=== PATIENT | male | born 1940 | race Caucasian/White ===

== ENCOUNTER 2017-11-11 19:44 | Emergency (ER) | payer OTHER ==
[2017-11-11] MEDS ORDERED: HYDROCODONE/APAP 7.5/325 MG TAB ONE (23:27)
[2017-11-12 00:43] LABS: Absolute Lymphocytes (CBC) 2.1 K/uL (0.7-4.9); Absolute Neutrophil 7.4 K/uL (1.8-8.0); Basophils % 0.8 % (0-1.3); Eosinophils % 2.9 % (0-4.4); Hematocrit 33.3 % (39.6-49.0); MCH 25.5 pg (27.0-35.0); MCV 81.9 fL (80-100); Monocytes % 9.6 % (3.3-12.3); RBC Red Blood Cell Count 4.06 M/uL (4.33-5.43)
[2017-11-12 00:46] LABS: Potassium 4.6 mEq/L (3.6-5.0)
[2017-11-12 00:49] LABS: Magnesium 2.2 mg/dL (1.8-2.5)
--- NOTE | 2017-11-12 01:35 | ER ---
Nurse's Notes [facility] Name: Stephan Lewis Jr Age: 77 yrs Sex: Male : 1940 Arrival Date: 11/11/2017 Time: 19:47 Bed 17 Private MD: Diagnosis: Osteoarthritis of knee;Monoarthritis, not elsewhere classified, left knee Presentation: 11/11 20:12 Presenting complaint: Patient states: Left knee pain for 1 month, worse today. aj Transition of care: patient was not received from another setting of care. Onset of symptoms was October 10, 2017. Care prior to arrival: None. 20:12 Method Of Arrival: Wheelchair aj 20:12 Acuity: ANASTASIA 4 aj 21:43 Initial Sepsis Screen: Does the patient meet any 2 criteria? No. Patient's initial ea sepsis screen is negative. Does the patient have a suspected source of infection? No. Patient's initial sepsis screen is negative. Triage Assessment: 20:14 General: Appears in no apparent distress. comfortable, Behavior is calm, cooperative, aj appropriate for age. Pain: Complains of pain in left knee Pain currently is 8 out of 10 on a pain scale. Neuro: Level of Consciousness is awake, alert, obeys commands, Oriented to person, place, time, situation, Appropriate for age. Respiratory: Airway is patent Respiratory effort is even, unlabored, Respiratory pattern is regular, symmetrical. Derm: Skin is intact, is healthy with good turgor, Skin is pink, warm \T\ dry. normal. Musculoskeletal: Range of motion: limited in left knee Swelling present in left knee. Historical: - Allergies: 20:14 Sulfa (Sulfonamide Antibiotics); aj - Home Meds: 20:14 amitriptyline 25 mg Oral tab 1 tab once daily [Active]; amlodipine 10 mg tab 1 tab once aj daily [Active]; aspirin 81 mg Oral TbEC 1 tab once daily [Active]; atorvastatin 20 mg Oral tab 1 tab once daily [Active]; furosemide 20 mg Oral tab 1 tab 2 times per day [Active]; gabapentin 300 mg Oral cap 1 cap 3 times per day [Active]; insulin aspart subcutaneous 60 unit three times a day [Active]; insulin detemir subcutaneous 60units sq every morning, 50units sq every evening [Active]; lidocaine 5% patch [Active]; lisinopril 20 mg Oral tab 1 tab once daily [Active]; metformin 1,000 mg Oral tab 1 tab 2 times per day [Active]; metoprolol tartrate 50 mg Oral tab once daily [Active]; tamsulosin 0.4 mg Oral cp24 2 caps once daily [Active]; Warfarin Oral [Active]; - PMHx: 20:14 Cererbral aneurysm, non-ruptured (2009); CHF; COPD; Depression; Diabetes - IDDM; aj Dysmetabolic syndrome X; Hyperlipidemia; Hypertension; neuropathy; PAD; rotator cuff tear; - Immunization history:: Adult Immunizations up to date. - Social history:: Smoking status: Patient/guardian denies using tobacco. - Family history:: not pertinent. - Hospitalizations: : No recent hospitalization is reported. - History obtained from: friend. Screenin:38 Abuse screen: Denies threats or abuse. Nutritional screening: No deficits noted. ea Tuberculosis screening: No symptoms or risk factors identified. Fall Risk None identified. Assessment: 20:43 General: Appears uncomfortable, Behavior is calm, cooperative. Pain: Complains of pain ea in left leg and left knee Pain currently is 8 out of 10 on a pain scale. Quality of pain is described as aching. Neuro: Level of Consciousness is awake, alert, obeys commands, Oriented to person, place, time, situation. Cardiovascular: Heart tones S1 S2 present Patient's skin is warm and dry. Respiratory: Airway is patent Respiratory effort is even, unlabored, Respiratory pattern is regular, symmetrical, Breath sounds are coarse bilaterally. GI: Abdomen is round obese, Bowel sounds present X 4 quads. Abd is soft and non tender X 4 quads. : No signs and/or symptoms were reported regarding the genitourinary system. EENT: No signs and/or symptoms were reported regarding the EENT system. Derm: pitting edema noted to ramone lower extremities, weeping noted. 21:25 Reassessment: Patient and/or family updated on plan of care and expected duration. Pain ea level reassessed. Patient is alert, oriented x 3, equal unlabored respirations, skin warm/dry/pink. 22:55 Reassessment: Patient and/or family updated on plan of care and expected duration. Pain ea level reassessed. Patient is alert, oriented x 3, equal unlabored respirations, skin warm/dry/pink. 23:50 Reassessment: Patient and/or family updated on plan of care and expected duration. Pain ea level reassessed. Patient is alert, oriented x 3, equal unlabored respirations, skin warm/dry/pink. 11/12 00:30 Reassessment: Patient and/or family updated on plan of care and expected duration. Pain ea level reassessed. Patient is alert, oriented x 3, equal unlabored respirations, skin warm/dry/pink. 01:55 Reassessment: Patient and/or family updated on plan of care and expected duration. Pain ea level reassessed. Patient is alert, oriented x 3, equal unlabored respirations, skin warm/dry/pink. 02:00 Reassessment: Patient and/or family updated on plan of care and expected duration. Pain ea level reassessed. Patient is alert, oriented x 3, equal unlabored respirations, skin warm/dry/pink. discharge instructions given to patient and family, verbalized the understanding of instruction. Vital Signs: 11/11 20:14 BP 112 / 49; Pulse 62; Resp 19; Temp 97.5; Pulse Ox 97% on R/A; Weight 131.54 kg; aj Height 5 ft. 8 in. (172.72 cm); Pain 7/10; 21:00 BP 118 / 44; Pulse 54; Resp 20; Pulse Ox 97% ; ea 22:32 BP 119 / 51; Pulse 62; Resp 18; Pulse Ox 98% ; ea 11/12 00:50 BP 120 / 50; Pulse 60; Resp 18 S; Pulse Ox 99% ; ea 01:55 BP 130 / 60; Pulse 58; Resp 18; Pulse Ox 98% on R/A; ea 11/11 20:14 Body Mass Index 44.09 (131.54 kg, 172.72 cm) aj ED Course: 11/11 19:47 Patient arrived in ED. ds1 20:13 Triage completed. aj 20:14 Arm band placed on left wrist. Patient placed in an exam room. aj 20:19 Lyudmila James FNP is PHCP. kav 20:19 Finn Thomas MD is Attending Physician. kav 20:35 Hui Rome, JOSUE is Primary Nurse. ea 20:43 Patient has correct armband on for positive identification. Bed in low position. Call ea light in reach. Side rails up X2. 23:37 Knee Left 3 View In Process Unspecified. EDMS 11/12 01:33 Luis Lindsey MD is Referral Physician. kav 02:04 No provider procedures requiring assistance completed. IV discontinued, intact, ea bleeding controlled, No redness/swelling at site. Pressure dressing applied. Administered Medications: 01:00 Drug: Willis (7.5 mg-325 mg) 1 tabs Route: PO; ea 01:50 Follow up: Response: No adverse reaction; Pain is decreased ea Outcome: 01:34 Discharge ordered by MD. kav 02:04 Discharged to home via wheelchair, with family. ea 02:04 Condition: improved 02:04 Discharge instructions given to patient, Instructed on discharge instructions, follow up and referral plans. Demonstrated understanding of instructions, follow-up care. 02:05 Patient left the ED. ea Signatures: Dispatcher [employer] EDDC Catalina Vazquez, RN RN Lyudmila Valdes, NURSE CHEMICAL DEPENDENCY NURSE CHEMICAL DEPENDENCY Alem Quevedo ds1 Hui Rome RN RN ea Corrections: (The following items were deleted from the chart) 11/11 21:58 20:43 Derm: Skin is pink, warm \T\ dry. ea ea
--- NOTE | 2017-11-12 01:35 | EDPHYS ---
Physician Documentation [facility] Name: Stephan Lewis Jr Age: 77 yrs Sex: Male : 1940 Arrival Date: 11/11/2017 Time: 19:47 Bed 17 Private MD: DARIEN Physician Finn Thomas HPI: 11/11 20:19 This 77 yrs old Male presents to ER via Wheelchair with complaints of Knee kav Pain - L, InQuicker Patient. 11/12 01:24 Onset: The symptoms/episode began/occurred 1 month(s) ago. The patient has experienced kav a previous episode, but today's symptoms are worse. The patient has not recently seen a physician. patient pmhx: left tka > 5 years ago. reports increased knee pain in the last month. unable to ambulate owing to "...knee pain". utilizes a rolling chair at home to "...get around". 01:28 The patient presents with pain, that is chronic. The complaints affect the left knee. kav Context: the patient is not able to bear weight, the patient is not able to ambulate. Modifying factors: The symptoms are alleviated by hydrocodone, the symptoms are aggravated by movement, weight bearing, bending knee. Associated signs and symptoms: The patient has no apparent associated signs or symptoms, Pertinent positives: Pertinent negatives calf tenderness, fever, nausea, numbness, rash, swelling, tingling, vomiting, warmth. Treatment prior to arrival includes: prescription medications, codeine. Historical: - Allergies: 11/11 20:14 Sulfa (Sulfonamide Antibiotics); - Home Meds: 20:14 amitriptyline 25 mg Oral tab 1 tab once daily [Active]; amlodipine 10 mg tab 1 tab once aj daily [Active]; aspirin 81 mg Oral TbEC 1 tab once daily [Active]; atorvastatin 20 mg Oral tab 1 tab once daily [Active]; furosemide 20 mg Oral tab 1 tab 2 times per day [Active]; gabapentin 300 mg Oral cap 1 cap 3 times per day [Active]; insulin aspart subcutaneous 60 unit three times a day [Active]; insulin detemir subcutaneous 60units sq every morning, 50units sq every evening [Active]; lidocaine 5% patch [Active]; lisinopril 20 mg Oral tab 1 tab once daily [Active]; metformin 1,000 mg Oral tab 1 tab 2 times per day [Active]; metoprolol tartrate 50 mg Oral tab once daily [Active]; tamsulosin 0.4 mg Oral cp24 2 caps once daily [Active]; Warfarin Oral [Active]; - PMHx: 20:14 Cererbral aneurysm, non-ruptured (2009); CHF; COPD; Depression; Diabetes - IDDM; aj Dysmetabolic syndrome X; Hyperlipidemia; Hypertension; neuropathy; PAD; rotator cuff tear; - Immunization history:: Adult Immunizations up to date. - Social history:: Smoking status: Patient/guardian denies using tobacco. - Family history:: not pertinent. - Hospitalizations: : No recent hospitalization is reported. - History obtained from: friend. ROS: 11/12 01:28 Constitutional: Negative for fever, chills, and weight loss, Eyes: Negative for injury, kav pain, redness, and discharge, ENT: Negative for injury, pain, and discharge, Neck: Negative for injury, pain, and swelling, Cardiovascular: Negative for chest pain, palpitations, and edema, Respiratory: Negative for shortness of breath, cough, wheezing, and pleuritic chest pain, Abdomen/GI: Negative for abdominal pain, nausea, vomiting, diarrhea, and constipation, Back: Negative for injury and pain, : Negative for injury, bleeding, discharge, and swelling, Skin: Negative for injury, rash, and discoloration, Neuro: Negative for headache, weakness, numbness, tingling, and seizure, Psych: Negative for depression, anxiety, suicide ideation, homicidal ideation, and hallucinations, Allergy/Immunology: Negative for hives, rash, and allergies, Endocrine: Negative for neck swelling, polydipsia, polyuria, polyphagia, and marked weight changes. MS/extremity: Positive for pain, of the left knee. Exam: 01:28 Constitutional: This is a well developed, well nourished patient who is awake, alert, kav and in no acute distress. Head/Face: Normocephalic, atraumatic. Eyes: Pupils equal round and reactive to light, extra-ocular motions intact. Lids and lashes normal. Conjunctiva and sclera are non-icteric and not injected. Cornea within normal limits. Periorbital areas with no swelling, redness, or edema. ENT: Nares patent. No nasal discharge, no septal abnormalities noted. Tympanic membranes are normal and external auditory canals are clear. Oropharynx with no redness, swelling, or masses, exudates, or evidence of obstruction, uvula midline. Mucous membranes moist. Neck: Trachea midline, no thyromegaly or masses palpated, and no cervical lymphadenopathy. Supple, full range of motion without nuchal rigidity, or vertebral point tenderness. No Meningismus. Chest/axilla: Normal chest wall appearance and motion. Nontender with no deformity. No lesions are appreciated. Cardiovascular: Regular rate and rhythm with a normal S1 and S2. No gallops, murmurs, or rubs. Normal PMI, no JVD. No pulse deficits. Respiratory: Lungs have equal breath sounds bilaterally, clear to auscultation and percussion. No rales, rhonchi or wheezes noted. No increased work of breathing, no retractions or nasal flaring. Abdomen/GI: Soft, non-tender, with normal bowel sounds. No distension or tympany. No guarding or rebound. No evidence of tenderness throughout. Back: No spinal tenderness. No costovertebral tenderness. Full range of motion. Male : Normal genitalia with no discharge or lesions. Skin: Warm, dry with normal turgor. Normal color with no rashes, no lesions, and no evidence of cellulitis. Neuro: Awake and alert, GCS 15, oriented to person, place, time, and situation. Cranial nerves II-XII grossly intact. Motor strength 5/5 in all extremities. Sensory grossly intact. Cerebellar exam normal. Normal gait. Psych: Awake, alert, with orientation to person, place and time. Behavior, mood, and affect are within normal limits. 01:28 Musculoskeletal/extremity: Extremities: noted in the left knee: pain, ROM: limited active range of motion, in the left knee, Circulation is intact in all extremities. Sensation intact. Joints: the left knee displays limited range of motion, painful range of motion, Tendon exam: specific tendon testing normal through active and passive range of motion DVT Exam: No signs of deep vein thrombosis. Calves: are non-tender. Vital Signs: 11/11 20:14 BP 112 / 49; Pulse 62; Resp 19; Temp 97.5; Pulse Ox 97% on R/A; Weight 131.54 kg; aj Height 5 ft. 8 in. (172.72 cm); Pain 7/10; 21:00 BP 118 / 44; Pulse 54; Resp 20; Pulse Ox 97% ; ea 22:32 BP 119 / 51; Pulse 62; Resp 18; Pulse Ox 98% ; ea 11/12 00:50 BP 120 / 50; Pulse 60; Resp 18 S; Pulse Ox 99% ; ea 01:55 BP 130 / 60; Pulse 58; Resp 18; Pulse Ox 98% on R/A; ea 11/11 20:14 Body Mass Index 44.09 (131.54 kg, 172.72 cm) aj MDM: 11/11 20:19 Medical screening is not applicable. [facility] 11/12 01:28 Data reviewed: vital signs, nurses notes, lab test result(s), radiologic studies, plain kav films. 11/11 23:16 Order name: Basic Metabolic Panel; Complete Time: 00:55 [facility] 11/12 00:56 Interpretation: CA 8.4; CRE 1.42; BUN 38; GFR 48. [facility] 11/11 23:16 Order name: CBC with Diff; Complete Time: 00:55 [facility] 11/12 00:56 Interpretation: Normal except: RBC 4.06; HGB 10.4; HCT 33.3; MCH 25.5; MCHC 31.1; RDW kav 17.4. 11/11 23:16 Order name: CPK; Complete Time: 00:55 [facility] 11/12 00:56 Interpretation: Within normal limits. [facility] 11/11 23:16 Order name: Magnesium; Complete Time: 00:55 [facility] 11/12 00:56 Interpretation: Within normal limits. [facility] 11/12 01:15 Order name: Urine Dipstick--Ancillary (enter results) eb 11/11 23:16 Order name: Cardiac monitoring; Complete Time: 00:07 [facility] 11/11 23:16 Order name: IV Saline Lock; Complete Time: 00:07 [facility] 11/11 23:16 Order name: Labs collected and sent; Complete Time: 00:08 [facility] 11/11 23:16 Order name: O2 Per Protocol; Complete Time: 00:08 [facility] 11/11 23:16 Order name: O2 Sat Monitoring; Complete Time: 00:08 [facility] 11/11 23:16 Order name: Urine Dipstick-Ancillary (obtain specimen); Complete Time: 01:13 [facility] 11/11 23:37 Order name: Knee Left 3 View EDMS Administered Medications: 01:00 Drug: [place] (7.5 mg-325 mg) 1 tabs Route: PO; ea 01:50 Follow up: Response: No adverse reaction; Pain is decreased ea Disposition: 06:41 Co-signature as Attending Physician, Finn Thomas MD I agree with the assessment and indy plan of care. Disposition: 11/12/17 01:34 Discharged to Home. Impression: Osteoarthritis of knee, Monoarthritis, not elsewhere classified, left knee. - Condition is Stable. - Discharge Instructions: Arthritis, Nonspecific, [id number], Knee Pain, [id number]. - Medication Reconciliation Form, Thank You Letter, Antibiotic Education, Prescription Opioid Use, Family Work Release form. - Follow up: Luis Lindsey MD; When: 2 - 3 days; Reason: Recheck today's complaints, Continuance of care, Re-evaluation by your physician. - Problem is chronic. - Symptoms have improved. - Notes: continue to take currently prescribed pain medications for pain: tramadol 50 mg po q 8 hr consider home health for rehabilitation Signatures: Dispatcher [employer] EDAZ Catalina Vazquez, RN Finn Sutherland MD MD cha Vern, Katherine, MEDICAL OFFICE TECHNICIAN MEDICAL OFFICE TECHNICIAN Hui Fox RN RN ea Corrections: (The following items were deleted from the chart) 11/11 23:37 23:17 Knee Right 3 View+RAD.RAD.BRZ ordered. EDAZ EDAZ 11/12 00:56 00:55 Normal except: CA 8.4; CRE 1.42; BUN 38. kav kapal 02:05 01:34 11/12/2017 01:34 Discharged to Home. Impression: Osteoarthritis of knee; ea Monoarthritis, not elsewhere classified, left knee. Condition is Stable. Forms are Medication Reconciliation Form, Thank You Letter, Antibiotic Education, Prescription Opioid Use. Follow up: Luis Lindsey; When: 2 - 3 days; Reason: Recheck today's complaints, Continuance of care, Re-evaluation by your physician. Problem is chronic. Symptoms have improved. kav
[2017-11-12 02:20] VITALS: TEMP 97.5
[2017-11-12 02:22] VITALS: BP 119/51; O2SAT 98
[2017-11-12 02:57] LABS: Urine Blood 1+ (NEG); Urine Glucose NEGATIVE (NEG); Urine Protein NEGATIVE (NEG); Urine pH 5.5 (5.0-7.0)
--- NOTE | 2017-11-12 11:10 | RAD REPORT ---
EXAM DESCRIPTION: RAD - Knee Left 3 View - 11/11/2017 11:44 pm CLINICAL HISTORY: Left knee pain FINDINGS: No fracture or dislocation is seen. The bones are osteoporotic. Mild medial joint space narrowing is present. There is diffuse edema within the subcutaneous tissues
== END 2017-11-12 02:05 | disposition home or self-care (01) ==
LOC: ER 19:44
DX: M17.12 Unilateral primary osteoarthritis, left knee (principal); M13.162 Monoarthritis, not elsewhere classified, left knee; Z88.2 Allergy status to sulfonamides; E11.9 Type 2 diabetes mellitus without complications; I10 Essential (primary) hypertension; E78.5 Hyperlipidemia, unspecified; J44.9 Chronic obstructive pulmonary disease, unspecified
CPT/HCPCS: 36415; 80048; 81003; 82550; 83735; 85025; 99283

== ENCOUNTER 2017-11-30 06:19 | Day surgery (SDC) | payer OTHER ==
[2017-11-30] MEDS: CYCLOPENTOLATE 2% OPTH 2 ML ONE ×3 (06:45→07:15)
[2017-11-30] MEDS: TROPICAMIDE 1% OPTH 3 ML BOT ONE ×3 (06:45→07:15)
[2017-11-30] MEDS: PHENYLEPHRINE 10% OPTH 5ML ONE ×3 (06:45→07:15)
[2017-11-30] MEDS: MOXIFLOXACIN HCL 0.5% 3ML OPTH OPTH ONE ×3 (06:45→07:15)
[2017-11-30] MEDS ORDERED: NA CHLORIDE 0.9% 1,000 ML ONE (06:49)
[2017-11-30] MEDS: KETOROLAC OPTHALMIC 5 ML BOT ONE ×3 (06:55→07:25)
[2017-11-30] MEDS ORDERED: ALBUTEROL 2.5 MG/3 ML NEB SOL ONE (07:04)
[2017-11-30] MEDS ORDERED: BSS OPTHALMIC SOL 15 ML BOT OPTH ONE (07:06)
[2017-11-30] MEDS ORDERED: BALANCED SALT IRRIG PLAIN 500 ML BTL IRR ONE (07:06)
[2017-11-30] MEDS ORDERED: TOBRADEX 0.3-0.1% OPTH OINTMENT ONE (07:06)
[2017-11-30] MEDS ORDERED: POVIDONE-IODINE 5% EYE DROPS ONE (07:06)
[2017-11-30] MEDS ORDERED: DUOVISC 1 KIT OPTH ONE ×2 (07:07→08:38)
[2017-11-30] MEDS ORDERED: EPINEPHRINE/PF 1 MG/ML AMP ONE (07:10)
[2017-11-30] MEDS ORDERED: PROPOFOL 200 MG/20 ML VIAL IV ONE (07:26)
[2017-11-30] MEDS ORDERED: FENTANYL CITR 100 MCG/2 ML ONE ×2 (07:27→08:52)
[2017-11-30] MEDS ORDERED: MIDAZOLAM HCL 2 MG/2 ML INJ ONE (07:27)
[2017-11-30] MEDS ORDERED: ONDANSETRON HCL 40 MG/20 ML VIAL ONE (07:27)
[2017-11-30] MEDS ORDERED: EPHEDRINE SULF 50 MG/5 ML SYR ONE ×2 (08:26→08:45)
[2017-11-30 09:26] VITALS: O2SAT 95
[2017-11-30 10:40] VITALS: BP 89/55; TEMP 98
--- NOTE | 2017-11-30 19:19 | OP ---
Date of Procedure: 11/30/2017 Surgeon: Wilbert Paula MD Preoperative Diagnosis: Visually significant cataract, right eye. Postoperative Diagnosis: Visually significant cataract, right eye. Procedure Performed: Cataract extraction, right eye (complex) with iris hooks and placement of Toric intraocular lens. Description Of Procedure: After being properly identified in the preoperative holding area and the 1 80 and 90 degree areas marked using a skin marker with the patient sitting upright. The patient was taken to the operating room where a time-out was performed. The patient was then placed under genera l anesthesia, and prepped and draped in normal sterile fashion. Examination of the eye underneath e operating microscope revealed the quadrant sexton that had been made in the preoperative holding are a as well as a poorly dilated pupil. Because of this, the decision to place iris hooks was made. A paracentesis wound was made nasally and the anterior chamber was filled with viscoelastic. Thereafte r Luna marker was used and lining up with our preoperative sexton. The Toric placement of 11 degree s was marked on the cornea using a steph Sinskey hook. Once this had been done, the additional incisi ons were made x4 in each of the 4 quadrants for placement of the iris hooks, which were then looped u nder the iris and drawn taut resulting in a square pupil, but large enough for us to do the surgery. The globe was grasped with a pair of 0.12 forceps and the main phaco incision made superiorly using a 2.75 mm keratome. A continuous curvilinear capsulorrhexis was created using a cystotome and comple puneet with Utrata forceps. Hydrodissection and hydrodelineation of the lens were carried out and the le ns was thereafter removed using a standard divide and conquer technique. Through the density of the lens, approximately 18 seconds of continuous dispersed energy was required and once all 4 quadrants h ad been removed, the phaco handpiece was exchanged for an irrigation aspiration handpiece. Once all the residual cortical material had been removed and the capsule polished, an Jose model [id number], jimenez r 22.5, diopter serial #[id number] was implanted into the capsular bag. This was then rotated into its position and the iris hooks were then removed one by one. The irrigation aspiration handpiece wa s then used to remove all remaining viscoelastic material and using equivalent hook to gently retract the iris. Confirmed the correct orientation of the Toric lens without preoperative sexton, which was in place. Because a small amount of iris prolapse superiorly, the decision was made to place a sing le 10-0 nylon suture, which was tied and then buried. The anterior chamber was then hydrated and anurag puneet, and found to be watertight. At which point, the procedure was concluded. The patient was taken to the postoperative holding area in stable condition having tolerated the procedure well. He was p ressure patched over TobraDex ointment. There were no complications. Estimated blood loss was less than 1 mL. He is to follow up with myself, Dr. Wilbert Paula, at the [facility] [place] tom morning. SHITALG/HALL Voice ID: [id number] Report ID: [id number]
== END 2017-11-30 10:35 | disposition home or self-care (01) ==
LOC: OR 06:19
PROVIDERS: ATTEND Ophthalmology
PROC: 08RJ3JZ Replacement of Right Lens with Synthetic Substitute, Percutaneous Approach (ICD-10-PCS; principal; 2017-11-30 07:30)
DX: H26.8 Other specified cataract (principal); J44.9 Chronic obstructive pulmonary disease, unspecified; E11.9 Type 2 diabetes mellitus without complications; I10 Essential (primary) hypertension; I25.10 Atherosclerotic heart disease of native coronary artery without angina pectoris; G47.33 Obstructive sleep apnea (adult) (pediatric); E66.01 Morbid (severe) obesity due to excess calories; Z68.41 Body mass index [BMI] 40.0-44.9, adult; Z95.1 Presence of aortocoronary bypass graft; Z88.2 Allergy status to sulfonamides
CPT/HCPCS: 66982; 82962 ×2; 94640; J0171; J2405; J3010; J7030; J2250; V2787

== ENCOUNTER 2018-01-04 06:25 | Day surgery (SDC) | payer OTHER ==
[2018-01-04] MEDS ORDERED: TOBRADEX 0.3-0.1% OPTH OINTMENT ONE (07:00)
[2018-01-04] MEDS ORDERED: BSS OPTHALMIC SOL 15 ML BOT OPTH ONE (07:00)
[2018-01-04] MEDS: PHENYLEPHRINE 10% OPTH 5ML ONE ×3 (07:00→07:30)
[2018-01-04] MEDS: CYCLOPENTOLATE 2% OPTH 2 ML ONE ×3 (07:00→07:30)
[2018-01-04] MEDS: MOXIFLOXACIN HCL 0.5% 3ML OPTH OPTH ONE ×3 (07:00→07:30)
[2018-01-04] MEDS ORDERED: BALANCED SALT IRRIG PLAIN 500 ML BTL IRR ONE (07:00)
[2018-01-04] MEDS ORDERED: DUOVISC 1 KIT OPTH ONE (07:01)
[2018-01-04] MEDS ORDERED: NA CHLORIDE 0.9% 1,000 ML ONE (07:01)
[2018-01-04] MEDS ORDERED: EPINEPHRINE/PF 1 MG/ML AMP ONE (07:01)
[2018-01-04] MEDS ORDERED: POVIDONE-IODINE 5% EYE DROPS ONE (07:02)
[2018-01-04] MEDS: KETOROLAC OPTHALMIC 5 ML BOT ONE ×3 (07:05→07:35)
[2018-01-04] MEDS: TROPICAMIDE 1% OPTH 3 ML BOT ONE ×3 (07:07→07:30)
[2018-01-04] MEDS ORDERED: LIDOCAINE 2% MPF 5 ML VIAL ONE (07:38)
[2018-01-04] MEDS ORDERED: PROPOFOL 200 MG/20 ML VIAL IV ONE (07:38)
[2018-01-04] MEDS ORDERED: FENTANYL CITR 100 MCG/2 ML ONE (07:39)
[2018-01-04] MEDS ORDERED: ONDANSETRON HCL 40 MG/20 ML VIAL ONE (07:40)
[2018-01-04] MEDS ORDERED: Phenylephrine HCl 10 MG/ML 1 ML VIAL ONE ×3 (08:05→09:28)
[2018-01-04] MEDS ORDERED: EPHEDRINE SULF 50 MG/5 ML SYR ONE (08:08)
[2018-01-04] MEDS ORDERED: GLYCOPYRROLATE 0.2 MG/ML SYR ONE (08:15)
[2018-01-04] MEDS ORDERED: MEPERIDINE HCL 25 MG/0.5 ML ONE (08:20)
[2018-01-04] MEDS ORDERED: NS 0.9% VIAL 0 ML ONE (09:29)
[2018-01-04 12:06] VITALS: BP 86/31; TEMP 97.7; O2SAT 99
--- NOTE | 2018-01-04 14:29 | OP ---
Date of Procedure: 01/04/2018 Surgeon: Wilbert Paula MD Preoperative Diagnosis: Visually significant cataract, left eye with astigmatism. Postoperative Diagnosis: Visually significant cataract, left eye with astigmatism. Procedure Performed: Complex cataract extraction left eye with placement of 4 iris hooks secondary t o poor pupil dilation and placement of a Toric intraocular lens. Description Of Procedure: After being properly identified in the preoperative holding area, the jemma ent was taken back to the operating room where a time-out was performed. The patient was then preppe d and draped in the normal sterile fashion. Examination of the eye underneath the operating microsco pe revealed an extremely poor dilated pupil measuring only approximately 3-1/2 mm despite multiple ro unds of preoperative drops, therefore the decision to place iris hooks was made. Grasping the globe with a pair of 0.12 forceps, a paracentesis wound was made in the horizontal position at both 0 and 1 80 degrees and the anterior chamber filled with viscoelastic. An additional 4 paracentesis wounds we re made in order to accommodate each of the iris hooks, which were then hooked underneath the iris an d have it drawn taut. Even at this stage, it was obvious that the patient had an extremely thin and flimsy iris as two of the iris hooks when drawn taut prolapsed and protruded through the iris. When the hospital staff was questioned as to the possibility of Malyugin ring, I was told this was not joe ilable, and therefore the iris hooks were left in place and the procedure continued. Additional visc oelastic was added and the main phaco incision wound was made superiorly in a triplanar fashion using 2.75 mm keratome. A cystotome was then used to puncture the anterior capsule and a continuous curvi linear capsulorrhexis created using a cystotome and completed with Utrata forceps. Hydrodissection a nd hydrodelineation were carried out with a Vaughn cannula resulting in the lens having free nuclear r otation. The lens was thereafter removed using the standard [id number] technique and approxi mately 14 seconds of total CDE was required. Once all 4 quadrants had been removed, the phaco handpi chau was exchanged for bimanual irrigation aspiration handpieces and the residual cortex was removed a s well as a capsule citizen of [place] performed. The lens implant was an Jose model [id number], power 22.5 diopters , serial #[id number], was then loaded and injected into the capsular bag and rotated into position. Once this was in good position, the capsular hooks were removed and a bimanual irrigation aspiration handpiece was used to remove the viscoelastic. During the insertion of the intraocular lens, there was noted to be a flap of the Descemet's membrane extending superiorly, which was carefully avoided t hereafter and during irrigation aspiration was carefully avoided and was left in the place. Once mos t of the viscoelastic had been removed, I used a Kuglen hook to retract the iris and confirmed that t he alignment sexton were still with our preoperative sexton made with a Sinskey hook and Luna marker prior to any incisions being made and an air bubble was injected into the anterior chamber in order t o help press the loose Descemet's flap back into position and make it adherent. This was done with g ood apposition and no folds. All the wounds were hydrated, but because of the tendency for the super ior wound to prolapse as evidenced throughout the case, a single 10-0 nylon suture was placed with th e knot buried. Examination of the eye at the end of the case revealed a well formed anterior chamber with a round iris and the air bubble comprising approximately 60% fill filling watertight incision. The patient was then awoken from general anesthesia and patched over TobraDex ointment. He was take n to the postoperative holding area in stable condition having tolerated the procedure well. There w ere no complications with the exception of the Descemet's tears as described above. This patient patricia uld fully recover from it. No specimens were sen, no drains were placed, and the implant is as descr ibed above as well. The patient is to follow up with myself, Dr. Wilbert Paula at the [facility] tomorrow morning. SHITALG/HALL Voice ID: [id number] Report ID: [id number]
== END 2018-01-04 12:02 | disposition home or self-care (01) ==
LOC: OR 06:25
PROVIDERS: ATTEND Ophthalmology
PROC: 08RK3JZ Replacement of Left Lens with Synthetic Substitute, Percutaneous Approach (ICD-10-PCS; principal; 2018-01-04 07:30)
DX: H26.9 Unspecified cataract (principal); H52.202 Unspecified astigmatism, left eye
CPT/HCPCS: 66982; 82962 ×2; J0171; J2175; J2370 ×3; J2405; J3010; J7030; V2630; V2787

== ENCOUNTER 2018-02-19 10:06 | Inpatient (IN) | payer OTHER ==
[2018-02-19 11:16] LABS: Absolute Lymphocytes (CBC) 1.9 K/uL (0.7-4.9); Absolute Monocytes 1.3 K/uL (0.1-1.3); Absolute Neutrophil 13.7 K/uL (1.8-8.0); Eosinophils % 1.7 % (0-4.4); Hematocrit 36.5 % (39.6-49.0); MCH 27.1 pg (27.0-35.0); MCV 82.6 fL (80-100); MPV 8.5 fL (7.6-11.3); Monocytes % 7.4 % (3.3-12.3); RBC Red Blood Cell Count 4.42 M/uL (4.33-5.43)
[2018-02-19] MEDS ORDERED: FENTANYL CITR 100 MCG/2 ML ONE (11:22)
[2018-02-19] MEDS ORDERED: ONDANSETRON 4 MG/2 ML VIAL ONE (11:22)
--- NOTE | 2018-02-19 11:54 | RAD REPORT ---
EXAM DESCRIPTION: USEXTREM VENOUS W COMPRESS BIL02/19/2018 11:47 am CLINICAL HISTORY: Bilateral leg swelling COMPARISON: April 2017 FINDINGS: The common femoral, superficial femoral, popliteal and posterior tibial veins bilaterally are compressible and demonstrate augmentation. Doppler demonstrates good flow. A 2.3 centimeter fluid collection is present within the superior posterior right calf which may repre sent a small ruptured Becerra's cyst IMPRESSION: No evidence of deep venous thrombosis involving either lower extremity.
[2018-02-19 11:55] LABS: Potassium 4.5 mmol/L (3.5-5.1)
[2018-02-19] MEDS ORDERED: PIPER/TAZO/NS 3.375gm 3.375 GM/100 ML BAG ONE (11:56)
--- NOTE | 2018-02-19 12:28 | ER ---
Nurse's Notes [facility] Name: Stephan Lewis Jr Age: 77 yrs Sex: Male : 1940 Arrival Date: 02/19/2018 Time: 10:09 Bed 14 Private MD: Out, [facility] Diagnosis: CELLULITIS OF THE LOWER EXTREMITY Presentation: 02/19 10:21 Presenting complaint: Patient states: increased pain and drainage to wound to bilateral ss lower extremities 3-4 days. PT reports he is a patient at the [facility] and sees a home health nurse 3 times a week, but has not had any improvement. Transition of care: patient was not received from another setting of care. Onset of symptoms is unknown. Risk Assessment: Do you want to hurt yourself or someone else? Patient reports no desire to harm self or others. Initial Sepsis Screen: Does the patient meet any 2 criteria? RR > 20 per min. Does the patient have a suspected source of infection? Yes: Skin breakdown/wound. Care prior to arrival: None. 10:21 Method Of Arrival: Wheelchair ss 10:21 Acuity: ANASTASIA 3 ss Triage Assessment: 13:24 General: Appears uncomfortable, Behavior is cooperative. Pain: Complains of pain in sv right leg and left leg Pain currently is 10 out of 10 on a pain scale. Quality of pain is described as stabbing, tingling, Is intermittent. 13:24 EENT: No signs and/or symptoms were reported regarding the EENT system. Neuro: Level of sv Consciousness is awake, alert, obeys commands, Oriented to person, place, time, situation, Moves all extremities. Cardiovascular: Patient's skin is warm and dry. Edema is 3+ to left midcalf, left ankle, left foot, right midcalf, right ankle and right foot Rhythm is atrial fibrillation. Respiratory: Respiratory effort is even, unlabored, Respiratory pattern is regular, symmetrical. GI: No signs and/or symptoms were reported involving the gastrointestinal system. : No signs and/or symptoms were reported regarding the genitourinary system. Derm: Skin is normal, Redness noted to BLE, L>R. Weeping noted to BLE. Musculoskeletal: Range of motion: intact in all extremities. Historical: - Allergies: 10:23 Sulfa (Sulfonamide Antibiotics); ss - PMHx: 10:41 Cererbral aneurysm, non-ruptured (2009); CHF; COPD; Depression; Diabetes - IDDM; sv Dysmetabolic syndrome X; Hyperlipidemia; Hypertension; neuropathy; PAD; rotator cuff tear; bladder cancer; - Immunization history:: Adult Immunizations not up to date. - Social history:: Smoking status: Patient/guardian denies using tobacco, the patient reports quitting approximately 7 years ago. - Ebola Screening: : Patient denies exposure to infectious person Patient denies travel to an Ebola-affected area in the 21 days before illness onset. Screenin:22 Abuse screen: Denies threats or abuse. Nutritional screening: No deficits noted. sv Tuberculosis screening: No symptoms or risk factors identified. Fall Risk None identified. Assessment: 11:21 Reassessment: Patient appears in no apparent distress at this time. Patient and/or sv family updated on plan of care and expected duration. Pain level reassessed. Patient is alert, oriented x 3, equal unlabored respirations, skin warm/dry/pink. 12:35 Reassessment: Patient appears in no apparent distress at this time. Patient and/or rb1 family updated on plan of care and expected duration. Pain level reassessed. Patient is alert, oriented x 3, equal unlabored respirations, skin warm/dry/pink. Vital Signs: 10:19 Pulse 67; Resp 21; Temp 97.6(O); Pulse Ox 97% on R/A; Weight 129.73 kg; Height 5 ft. 8 ss in. (172.72 cm); Pain 10/10; 10:40 BP 112 / 48; Pulse 69; Resp 17; Pulse Ox 99% on 2 lpm NC; sv 11:00 BP 94 / 50; Pulse 69; Resp 21; Pulse Ox 100% on 2 lpm NC; sv 10:19 Body Mass Index 43.49 (129.73 kg, 172.72 cm) ED Course: 10:09 Patient arrived in ED. sb2 10:10 Out, of Town is Private Physician. sb2 10:19 Arm band placed on right wrist. ss 10:22 Triage completed. 10:26 Sony Rivera PA is PHCP. [facility] 10:26 Wolf Dangelo MD is Attending Physician. [facility] 10:29 Ofeila Salcido RN is Primary Nurse. sv 11:00 Initial lab(s) drawn, by me, sent to lab. First set of blood cultures drawn by me. sv Inserted saline lock: 20 gauge in right antecubital area, using aseptic technique. Blood collected. Flushed right antecubital with 5 ml normal saline. 11:15 Second set of blood cultures drawn by me. sv 11:45 Ultrasound completed. Patient tolerated well. aa4 11:45 US Extremity Venous W Compression Satya In Process Unspecified. EDMS 12:26 Edmundo Thomas DO is Hospitalizing Provider. jmm 13:22 Patient has correct armband on for positive identification. sv 13:22 No provider procedures requiring assistance completed. Patient admitted, IV remains in sv place. Administered Medications: 11:21 Drug: Zofran 4 mg Route: IVP; Site: right antecubital; sv 11:30 Follow up: Response: No adverse reaction sv 11:23 Drug: fentaNYL (PF) 25 mcg Route: IVP; Site: right antecubital; sv 19:02 Follow up: Response: No adverse reaction sv 12:35 Drug: Zosyn 3.375 grams Route: IVPB; Infused Over: 60 mins; Site: right antecubital; rb1 Outcome: 12:27 Decision to Hospitalize by Provider. jmm 13:22 Discharged to sv 13:22 Admitted to Med/surg accompanied by tech, via wheelchair, room 207, with oxygen, with chart, Report called to Liz SALAS 13:22 Condition: stable 13:22 Instructed on the need for admit. 13:28 Patient left the ED. sv Signatures: Dispatcher [employer] EDMS Ofelia Salcido RN RN Sony Rivera PA PA [facility] Catalina Nunez aa4 Meli Wren RN RN Debora Whalen, JOSUE RN rb1 Abigail Hernandez sb2 Corrections: (The following items were deleted from the chart) 11:30 10:40 BP 112 / 48; Pulse 69bpm; Resp 17bpm; Pulse Ox 99%; sv sv 16:31 13:24 Pain: Complains of pain in right leg and left leg sv sv
--- NOTE | 2018-02-19 12:28 | EDPHYS ---
Physician Documentation [facility] Name: Stephan Lewis Jr Age: 77 yrs Sex: Male : 1940 Arrival Date: 02/19/2018 Time: 10:09 Bed 14 Private MD: Out, [facility] ED Physician Wolf Dangelo HPI: 02/19 10:44 This 77 yrs old Male presents to ER via Wheelchair with complaints of Leg jmm Pain. 10:44 The patient presents with pain, swelling. The complaints affect the. Onset: The jmm symptoms/episode began/occurred gradually, 1 month(s) ago. This is a 77 year old male with a history of CHF, COPD, that presents to the ED with lower extremity swelling which has been chronic. Patient states he has developed progressively worsening redness and pain over the past month. The patient denies fever and chills. Denies increased shortness of breath. Patient states he has been admitted for IV antibiotics with similar symptoms. . Historical: - Allergies: 10:23 Sulfa (Sulfonamide Antibiotics); ss - PMHx: 10:41 Cererbral aneurysm, non-ruptured (2009); CHF; COPD; Depression; Diabetes - IDDM; sv Dysmetabolic syndrome X; Hyperlipidemia; Hypertension; neuropathy; PAD; rotator cuff tear; bladder cancer; - Immunization history:: Adult Immunizations not up to date. - Social history:: Smoking status: Patient/guardian denies using tobacco, the patient reports quitting approximately 7 years ago. - Ebola Screening: : Patient denies exposure to infectious person Patient denies travel to an Ebola-affected area in the 21 days before illness onset. ROS: 10:46 Constitutional: Negative for fever, chills, and weight loss, Cardiovascular: Negative jmm for chest pain, palpitations, and edema, Respiratory: Negative for shortness of breath, cough, wheezing, and pleuritic chest pain. 10:46 MS/extremity: Positive for erythema, pain, swelling. 10:46 Skin: Positive for erythema. 10:46 All other systems are negative. Exam: 10:46 Constitutional: This is a well developed, well nourished patient who is awake, alert, jmm and in no acute distress. Head/Face: atraumatic. Cardiovascular: Regular rate and rhythm. No edema appreciated Respiratory: Normal respirations, no respiratory distress appreciated 10:46 Musculoskeletal/extremity: erythema and induration noted to the left and right lower extremities, full dorsalis pulse appreciated bilaterally, compartments are soft, NVI. Ulcers noted to the left lower leg. Circumferential swelling is appreciated bilaterally. . Vital Signs: 10:19 Pulse 67; Resp 21; Temp 97.6(O); Pulse Ox 97% on R/A; Weight 129.73 kg; Height 5 ft. 8 ss in. (172.72 cm); Pain 10/10; 10:40 BP 112 / 48; Pulse 69; Resp 17; Pulse Ox 99% on 2 lpm NC; sv 11:00 BP 94 / 50; Pulse 69; Resp 21; Pulse Ox 100% on 2 lpm NC; sv 10:19 Body Mass Index 43.49 (129.73 kg, 172.72 cm) ss MDM: 10:40 Patient medically screened. [facility] 12: Data reviewed: vital signs, nurses notes, lab test result(s), radiologic studies, [facility] ultrasound. Counseling: I had a detailed discussion with the patient and/or guardian regarding: the historical points, exam findings, and any diagnostic results supporting the discharge/admit diagnosis, radiology results, the need for further work-up and treatment in the hospital. ED course: I discussed the patient with Dr. Thomas whom accepted admission. . 02/19 10:41 Order name: CBC with Diff; Complete Time: 11:42 [facility] 02/19 10:41 Order name: BMP; Complete Time: 11:57 [facility] 02/19 10:41 Order name: Blood Culture Adult (2) [facility] 02/19 10:41 Order name: Procalcitonin; Complete Time: 11:57 [facility] 02/19 12:49 Order name: T4 Free [facility] 02/19 12:49 Order name: Thyroid Stimulating Hormone [facility] 02/19 12:49 Order name: Basic Metabolic Panel [facility] 02/19 12:49 Order name: Basic Metabolic Panel [facility] 02/19 12:49 Order name: Basic Metabolic Panel [facility] 02/19 12:49 Order name: Basic Metabolic Panel [facility] 02/19 12:49 Order name: Basic Metabolic Panel [facility] 02/19 12:49 Order name: Basic Metabolic Panel [facility] 02/19 12:49 Order name: CBC with Automated Diff [facility] 02/19 12:49 Order name: CBC with Automated Diff EDMS 02/19 10:41 Order name: US Extremity Venous W Compression Satya; Complete Time: 11:57 jmm 02/19 12:49 Order name: Echo with Doppler EDMS 02/19 12:49 Order name: CBC with Automated Diff EDMS 02/19 12:49 Order name: CBC with Automated Diff EDMS 02/19 12:49 Order name: CBC with Automated Diff EDMS 02/19 12:49 Order name: CBC with Automated Diff EDMS 02/19 12:50 Order name: Lipid Profile EDMS 02/19 12:50 Order name: Lipid Profile EDMS 02/19 12:50 Order name: Magnesium EDMS 02/19 12:50 Order name: Magnesium EDMS 02/19 12:50 Order name: Magnesium EDMS 02/19 12:50 Order name: Magnesium EDMS 02/19 12:50 Order name: Magnesium EDMS 02/19 12:50 Order name: Magnesium EDMS 02/19 12:50 Order name: Wound Culture EDMS 02/19 12:50 Order name: Urinalysis EDMS 02/19 12:49 Order name: CONS Pharmacy Consult EDMS 02/19 12:49 Order name: CONS [facility] Cons EDMS 02/19 12:49 Order name: CONS Physician Consult EDMS 02/19 12:49 Order name: Heart Healthy EDMS 02/19 12:50 Order name: Respiratory Therapy Consult EDMS 02/19 12:50 Order name: Chest Pa And Lat (2 Views) EDMS Administered Medications: 11:21 Drug: Zofran 4 mg Route: IVP; Site: right antecubital; sv 11:30 Follow up: Response: No adverse reaction sv 11:23 Drug: fentaNYL (PF) 25 mcg Route: IVP; Site: right antecubital; sv 19:02 Follow up: Response: No adverse reaction sv 12:35 Drug: Zosyn 3.375 grams Route: IVPB; Infused Over: 60 mins; Site: right antecubital; rb1 Disposition: 02/19/18 12:27 Hospitalization ordered by Edmundo Thomas for Inpatient Admission. Preliminary diagnosis is CELLULITIS OF THE LOWER EXTREMITY. - Bed requested for Telemetry/MedSurg (Inpatient). - Status is Inpatient Admission. sv - Condition is Stable. - Problem is new. - Symptoms are unchanged. UTI on Admission? No Addendum: 02/21/2018 11:16 Co-signature as Attending Physician, Wolf Dangelo MD I agree with the assessment and w a plan of care. Signatures: Dispatcher [employer] Ofelia Chandra, JOSUE SALAS Sony Rivera PA PA [facility] Meli Wren RN RN Debora Whalne, JOSUE SALAS [facility] Tori Ross RN RN df Wolf Dangelo MD MD sd Corrections: (The following items were deleted from the chart) 02/19 12:58 12:27 Hospitalization Ordered by Edmundo Thomas DO for Inpatient Admission. Preliminary df diagnosis is CELLULITIS OF THE LOWER EXTREMITY. Bed requested for Telemetry/MedSurg (Inpatient). Status is Inpatient Admission. Condition is Stable. Problem is new. Symptoms are unchanged. UTI on Admission? No. [facility] 13:28 12:58 02/19/2018 12:27 Hospitalization Ordered by Edmundo Thomas DO for Inpatient sv Admission. Preliminary diagnosis is CELLULITIS OF THE LOWER EXTREMITY. Bed requested for Telemetry/MedSurg (Inpatient). Status is Inpatient Admission. Condition is Stable. Problem is new. Symptoms are unchanged. UTI on Admission? No. df 18:15 10:46 Musculoskeletal/extremity: erythema and induration noted to the left and right [facility] lower extremities, full dorsalis pulse appreciated bilaterally, compartments are soft, NVI. Ulcers noted to the left lower leg. Circumferential swelling is appreciated bilaterally. . [facility]
[2018-02-19] MEDS ORDERED: IPRATROPIUM BROM 0.5MG/2.5ML NEB PRN (12:38)
[2018-02-19] MEDS ORDERED: ACETAMINOPHEN 500 MG TAB PO PRN (12:38)
[2018-02-19] MEDS ORDERED: ALBUTEROL 2.5 MG/3 ML NEB SOL NEB PRN (12:38)
[2018-02-19] MEDS ORDERED: ONDANSETRON 4 MG/2 ML VIAL IV PRN (12:38)
[2018-02-19] MEDS ORDERED: GLUCAGON 1 MG/VIAL IM PRN (13:27)
[2018-02-19] MEDS ORDERED: D50W 25 GM/50 ML SYRINGE IV PRN (13:27)
--- NOTE | 2018-02-19 13:28 | P.HP ---
Certification for Inpatient Patient admitted to: Inpatient With expected LOS: >2 Midnights Patient will require the following post-hospital care: Other (Long-term acute care facility verses skilled placement) Practitioner: I am a practitioner with admitting privileges, knowledge of patient current condition, hospital course, and medical plan of care. Services: Services provided to patient in accordance with Admission requirements found in Title 42 Section 412.3 of the Code of Federal Regulations Patient History Date of Service: 02/19/18 Primary Care Provider: [facility] Reason for admission: Edema, erythema to the lower extremities History of Present Illness: 77-year-old male presented emergency room with increasing swelling, erythema to the lower extremities bilateral. Patient reports a history of CHF requiring home oxygen, COPD, CAD, history of bladder cancer, former tobacco use , and diabetes. Patient reports that he has had cellulitis to the lower extremities. [facility] has [facility] 2-3 times over the past 6 months. He currently gets home health to address his wounds. Over the last several days increasing erythema, weeping, swelling, and warmth is noted. He denied any fever, he reported some chills. He denies any significant shortness of breath or chest pain. He came to the ER for further evaluation. In the ER he was evaluated. White count 17.4, procalcitonin within normal range. Sodium 138, potassium 4.5, GFR 59. Glucose 120. Lower extremity Doppler shows no DVT. Suspected rupture of of right small Becerra cyst noted. Patient has significant swelling, edema to the lower extremities. Patient was admitted for treatment. When I saw the patient the ER, he appeared comfortable with oxygen. He did not appear in any respiratory distress. Patient reports getting his care at the [facility]. Allergies Sulfa (Sulfonamide Antibiotics) [Sulfa(Sulfonamide Antibiotics)] Adverse Reaction (Mild, Verified 01/03/18 14:56) Rash Home medications list reviewed: Yes Home Medications: Aspirin [Sandra Chewable Aspirin] 1 tab PO DAILY 09/25/14 Finasteride [Proscar*] 1 tab PO DAILY 09/25/14 Furosemide [Lasix*] 60 mg PO DAILY 09/25/14 Atorvastatin Calcium [Lipitor*] 20 mg PO BEDTIME 03/08/15 Gabapentin [Gralise] 600 mg PO TID 01/13/17 Insulin Aspart [Novolog Flexpen] 30 unit SQ TIDWM 01/13/17 Insulin Detemir [Levemir Flextouch] 35 units SQ BID 01/13/17 Lisinopril [Zestril] 2.5 mg PO DAILY 01/13/17 Apixaban [Eliquis] 5 mg PO DAILY 11/30/17 Tamsulosin [Flomax*] 0.4 mg PO DAILY 11/30/17 - Past Medical/Surgical History Diabetic: Yes -: HTN -: COPD, oxygen-dependent -: Lymphedema -: BPH -: Diabetes mellitus type 2 -: Arthritis -: Hyperlipidemia -: Diabetic neuropathy -: CHF, CAD with previous CABG -: Recurrent cellulitis lower extremity -: Obesity -: Former tobacco use -: Bone spur surgery -: Right knee surgery -: CABG x3 -: Brain aneurism repair 2013 -: Bladder surgery -: Cataracts surgery Psychosocial/ Personal History: The patient is currently single and . He has 2 children. He currently lives with his son. - Family History Mother -: Cancer Sister -: Diabetes Father -: Heart disease Notes: cardiac bypass surgery - Social History Smoking Status: Former smoker Alcohol use: No CD- Drugs: No Caffeine use: Yes Place of Residence: Home Review of Systems General: Weakness, Malaise, As per HPI Eyes: Unremarkable ENT: Unremarkable Respiratory: Unremarkable Cardiovascular: Edema, As per HPI Gastrointestinal: Unremarkable Genitourinary: Unremarkable Musculoskeletal: Back Pain, Leg Pain, Pedal edema, As per HPI Integumentary: As per HPI Neurological: Unremarkable Lymphatics: Unremarkable Physical Examination - Physical Exam General: Alert, In no apparent distress, Oriented x3, Cooperative HEENT: Atraumatic, Normocephalic, PERRLA, Mucous membr. moist/pink Neck: Supple, No Thyromegaly Respiratory: Expiratory wheezes (Mild wheezing bilateral) Cardiovascular: Normal pulses, Regular rate/rhythm Gastrointestinal: Normal bowel sounds, Soft and benign, Non-distended, No tenderness, No masses, No rebound, No guarding Musculoskeletal: Other (Chronic lymphedema noted) Integumentary: No cyanosis, Other (Slight warmth noted to the lower extremities bilateral) Neurological: Normal speech, Normal strength at 5/5 x4 extr, Normal tone, Normal affect - Studies Laboratory Data (last 24 hrs) 02/19/18 10:45: Sodium 138, Potassium 4.5, BUN 37 H, Creatinine 1.20, Glucose 120 H 02/19/18 10:45: WBC 17.4 H, Hgb 12.0 L, Hct 36.5 L, Plt Count 319 Assessment and Plan - Problems (Diagnosis) (1) Cellulitis Current Visit: Yes Status: Acute Plan: Bilateral recurrent lower extremity cellulitis, left greater than right. Patient with history of chronic lymphedema and venous insufficiency. Will start IV antibiotic therapy. Will obtain wound and blood cultures. Will have pharmacy monitor and address. Will consult wound care to further evaluate and treat. Will consult infectious disease for further recommendation. Will check echocardiogram. Patient may require long-term acute care facility placement or skilled placement for aggressive wound care and IV antibiotic therapy. Qualifiers: Site of cellulitis: extremity Site of cellulitis of extremity: lower extremity (2) Diabetes mellitus Current Visit: Yes Status: Chronic Plan: Will check A1c. Will continue sliding scale. Qualifiers: Diabetes mellitus type: type 2 Diabetes mellitus rn gynecology insulin use: unspecified fci insulin use status Diabetes mellitus complication status : with other specified complication Qualified Code(s): E11.69 - Type 2 diabetes mellitus with other specified complication (3) Diabetic neuropathy Current Visit: Yes Status: Chronic Plan: Will need to obtain home medication and restart. Qualifiers: Diabetes mellitus type: type 2 Diabetes mellitus complication detail: diabetic polyneuropathy Qualified Code(s): E11.42 - Type 2 diabetes mellitus with diabetic polyneuropathy (4) GERD (gastroesophageal reflux disease) Current Visit: Yes Status: Chronic Plan: Will provide PPI. Qualifiers: Esophagitis presence: esophagitis presence not specified Qualified Code(s) : K21.9 - Gastro-esophageal reflux disease without esophagitis (5) CAD (coronary artery disease) Current Visit: Yes Status: Chronic Plan: Will start aspirin. Will need to obtain home medication. (6) History of coronary artery bypass graft Current Visit: Yes Status: Chronic Plan: Will need to obtain and restart home medication. (7) Oxygen dependent Current Visit: Yes Status: Chronic Plan: Patient on chronic O2 likely for COPD and CHF. (8) Lymphedema Current Visit: No Status: Chronic (9) COPD (chronic obstructive pulmonary disease) Current Visit: No Status: Chronic Plan: Continue with COPD medication. Qualifiers: COPD type: chronic bronchitis Chronic bronchitis type: unspecified Qualified Code(s): J42 - Unspecified chronic bronchitis (10) Benign prostatic hypertrophy Current Visit: No Status: Chronic Plan: Patient with history of BPH. Will need to obtain home medication. (11) Hypertension Current Visit: No Status: Chronic Plan: Will need to obtain and restart home medication. Qualifiers: Hypertension type: essential hypertension Qualified Code(s): I10 - Essential (primary) hypertension (12) Venous insufficiency (chronic) (peripheral) Current Visit: No Status: Chronic Plan: Chronic venous insufficiency noted (13) Hyperlipidemia Current Visit: No Status: Chronic Plan: Will need to obtain and restart home medication Qualifiers: Hyperlipidemia type: unspecified Qualified Code(s): E78.5 - Hyperlipidemia , unspecified (14) Morbid obesity Onset Date: 09/25/14 Current Visit: No Status: Chronic Plan: Will need to address lifestyle modification education. (15) CHF (congestive heart failure) Current Visit: Yes Status: Acute Plan: Acute on chronic CHF likely systolic in nature. Will provide 1500 cc per day fluid restriction. Will continue with Lasix IV. Will obtain echocardiogram. Cardiology consulted to further assess. Qualifiers: Heart failure type: systolic Heart failure chronicity: acute on chronic Qualified Code(s): I50.23 - Acute on chronic systolic (congestive) heart failure Discharge Plan: Other (Skilled placement verses long-term acute care facility) Plan to discharge in: Greater than 2 days - Advance Directives Does patient have a Living Will: No Does patient have a Durable POA for Healthcare: No - Code Status/Comfort Care Code Status Assessed: Yes (Patient is DNR.) Time Spent Managing Pts Care (In Minutes): 55
[2018-02-19] MEDS ORDERED: VANCOMYCIN 2 GM in NA CHLORIDE 0.9% 500 ML IVPB SCH (13:30)
[2018-02-19] MEDS ORDERED: TRAMADOL HCL 50 MG TAB PO PRN (13:34)
[2018-02-19] MEDS ORDERED: HYDROCODONE/APAP 7.5/325 MG TAB PO PRN (13:34)
[2018-02-19] MEDS ORDERED: HYDRALAZINE HCL 20 MG/ML VIAL IV PRN (13:35)
[2018-02-19 13:50] LABS: Thyroid Stimulating Hormone 0.81 uIU/mL (0.36-3.74)
[2018-02-19] MEDS ORDERED: VANCOMYCIN 1 GM/250 ML BAG ONE (14:55)
[2018-02-19 14:56] VITALS: BMI 43.4
[2018-02-19] MEDS ORDERED: TETANUS & DIPHTHERIA TOX,ADULT 0.5 ML VIAL ONE (14:56)
[2018-02-19] MEDS: INSULIN -REGULAR HUMAN 50 UNIT/0.5 ML ML SQ SCH ×2 (16:24→20:20)
[2018-02-19] MEDS: VANCOMYCIN 2 GM in NA CHLORIDE 0.9% 500 ML IVPB SCH (16:29)
[2018-02-19] MEDS: FUROSEMIDE 40 MG/4 ML VIAL IV SCH (16:30)
[2018-02-19 16:32] LABS: Urine Appearance CLEAR; Urine Bilirubin NEGATIVE (NEG); Urine Blood NEGATIVE (NEG); Urine Color YELLOW; Urine Glucose NEGATIVE (NEG); Urine Protein NEGATIVE (NEG); Urine Specific Gravity 1.015 (1.005-1.030); Urine Urobilinogen 0.2 mg/dL (0.2-1.0)
[2018-02-19] MEDS ORDERED: ENOXAPARIN 40 MG/0.4 ML SQ SCH (17:00)
[2018-02-19 17:02] LABS: Urine Microscopic Reflex ORDER UMIC
[2018-02-19 17:12] LABS: Urine Bacteria <20 /HPF (NONE SEEN); Urine RBC <5 /HPF (NONE SEEN)
[2018-02-19 17:13] LABS: Urine Culture Reflex Order NOT NEEDED
[2018-02-19] MEDS: PIPER/TAZO/NS 3.375gm 3.375 GM/100 ML BAG IVPB SCH (18:07)
--- NOTE | 2018-02-19 19:30 | RAD REPORT ---
EXAM DESCRIPTION: Kavin Garcia (2 Views)02/19/2018 6:56 pm CLINICAL HISTORY: Cough COMPARISON: April 2017 FINDINGS: The lungs appear clear of acute infiltrate. The heart is borderline enlarged. Postsurgica l changes involve the chest IMPRESSION: No acute abnormalities displayed
[2018-02-19] MEDS: ARFORMOTEROL TARTRATE 15 MCG/2 ML VIAL.NEB NEB SCH (19:44)
[2018-02-20] MEDS: PIPER/TAZO/NS 3.375gm 3.375 GM/100 ML BAG IVPB SCH ×3 (00:52→18:11)
[2018-02-20 05:18] LABS: Absolute Lymphocytes (CBC) 1.3 K/uL (0.7-4.9); Absolute Monocytes 0.8 K/uL (0.1-1.3); Absolute Neutrophil 9.1 K/uL (1.8-8.0); Basophils % 0.8 % (0-1.3); Eosinophils % 3.7 % (0-4.4); Hematocrit 36.1 % (39.6-49.0); Lymphocytes % 11.4 % (15.3-44.8); MCH 26.9 pg (27.0-35.0); MCV 84.1 fL (80-100); MPV 8.5 fL (7.6-11.3); Monocytes % 6.9 % (3.3-12.3); RBC Red Blood Cell Count 4.29 M/uL (4.33-5.43)
[2018-02-20 05:43] LABS: Magnesium 2.1 mg/dL (1.8-2.4); Potassium 4.2 mmol/L (3.5-5.1)
[2018-02-20] MEDS: PANTOPRAZOLE 40MG TABLET PO SCH (06:32)
[2018-02-20] MEDS: INSULIN -REGULAR HUMAN 50 UNIT/0.5 ML ML SQ SCH ×4 (07:30→20:43)
[2018-02-20] MEDS: ARFORMOTEROL TARTRATE 15 MCG/2 ML VIAL.NEB NEB SCH ×2 (08:18→19:13)
--- NOTE | 2018-02-20 08:18 | P.PN ---
Subjective Date of Service: 02/20/18 Primary Care Provider: [facility] Chief Complaint: Edema, erythema to the lower extremities Subjective: Other (Patient feeling better.) Physical Examination - Vital Signs Temperature: 97.5 F Blood Pressure: 104/50 Pulse: 84 Respirations: 20 Pulse Ox (%): 93 - Physical Exam General: Alert, In no apparent distress, Oriented x3, Cooperative HEENT: Atraumatic Neck: Supple Respiratory: Clear to auscultation bilaterally, Normal air movement Cardiovascular: Normal pulses, Regular rate/rhythm Gastrointestinal: Normal bowel sounds, Soft and benign, Non-distended, No tenderness, No masses, No rebound, No guarding Integumentary: Other (Erythema to the lower extremities improved. Bullous formation still noted.) Neurological: Normal speech, Normal strength at 5/5 x4 extr, Normal tone, Normal affect - Studies Laboratory Data (last 24 hrs) 02/19/18 10:45: Sodium 138, Potassium 4.5, BUN 37 H, Creatinine 1.20, Glucose 120 H 02/19/18 10:45: WBC 17.4 H, Hgb 12.0 L, Hct 36.5 L, Plt Count 319 Medications List Reviewed: Yes Assessment & Plan - Problems (Diagnosis) (1) Cellulitis Current Visit: Yes Status: Acute Plan: Bilateral recurrent lower extremity cellulitis, left greater than right. Patient with history of chronic lymphedema and venous insufficiency. Will continue with IV antibiotic therapy. Wound and blood cultures obtained. Pharmacy to adjust medications. Infectious disease consulted to further evaluate. Infectious Disease has evaluated patient in the past. Await further recommendations. Patient may require long-term acute care facility placement verses skilled placement for aggressive wound care. Wound care consulted to further address. Qualifiers: Site of cellulitis: extremity Site of cellulitis of extremity: lower extremity (2) Diabetes mellitus Current Visit: Yes Status: Chronic Plan: A1c 6.6. Will start low dose basal insulin. 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 Qualifiers: Esophagitis presence: esophagitis presence not specified Qualified Code(s) : K21.9 - Gastro-esophageal reflux disease without esophagitis (5) CAD (coronary artery disease) Current Visit: Yes Status: Chronic Plan: Will continue with aspirin and review and restart home medication (6) History of coronary artery bypass graft Current Visit: Yes Status: Chronic Plan: Will review and restart home medication (7) Oxygen dependent Current Visit: Yes Status: Chronic Plan: Patient on chronic O2 likely for COPD and CHF. Will maintain sats above 90%. Will continue treatment for COPD and CHF. (8) Lymphedema Current Visit: No Status: Chronic Plan: Continue with diuretic therapy. Placement will be on a 1500 cc per day fluid restriction. Continue with current plan of care. (9) COPD (chronic obstructive pulmonary disease) Current Visit: No Status: Chronic Plan: Continue with COPD medication. Will maintain sats above 90%. Patient on home oxygen. Qualifiers: COPD type: chronic bronchitis Chronic bronchitis type: unspecified Qualified Code(s): J42 - Unspecified chronic bronchitis (10) Benign prostatic hypertrophy Current Visit: No Status: Chronic Plan: Patient with history of BPH. Will continue his home medication (11) Hypertension Current Visit: No Status: Chronic Plan: Will continue with his medication lisinopril. May need to hold if blood pressure low. Qualifiers: Hypertension type: essential hypertension Qualified Code(s): I10 - Essential (primary) hypertension (12) Venous insufficiency (chronic) (peripheral) Current Visit: No Status: Chronic Plan: Chronic venous insufficiency noted. Will continue as above (13) Hyperlipidemia Current Visit: No Status: Chronic Plan: Will continue with his home medication Qualifiers: Hyperlipidemia type: unspecified Qualified Code(s): E78.5 - Hyperlipidemia , unspecified (14) Morbid obesity Onset Date: 09/25/14 Current Visit: No Status: Chronic Plan: Will continue to address lifestyle modification education. (15) CHF (congestive heart failure) Current Visit: Yes Status: Acute Plan: Acute on chronic CHF likely systolic in nature. Will provide 1500 cc per day fluid restriction. Will continue with IV Lasix. Will obtain echocardiogram. Cardiology consulted to further assess. Qualifiers: Heart failure type: systolic Heart failure chronicity: acute on chronic Qualified Code(s): I50.23 - Acute on chronic systolic (congestive) heart failure (16) History of DVT (deep vein thrombosis) Current Visit: Yes Status: Chronic Plan: Patient with history of DVT on chronic anti coagulation therapy-Eliquis. Will restart medication. (17) Chronic anticoagulation Current Visit: Yes Status: Chronic Plan: Patient on chronic anti coagulation therapy. Will restart Eliquis. (18) Anemia Current Visit: Yes Status: Chronic Plan: Likely of chronic disease. Will monitor closely. Qualifiers: Anemia type: other cause Other causes of anemia: chronic disease, other Qualified Code(s): D63.8 - Anemia in other chronic diseases classified elsewhere Discharge Plan: Other (Long-term acute care facility placement verses skilled placement) Plan to discharge in: Greater than 2 days Time Spent Managing Pts Care (In Minutes): 55
[2018-02-20] MEDS ORDERED: ASPIRIN EC 81 MG TAB PO SCH (09:00)
[2018-02-20] MEDS ORDERED: HOME MED 1 EA UNK (Lisinopril [Zestril] 2.5 MG) PO SCH ×2 (09:00)
[2018-02-20] MEDS: LISINOPRIL 5 MG TAB PO SCH (09:00)
[2018-02-20] MEDS ORDERED: HOME MED 1 EA UNK (Gabapentin [Gralise] 600 MG) PO SCH (09:00)
[2018-02-20] MEDS ORDERED: VANCOMYCIN 1 GM in NA CHLORIDE 0.9% 500 ML IVPB SCH (09:00)
[2018-02-20] MEDS: FUROSEMIDE 40 MG/4 ML VIAL IV SCH ×2 (09:22→18:11)
[2018-02-20] MEDS: FINASTERIDE 5 MG TAB PO SCH (09:23)
[2018-02-20] MEDS: APIXABAN 5 MG TABLET PO SCH ×2 (09:23→20:47)
[2018-02-20] MEDS: GABAPENTIN 300 MG CAP PO SCH ×3 (09:23→20:46)
[2018-02-20] MEDS: TAMSULOSIN 0.4 MG SR CAP PO SCH (09:23)
--- NOTE | 2018-02-20 16:15 | CON ---
Reason For Consult: Mr. Lewis is 77, came to the hospital because of swelling in his legs, wounds on his legs. History Of Present Illness: Mr. Lewis has chronic venous insufficiency. He has a history of bypass surgery in 2001. Chronic edema, venous Doppler is negative for DVT, but he has been on anticoagulant s for more than a year. He has never had a pulmonary embolus and IVC filter. He has had a venous Do ppler of the legs negative for DVT, but there is no comment on whether there is a vein valve insuffic iency. His chief complaint is pain in the legs. His legs are under constant pain. He has underlyin g diabetes, dyslipidemia, coronary heart disease, hypertension, and diabetic peripheral neuropathy, p robably vein insufficiency and chronic edema. Outpatient Medications: Furosemide 20 b.i.d., Proscar 5 mg daily, aspirin, atorvastatin, lisinopril, insulin, gabapentin, Eliquis 5 b.i.d., Flomax, oxybutynin, and Ketorolac ophthalmic drops. Allergies: HE REPORTS DRUG INTOLERANCE TO SULFA DRUGS. Social History: He was a smoker, but quit before his bypass surgery in 2001. Physical Examination: Vital Signs: 5 feet 8 inches, 286 pounds. HEENT: His left eye looks like there is significant trauma around the orbital area. 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 Lungs: Clear, but decreased breath sounds are noted in both bases. Abdomen: Edematous. Extremities: 3 to 4+ edema. Skin: Reddened, irregular. It looks like chronic venous insufficiency. There are ulcerated wounds on both legs. Laboratory Data: Reveals a creatinine of 1.2. Estimated GFR is 59. Impression: The patient probably needs a lot more diuresis. He may need something done to his leg v eins, particularly the external veins. Usually, if there is a lot of leakage, the veins are very dil ated. It contributes to the ulceration. He would probably do well from Farrow wraps even with the w ounds. The Farrow wraps could be undone twice a day and the wounds redressed, but unless there is le ss edema there, his ulcerated wounds will not improve, so I will increase his diuretic to see if we c an treat that. Not sure he has congestive heart failure or if it is mainly vein valve insufficiency. An echocardiogram is pending. Arterial Doppler of the legs is also pending. BRII/ASHLI Voice ID: [id number] Report ID: [id number]
[2018-02-20] MEDS: VANCOMYCIN 2 GM in NA CHLORIDE 0.9% 500 ML IVPB SCH (18:11)
--- NOTE | 2018-02-20 18:35 | RAD REPORT ---
EXAM DESCRIPTION: US - LOWER EXTREMITY ARTERIAL BILAT - 02/20/2018 6:00 pm CLINICAL HISTORY: pvd COMPARISON: None TECHNIQUE: Bilateral lower extremity arterial Doppler examination was performed with waveform tracin g and ankle brachial pressure measurements. FINDINGS: Symmetric brachial pressure measurements are noted. The right lower extremity arterial system demonstrates triphasic and biphasic waveforms. The left low er extremity arterial system demonstrates biphasic and monophasic waveforms, particularly diseased be low the level of the popliteal artery. Right ankle brachial index measures 0.8, lower limit of normal. Left ankle brachial index measures 0.6, abnormally low. IMPRESSION: Moderate to significant peripheral vascular disease below the level of the popliteal art jimbo on the left is seen.
[2018-02-20] MEDS: ATORVASTATIN 20 MG TAB PO SCH (20:47)
--- NOTE | 2018-02-20 23:28 | CON ---
History Of Present Illness: This is a 77-year-old male. I was consulted for possible cellulitis of lower extremity. The patient came in to the emergency room with increase in swelling and erythematou s changes to the lower extremity. Has history of congestive heart failure, COPD, coronary artery dis ease. The patient goes to the [facility] for the wound care. Currently being treated with Zosyn and vancomycin. As per the patient, his leg swelling started about 10 years ago. Since then, he has bee n getting off and on ulceration to the legs. Past Medical History: Includes diabetes mellitus, congestive heart failure, COPD, hypertension, BPH, arthritis, hyperlipidemia, diabetic neuropathy, coronary artery disease, recurrent cellulitis of low er extremity, venous stasis ulcers, morbid obesity, former tobacco use, right knee surgery, CABG, tri ple bypass, brain aneurysm repair 2012, bladder surgery, cataract surgery. Social History: Tobacco positive. Alcohol negative. Family History: Noncontributory. Medication: Vancomycin and Zosyn. See MARs for other medication. Allergies: SULFA DRUGS. Review of Systems: A 10-point review was performed. Physical Examination: General: This is a 77-year-old male, sitting in easy chair, in mild respiratory distress. Vital Signs: Temperature 98, pulse 66, respiration 22, blood pressure 99/48. HEENT: Unremarkable. Poor dental hygiene. Neck: Supple. Lungs: Basal crackles. Heart: S1, S2. Regular. Abdomen: Soft, nontender. Bowel sounds positive. Extremities: 3+ edema with multiple punctuated ulceration noted in both lower extremities above the ankle and below-knee area with erythematous changes. Laboratory Data: Shows WBC 11,800, down from 17,000; hemoglobin 11.5, platelets are 310. Chemistry shows sodium 136, potassium 4.2, chloride 99, bicarb 31, BUN 31, creatinine 1.2, glucose is 164. Hiro ro data: Cultures are showing gram-negative rods at the wound site and in sputum possibly E. coli or Pseudomonas. Assessment And Plan: A 77-year-old male with multiple medical problems, coming in with stasis ulcers , possible cellulitis with leukocytosis. I agree with vancomycin and Zosyn for empiric coverage, sti ll the bacterial identification has been made. We will follow the patient closely. Thank you Dr. Thomas for consult. NF/MODL Voice ID: [id number] Report ID: [id number]
[2018-02-21] MEDS: PIPER/TAZO/NS 3.375gm 3.375 GM/100 ML BAG IVPB SCH ×2 (00:12→09:20)
[2018-02-21 05:09] LABS: Absolute Lymphocytes (CBC) 1.4 K/uL (0.7-4.9); Absolute Monocytes 1.1 K/uL (0.1-1.3); Absolute Neutrophil 11.1 K/uL (1.8-8.0); Basophils % 0.5 % (0-1.3); Eosinophils % 3.5 % (0-4.4); Hematocrit 37.6 % (39.6-49.0); Lymphocytes % 9.9 % (15.3-44.8); MCH 26.6 pg (27.0-35.0); MCV 84.1 fL (80-100); MPV 7.9 fL (7.6-11.3); Monocytes % 7.5 % (3.3-12.3); RBC Red Blood Cell Count 4.47 M/uL (4.33-5.43)
[2018-02-21 05:31] LABS: Magnesium 2.1 mg/dL (1.8-2.4); Potassium 4.2 mmol/L (3.5-5.1)
[2018-02-21] MEDS: PANTOPRAZOLE 40MG TABLET PO SCH (06:18)
[2018-02-21] MEDS: INSULIN GLARGINE 100 UNITS/ML SQ SCH (08:00)
[2018-02-21] MEDS ORDERED: LACTULOSE 20 GM/30 ML UCUP PO PRN (08:01)
[2018-02-21] MEDS: ARFORMOTEROL TARTRATE 15 MCG/2 ML VIAL.NEB NEB SCH ×2 (08:12→19:59)
[2018-02-21] MEDS: TAMSULOSIN 0.4 MG SR CAP PO SCH (09:14)
[2018-02-21] MEDS: APIXABAN 5 MG TABLET PO SCH ×2 (09:15→21:06)
[2018-02-21] MEDS: GABAPENTIN 300 MG CAP PO SCH ×3 (09:15→21:06)
[2018-02-21] MEDS: DOCUSATE NA 100 MG CAP PO SCH (09:15)
[2018-02-21] MEDS: FINASTERIDE 5 MG TAB PO SCH (09:15)
[2018-02-21] MEDS: FUROSEMIDE 40 MG/4 ML VIAL IV SCH ×2 (09:16→16:54)
[2018-02-21] MEDS: INSULIN -REGULAR HUMAN 50 UNIT/0.5 ML ML SQ SCH ×4 (09:17→21:07)
[2018-02-21] MEDS: LISINOPRIL 5 MG TAB PO SCH (09:22)
[2018-02-21] MEDS: Levofloxacin 750mg IV 750 MG/150 ML BAG IV SCH (13:14)
--- NOTE | 2018-02-21 15:06 | P.PN ---
Subjective Date of Service: 02/21/18 Primary Care Provider: [facility] Chief Complaint: Edema, erythema to the lower extremities Subjective: Improving Physical Examination - Vital Signs Temperature: 97.8 F Blood Pressure: 108/55 Pulse: 75 Respirations: 18 Pulse Ox (%): 96 - Physical Exam General: Alert, In no apparent distress, Cooperative HEENT: Atraumatic Neck: Supple Respiratory: Clear to auscultation bilaterally, Normal air movement Cardiovascular: Normal pulses, Regular rate/rhythm Gastrointestinal: Normal bowel sounds, Soft and benign, Non-distended, No masses , No rebound, No guarding Musculoskeletal: No tenderness Integumentary: Tenderness/swelling (Erythema and lower extremity edema improved. Left greater than right.) Neurological: Normal speech, Normal strength at 5/5 x4 extr, Normal tone, Normal affect - Studies Medications List Reviewed: Yes Assessment & Plan - Problems (Diagnosis) (1) Cellulitis Onset Date: 02/21/18 Current Visit: Yes Status: Acute Plan: Bilateral recurrent lower extremity cellulitis, left greater than right. Wound culture positive for multiple organisms including Pseudomonas and Serratia. Sensitive to Levaquin. Will continue IV antibiotic therapy. Infectious Disease recommends continuation of antibiotics until final results are made. Patient can likely be transition to oral medication. Patient may benefit with skilled placement for aggressive wound care and IV antibiotic therapy. Patient desires to go to a skilled facility or long-term acute care facility. Case management reports that skilled facility may be his only option. Will continue with diuresis. I will turn the service over to Dr. Martin tomorrow. I will go over the plan of care with him. Qualifiers: Site of cellulitis: extremity Site of cellulitis of extremity: lower extremity (2) Diabetes mellitus Onset Date: 02/21/18 Current Visit: Yes Status: Chronic Plan: A1c 6.6. Continue to adjust insulin. 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 Qualifiers: Diabetes mellitus type: type 2 Diabetes mellitus complication detail: diabetic polyneuropathy Qualified Code(s): E11.42 - Type 2 diabetes mellitus with diabetic polyneuropathy (4) GERD (gastroesophageal reflux disease) Onset Date: 02/21/18 Current Visit: Yes Status: Chronic Plan: Will continue with PPI Qualifiers: Esophagitis presence: esophagitis presence not specified Qualified Code(s) : K21.9 - Gastro-esophageal reflux disease without esophagitis (5) CAD (coronary artery disease) Onset Date: 02/21/18 Current Visit: Yes Status: Chronic Plan: Will continue with medication (6) History of coronary artery bypass graft Current Visit: Yes Status: Chronic Plan: Will continue with medication (7) Oxygen dependent Onset Date: 02/21/18 Current Visit: Yes Status: Chronic Plan: Patient on chronic O2 likely for COPD and CHF. Will maintain sats above 90%. Will continue treatment for COPD and CHF. (8) Lymphedema Current Visit: No Status: Chronic Plan: Continue with diuretic therapy. Adjustments made by Cardiology. Placement will be on a 1500 cc per day fluid restriction. Continue with current plan of care. (9) COPD (chronic obstructive pulmonary disease) Current Visit: No Status: Chronic Plan: Continue with COPD medication. Will maintain sats above 90%. Patient on home oxygen. Qualifiers: COPD type: chronic bronchitis Chronic bronchitis type: unspecified Qualified Code(s): J42 - Unspecified chronic bronchitis (10) Benign prostatic hypertrophy Current Visit: No Status: Chronic Plan: Patient with history of BPH. Will continue his home medication (11) Hypertension Current Visit: No Status: Chronic Plan: Will continue with his medication lisinopril. May need to hold if blood pressure low. Qualifiers: Hypertension type: essential hypertension Qualified Code(s): I10 - Essential (primary) hypertension (12) Venous insufficiency (chronic) (peripheral) Current Visit: No Status: Chronic Plan: Chronic venous insufficiency noted. Patient may benefit with vein specialist evaluation as an outpatient. Will continue as above (13) Hyperlipidemia Current Visit: No Status: Chronic Plan: Will continue with his home medication Qualifiers: Hyperlipidemia type: unspecified Qualified Code(s): E78.5 - Hyperlipidemia , unspecified (14) Morbid obesity Onset Date: 09/25/14 Current Visit: No Status: Chronic Plan: Will continue to address lifestyle modification education. (15) CHF (congestive heart failure) Onset Date: 02/21/18 Current Visit: Yes Status: Acute Plan: Acute on chronic CHF likely systolic in nature. Will provide 1500 cc per day fluid restriction. Cardiology continues with IV Lasix. Echocardiogram pending. Qualifiers: Heart failure type: systolic Heart failure chronicity: acute on chronic Qualified Code(s): I50.23 - Acute on chronic systolic (congestive) heart failure (16) History of DVT (deep vein thrombosis) Current Visit: Yes Status: Chronic Plan: Patient with history of DVT on chronic anti coagulation therapy-Eliquis. Will continue with Eliquis. (17) Chronic anticoagulation Onset Date: 02/21/18 Current Visit: Yes Status: Chronic Plan: Patient on chronic anti coagulation therapy. Continue with Eliquis. (18) Anemia Current Visit: Yes Status: Chronic Plan: Likely of chronic disease. Will monitor closely. Qualifiers: Anemia type: other cause Other causes of anemia: chronic disease, other Qualified Code(s): D63.8 - Anemia in other chronic diseases classified elsewhere (19) Sputum culture positive for Enterobacter species Current Visit: Yes Status: Acute Plan: Will continue with IV Levaquin. This can likely be changed to oral medication at discharge. Discharge Plan: Other (Skilled placement facility) Plan to discharge in: 24 Hours Time Spent Managing Pts Care (In Minutes): 55
--- NOTE | 2018-02-21 16:10 | ECHO ---
HEIGHT: 5 ft 8 in WEIGHT: 286 lb 0.091 oz DATE OF STUDY: 02/21/[address]: Edmundo Thomas DO 2-DIMENSIONAL: YES M.MODE: YES DOPPLER: YES COLOR FLOW: YES TDS: PORTABLE: DEFINITY: BUBBLE STUDY: DIAGNOSIS: CONGESTIVE HEART FAILURE CARDIAC HISTORY: CATHERIZATION: YES SURGERY: YES PROSTHETIC VALVE: NO PACEMAKER: NO MEASUREMENTS (cm) DIASTOLIC (NORMALS) SYSTOLIC (NORMALS) IVSd 0.9 (0.6-1.2) LA Diam 3.9 (1.9-4.0) LVEF 54% LVIDd 3.4 (3.5-5.7) LVIDs 2.5 (2.0-3.5) %FS 27% LVPWd 1.1 (0.6-1.2) Ao Diam 2.8 (2.0-3.7) 2 DIMENSIONAL ASSESSMENT: RIGHT ATRIUM: NORMAL LEFT ATRIUM: NORMAL RIGHT VENTRICLE: NORMAL LEFT VENTRICLE: NORMAL TRICUSPID VALVE: NORMAL MITRAL VALVE: NORMAL PULMONIC VALVE: NORMAL AORTIC VALVE: SCLEROSIS PERICARDIAL EFFUSION: NONE AORTIC ROOT: NORMAL LEFT VENTRICULAR WALL MOTION: NORMAL DOPPLER/COLOR FLOW: NO SIGNIFICANT AORTIC STENOSIS OR AORTIC REGURGITATION. COMMENTS: TECHNICALLY DIFFICULT STUDY. NORMAL LEFT VENTRICULAR EJECTION FRACTION. AORTIC SCLEROSIS WITH NO SIGNIFICANT AORTIC STENOSIS OR AORTIC REGURGITATION. TECHNOLOGIST: IBLL LINTON
[2018-02-21] MEDS: VANCOMYCIN 2 GM in NA CHLORIDE 0.9% 500 ML IVPB SCH (17:00)
--- NOTE | 2018-02-21 17:11 | P.DS ---
Admission Date: 02/19/18 Discharge Date: 02/21/18 [facility] Care [facility] Disposition[facility] Discharge Condition: GOOD Reason for Admission: Edema, erythema to the lower extremities Consultations: Cardiology-Dr. Diggs Infectious disease-Dr. Montalvo Procedures: Venous Doppler: COMPARISON: April 2017 FINDINGS: The common femoral, superficial femoral, popliteal and posterior tibial veins bilaterally are compressible and demonstrate augmentation. Doppler demonstrates good flow. A 2.3 centimeter fluid collection is present within the superior posterior right calf which may represent a small ruptured Becerra's cyst IMPRESSION: No evidence of deep venous thrombosis involving either lower extremity. No DVT identified Arterial Doppler: COMPARISON: None TECHNIQUE: Bilateral lower extremity arterial Doppler examination was performed with waveform tracing and ankle brachial pressure measurements. FINDINGS: Symmetric brachial pressure measurements are noted. The right lower extremity arterial system demonstrates triphasic and biphasic waveforms. The left lower extremity arterial system demonstrates biphasic and monophasic waveforms, particularly diseased below the level of the popliteal artery. Right ankle brachial index measures 0.8, lower limit of normal. Left ankle brachial index measures 0.6, abnormally low. IMPRESSION: Moderate to significant peripheral vascular disease below the level of the popliteal artery on the left is seen. Echocardiogram: EF 54% LEFT VENTRICULAR WALL MOTION: NORMAL DOPPLER/COLOR FLOW: NO SIGNIFICANT AORTIC STENOSIS OR AORTIC REGURGITATION. COMMENTS: TECHNICALLY DIFFICULT STUDY. NORMAL LEFT VENTRICULAR EJECTION FRACTION. AORTIC SCLEROSIS WITH NO SIGNIFICANT AORTIC STENOSIS OR AORTIC REGURGITATION. 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 insulin use status Diabetes mellitus complication status : with other specified complication Qualified Code(s): E11.69 - Type 2 diabetes mellitus with other specified complication (3) Diabetic neuropathy Onset Date: 02/21/18 Current Visit: Yes Status: Chronic Qualifiers: Diabetes mellitus type: type 2 Diabetes mellitus complication detail: diabetic polyneuropathy Qualified Code(s): E11.42 - Type 2 diabetes mellitus with diabetic polyneuropathy (4) GERD (gastroesophageal reflux disease) Onset Date: 02/21/18 Current Visit: Yes Status: Chronic Qualifiers: Esophagitis presence: esophagitis presence not specified Qualified Code(s) : K21.9 - Gastro-esophageal reflux disease without esophagitis (5) CAD (coronary artery disease) Onset Date: 02/21/18 Current Visit: Yes Status: Chronic (6) History of coronary artery bypass graft Current Visit: Yes Status: Chronic (7) Oxygen dependent Onset Date: 02/21/18 Current Visit: Yes Status: Chronic (8) Lymphedema Current Visit: No Status: Chronic (9) COPD (chronic obstructive pulmonary disease) Current Visit: No Status: Chronic Qualifiers: COPD type: chronic bronchitis Chronic bronchitis type: unspecified Qualified Code(s): J42 - Unspecified chronic bronchitis (10) Benign prostatic hypertrophy Current Visit: No Status: Chronic (11) Hypertension Current Visit: No Status: Chronic Qualifiers: Hypertension type: essential hypertension Qualified Code(s): I10 - Essential (primary) hypertension (12) Venous insufficiency (chronic) (peripheral) Current Visit: No Status: Chronic (13) Hyperlipidemia Current Visit: No Status: Chronic Qualifiers: Hyperlipidemia type: unspecified Qualified Code(s): E78.5 - Hyperlipidemia , unspecified (14) Morbid obesity Onset Date: 09/25/14 Current Visit: No Status: Chronic (15) CHF (congestive heart failure) Onset Date: 02/21/18 Current Visit: Yes Status: Acute Qualifiers: Heart failure type: systolic Heart failure chronicity: acute on chronic Qualified Code(s): I50.23 - Acute on chronic systolic (congestive) heart failure (16) History of DVT (deep vein thrombosis) Current Visit: Yes Status: Chronic (17) Chronic anticoagulation Onset Date: 02/21/18 Current Visit: Yes Status: Chronic (18) Anemia Current Visit: Yes Status: Chronic Qualifiers: Anemia type: other cause Other causes of anemia: chronic disease, other Qualified Code(s): D63.8 - Anemia in other chronic diseases classified elsewhere (19) Sputum culture positive for Enterobacter species Current Visit: Yes Status: Acute (20) PVD (peripheral vascular disease) Current Visit: Yes Status: Chronic Brief History of Present Illness: 77-year-old male presented emergency room with increasing swelling, erythema to the lower extremities bilateral. Patient reports a history of CHF requiring home oxygen, COPD, CAD, history of bladder cancer, former tobacco use , and diabetes. Patient reports that he has had cellulitis to the lower extremities. [facility] times over the past 6 months. He currently gets home health to address his wounds. Over the last several days increasing erythema, weeping, swelling, and warmth is noted. He denied any fever, he reported some chills. He denies any significant shortness of breath or chest pain. He came to the ER for further evaluation. In the ER he was evaluated. White count 17.4, procalcitonin within normal range. Sodium 138, potassium 4.5, GFR 59. Glucose 120. Lower extremity Doppler shows no DVT. Suspected rupture of of right small Becerra cyst noted. Patient has significant swelling, edema to the lower extremities. Patient was admitted for treatment. When I saw the patient the ER, he appeared comfortable with oxygen. He did not appear in any respiratory distress. Patient reports getting [facility]. Hospital Course: Patient presented with lower extremity edema with erythema. Patient has PVD. Patient found to have bilateral cellulitis left greater than right. Wound cultures positive for Pseudomonas and Serratia. Patient on IV antibiotic therapy. Infectious disease recommended continued aggressive wound care and antibiotic therapy. Patient was evaluated for long-term acute care facility. Patient was approved. Patient will be discharged to long-term acute care facility to continue IV antibiotic therapy and wound care. Patient currently on leave 750 mg IV daily and vancomycin 2 g IV daily. Further adjustment can be done at the long-term acute care facility. Sputum culture was positive for enterococcus. Patient will continue current IV antibiotic therapy. Patient with history of CHF. Patient with diastolic dysfunction. Edema to the lower extremity likely related to this. Patient will continue with diuresis. Patient will need to continue with a 1500 cc per day fluid restriction. IV Lasix can be transition to oral at the long-term acute care facility. Patient has COPD. Patient will continue COPD treatment. Patient with home oxygen. Patient with diabetes. Patient will continue current treatment. Adjustments can be made at the long-term acute care facility. Patient with BPH. Patient will continue with medication. Patient with history of blood clot. Patient on chronic anti coagulation therapy. Patient will continue with medication. Vital Signs/Physical Exam: Temp Pulse Resp BP Pulse Ox 97.8 F 55 18 86/52 L 96 02/21/18 15:07 02/21/18 16:54 02/21/18 15:07 02/21/18 16:54 02/21/18 15:07 General: Alert, In no apparent distress, Oriented x3, Cooperative HEENT: Atraumatic Neck: Supple Respiratory: Clear to auscultation bilaterally, Normal air movement Cardiovascular: Normal pulses, Regular rate/rhythm Gastrointestinal: Normal bowel sounds, Soft and benign, Non-distended, No tenderness, No masses, No rebound, No guarding Integumentary: Tenderness/swelling (Erythema and swelling to the lower extremities improved.) Neurological: Normal speech, Normal strength at 5/5 x4 extr, Normal tone, Normal affect Laboratory Data at Discharge: WBC 14.1 K/uL (4.3-10.9) H D 02/21/18 04:52 Hgb 11.9 g/dL (13.6-17.9) L 02/21/18 04:52 Hct 37.6 % (39.6-49.0) L 02/21/18 04:52 Plt Count 298 K/uL (152-406) 02/21/18 04:52 Sodium 135 mmol/L (136-145) L 02/21/18 04:52 Potassium 4.2 mmol/L (3.5-5.1) 02/21/18 04:52 BUN 32 mg/dL (7-18) H 02/21/18 04:52 Creatinine 1.40 mg/dL (0.55-1.3) H 02/21/18 04:52 Glucose 257 mg/dL (74-106) H 02/21/18 04:52 Magnesium 2.1 mg/dL (1.8-2.4) 02/21/18 04:52 Triglycerides 237 mg/dL (<150) H 02/20/18 04:22 Cholesterol 109 mg/dL (<200) 02/20/18 04:22 HDL Cholesterol 31 mg/dL (40-60) L 02/20/18 04:22 Cholesterol/HDL Ratio 3.52 02/20/18 04:22 Home Medications: Aspirin [Sandra Chewable Aspirin] 1 tab PO DAILY 09/25/14 Finasteride [Proscar*] 1 tab PO DAILY 09/25/14 Furosemide [Lasix*] 40 mg PO BID 09/25/14 Atorvastatin Calcium [Lipitor*] 20 mg PO BEDTIME 03/08/15 Gabapentin [Gralise] 600 mg PO TID 01/13/17 Insulin Aspart [Novolog Flexpen] 40 unit SQ TIDWM 01/13/17 Insulin Detemir [Levemir Flextouch] 35 units SQ BEDTIME 01/13/17 Lisinopril [Zestril] 2.5 mg PO DAILY 01/13/17 Apixaban [Eliquis] 5 mg PO BID 11/30/17 Tamsulosin [Flomax*] 0.4 mg PO BEDTIME 11/30/17 Insulin Detemir [Levemir Flextouch] 30 units SQ DAILY 02/20/18 Ketorolac Opth [Acular 0.5% Opth Drops*] 1 drop OPTH QID 02/20/18 Oxybutynin Chloride [Ditropan Xl] 10 mg PO DAILY 02/20/18 Patient Discharge Instructions: Patient to be discharged to long-term acute care facility to continue IV antibiotic therapy and wound care. Diet: ADA Activity: Fall precautions Time spent managing pt's care (in minutes): 55
[2018-02-21] MEDS ORDERED: NA CHLORIDE 0.9% 250 ML IV PRN (17:57)
[2018-02-21] MEDS ORDERED: VANCOMYCIN 250 MG in NA CHLORIDE 0.9% 100 ML IVPB ONE (18:00)
[2018-02-21] MEDS ORDERED: NA CHLORIDE 0.9% 250 ML ONE (18:09)
[2018-02-21] MEDS ORDERED: LISINOPRIL 5 MG TAB PO SCH (18:57)
[2018-02-21] MEDS: ATORVASTATIN 20 MG TAB PO SCH (21:06)
--- NOTE | 2018-02-21 21:34 | PN ---
Subjective: The patient is sitting on the easy chair. Denies any headache, nausea, vomiting, chest pain, abdominal pain, constipation, or diarrhea. Objective: Vital Signs: Temperature 97, pulse 75, respiration 18, blood pressure 108/55. Lungs: Basal crackles. Heart: S1, S2, regular. Abdomen: Soft, nontender. Bowel sounds positive. Extremity: 2+ edema, ulceration noted. Laboratory Data: WBC 14,000, hemoglobin 11.9, platelets are 298. Chemistry shows sodium 135, potass ium 4.2, chloride 97, bicarb 32, BUN 32, creatinine 1.4, glucose is 257. Micro data is growing Pseudomonas aeruginosa, Klebsiella, and Serratia, with multidrug-resistant Serr atia and Pseudomonas sensitive to meropenem. The patient is currently being treated with vancomycin and Levaquin. Assessment And Plan: Cellulitis of lower extremity with stasis ulceration. Continue Levaquin and va ncomycin. We will follow the patient closely. Keep legs elevated. Apply Xeroform to the wounds. NF/MODL Voice ID: [id number] Report ID: [id number]
[2018-02-22 05:15] LABS: Absolute Lymphocytes (CBC) 1.5 K/uL (0.7-4.9); Absolute Monocytes 0.8 K/uL (0.1-1.3); Absolute Neutrophil 10.1 K/uL (1.8-8.0); Basophils % 0.5 % (0-1.3); Eosinophils % 2.9 % (0-4.4); Hematocrit 35.8 % (39.6-49.0); Lymphocytes % 11.3 % (15.3-44.8); MCH 26.9 pg (27.0-35.0); MCV 83.4 fL (80-100); MPV 8.4 fL (7.6-11.3); Monocytes % 6.5 % (3.3-12.3); RBC Red Blood Cell Count 4.29 M/uL (4.33-5.43)
[2018-02-22] MEDS: PANTOPRAZOLE 40MG TABLET PO SCH (05:25)
[2018-02-22 05:33] LABS: Magnesium 2.4 mg/dL (1.8-2.4); Potassium 4.2 mmol/L (3.5-5.1)
--- NOTE | 2018-02-22 06:41 | P.PN ---
Date of Service: 02/21/18 Hemodynamically blood pressure is been very labile. I was called by nursing staff and blood pressure is still 80s over 60. Unsure as to the etiology of his low blood pressure. Clinically he appears to be very stable. He is not lightheaded and does not have any symptoms. Will need to continue to monitor him through the night prior to him going to the LTAC.
[2018-02-22 07:13] LABS: Albumin 2.9 g/dL (3.4-5.0); Bilirubin Direct 0.1 mg/dL (0-0.2); Bilirubin Total 0.3 mg/dL (0.2-1.0); Protein, Total 7.8 g/dL (6.4-8.2)
[2018-02-22] MEDS: ARFORMOTEROL TARTRATE 15 MCG/2 ML VIAL.NEB NEB SCH (07:43)
[2018-02-22] MEDS ORDERED: ALBUMIN HUMAN 25% 100 ML IV ONE (07:48)
[2018-02-22] MEDS: INSULIN GLARGINE 100 UNITS/ML SQ SCH (08:00)
[2018-02-22] MEDS: INSULIN -REGULAR HUMAN 50 UNIT/0.5 ML ML SQ SCH ×2 (08:37→11:52)
[2018-02-22] MEDS: GABAPENTIN 300 MG CAP PO SCH (08:39)
[2018-02-22] MEDS: DOCUSATE NA 100 MG CAP PO SCH (08:39)
[2018-02-22] MEDS: APIXABAN 5 MG TABLET PO SCH (08:40)
[2018-02-22] MEDS: TAMSULOSIN 0.4 MG SR CAP PO SCH (08:40)
[2018-02-22] MEDS: Levofloxacin 750mg IV 750 MG/150 ML BAG IV SCH (08:41)
[2018-02-22] MEDS: FINASTERIDE 5 MG TAB PO SCH (08:41)
[2018-02-22 08:49] VITALS: O2SAT 94
[2018-02-22] MEDS ORDERED: ENSURE HIGH PROTEIN 237 ML CAN PO SCH (09:00)
[2018-02-22] MEDS ORDERED: FUROSEMIDE 40 MG TABLET PO SCH (09:00)
[2018-02-22] MEDS ORDERED: JUVEN PACKET PO SCH (09:00)
[2018-02-22 17:50] VITALS: BP 117/57; TEMP 97.5
[2018-02-22] MEDS ORDERED: VANCOMYCIN 2.25 GM in NA CHLORIDE 0.9% 500 ML IVPB SCH (18:00)
--- NOTE | 2018-02-23 05:26 | PN ---
Date of Progress Note: 02/21/2018 History Of Present Illness: Mr. Lewis was seen by Dr. Diggs on 02/20/2018 because of venous ulcers. It was secondary to venous insufficiency versus congestive heart failure. Dr. Diggs recommended F arrow Wraps. The patient is a DNR, has diuresed well. Echocardiogram although was normal without an y evidence of congestive heart failure. The patient's main issue is obvious venous insufficiency. C ontinue present regimen. Can go home whenever it is okay with Dr. Thomas. JERRY/ASHLI Voice ID: [id number] Report ID: [id number]
== END 2018-02-22 16:01 | DRG 602 ==
LOC: ER 10:06 → ERHOLD 12:36 → 2ND 13:15
PROVIDERS: ADMIT Family Medicine; ATTEND Internal Medicine
DX: L03.116 Cellulitis of left lower limb (principal); I50.33 Acute on chronic diastolic (congestive) heart failure; I87.2 Venous insufficiency (chronic) (peripheral); Z66 Do not resuscitate; B96.5 Pseudomonas (aeruginosa) (mallei) (pseudomallei) as the cause of diseases classified elsewhere; B96.1 Klebsiella pneumoniae [K. pneumoniae] as the cause of diseases classified elsewhere; B96.89 Other specified bacterial agents as the cause of diseases classified elsewhere; Z16.24 Resistance to multiple antibiotics; I95.9 Hypotension, unspecified; E11.42 Type 2 diabetes mellitus with diabetic polyneuropathy; K21.9 Gastro-esophageal reflux disease without esophagitis; I25.10 Atherosclerotic heart disease of native coronary artery without angina pectoris; I89.0 Lymphedema, not elsewhere classified; J44.9 Chronic obstructive pulmonary disease, unspecified; N40.0 Benign prostatic hyperplasia without lower urinary tract symptoms; E78.5 Hyperlipidemia, unspecified; E66.01 Morbid (severe) obesity due to excess calories; D63.8 Anemia in other chronic diseases classified elsewhere; R09.3 Abnormal sputum; E11.51 Type 2 diabetes mellitus with diabetic peripheral angiopathy without gangrene; I11.0 Hypertensive heart disease with heart failure; Z95.1 Presence of aortocoronary bypass graft; Z99.81 Dependence on supplemental oxygen; Z86.718 Personal history of other venous thrombosis and embolism; Z79.01 Long term (current) use of anticoagulants; Z79.82 Long term (current) use of aspirin; Z79.4 Long term (current) use of insulin; Z87.891 Personal history of nicotine dependence
CPT/HCPCS: 36415; 71046; 80048; 80053; 80061; 80076; 80202; 81003; 81015; 82607; 82728; 82746; 82962; 83036; 83540; 83615; 83735; 84145; 84439; 84443; 84466; 85025; 85044; 87040; 87070; 87077; 87186; 87205; 90714; 93306; 93925; 93970; 94640; 96374; 96375; 99285; J1650; J2405; J2543; J3010; J3370; J7605; P9047

== ENCOUNTER 2018-09-04 18:17 | Emergency (ER) | payer OTHER ==
--- OUTSIDE RECORDS SUMMARY | 2018-09-04 18:19 | XMS REPORT ---
:1940 Author Organization [employer] Care Team Providers Name Role Phone Adi Mancia Provider Role Unavailable Allergies, Adverse Reactions, Alerts Substance Reaction Event Type Sulfa Info Not Available Drug Allergy Problems Problem Type Condition Code Onset Dates Condition Status Assessment Pain, joint, knee, left M25.562 Active Problem Primary osteoarthritis of left knee M17.12 Active Assessment Primary osteoarthritis of left knee M17.12 Active Medications No Known Medications Results No Known Results Summary Purpose [employer] Submission
--- NOTE | 2018-09-04 19:42 | EDPHYS ---
Physician Documentation [facility] Name: Stephan Lewis Jr Age: 78 yrs Sex: Male : 1940 Arrival Date: 09/04/2018 Time: 18:19 Bed 27 Private MD: DARIEN Physician Finn Thomas HPI: 09/04 19:39 This 78 yrs old Male presents to ER via Wheelchair with complaints of Low jr8 Back Pain. 19:39 The patient presents with pain that is acute. The symptoms are located in the low back. jr8 The pain does not radiate. The problem was sustained from unknown cause. Onset: The symptoms/episode began/occurred gradually, 2 day(s) ago. Modifying factors: The patient symptoms are alleviated by nothing, the patient symptoms are aggravated by any movement, bending. Associated signs and symptoms: The patient has no apparent associated signs or symptoms. The patient has experienced similar episodes in the past, a few times. The patient has not recently seen a physician. History of arthritis and chronic pain in low back that comes and goes. Feels that he is having flare up of pain. Denies trauma. Denies urinary symptoms, or abdominal pain . Historical: - Allergies: 19:05 Sulfa (Sulfonamide Antibiotics); ph - PMHx: 19:05 Bladder cancer; Cererbral aneurysm, non-ruptured (2009); CHF; COPD; Depression; ph Diabetes - IDDM; Dysmetabolic syndrome X; Hyperlipidemia; Hypertension; neuropathy; PAD; rotator cuff tear; - Immunization history:: Adult Immunizations unknown. - Social history:: Smoking status: unknown. - Ebola Screening: : Patient negative for fever greater than or equal to 101.5 degrees Fahrenheit, and additional compatible Ebola Virus Disease symptoms Patient denies exposure to infectious person Patient denies travel to an Ebola-affected area in the 21 days before illness onset. ROS: 19:39 Eyes: Negative for injury, pain, redness, and discharge, ENT: Negative for injury, jr8 pain, and discharge, Neck: Negative for injury, pain, and swelling, Cardiovascular: Negative for chest pain, palpitations, and edema, Respiratory: Negative for shortness of breath, cough, wheezing, and pleuritic chest pain, Abdomen/GI: Negative for abdominal pain, nausea, vomiting, diarrhea, and constipation, MS/Extremity: Negative for injury and deformity, Skin: Negative for injury, rash, and discoloration, Neuro: Negative for headache, weakness, numbness, tingling, and seizure. 19:39 Back: Positive for pain at rest, pain with movement, of the lumbar area, left low back and right low back. Exam: 19:39 Eyes: Pupils equal round and reactive to light, extra-ocular motions intact. Lids and jr8 lashes normal. Conjunctiva and sclera are non-icteric and not injected. Cornea within normal limits. Periorbital areas with no swelling, redness, or edema. ENT: Nares patent. No nasal discharge, no septal abnormalities noted. Tympanic membranes are normal and external auditory canals are clear. Oropharynx with no redness, swelling, or masses, exudates, or evidence of obstruction, uvula midline. Mucous membranes moist. Neck: Trachea midline, no thyromegaly or masses palpated, and no cervical lymphadenopathy. Supple, full range of motion without nuchal rigidity, or vertebral point tenderness. No Meningismus. Cardiovascular: Regular rate and rhythm with a normal S1 and S2. No gallops, murmurs, or rubs. Normal PMI, no JVD. No pulse deficits. Respiratory: Lungs have equal breath sounds bilaterally, clear to auscultation and percussion. No rales, rhonchi or wheezes noted. No increased work of breathing, no retractions or nasal flaring. Abdomen/GI: Soft, non-tender, with normal bowel sounds. No distension or tympany. No guarding or rebound. No evidence of tenderness throughout. Skin: Warm, dry with normal turgor. Normal color with no rashes, no lesions, and no evidence of cellulitis. MS/ Extremity: Pulses equal, no cyanosis. Neurovascular intact. Full, normal range of motion. Neuro: Awake and alert, GCS 15, oriented to person, place, time, and situation. Cranial nerves II-XII grossly intact. Motor strength 5/5 in all extremities. Sensory grossly intact. Cerebellar exam normal. Normal gait. 19:39 Back: pain, that is moderate, of the left low back and right low back, ROM is painful, normal spinal alignment noted, CVA tenderness, is absent, vertebral tenderness, is not appreciated. Vital Signs: 19:02 BP 122 / 67; Pulse 53; Resp 18; Temp 98.0; Pulse Ox 94% on 2 lpm NC; Weight 133.81 kg; ph Height 5 ft. 8 in. (172.72 cm); Pain 04/06; 19:02 Body Mass Index 44.85 (133.81 kg, 172.72 cm) ph 19:02 pt on home o2 ph MDM: 19:17 Patient medically screened. [facility] 19:41 Data reviewed: vital signs, nurses notes, lab test result(s), and as a result, I will jr8 discharge patient. Data interpreted: Pulse oximetry: on room air is 94 %. Interpretation: normal. Counseling: I had a detailed discussion with the patient and/or guardian regarding: the historical points, exam findings, and any diagnostic results supporting the discharge/admit diagnosis, lab results, the need for outpatient follow up, a family practitioner, to return to the emergency department if symptoms worsen or persist or if there are any questions or concerns that arise at home. 09/04 19:52 Order name: Urine Dipstick--Ancillary (enter results) eb 09/04 19:31 Order name: Urine Dipstick-Ancillary (obtain specimen); Complete Time: 19:49 jr8 Administered Medications: 19:40 Drug: morphine 4 mg Route: IM; Site: right deltoid; rv 19:50 Follow up: Response: Medication administered at discharge. rv 19:40 Drug: Zofran 4 mg Route: PO; rv 19:50 Follow up: Response: Medication administered at discharge. rv Disposition: 09/05 09:51 Co-signature as Attending Physician, Finn Thomas MD I agree with the assessment and [facility] plan of care. Disposition: 09/04/18 19:41 Discharged to Home. Impression: Low back pain. - Condition is Stable. - Discharge Instructions: Back Pain, Adult, Musculoskeletal Pain, Heat Therapy. - Prescriptions for Robaxin 500 mg Oral Tablet - take 2 tablet by ORAL route every 6 hours As needed; 40 tablet. - Medication Reconciliation Form, Thank You Letter, Antibiotic Education, Prescription Opioid Use form. - Follow up: Private Physician; When: 2 - 3 days; Reason: Recheck today's complaints, Continuance of care, Re-evaluation by your physician. - Problem is new. - Symptoms have improved. - Notes: continue tramadol at home Signatures: Dispatcher [employer] Finn Swift MD MD cha Roszak, Josh, PA PA jr8 Ale Mccartney, RN RN Billy Saldaña, RN RN rv Corrections: (The following items were deleted from the chart) 09/04 20:01 19:41 09/04/2018 19:41 Discharged to Home. Impression: Low back pain. Condition is rv Stable. Forms are Medication Reconciliation Form, Thank You Letter, Antibiotic Education, Prescription Opioid Use. Follow up: Private Physician; When: 2 - 3 days; Reason: Recheck today's complaints, Continuance of care, Re-evaluation by your physician. Problem is new. Symptoms have improved. jr8
--- NOTE | 2018-09-04 19:42 | ER ---
Nurse's Notes [facility] Name: Stephan Lewis Jr Age: 78 yrs Sex: Male : 1940 Arrival Date: 09/04/2018 Time: 18:19 Bed 27 Private MD: Diagnosis: Low back pain Presentation: 09/04 19:01 Presenting complaint: Patient states: Low back pain x 2 days, denies injury, also ph denies urinary symptoms,fever, N/V/D, reports hx of arthritis in back. Transition of care: patient was not received from another setting of care. Onset of symptoms was September 04, 2018. Risk Assessment: Do you want to hurt yourself or someone else? Patient reports no desire to harm self or others. Initial Sepsis Screen: Does the patient meet any 2 criteria? No. Patient's initial sepsis screen is negative. Does the patient have a suspected source of infection? No. Patient's initial sepsis screen is negative. Care prior to arrival: Medication(s) given: Tramadol at 1600. 19:01 Method Of Arrival: Wheelchair 19:01 Acuity: ANASTASIA 4 ph Historical: - Allergies: 19:05 Sulfa (Sulfonamide Antibiotics); ph - PMHx: 19:05 Bladder cancer; Cererbral aneurysm, non-ruptured (2009); CHF; COPD; Depression; ph Diabetes - IDDM; Dysmetabolic syndrome X; Hyperlipidemia; Hypertension; neuropathy; PAD; rotator cuff tear; - Immunization history:: Adult Immunizations unknown. - Social history:: Smoking status: unknown. - Ebola Screening: : Patient negative for fever greater than or equal to 101.5 degrees Fahrenheit, and additional compatible Ebola Virus Disease symptoms Patient denies exposure to infectious person Patient denies travel to an Ebola-affected area in the 21 days before illness onset. Screenin:00 Abuse screen: Denies threats or abuse. Denies injuries from another. Nutritional rv screening: No deficits noted. Tuberculosis screening: No symptoms or risk factors identified. Fall Risk None identified. Assessment: 19:59 General: Appears in no apparent distress. uncomfortable, Behavior is calm, cooperative. rv Pain: Complains of pain in back. Neuro: Level of Consciousness is awake. Cardiovascular: Capillary refill < 3 seconds. Respiratory: Airway is patent. GI: No signs and/or symptoms were reported involving the gastrointestinal system. : No signs and/or symptoms were reported regarding the genitourinary system. EENT: No signs and/or symptoms were reported regarding the EENT system. Derm: Skin is intact. Musculoskeletal: Reports pain in back. Vital Signs: 19:02 BP 122 / 67; Pulse 53; Resp 18; Temp 98.0; Pulse Ox 94% on 2 lpm NC; Weight 133.81 kg; ph Height 5 ft. 8 in. (172.72 cm); Pain 10/10; 19:02 Body Mass Index 44.85 (133.81 kg, 172.72 cm) ph 19:02 pt on home o2 ph ED Course: 18:19 Patient arrived in ED. as 19:02 Triage completed. ph 19:03 Arm band placed on. ph 19:09 Tony Gandara PA is PHCP. jr8 19:09 Finn Thomas MD is Attending Physician. jr8 20:00 Patient has correct armband on for positive identification. Bed in low position. Call rv light in reach. Side rails up X 1. Pulse ox on. NIBP on. 20:00 No provider procedures requiring assistance completed. Patient did not have IV access rv during this emergency room visit. Administered Medications: 19:40 Drug: morphine 4 mg Route: IM; Site: right deltoid; rv 19:50 Follow up: Response: Medication administered at discharge. rv 19:40 Drug: Zofran 4 mg Route: PO; rv 19:50 Follow up: Response: Medication administered at discharge. rv Outcome: 19:41 Discharge ordered by . jr8 20:01 Discharged to home via wheelchair. rv 20:01 Condition: good 20:01 Discharge instructions given to patient, family, Instructed on discharge instructions, follow up and referral plans. medication usage, Demonstrated understanding of instructions, follow-up care, medications, Prescriptions given X 1. 20:01 Patient left the ED. rv Signatures: Estelita Akhtar as Tony Gandara PA PA jr8 Ale Mccartney RN RN Billy Saldaña RN RN rv
[2018-09-04] MEDS ORDERED: ONDANSETRON 4 MG (ODT) TAB ONE (19:46)
[2018-09-04] MEDS ORDERED: MORPHINE 4 MG/ML SYR ONE (19:46)
[2018-09-04] MEDS ORDERED: IBUPROFEN 400 MG TAB ONE (20:04)
[2018-09-04 20:06] VITALS: BP 122/67; TEMP 98; O2SAT 94
[2018-09-04 20:09] LABS: Urine Blood NEGATIVE (NEG); Urine Glucose NEGATIVE (NEG); Urine Protein NEGATIVE (NEG); Urine pH 5.5 (5.0-7.0)
== END 2018-09-04 20:01 | disposition home or self-care (01) ==
LOC: ER 18:17
DX: M54.5 Low back pain (principal); I10 Essential (primary) hypertension; Z85.51 Personal history of malignant neoplasm of bladder; Z88.2 Allergy status to sulfonamides
CPT/HCPCS: 81003; 96372; 99283

== ENCOUNTER 2018-09-07 22:50 | Emergency (ER) | payer OTHER ==
--- OUTSIDE RECORDS SUMMARY | 2018-09-07 22:53 | XMS REPORT ---
[...] Medications Results No Known Results Summary Purpose Showbie[employer]oltari Submission
[2018-09-08 00:28] LABS: Urine Blood NEGATIVE (NEG); Urine Glucose NEGATIVE (NEG); Urine Protein NEGATIVE (NEG)
--- NOTE | 2018-09-08 01:22 | EDPHYS ---
Physician Documentation [facility] Name: Stephan Lewis Jr Age: 78 yrs Sex: Male : 1940 Arrival Date: 09/07/2018 Time: 23:00 Bed 14 Private MD: ED Physician Guero Frank HPI: 09/08 04:04 This 78 yrs old Male presents to ER via Ambulatory with complaints of Groin gs Pain. 04:04 Onset: The symptoms/episode began/occurred. gs 04:05 Onset: The symptoms/episode began/occurred 2 day(s) ago. Modifying factors: The gs symptoms are alleviated by nothing, the symptoms are aggravated by nothing. Associated signs and symptoms: Pertinent negatives: fever, vomiting. Severity of symptoms: At their worst the symptoms were moderate, in the emergency department the symptoms are unchanged. The patient has experienced similar episodes in the past, a few times. Historical: - Allergies: 09/07 23:25 Sulfa (Sulfonamide Antibiotics); ao - Home Meds: 23:37 amitriptyline 25 mg Oral tab 1 tab once daily [Active]; amlodipine 10 mg tab 1 tab once ao daily [Active]; aspirin 81 mg Oral TbEC 1 tab once daily [Active]; atorvastatin 20 mg Oral tab 1 tab once daily [Active]; furosemide 20 mg Oral tab 1 tab 2 times per day [Active]; gabapentin 300 mg Oral cap 1 cap 3 times per day [Active]; insulin aspart subcutaneous 60 unit three times a day [Active]; insulin detemir subcutaneous 60units sq every morning, 50units sq every evening [Active]; lidocaine 5% patch [Active]; lisinopril 20 mg Oral tab 1 tab once daily [Active]; metformin 1,000 mg Oral tab 1 tab 2 times per day [Active]; metoprolol tartrate 50 mg Oral tab once daily [Active]; tamsulosin 0.4 mg Oral cp24 2 caps once daily [Active]; Warfarin Oral [Active]; - PMHx: 23:25 Bladder cancer; Cererbral aneurysm, non-ruptured (2009); CHF; COPD; Depression; ao Diabetes - IDDM; Dysmetabolic syndrome X; Hyperlipidemia; Hypertension; neuropathy; PAD; rotator cuff tear; - PSHx: 23:25 Bypass; stents; ao - Immunization history:: Adult Immunizations unknown. - Social history:: Smoking status: Patient/guardian denies using tobacco, Patient/guardian denies using alcohol. - Ebola Screening: : Patient negative for fever greater than or equal to 101.5 degrees Fahrenheit, and additional compatible Ebola Virus Disease symptoms Patient denies exposure to infectious person Patient denies travel to an Ebola-affected area in the 21 days before illness onset. ROS: 09/08 04:05 All other systems are negative. gs Exam: 04:05 Head/Face: Normocephalic, atraumatic. Eyes: Pupils equal round and reactive to light, gs extra-ocular motions intact. Lids and lashes normal. Conjunctiva and sclera are non-icteric and not injected. Cornea within normal limits. Periorbital areas with no swelling, redness, or edema. ENT: Nares patent. No nasal discharge, no septal abnormalities noted. Tympanic membranes are normal and external auditory canals are clear. Oropharynx with no redness, swelling, or masses, exudates, or evidence of obstruction, uvula midline. Mucous membranes moist. Neck: Trachea midline, no thyromegaly or masses palpated, and no cervical lymphadenopathy. Supple, full range of motion without nuchal rigidity, or vertebral point tenderness. No Meningismus. Chest/axilla: Normal chest wall appearance and motion. Nontender with no deformity. No lesions are appreciated. Cardiovascular: Regular rate and rhythm with a normal S1 and S2. No gallops, murmurs, or rubs. Normal PMI, no JVD. No pulse deficits. Respiratory: Lungs have equal breath sounds bilaterally, clear to auscultation and percussion. No rales, rhonchi or wheezes noted. No increased work of breathing, no retractions or nasal flaring. Neuro: Awake and alert, GCS 15, oriented to person, place, time, and situation. Cranial nerves II-XII grossly intact. Motor strength 5/5 in all extremities. Sensory grossly intact. Cerebellar exam normal. Normal gait. 04:05 Constitutional: The patient appears alert, awake, obese. 04:05 Abdomen/GI: Inspection: distension, obese Palpation: mild abdominal tenderness, in the right lower quadrant and left lower quadrant, rebound tenderness, is not appreciated, Hernia: noted in the right inguinal area, tenderness, that is mild. 04:05 Musculoskeletal/extremity: Exam is negative for acute changes. 04:05 Skin: skin breakdown r groin skin fold. Vital Signs: 09/07 23:22 BP 105 / 51; Pulse 60; Resp 20; Temp 98.6(O); Pulse Ox 95% 2 lpm ; Weight 108.86 kg ao (R); Height 5 ft. 4 in. (162.56 cm) (R); Pain 8/10; 09/08 01:28 BP 115 / 85; Pulse 62; Resp 17; Pulse Ox 96% on 2 lpm NC; Pain 8/10; ed1 09/07 23:22 Body Mass Index 41.20 (108.86 kg, 162.56 cm) ao MDM: 09/07 23:47 Patient medically screened. gs 09/08 04:05 Differential diagnosis: nonspecific abdominal pain, hernia, bowel obstruction. Data gs reviewed: vital signs, nurses notes, lab test result(s), radiologic studies. Counseling: I had a detailed discussion with the patient and/or guardian regarding: the historical points, exam findings, and any diagnostic results supporting the discharge/admit diagnosis, lab results, radiology results, the need for outpatient follow up. Response to treatment: the patient's symptoms have markedly improved after treatment, and as a result, I will discharge patient. 09/08 00:00 Order name: Urine Dipstick--Ancillary (enter results) mw2 09/07 23:49 Order name: CT Stone Protocol Administered Medications: No medications were administered Disposition: 09/08/18 01:21 Discharged to Home. Impression: Abdominal and pelvic pain, Inguinal hernia, Aortic aneurysm of unspecified site, without rupture. - Condition is Stable. - Discharge Instructions: Hernia, Adult, Abdominal Pain, Adult, [id number], Abdominal Aortic Aneurysm, [id number]. - Medication Reconciliation Form, Thank You Letter, Antibiotic Education, Prescription Opioid Use form. - Follow up: Private Physician; When: 2 - 3 days; Reason: Re-evaluation by your physician. Signatures: Dispatcher [employer] EDMel Grier RN RN ed1 Michael Knight RN RN Guero Ferguson MD MD gs Corrections: (The following items were deleted from the chart) 01:30 01:21 09/08/2018 01:21 Discharged to Home. Impression: Abdominal and pelvic pain; ed1 Inguinal hernia; Aortic aneurysm of unspecified site, without rupture. Condition is Stable. Forms are Medication Reconciliation Form, Thank You Letter, Antibiotic Education, Prescription Opioid Use. Follow up: Private Physician; When: 2 - 3 days; Reason: Re-evaluation by your physician. gs
--- NOTE | 2018-09-08 01:22 | ER ---
Nurse's Notes [facility] Name: Stephan Lewis Jr Age: 78 yrs Sex: Male : 1940 Arrival Date: 09/07/2018 Time: 23:00 Bed 14 Private MD: Diagnosis: Abdominal and pelvic pain;Inguinal hernia;Aortic aneurysm of unspecified site, without rupture Presentation: 09/07 23:19 Presenting complaint: Patient states: Had pain in the groin area for two days and pt ao notice it starts getting swelling. Pt describes a sharp pain in the groin that increases with activity. Transition of care: patient was not received from another setting of care. Onset of symptoms was September 06, 2018 at 00:00. Risk Assessment: Do you want to hurt yourself or someone else? Patient reports no desire to harm self or others. Initial Sepsis Screen: Does the patient meet any 2 criteria? No. Patient's initial sepsis screen is negative. Does the patient have a suspected source of infection? No. Patient's initial sepsis screen is negative. Care prior to arrival: None. 23:19 Method Of Arrival: Ambulatory ao 23:19 Acuity: ANASTASIA 3 ao Historical: - Allergies: 23:25 Sulfa (Sulfonamide Antibiotics); ao - Home Meds: 23:37 amitriptyline 25 mg Oral tab 1 tab once daily [Active]; amlodipine 10 mg tab 1 tab once ao daily [Active]; aspirin 81 mg Oral TbEC 1 tab once daily [Active]; atorvastatin 20 mg Oral tab 1 tab once daily [Active]; furosemide 20 mg Oral tab 1 tab 2 times per day [Active]; gabapentin 300 mg Oral cap 1 cap 3 times per day [Active]; insulin aspart subcutaneous 60 unit three times a day [Active]; insulin detemir subcutaneous 60units sq every morning, 50units sq every evening [Active]; lidocaine 5% patch [Active]; lisinopril 20 mg Oral tab 1 tab once daily [Active]; metformin 1,000 mg Oral tab 1 tab 2 times per day [Active]; metoprolol tartrate 50 mg Oral tab once daily [Active]; tamsulosin 0.4 mg Oral cp24 2 caps once daily [Active]; Warfarin Oral [Active]; - PMHx: 23:25 Bladder cancer; Cererbral aneurysm, non-ruptured (2009); CHF; COPD; Depression; ao Diabetes - IDDM; Dysmetabolic syndrome X; Hyperlipidemia; Hypertension; neuropathy; PAD; rotator cuff tear; - PSHx: 23:25 Bypass; stents; ao - Immunization history:: Adult Immunizations unknown. - Social history:: Smoking status: Patient/guardian denies using tobacco, Patient/guardian denies using alcohol. - Ebola Screening: : Patient negative for fever greater than or equal to 101.5 degrees Fahrenheit, and additional compatible Ebola Virus Disease symptoms Patient denies exposure to infectious person Patient denies travel to an Ebola-affected area in the 21 days before illness onset. Screenin:26 Abuse screen: Denies threats or abuse. Denies injuries from another. Nutritional ao screening: No deficits noted. Tuberculosis screening: No symptoms or risk factors identified. Fall Risk Ambulatory Aid- Furniture (30 pts.). Gait- Weak (10 pts.). Assessment: 23:26 General: Appears in no apparent distress. uncomfortable, Behavior is calm, appropriate ao for age. Pain: Complains of pain in Right groin Pain currently is 8 out of 10 on a pain scale. Neuro: Level of Consciousness is awake, alert, obeys commands, Oriented to person, place, time, situation, Appropriate for age Moves all extremities. Full function Speech is normal, Facial symmetry appears normal. Cardiovascular: Capillary refill < 3 seconds Patient's skin is warm and dry. Respiratory: Airway is patent Respiratory effort is even, unlabored, Respiratory pattern is regular, symmetrical, Denies cough, shortness of breath. GI: Abdomen is obese. : Reports pain Pain is 8 out of 10 on a pain scale. Groin area. EENT: No signs and/or symptoms were reported regarding the EENT system. Derm: Skin is intact, Skin is pink, warm \T\ dry. normal, Skin temperature is warm. Musculoskeletal: Circulation, motion, and sensation intact. Range of motion: intact in all extremities. 09/08 01:28 Reassessment: Patient appears in no apparent distress at this time. No changes from ed1 previously documented assessment. Patient and/or family updated on plan of care and expected duration. Pain level reassessed. Patient is alert, oriented x 3, equal unlabored respirations, skin warm/dry/pink. Vital Signs: 09/07 23:22 BP 105 / 51; Pulse 60; Resp 20; Temp 98.6(O); Pulse Ox 95% 2 lpm ; Weight 108.86 kg ao (R); Height 5 ft. 4 in. (162.56 cm) (R); Pain 8/10; 09/08 01:28 BP 115 / 85; Pulse 62; Resp 17; Pulse Ox 96% on 2 lpm NC; Pain 8/10; ed1 09/07 23:22 Body Mass Index 41.20 (108.86 kg, 162.56 cm) ao ED Course: 09/07 23:00 Patient arrived in ED. am2 23:14 Guero Frank MD is Attending Physician. gs 23:19 Michael Knight RN is Primary Nurse. ao 23:22 Triage completed. ao 23:26 Arm band placed on right wrist. Patient placed in an exam room, on a stretcher, on ao oxygen, on pulse oximetry, Patient notified of wait time. 23:30 Patient has correct armband on for positive identification. Pt sitting in chair with ao O2. Pulse ox on. NIBP on. 23:30 No provider procedures requiring assistance completed. ao 09/08 00:25 CT completed. Patient tolerated procedure well. Patient moved to CT via stretcher. Patient moved back from CT. 00:44 Report given to JOSUE Leal. ao 00:48 CT Stone Protocol In Process Unspecified. EDMS 01:28 Patient did not have IV access during this emergency room visit. ed1 Administered Medications: No medications were administered Outcome: 01:21 Discharge ordered by MD. 01:28 Discharged to home via wheelchair, with friend. ed1 01:28 Condition: good 01:28 Discharge instructions given to patient, Instructed on discharge instructions, follow up and referral plans. Demonstrated understanding of instructions, follow-up care. 01:30 Patient left the ED. ed1 Signatures: Dispatcher [employer] EDNE Riky Eason Mel Razo RN RN ed1 Michael Knight RN RN ao Moreno, Amanda am2 Guero Frank MD MD
[2018-09-08 02:32] VITALS: TEMP 98.6
[2018-09-08 02:34] VITALS: BP 115/85; O2SAT 96
--- NOTE | 2018-09-08 11:04 | RAD REPORT ---
EXAM DESCRIPTION: CT - Stone Protocol - 09/08/2018 1:09 am CLINICAL HISTORY: ABD PAIN. COMPARISON: None. TECHNIQUE: Sequential axial images were obtained with a multi-detector helical CT without administra tion of intravenous iodinated contrast material. Oral contrast was not given. Automatic exposure co ntrol (AEC), mA and/or kV adjustment by patient size, and/or interatrial reconstructive technique was used, per departmental dose optimization program, during the performance of the CT examination. The lack of contrast limits detailed evaluation of the abdominal organs. FINDINGS: The visualized lung bases demonstrate eventration of the right hemidiaphragm. Presence of patchy infiltrate/atelectasis are noted in the right middle and right lower lobes. The non-contrast enhanced images of the liver is unremarkable . Scattered calcified granulomas are se en in the liver and spleen. The spleen, pancreas and left adrenal gland are unremarkable. Presence of a 1.9 x 2 cm right adrenal nodule is noted with CT attenuation of 40 Hounsfield units. The gallbladd er demonstrates small calcified granulomas in the neck of the gallbladder. The kidneys are normal in appearance. Bilateral renal calculi are noted. No evidence of ureteral calculi are seen. Presence of a 4.9 x 4.3 x 1.4 cm cyst is noted in the lower pole of the left kidney. A second smaller parapelvic cyst is also noted on the left side measuring 1.6 cm in size. The stomach is unremarkable. The loops of small bowel are unremarkable. The appendix is unremarkable. The colon appears unremarkable. Focal aneurysmal dilatation of the infrarenal abdominal aorta is noted and measures 3.3 cm in transve rse diameter. Significant arthrosclerotic calcifications are noted in the aortoiliac arteries. The bladder is unremarkable. Reproductive organs are unremarkable. There is no pelvic or abdominal ly mphadenopathy. No ascites. No free air. The inguinal regions are unremarkable. The visualized bony structures are normally mineralized. Degenerative changes are seen in the lumbar spine at multiple levels with vacuum phenomenon. Levoscoliosis of the lumbar spine is noted. IMPRESSION: Small gallstones and bilateral single renal calculus. Left renal cyst. Fusiform infraren al abdominal aortic aneurysm measuring 2.3 cm in diameter. Recommend follow up every three years to m onitor this abdominal aortic aneurysm. Electronically signed by: Coco Gallegos MD 09/08/2018 1:01 AM CDT Due to temporary technical issues with the PACS/Fluency reporting system, reports are being signed by the in house radiologist as a courtesy to ensure prompt reporting. The interpreting radiologist is f ully responsible for the content of the report.
== END 2018-09-08 01:30 | disposition home or self-care (01) ==
LOC: ER 22:50
DX: K40.90 Unilateral inguinal hernia, without obstruction or gangrene, not specified as recurrent (principal); I71.9 Aortic aneurysm of unspecified site, without rupture; I10 Essential (primary) hypertension; E11.9 Type 2 diabetes mellitus without complications; E78.5 Hyperlipidemia, unspecified; I50.9 Heart failure, unspecified; F32.9 Major depressive disorder, single episode, unspecified; Z79.01 Long term (current) use of anticoagulants; Z79.82 Long term (current) use of aspirin; Z79.4 Long term (current) use of insulin; Z88.2 Allergy status to sulfonamides; Z85.51 Personal history of malignant neoplasm of bladder
CPT/HCPCS: 74176; 76377; 81003; 99284

== ENCOUNTER 2018-10-07 23:05 | Inpatient (IN) | payer OTHER ==
--- OUTSIDE RECORDS SUMMARY | 2018-10-07 23:07 | XMS REPORT ---
[...] Medications Results No Known Results Summary Purpose [employer] Submission
[2018-10-08 00:24] LABS: Absolute Neutrophil 9.9 K/uL (1.8-8.0); Basophils % 0.7 % (0-1.3); Eosinophils % 3.6 % (0-4.4); Hematocrit 35.9 % (39.6-49.0); Lymphocytes % 14.9 % (15.3-44.8); MPV 8.3 fL (7.6-11.3); Monocytes % 7.1 % (3.3-12.3); RBC Red Blood Cell Count 4.27 M/uL (4.33-5.43)
[2018-10-08 00:35] LABS: Potassium 4.4 mmol/L (3.5-5.1)
--- NOTE | 2018-10-08 01:56 | EDPHYS ---
Physician Documentation [facility] Name: Stephan Lewis Jr Age: 78 yrs Sex: Male : 1940 Arrival Date: 10/07/2018 Time: 23:06 Bed 19 Private MD: ED Physician Dmitri Eli HPI: 10/08 00:28 This 78 yrs old Male presents to ER via Wheelchair with complaints of Leg jr8 Pain, Leg Swelling. 00:28 The complaints affect the left leg. Onset: The symptoms/episode began/occurred acutely, jr8 2 day(s) ago. Modifying factors: The symptoms are alleviated by nothing. the symptoms are aggravated by movement, weight bearing. Associated signs and symptoms: Pertinent positives: swelling, warmth. 00:28 Severity of symptoms: At their worst the symptoms were moderate, in the emergency jr8 department the symptoms are unchanged. It is unknown whether or not the patient has had similar symptoms in the past. The patient has not recently seen a physician. Patient with history of lymphedema. Stated that he noticed mild increased in swelling over the past 4 days. Two days ago fell on left leg. Since then his leg has become red, more swollen, warm, and tender. History of cellulitis in past . Historical: - Allergies: 10/07 23:38 Sulfa (Sulfonamide Antibiotics); ed1 - Home Meds: 23:38 amitriptyline 25 mg Oral tab 1 tab once daily [Active]; amlodipine 10 mg tab 1 tab once ed1 daily [Active]; aspirin 81 mg Oral TbEC 1 tab once daily [Active]; atorvastatin 20 mg Oral tab 1 tab once daily [Active]; furosemide 20 mg Oral tab 1 tab 2 times per day [Active]; gabapentin 300 mg Oral cap 1 cap 3 times per day [Active]; insulin aspart subcutaneous 60 unit three times a day [Active]; insulin detemir subcutaneous 60units sq every morning, 50units sq every evening [Active]; lidocaine 5% patch [Active]; lisinopril 20 mg Oral tab 1 tab once daily [Active]; metformin 1,000 mg Oral tab 1 tab 2 times per day [Active]; metoprolol tartrate 50 mg Oral tab once daily [Active]; tamsulosin 0.4 mg Oral cp24 2 caps once daily [Active]; Warfarin Oral [Active]; - PMHx: 23:38 Bladder cancer; Cererbral aneurysm, non-ruptured (2009); CHF; Depression; COPD; ed1 Diabetes - IDDM; Dysmetabolic syndrome X; Hyperlipidemia; Hypertension; neuropathy; PAD; rotator cuff tear; - PSHx: 23:38 Cardiac Bypass; Heart stents; ed1 - Immunization history:: Adult Immunizations up to date, Flu vaccine is up to date. - Social history:: Smoking status: Patient/guardian denies using tobacco, but has a distant history of tobacco abuse. - Ebola Screening: : Patient negative for fever greater than or equal to 101.5 degrees Fahrenheit, and additional compatible Ebola Virus Disease symptoms Patient denies exposure to infectious person Patient denies travel to an Ebola-affected area in the 21 days before illness onset No symptoms or risks identified at this time. ROS: 10/08 00:28 Eyes: Negative for injury, pain, redness, and discharge, ENT: Negative for injury, jr8 pain, and discharge, Neck: Negative for injury, pain, and swelling, Cardiovascular: Negative for chest pain, palpitations, and edema, Respiratory: Negative for shortness of breath, cough, wheezing, and pleuritic chest pain, Abdomen/GI: Negative for abdominal pain, nausea, vomiting, diarrhea, and constipation, Back: Negative for injury and pain, Neuro: Negative for headache, weakness, numbness, tingling, and seizure. MS/extremity: Positive for erythema, pain, swelling, tenderness, warmth, of the left leg. Skin: Positive for erythema, of the left leg. Exam: 00:28 Eyes: Pupils equal round and reactive to light, extra-ocular motions intact. Lids and jr8 lashes normal. Conjunctiva and sclera are non-icteric and not injected. Cornea within normal limits. Periorbital areas with no swelling, redness, or edema. ENT: Nares patent. No nasal discharge, no septal abnormalities noted. Tympanic membranes are normal and external auditory canals are clear. Oropharynx with no redness, swelling, or masses, exudates, or evidence of obstruction, uvula midline. Mucous membranes moist. Neck: Trachea midline, no thyromegaly or masses palpated, and no cervical lymphadenopathy. Supple, full range of motion without nuchal rigidity, or vertebral point tenderness. No Meningismus. Cardiovascular: Regular rate and rhythm with a normal S1 and S2. No gallops, murmurs, or rubs. Normal PMI, no JVD. No pulse deficits. Respiratory: Lungs have equal breath sounds bilaterally, clear to auscultation and percussion. No rales, rhonchi or wheezes noted. No increased work of breathing, no retractions or nasal flaring. Abdomen/GI: Soft, non-tender, with normal bowel sounds. No distension or tympany. No guarding or rebound. No evidence of tenderness throughout. Back: No spinal tenderness. No costovertebral tenderness. Full range of motion. Neuro: Awake and alert, GCS 15, oriented to person, place, time, and situation. Cranial nerves II-XII grossly intact. Motor strength 5/5 in all extremities. Sensory grossly intact. Cerebellar exam normal. Normal gait. 00:28 Musculoskeletal/extremity: Extremities: grossly normal except: noted in the left leg: Patient has swollen, red, tender, and warm left lower leg from ankle to knee. Streaking to medial groin noted. 2 + pitting edema present , ROM: intact in all extremities, Circulation is intact in all extremities. Sensation intact. 00:28 Skin: Appearance: Color: normal in color, pink, Temperature: normal temperature, Moisture: normal moisture. Vital Signs: 10/07 23:38 BP 102 / 46; Pulse 63; Resp 18; Temp 98.2(O); Pulse Ox 96% on 2 lpm NC; Weight 133.36 ed1 kg; Height 5 ft. 8 in. (172.72 cm); Pain 5/10; 10/08 01:04 BP 104 / 48; Pulse 68; Resp 20; Pulse Ox 94% on 2 lpm NC; Pain 5/10; ed1 02:00 BP 109 / 52; Pulse 67; Resp 17; Pulse Ox 96% on 2 lpm NC; Pain 5/10; ed1 03:09 BP 106 / 51; Pulse 63; Resp 18; Temp 98.9(O); Pulse Ox 96% on 2 lpm NC; Pain 6/10; ed1 10/07 23:38 Body Mass Index 44.70 (133.36 kg, 172.72 cm) ed1 MDM: 10/07 23:29 Patient medically screened. jr8 10/08 01:37 Data reviewed: vital signs, nurses notes, lab test result(s), radiologic studies, plain [facility] films, and as a result, I will discharge patient. Data interpreted: Pulse oximetry: on room air is 94 %. Interpretation: normal. Counseling: I had a detailed discussion with the patient and/or guardian regarding: the historical points, exam findings, and any diagnostic results supporting the discharge/admit diagnosis, lab results, radiology results, the need for further work-up and treatment in the hospital. 01:54 Physician consultation: Jone Vega MD was called at 01:54, was contacted at 01:54, [facility] regarding admission, to the medical/surgical unit. consult, patient's condition, and will see patient. 10/07 23:47 Order name: CBC with Diff; Complete Time: 00:34 [facility] 10/07 23:47 Order name: Basic Metabolic Panel; Complete Time: 00:37 [facility] 10/07 23:47 Order name: Blood Culture Adult (2) [facility] 10/07 23:47 Order name: Procalcitonin; Complete Time: 01:35 [facility] 10/07 23:47 Order name: XRAY Tib Fib LEFT [facility] 10/08 02:59 Order name: UPPER EXTREMITY VENOUS UNILATE [facility] 10/07 23:47 Order name: IV; Complete Time: 00:08 [facility] 10/08 02:58 Order name: CONS Pharmacy Consult [facility] 10/08 02:58 Order name: CONS Pharmacy Consult [facility] 10/08 02:59 Order name: Regular [facility] 10/08 02:59 Order name: UPPER EXTREMITY VENOUS UNILATE EDPR Administered Medications: 02:21 Drug: Zosyn 3.375 grams Route: IVPB; Infused Over: 60 mins; Site: right antecubital; ed1 03:24 Follow up: Response: No adverse reaction; IV Status: Completed infusion; IV Intake: ed1 100ml 03:25 Drug: vancoMYCIN 1 grams Route: IVPB; Infused Over: 2 hrs; Site: right antecubital; ed1 03:25 Follow up: IV Status: Infusion continued upon admission ed1 Disposition: 07:13 Co-signature as Attending Physician, Dmitri Eli MD I agree with the assessment and 4 plan of care. Disposition: 10/08/18 01:55 Hospitalization ordered by Jone Vega for Inpatient Admission. Preliminary diagnosis is Cellulitis of left lower limb. - Bed requested for Telemetry/MedSurg (Inpatient). - Status is Inpatient Admission. ed1 - Condition is Stable. - Problem is new. - Symptoms have improved. UTI on Admission? No Signatures: Dispatcher [employer] EDPR Val Grewal, RN RN Mel Razo RN RN ed1 Tony Gandara, PA PA jr8 Dmitri Eli MD MD tw4 Corrections: (The following items were deleted from the chart) 02:31 01:55 Hospitalization Ordered by Jone Vega MD for Inpatient Admission. Preliminary fc diagnosis is Cellulitis of left lower limb. Bed requested for Telemetry/MedSurg (Inpatient). Status is Inpatient Admission. Condition is Stable. Problem is new. Symptoms have improved. UTI on Admission? No. jr8 03:26 02:31 10/08/2018 01:55 Hospitalization Ordered by Jone Vega MD for Inpatient ed1 Admission. Preliminary diagnosis is Cellulitis of left lower limb. Bed requested for Telemetry/MedSurg (Inpatient). Status is Inpatient Admission. Condition is Stable. Problem is new. Symptoms have improved. UTI on Admission? No. fc
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
[2018-10-08] MEDS ORDERED: NA CHLORIDE 0.9% 250 ML ONE ×2 (02:22→04:52)
[2018-10-08] MEDS ORDERED: PIPER/TAZO/NS 3.375gm 3.375 GM/100 ML BAG ONE (02:22)
[2018-10-08] MEDS ORDERED: VANCOMYCIN 1 GM/VIAL ONE ×2 (02:22→04:51)
[2018-10-08] MEDS ORDERED: ONDANSETRON 4 MG/2 ML VIAL IV PRN (02:52)
[2018-10-08] MEDS: VANCOMYCIN/NS 1 gm 1 GM/250 ML BAG IVPB ONE ×2 (03:00→04:30)
[2018-10-08 03:58] VITALS: BMI 43.7
[2018-10-08 06:24] LABS: Urine Appearance CLEAR; Urine Bilirubin NEGATIVE (NEG); Urine Blood NEGATIVE (NEG); Urine Color YELLOW; Urine Glucose NEGATIVE (NEG); Urine Protein NEGATIVE (NEG); Urine Urobilinogen 0.2 mg/dL (0.2-1.0); Urine pH 5.5 (5.0-7.0)
[2018-10-08 06:39] LABS: Urine Microscopic Reflex NO UMIC
[2018-10-08] MEDS ORDERED: ENOXAPARIN 30 MG/0.3 ML SQ SCH (09:00)
--- NOTE | 2018-10-08 09:13 | RAD REPORT ---
EXAM DESCRIPTION: Phyllis Mix Left10/08/2018 1:38 am CLINICAL HISTORY: Left leg pain FINDINGS: No fracture is seen. Osteoporosis. Diffuse edema within the subcutaneous tissues may be secondary to venous stasis or cellulitis
[2018-10-08] MEDS: AMPICILLIN/SULBACT 3 GM in NA CHLORIDE 0.9% 100 ML IVPB SCH ×3 (11:24→21:52)
--- NOTE | 2018-10-08 11:40 | P.HP ---
Certification for Inpatient Patient admitted to: Inpatient With expected LOS: >2 Midnights Patient will require the following post-hospital care: None Practitioner: I am a practitioner with admitting privileges, knowledge of patient current condition, hospital course, and medical plan of care. Services: Services provided to patient in accordance with Admission requirements found in Title 42 Section 412.3 of the Code of Federal Regulations Patient History Date of Service: 10/08/18 Reason for admission: left lower extremity cellulitis History of Present Illness: Patient is a 78-year-old gentleman who came to the hospital with cellulitis of the left lower extremity. Patient fell a couple of days ago and came into the hospital. patient was discharged from the emergency room. Patient had his left leg as he fell from a scooter. He suffered a significant injury. However, he was discharged home. He came back in last night with significant erythema of the left lower extremity. Normally his right lower extremity is more swollen but his left lower extremity is twice as big as his right. We will also get a Doppler the left lower extremity. Continue with IV antibiotics. Admitted to the hospital for further evaluation. He will need a minimum of 72 hr of antibiotic therapy. Has a history of lymphedema and this makes the cellulitis more significant and worrisome. He has multiple comorbidities as well. Allergies Sulfa (Sulfonamide Antibiotics) [Sulfa(Sulfonamide Antibiotics)] Allergy (Mild, Verified 10/08/18 03:48) Rash Home Medications: Aspirin [Sandra Chewable Aspirin] 1 tab PO DAILY 09/25/14 Furosemide [Lasix*] 20 mg PO BID 09/25/14 Atorvastatin Calcium [Lipitor*] 20 mg PO BEDTIME 03/08/15 Lisinopril [Zestril] 2.5 mg PO DAILY 01/13/17 Apixaban [Eliquis] 5 mg PO BID 11/30/17 Tamsulosin [Flomax*] 0.4 mg PO BEDTIME 11/30/17 Oxybutynin Chloride [Ditropan Xl] 10 mg PO DAILY 02/20/18 Albuterol Sulfate [Albuterol Sulfate Hfa] 2 puff IH BID PRN 10/08/18 Cyclobenzaprine HCl 1 tab PO TID 10/08/18 Insulin Aspart [Novolog Flexpen] 15 units SQ TID 10/08/18 Insulin Detemir [Levemir Flextouch] 20 units SQ BID 10/08/18 - Past Medical/Surgical History Has patient received pneumonia vaccine in the past: No Diabetic: Yes -: HTN -: COPD, oxygen-dependent -: Lymphedema -: BPH -: Diabetes mellitus type 2 -: Arthritis -: Hyperlipidemia -: Diabetic neuropathy -: Bladder tumor cancer -: Cataracts -: Obesity -: Former tobacco use -: heel spur surgery -: Right knee surgery -: CABG x3 -: Brain aneurism repair 2013 -: Bladder surgery -: Cataracts surgery Psychosocial/ Personal History: The patient is currently single and . He has 2 children. He currently lives with his son. - Family History Mother Medical History: Cancer, Other (see notes) Notes: Kidney cancer Sister Medical History: Diabetes Father Medical History: Heart disease Notes: cardiac bypass surgery - Social History Smoking Status: Former smoker Alcohol use: No CD- Drugs: No Caffeine use: Yes Place of Residence: Home Review of Systems 10-point ROS is otherwise unremarkable Physical Examination - Vital Signs Temperature: 97.6 F Blood Pressure: 105/50 Pulse: 74 Respirations: 16 Pulse Ox (%): 91 - Physical Exam General: Alert, In no apparent distress, Oriented x3 HEENT: Atraumatic, PERRLA, Mucous membr. moist/pink, EOMI, Sclerae nonicteric Neck: Supple, 2+ carotid pulse no bruit, No LAD, Without JVD or thyroid abnormality Respiratory: Clear to auscultation bilaterally, Normal air movement Cardiovascular: Regular rate/rhythm, Normal S1 S2, Systolic murmur Gastrointestinal: Normal bowel sounds, Soft and benign, Non-distended, No tenderness Musculoskeletal: Swelling, Erythema, Tenderness Integumentary: Tenderness/swelling, Erythema Neurological: Normal gait, Normal speech, Normal strength at 5/5 x4 extr, Normal tone, Sensation intact, Cranial nerves 3-12 intact, Normal affect Lymphatics: No axilla or inguinal lymphadenopathy - Studies Laboratory Data (last 24 hrs) 10/08/18 00:00: Sodium 138, Potassium 4.4, BUN 47 H, Creatinine 1.21, Glucose 150 H 10/08/18 00:00: WBC 13.4 H, Hgb 11.5 L, Hct 35.9 L, Plt Count 313 Assessment & Plan - Problems (Diagnosis) (1) Left leg cellulitis Current Visit: Yes Status: Acute (2) Edema of left lower extremity Current Visit: Yes Status: Acute (3) Lymphedema Current Visit: Yes Status: Acute (4) CHF (congestive heart failure) Onset Date: 02/21/18 Current Visit: No Status: Acute Qualifiers: Heart failure type: systolic Heart failure chronicity: acute on chronic Qualified Code(s): I50.23 - Acute on chronic systolic (congestive) heart failure (5) Emphysema Current Visit: No Status: Acute (6) CAD (coronary artery disease) Onset Date: 02/21/18 Current Visit: No Status: Chronic (7) COPD (chronic obstructive pulmonary disease) Current Visit: No Status: Chronic Qualifiers: COPD type: chronic bronchitis Chronic bronchitis type: unspecified Qualified Code(s): J42 - Unspecified chronic bronchitis (8) Chronic anticoagulation Onset Date: 02/21/18 Current Visit: No Status: Chronic (9) Diabetes mellitus Onset Date: 02/21/18 Current Visit: No Status: Chronic Qualifiers: Diabetes mellitus type: type 2 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 use: unspecified terminal block assembler insulin use status Diabetes mellitus complication status : with other specified complication Qualified Code(s): E11.69 - Type 2 diabetes mellitus with other specified complication (10) Diabetic neuropathy Onset Date: 02/21/18 Current Visit: No Status: Chronic Qualifiers: Diabetes mellitus type: type 2 Diabetes mellitus complication detail: diabetic polyneuropathy Qualified Code(s): E11.42 - Type 2 diabetes mellitus with diabetic polyneuropathy (11) Morbid obesity Onset Date: 09/25/14 Current Visit: No Status: Chronic (12) Neuropathy Current Visit: No Status: Chronic (13) Oxygen dependent Onset Date: 02/21/18 Current Visit: No Status: Chronic - Plan 1. Continue with IV antibiotic 2. Continue with local wound care 3. Wound care consultation/patient with significant lower extremity edema and will need diuresing 4. Heplock IV 5. Monitor CBC 6. Strict blood sugar monitoring 7. Pain control 8. GI and DVT prophylaxis Discharge Plan: Home Plan to discharge in: Greater than 2 days - Advance Directives Does patient have a Living Will: Yes Does patient have a Durable POA for Healthcare: Yes - Code Status/Comfort Care Code Status Assessed: Yes Code Status: Full Code Critical Care: No Time Spent Managing PTS Care (In Minutes): 45
[2018-10-08] MEDS ORDERED: GLUCAGON 1 MG/VIAL IM PRN (11:52)
[2018-10-08] MEDS ORDERED: D50W 25 GM/50 ML SYRINGE IV PRN (11:52)
[2018-10-08] MEDS: INSULIN -REGULAR HUMAN 50 UNIT/0.5 ML ML SQ SCH ×2 (16:30→21:56)
--- NOTE | 2018-10-08 17:51 | RAD REPORT ---
EXAM DESCRIPTION: [facility]10/08/2018 5:46 pm CLINICAL HISTORY: left leg swelling. COMPARISON: 2018 FINDINGS: Left common femoral, superficial femoral, popliteal and posterior tibial veins are compre ssible and demonstrate augmentation. Doppler demonstrates good flow. IMPRESSION: No evidence of deep venous thrombosis involving the left lower extremity.
[2018-10-08] MEDS: ACETAMINOPHEN 500 MG TAB PO PRN (20:05)
[2018-10-08] MEDS: ATORVASTATIN 20 MG TAB PO SCH (21:53)
[2018-10-08] MEDS: APIXABAN 5 MG TABLET PO SCH (21:53)
[2018-10-08] MEDS: FUROSEMIDE 20 MG TABLET PO SCH (21:53)
[2018-10-08] MEDS: MORPHINE 4 MG/ML SYR IV PRN (21:58)
[2018-10-08] MEDS: TAMSULOSIN 0.4 MG SR CAP PO SCH (22:03)
[2018-10-09] MEDS: AMPICILLIN/SULBACT 3 GM in NA CHLORIDE 0.9% 100 ML IVPB SCH ×4 (01:30→21:02)
[2018-10-09] MEDS: MORPHINE 4 MG/ML SYR IV PRN ×3 (05:42→21:04)
[2018-10-09] MEDS: VANCOMYCIN 2 GM in NA CHLORIDE 0.9% 500 ML IV SCH (05:43)
[2018-10-09] MEDS: LISINOPRIL 5 MG TAB PO SCH (09:27)
[2018-10-09] MEDS: APIXABAN 5 MG TABLET PO SCH ×2 (09:32→21:03)
[2018-10-09] MEDS: FUROSEMIDE 20 MG TABLET PO SCH ×2 (09:32→21:02)
[2018-10-09] MEDS: INSULIN -REGULAR HUMAN 50 UNIT/0.5 ML ML SQ SCH ×4 (09:35→21:04)
[2018-10-09] MEDS: OXYBUTYNIN ER 5 MG TAB PO SCH (09:35)
--- NOTE | 2018-10-09 11:08 | P.PN ---
Subjective Date of Service: 10/09/18 Chief Complaint: left lower extremity cellulitis Patient seen and examined at bedside with RN. Chart reviewed. Case discussed with patient at bedside. Patient states that he is having some improvement however still noticed that his left leg is tight and swollen with increased redness. Denies having any fever chills nausea vomiting at this time. Review of Systems 10-point ROS is otherwise unremarkable Physical Examination - Vital Signs Temperature: 96.9 F Blood Pressure: 104/54 Pulse: 65 Respirations: 16 Pulse Ox (%): 98 - Physical Exam General: Alert, In no apparent distress, Obese Respiratory: Clear to auscultation bilaterally, Normal air movement Cardiovascular: Regular rate/rhythm, Normal S1 S2 Gastrointestinal: Normal bowel sounds, No tenderness Musculoskeletal: Swelling, Erythema, Tenderness, Warmth, Other (Bilateral lower extremity edema noted. With increased erythema and tenderness. Improvement today. Left lower extremity area of concern with induration noted) Integumentary: Tenderness/swelling, Erythema Neurological: Normal speech, Normal tone, Normal affect Lymphatics: No axilla or inguinal lymphadenopathy - Studies Medications List Reviewed: Yes Assessment And Plan - Current Problems (Diagnosis) (1) Left leg cellulitis Current Visit: Yes Status: Acute Plan: Bilateral lower leg cellulitis. Left worse than right. -currently on IV antibiotics. Will continue that here in the hospital. -blood culture and wound culture pending at this time. -will elevate and wrap the legs. (2) Lymphedema Current Visit: Yes Status: Chronic (3) CHF (congestive heart failure) Onset Date: 02/21/18 Current Visit: No Status: Chronic Qualifiers: Heart failure type: systolic Heart failure chronicity: acute on chronic Qualified Code(s): I50.23 - Acute on chronic systolic (congestive) heart failure (4) PVD (peripheral vascular disease) Current Visit: No Status: Chronic (5) S/P CABG x 3 Current Visit: No Status: Chronic (6) Benign prostatic hypertrophy Current Visit: No Status: Chronic (7) CAD (coronary artery disease) Onset Date: 02/21/18 Current Visit: No Status: Chronic (8) COPD (chronic obstructive pulmonary disease) Current Visit: No Status: Chronic Qualifiers: COPD type: chronic bronchitis Chronic bronchitis type: unspecified Qualified Code(s): J42 - Unspecified chronic bronchitis (9) Diabetes mellitus Onset Date: 02/21/18 Current Visit: No Status: Chronic Qualifiers: Diabetes mellitus type: type 2 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 insulin use: unspecified termite technician insulin use status Diabetes mellitus complication status : with other specified complication Qualified Code(s): E11.69 - Type 2 diabetes mellitus with other specified complication (10) GERD (gastroesophageal reflux disease) Onset Date: 02/21/18 Current Visit: No Status: Chronic Qualifiers: Esophagitis presence: esophagitis presence not specified Qualified Code(s) : K21.9 - Gastro-esophageal reflux disease without esophagitis (11) Hyperlipidemia Current Visit: No Status: Chronic Qualifiers: Hyperlipidemia type: unspecified Qualified Code(s): E78.5 - Hyperlipidemia , unspecified (12) Hypertension Current Visit: No Status: Chronic Qualifiers: Hypertension type: essential hypertension Qualified Code(s): I10 - Essential (primary) hypertension (13) Morbid obesity Onset Date: 09/25/14 Current Visit: No Status: Chronic - Plan Pending clinical improvement at this time. Will continue with IV antibiotics until blood culture and wound culture results. Patient will have his ranks rapid elevated today. All other chronic condition stable and will restart home medication at this time as well. Discharge Plan: Home Plan to discharge in: Greater than 2 days - Code Status/Comfort Care Code Status Assessed: Yes Critical Care: No
[2018-10-09] MEDS: TAMSULOSIN 0.4 MG SR CAP PO SCH (21:02)
[2018-10-09] MEDS: ATORVASTATIN 20 MG TAB PO SCH (21:02)
[2018-10-10] MEDS: AMPICILLIN/SULBACT 3 GM in NA CHLORIDE 0.9% 100 ML IVPB SCH ×4 (01:29→21:35)
[2018-10-10 05:38] LABS: Absolute Lymphocytes (CBC) 1.5 K/uL (0.7-4.9); Absolute Monocytes 0.8 K/uL (0.1-1.3); Absolute Neutrophil 8.5 K/uL (1.8-8.0); Basophils % 0.3 % (0-1.3); Eosinophils % 5.5 % (0-4.4); Lymphocytes % 13.3 % (15.3-44.8); Monocytes % 7.2 % (3.3-12.3); RBC Red Blood Cell Count 4.32 M/uL (4.33-5.43)
[2018-10-10] MEDS: MORPHINE 4 MG/ML SYR IV PRN ×3 (06:37→22:37)
[2018-10-10 07:13] LABS: Albumin 2.5 g/dL (3.4-5.0); Bilirubin Total 0.5 mg/dL (0.2-1.0); Potassium 4.1 mmol/L (3.5-5.1)
[2018-10-10] MEDS: VANCOMYCIN 2 GM in NA CHLORIDE 0.9% 500 ML IV SCH (07:24)
[2018-10-10] MEDS: FUROSEMIDE 20 MG TABLET PO SCH ×2 (08:25→21:36)
[2018-10-10] MEDS: LISINOPRIL 5 MG TAB PO SCH (08:25)
[2018-10-10] MEDS: OXYBUTYNIN ER 5 MG TAB PO SCH (08:26)
[2018-10-10] MEDS: INSULIN -REGULAR HUMAN 50 UNIT/0.5 ML ML SQ SCH ×4 (08:26→21:00)
[2018-10-10] MEDS: GABAPENTIN 100 MG CAP PO SCH ×2 (10:13→21:36)
[2018-10-10] MEDS: APIXABAN 5 MG TABLET PO SCH ×2 (10:16→21:36)
--- NOTE | 2018-10-10 15:30 | P.PN ---
Subjective Date of Service: 10/10/18 Primary Care Provider: [facility] Chief Complaint: left lower extremity cellulitis Subjective: Improving Physical Examination - Vital Signs Temperature: 97.7 F Blood Pressure: 90/51 Pulse: 74 Respirations: 16 Pulse Ox (%): 99 - Physical Exam General: Alert, In no apparent distress, Oriented x3, Cooperative HEENT: Atraumatic Neck: Supple Respiratory: Clear to auscultation bilaterally, Normal air movement Cardiovascular: Normal pulses, Regular rate/rhythm Gastrointestinal: Normal bowel sounds, Soft and benign, Non-distended Musculoskeletal: Other (Erythema to the left lower extremity improved. Still with mild edema.) Neurological: Normal speech, Normal strength at 5/5 x4 extr, Normal tone, Normal affect - Studies Medications List Reviewed: Yes Assessment & Plan Discharge Plan: Home Plan to discharge in: 48 Hours Physician Review Additional Text: Impression: Bilateral lower extremity cellulitis complicated with lymphedema PVD CAD Chronic systolic CHF COPD Diabetes mellitus type 2 GERD Hyperlipidemia Hypertension Obesity, BMI greater than 40 Plan: Bilateral lower extremity cellulitis complicated with lymphedema: Continue with antibiotic therapy. So far cultures negative. Continue to elevate leg when sitting or lying down. Patient to continue with wrapping. Anticipate discharge in the next 48 hr. Will continue monitor closely. PVD: Continue medication CAD: Continue medication Chronic systolic CHF: Continue medication. Continue 1500 cc per day fluid restriction. Patient currently on Lasix. COPD: Will maintain sats above 90%. Diabetes mellitus type 2: Continue Accu-Cheks and sliding scale. GERD: Continue medication Hyperlipidemia: Continue medication Hypertension: Continue medication. Will monitor and adjust appropriately. Obesity, BMI greater than 40: Continue to address lifestyle modification education. Time Spent Managing Pts Care (In Minutes): 55
[2018-10-10] MEDS: ATORVASTATIN 20 MG TAB PO SCH (21:36)
[2018-10-10] MEDS: TAMSULOSIN 0.4 MG SR CAP PO SCH (21:36)
[2018-10-11] MEDS: ACETAMINOPHEN 500 MG TAB PO PRN (01:00)
[2018-10-11] MEDS: MORPHINE 4 MG/ML SYR IV PRN ×2 (01:36→13:10)
[2018-10-11] MEDS: AMPICILLIN/SULBACT 3 GM in NA CHLORIDE 0.9% 100 ML IVPB SCH ×4 (02:35→20:37)
--- NOTE | 2018-10-11 05:44 | EKG ---
Test Date: 2018-10-10 Test Time: 22:54:34 Rubber Molder: RT MEASUREMENT RESULTS: Intervals: Rate: 94 NM: QRSD: 102 QT: 334 QTc: 417 [place]: P: NM: QRS: 70 T: -80 INTERPRETIVE STATEMENTS: Atrial fibrillation Cannot rule out Inferior infarct, age undetermined Anterior infarct, age undetermined Abnormal ECG Compared to ECG 07/29/2017 16:02:20 Sinus rhythm no longer present Sinus arrhythmia no longer present Myocardial infarct finding still present Electronically Signed On 10-11-18 05:43:43 CDT by Sacha Diggs
[2018-10-11 06:25] LABS: Albumin 2.4 g/dL (3.4-5.0); Bilirubin Total 0.5 mg/dL (0.2-1.0); Magnesium 1.8 mg/dL (1.8-2.4); Potassium 4.3 mmol/L (3.5-5.1); Protein, Total 6.6 g/dL (6.4-8.2)
[2018-10-11] MEDS: VANCOMYCIN 2 GM in NA CHLORIDE 0.9% 500 ML IV SCH (06:27)
[2018-10-11 06:39] LABS: Absolute Lymphocytes (CBC) 1.8 K/uL (0.7-4.9); Absolute Neutrophil 8.4 K/uL (1.8-8.0); Basophils % 0.7 % (0-1.3); Hematocrit 34.8 % (39.6-49.0); MPV 8.2 fL (7.6-11.3); Monocytes % 8.4 % (3.3-12.3); RBC Red Blood Cell Count 4.04 M/uL (4.33-5.43)
[2018-10-11] MEDS ORDERED: MAGNESIUM SULFATE 1 gm IVPB 1 GM/100 ML BAG IV ONE (07:27)
[2018-10-11] MEDS: GABAPENTIN 100 MG CAP PO SCH ×2 (08:09→20:37)
[2018-10-11] MEDS: APIXABAN 5 MG TABLET PO SCH ×2 (08:10→20:38)
[2018-10-11] MEDS: LISINOPRIL 5 MG TAB PO SCH (08:10)
[2018-10-11] MEDS: FUROSEMIDE 20 MG TABLET PO SCH ×2 (08:10→20:38)
[2018-10-11] MEDS: OXYBUTYNIN ER 5 MG TAB PO SCH (08:11)
[2018-10-11] MEDS: INSULIN -REGULAR HUMAN 50 UNIT/0.5 ML ML SQ SCH ×4 (08:12→21:00)
[2018-10-11] MEDS ORDERED: TRAMADOL HCL 50 MG TAB PO PRN (13:53)
--- NOTE | 2018-10-11 13:53 | P.PN ---
Subjective Date of Service: 10/11/18 Primary Care Provider: [facility] Chief Complaint: left lower extremity cellulitis Subjective: Improving, Doing well Physical Examination - Vital Signs Temperature: 97.6 F Blood Pressure: 113/75 Pulse: 86 Respirations: 20 Pulse Ox (%): 83 - Physical Exam General: Alert, In no apparent distress, Oriented x3, Cooperative HEENT: Atraumatic Neck: Supple Respiratory: Clear to auscultation bilaterally, Normal air movement Cardiovascular: Normal pulses, Regular rate/rhythm Gastrointestinal: No masses, No rebound, No guarding Integumentary: Other (Swelling to the lower extremities improved. Erythema to the left lower extremity improved.) Neurological: Normal speech, Normal strength at 5/5 x4 extr, Normal tone, Normal affect - Studies Medications List Reviewed: Yes Assessment & Plan Discharge Plan: Home Plan to discharge in: 24 Hours Physician Review Additional Text: Impression: Bilateral lower extremity cellulitis complicated with lymphedema PVD CAD Chronic systolic CHF Chronic atrial fibrillation on chronic anti coagulation therapy COPD Diabetes mellitus type 2 BPH Hyperlipidemia Hypertension Obesity, BMI greater than 40 Plan: Bilateral lower extremity cellulitis complicated with lymphedema: Patient continues to improve. Continue with IV antibiotic therapy. So far cultures negative. Continue to elevate leg when sitting or lying down. Patient to continue with wrapping. Anticipate discharge in the next 24 hr. Patient can be discharge likely tomorrow on oral medication. Will continue monitor closely. [facility] by Dr. Levi. PVD: Continue current plan of care CAD: Continue current plan of care Chronic atrial fibrillation on chronic anti coagulation therapy: Overall stable. Continue with medication. Chronic systolic CHF: Continue medication. Continue 1500 cc per day fluid restriction. Patient currently on Lasix. Will try to wean off oxygen. Patient may require home oxygen if not already placed. COPD: Will maintain sats above 90%. BPH: Continue medication Diabetes mellitus type 2: Continue Accu-Cheks and sliding scale. Hyperlipidemia: Continue medication Hypertension: Continue medication. Will monitor and adjust appropriately. Obesity, BMI greater than 40: Continue to address lifestyle modification education. Time Spent Managing Pts Care (In Minutes): 55
[2018-10-11] MEDS: ATORVASTATIN 20 MG TAB PO SCH (20:37)
[2018-10-11] MEDS: HYDROCODONE/APAP 7.5/325 MG TAB PO PRN (20:37)
[2018-10-11] MEDS: TAMSULOSIN 0.4 MG SR CAP PO SCH (20:38)
[2018-10-11 22:35] VITALS: O2SAT 98
[2018-10-12] MEDS: AMPICILLIN/SULBACT 3 GM in NA CHLORIDE 0.9% 100 ML IVPB SCH ×2 (01:52→09:44)
[2018-10-12 04:23] LABS: Absolute Lymphocytes (CBC) 1.8 K/uL (0.7-4.9); Absolute Monocytes 1.1 K/uL (0.1-1.3); Basophils % 0.8 % (0-1.3); Eosinophils % 5.7 % (0-4.4); Lymphocytes % 13.9 % (15.3-44.8); MPV 7.9 fL (7.6-11.3); Monocytes % 8.7 % (3.3-12.3)
[2018-10-12 04:34] LABS: Albumin 2.5 g/dL (3.4-5.0); Bilirubin Total 0.5 mg/dL (0.2-1.0); Magnesium 1.9 mg/dL (1.8-2.4); Potassium 4.6 mmol/L (3.5-5.1); Protein, Total 6.8 g/dL (6.4-8.2)
[2018-10-12] MEDS: VANCOMYCIN 2 GM in NA CHLORIDE 0.9% 500 ML IV SCH (06:52)
[2018-10-12 08:53] VITALS: BP 122/58; TEMP 96.6
[2018-10-12] MEDS: LISINOPRIL 5 MG TAB PO SCH (09:44)
[2018-10-12] MEDS: FUROSEMIDE 20 MG TABLET PO SCH (09:44)
[2018-10-12] MEDS: OXYBUTYNIN ER 5 MG TAB PO SCH (09:44)
[2018-10-12] MEDS: GABAPENTIN 100 MG CAP PO SCH (09:44)
[2018-10-12] MEDS: APIXABAN 5 MG TABLET PO SCH (09:45)
[2018-10-12] MEDS: INSULIN -REGULAR HUMAN 50 UNIT/0.5 ML ML SQ SCH (09:46)
[2018-10-12] MEDS: HYDROCODONE/APAP 7.5/325 MG TAB PO PRN (09:47)
--- NOTE | 2018-10-12 10:16 | P.DS ---
Admission Date: 10/08/18 Discharge Date: 10/12/18 Primary Care Provider: [facility] Disposition: DC HOME/HOME HEALTH CARE Discharge Condition: GOOD Reason for Admission: left lower extremity cellulitis Consultations: none Procedures: X-ray: FINDINGS: No fracture is seen. Osteoporosis. Diffuse edema within the subcutaneous tissues may be secondary to venous stasis or cellulitis Venous Doppler: COMPARISON: 2018 FINDINGS: Left common femoral, superficial femoral, popliteal and posterior tibial veins are compressible and demonstrate augmentation. Doppler demonstrates good flow. IMPRESSION: No evidence of deep venous thrombosis involving the left lower extremity Medical Problem List: Bilateral lower extremity cellulitis complicated with lymphedema and recent fall PVD CAD Chronic systolic CHF Chronic atrial fibrillation on chronic anti coagulation therapy COPD on chronic oxygen Diabetes mellitus type 2 BPH Hyperlipidemia Hypertension Obesity, BMI greater than 40 Brief History of Present Illness: 78-year-old male presented emergency room with bilateral lower extremity swelling and erythema. Patient had fallen recently and was seen in the emergency room. He apparently fell from his scooter. Patient was seen and evaluated and sent home. Erythema and swelling persisted. Patient was reassessed in the emergency room and admitted for cellulitis. Hospital Course: Patient presented with bilateral lower extremity cellulitis complicated with lymphedema and recent fall. Patient apparently fell from his scooter. Patient was admitted for treatment. Patient responded well to IV antibiotic therapy. Lymphedema wrapping in place. Cultures negative. Pro calcitonin negative. At discharge patient will continue with Augmentin 500 mg 1 pill twice daily and doxycycline 100 mg 1 pill twice daily for 10 days. He is to elevate his legs when sitting or lying. He is to continue with lymphedema wrapping. Recommendation is to follow up [facility] within 1 week to follow his progress. Prior to discharge home health and physical therapy will be arranged. Patient is seen at the [facility]. Recommend to follow up with his PCP within 1 week to follow up this hospitalization. Patient to continue with fall precaution. Patient with chronic atrial fibrillation. Patient takes chronic anti coagulation therapy-Eliquis. At discharge patient will continue with Eliquis 5 mg 1 pill twice daily. Patient with CAD, PVD and hypertension. This has remained stable. At discharge he will continue with lisinopril 2.5 mg daily. Recommend to follow up with cardiology as directed. Patient with underlying chronic systolic CHF. Patient will continue with a 1500 cc per day fluid restriction and low-salt diet. Patient will also continue with Lasix 20 mg 1 pill twice daily and lisinopril 2.5 mg daily. He is to monitor his weight daily. If his weight increases by more than 5 lb he is to contact his PCP for further recommendation. Patient with diabetes mellitus type 2. He is insulin-dependent. At discharge he will continue with Levemir 20 units subcu twice daily. Patient also on sliding scale. Recommendation is to maintain blood sugars less 140 fasting and less than 200 after meals. Further adjustment can be done by his PCP. Lifestyle modification education provided. Patient with diabetic neuropathy. Patient may continue with gabapentin 100 mg 1 pill twice daily as needed. This was initiated during his stay. Patient with BPH. Patient will continue with his medication Flomax 0.4 mg daily. Patient also takes Ditropan for urinary incontinence. Recommend to follow up with urology as directed. Patient with underlying COPD. Patient is on chronic oxygen. Patient will continue with his medications. Recommend to follow up with pulmonology to further address and monitor. Patient with hyperlipidemia. Patient will continue with Lipitor 20 mg daily. Vital Signs/Physical Exam: Temp Pulse Resp BP Pulse Ox 96.6 F L 85 20 122/58 L 94 10/12/18 08:00 10/12/18 08:00 10/12/18 08:00 10/12/18 08:00 10/12/18 08:00 General: Alert, In no apparent distress, Oriented x3, Cooperative HEENT: Atraumatic Neck: Supple Respiratory: Clear to auscultation bilaterally, Normal air movement Cardiovascular: Irregular heart rate/rhythm (AFib rate controlled) Gastrointestinal: Normal bowel sounds, Soft and benign, Non-distended, No masses , No rebound, No guarding Integumentary: Other (Lebron bandage wraps in place. Significantly less edema to the lower extremities.) Neurological: Normal speech, Normal strength at 5/5 x4 extr, Normal tone, Normal affect Laboratory Data at Discharge: WBC 12.7 K/uL (4.3-10.9) H 10/12/18 03:53 Hgb 10.9 g/dL (13.6-17.9) L 10/12/18 03:53 Hct 34.0 % (39.6-49.0) L 10/12/18 03:53 Plt Count 246 K/uL (152-406) 10/12/18 03:53 Sodium 139 mmol/L (136-145) 10/12/18 03:53 Potassium 4.6 mmol/L (3.5-5.1) 10/12/18 03:53 BUN 20 mg/dL (7-18) H 10/12/18 03:53 Creatinine 1.09 mg/dL (0.55-1.3) 10/12/18 03:53 Glucose 236 mg/dL (74-106) H 10/12/18 03:53 Magnesium 1.9 mg/dL (1.8-2.4) 10/12/18 03:53 Total Bilirubin 0.5 mg/dL (0.2-1.0) 10/12/18 03:53 AST 11 U/L (15-37) L 10/12/18 03:53 ALT 17 U/L (12-78) 10/12/18 03:53 Alkaline Phosphatase 89 U/L (45-117) 10/12/18 03:53 Home Medications: Furosemide [Lasix*] 20 mg PO BID 09/25/14 Atorvastatin Calcium [Lipitor*] 20 mg PO BEDTIME 03/08/15 Lisinopril [Zestril] 2.5 mg PO DAILY 01/13/17 Apixaban [Eliquis] 5 mg PO BID 11/30/17 Tamsulosin [Flomax*] 0.4 mg PO BEDTIME 11/30/17 Oxybutynin Chloride [Ditropan Xl] 10 mg PO DAILY 02/20/18 Albuterol Sulfate [Albuterol Sulfate 0.083% Neb Soln] 2.5 mg IH PRN PRN Insulin Aspart [Novolog Flexpen] 15 units SQ TID 10/08/18 Insulin Detemir [Levemir Flextouch] 20 units SQ BID 10/08/18 Amoxicillin/Potassium Clav [Augmentin 500-125 Tablet] 1 each PO BID #20 tablet 10/12/18 Doxycycline Hyclate 100 mg PO BID #20 tablet 10/12/18 Gabapentin [Neurontin*] 100 mg PO BID PRN #30 cap 10/12/18 New Medications: Amoxicillin/Potassium Clav [Augmentin 500-125 Tablet] 1 each PO BID #20 tablet Doxycycline Hyclate 100 mg PO BID #20 tablet Gabapentin [Neurontin*] 100 mg PO BID PRN #30 cap PRN Reason: Pain Scale 2-4 (Mild) Patient Discharge Instructions: 1. Recommend to follow up with his PCP within 1 week to follow up this hospitalization. 2. Patient presented with bilateral lower extremity cellulitis complicated with lymphedema and recent fall. Patient apparently fell from his scooter. Patient was admitted for treatment. Patient responded well to IV antibiotic therapy. Lymphedema wrapping in place. Cultures negative. Pro calcitonin negative. At discharge patient will continue with Augmentin 500 mg 1 pill twice daily and doxycycline 100 mg 1 pill twice daily for 10 days. He is to elevate his legs when sitting or lying. He is to continue with lymphedema wrapping. Recommendation is to follow up [facility] within 1 week to follow his progress. Prior to discharge home health and physical therapy will be arranged. Patient is seen at the [facility]. Recommend to follow up with his PCP within 1 week to follow up this hospitalization. Patient to continue with fall precaution. 3. Patient with chronic atrial fibrillation. Patient takes chronic anti coagulation therapy-Eliquis. At discharge patient will continue with Eliquis 5 mg 1 pill twice daily. 4. Patient with CAD, PVD and hypertension. This has remained stable. At discharge he will continue with lisinopril 2.5 mg daily. Recommend to follow up with cardiology as directed. 5. Patient with underlying chronic systolic CHF. Patient will continue with a 1500 cc per day fluid restriction and low-salt diet. Patient will also continue with Lasix 20 mg 1 pill twice daily and lisinopril 2.5 mg daily. He is to monitor his weight daily. If his weight increases by more than 5 lb he is to contact his PCP for further recommendation. 6. Patient with diabetes mellitus type 2. He is insulin-dependent. At discharge he will continue with Levemir 20 units subcu twice daily. Patient also on sliding scale. Recommendation is to maintain blood sugars less 140 fasting and less than 200 after meals. Further adjustment can be done by his PCP. Lifestyle modification education provided. 7. Patient with diabetic neuropathy. Patient may continue with gabapentin 100 mg 1 pill twice daily as needed. This was initiated during his stay. 8. Patient with BPH. Patient will continue with his medication Flomax 0.4 mg daily. Patient also takes Ditropan for urinary incontinence. Recommend to follow up with urology as directed. 9. Patient with underlying COPD. Patient is on chronic oxygen. Patient will continue with his medications. Recommend to follow up with pulmonology to further address and monitor. 10. Patient with hyperlipidemia. Patient will continue with Lipitor 20 mg daily. Diet: ADA Activity: Fall precautions Time spent managing pt's care (in minutes): 55
== END 2018-10-12 12:19 | disposition home health service (06) | DRG 603 ==
LOC: ER 23:05 → ERHOLD 10-08 03:00 → 4TH 10-08 03:20
PROVIDERS: ADMIT Hospitalist; ATTEND Family Medicine
DX: L03.116 Cellulitis of left lower limb (principal); Z68.41 Body mass index [BMI] 40.0-44.9, adult; I50.22 Chronic systolic (congestive) heart failure; L03.115 Cellulitis of right lower limb; E11.51 Type 2 diabetes mellitus with diabetic peripheral angiopathy without gangrene; I25.10 Atherosclerotic heart disease of native coronary artery without angina pectoris; I48.2 Chronic atrial fibrillation; Z79.01 Long term (current) use of anticoagulants; J44.9 Chronic obstructive pulmonary disease, unspecified; Z99.81 Dependence on supplemental oxygen; N40.0 Benign prostatic hyperplasia without lower urinary tract symptoms; E78.5 Hyperlipidemia, unspecified; I11.0 Hypertensive heart disease with heart failure; Z79.4 Long term (current) use of insulin; I89.0 Lymphedema, not elsewhere classified; Z87.891 Personal history of nicotine dependence; E66.01 Morbid (severe) obesity due to excess calories; Z95.1 Presence of aortocoronary bypass graft; K21.9 Gastro-esophageal reflux disease without esophagitis
CPT/HCPCS: 36415; 80048; 80053; 80202; 81003; 82962; 83735; 84145; 85025; 87040; 87070; 87205; 93005; 93971; 96365; 96375; 97116; 97163; 97530; 99285; J0295; J1650; J2543; J3370; J3475

== ENCOUNTER 2018-10-20 16:42 | Inpatient (IN) | payer OTHER ==
--- OUTSIDE RECORDS SUMMARY | 2018-10-20 16:45 | XMS REPORT ---
[...] Medications Results No Known Results Summary Purpose [employer] Submission
[2018-10-20 20:08] LABS: Absolute Lymphocytes (CBC) 1.9 K/uL (0.7-4.9); Absolute Monocytes 1.3 K/uL (0.1-1.3); Absolute Neutrophil 10.1 K/uL (1.8-8.0); Basophils % 1.7 % (0-1.3); Eosinophils % 3.4 % (0-4.4); Lymphocytes % 13.9 % (15.3-44.8); MPV 8.3 fL (7.6-11.3); RBC Red Blood Cell Count 4.34 M/uL (4.33-5.43)
[2018-10-20 20:24] LABS: Potassium 4.4 mmol/L (3.5-5.1)
--- NOTE | 2018-10-20 21:38 | EDPHYS ---
Physician Documentation [facility] Name: Stephan Lewis Jr Age: 78 yrs Sex: Male : 1940 Arrival Date: 10/20/2018 Time: 16:43 Bed 13 Private MD: ED Physician Anam Valenzuela HPI: 10/20 21:31 This 78 yrs old Male presents to ER via Wheelchair with complaints of Leg jr8 Swelling. 21:31 the patient presents with a swollen area of the left leg. Description: erythematous, jr8 warm. Onset: The symptoms/episode began/occurred gradually, 2 day(s) ago. Possible cause(s): unknown. Associated signs and symptoms: Pertinent positives: pain. Modifying factors: the symptoms are alleviated by nothing, the symptoms are aggravated by pressure, touching. Severity of symptoms: At their worst the symptoms were moderate, in the emergency department the symptoms are unchanged. The patient has experienced a previous episode. The patient has been recently seen by a physician:. Patient was seen and admitted to hospital for Cellulitis of the left leg after falling on leg. Had marked improvement upon discharge and was released from wound therapy. Stated that for the past couple of days started to have increased redness again along with blistering . Historical: - Allergies: 17:40 Sulfa (Sulfonamide Antibiotics); aj1 - Home Meds: 17:40 amitriptyline 25 mg Oral tab 1 tab once daily [Active]; amlodipine 10 mg tab 1 tab once aj1 daily [Active]; aspirin 81 mg Oral TbEC 1 tab once daily [Active]; atorvastatin 20 mg Oral tab 1 tab once daily [Active]; furosemide 20 mg Oral tab 1 tab 2 times per day [Active]; gabapentin 300 mg Oral cap 1 cap 3 times per day [Active]; insulin aspart subcutaneous 60 unit three times a day [Active]; insulin detemir subcutaneous 60units sq every morning, 50units sq every evening [Active]; lidocaine 5% patch [Active]; lisinopril 20 mg Oral tab 1 tab once daily [Active]; metformin 1,000 mg Oral tab 1 tab 2 times per day [Active]; metoprolol tartrate 50 mg Oral tab once daily [Active]; tamsulosin 0.4 mg Oral cp24 2 caps once daily [Active]; Warfarin Oral [Active]; - PMHx: 17:40 Bladder cancer; Cererbral aneurysm, non-ruptured (2010); CHF; COPD; Depression; aj1 Diabetes - IDDM; Dysmetabolic syndrome X; Hyperlipidemia; Hypertension; neuropathy; PAD; rotator cuff tear; - Immunization history:: Flu vaccine is up to date. - Social history:: Smoking status: Patient/guardian denies using tobacco. - Ebola Screening: : Patient denies travel to an Ebola-affected area in the 21 days before illness onset. ROS: 21:31 Constitutional: Negative for fever, chills, and weight loss. jr8 21:31 Skin: Positive for cellulitis, of the left leg. 21:31 All other systems are negative. Exam: 21:31 Eyes: Pupils equal round and reactive to light, extra-ocular motions intact. Lids and jr8 lashes normal. Conjunctiva and sclera are non-icteric and not injected. Cornea within normal limits. Periorbital areas with no swelling, redness, or edema. ENT: Nares patent. No nasal discharge, no septal abnormalities noted. Tympanic membranes are normal and external auditory canals are clear. Oropharynx with no redness, swelling, or masses, exudates, or evidence of obstruction, uvula midline. Mucous membranes moist. Neck: Trachea midline, no thyromegaly or masses palpated, and no cervical lymphadenopathy. Supple, full range of motion without nuchal rigidity, or vertebral point tenderness. No Meningismus. Cardiovascular: Regular rate and rhythm with a normal S1 and S2. No gallops, murmurs, or rubs. Normal PMI, no JVD. No pulse deficits. 2+ pitting edema bilateral lower extremities to proximal tibias Respiratory: Lungs have equal breath sounds bilaterally, clear to auscultation and percussion. No rales, rhonchi or wheezes noted. No increased work of breathing, no retractions or nasal flaring. Abdomen/GI: Soft, non-tender, with normal bowel sounds. No distension or tympany. No guarding or rebound. No evidence of tenderness throughout. Back: No spinal tenderness. No costovertebral tenderness. Full range of motion. MS/ Extremity: Pulses equal, no cyanosis. Neurovascular intact. Full, normal range of motion. Neuro: Awake and alert, GCS 15, oriented to person, place, time, and situation. Cranial nerves II-XII grossly intact. Motor strength 5/5 in all extremities. Sensory grossly intact. Cerebellar exam normal. Normal gait. 21:31 Skin: Patient has increased redness to left leg when compared to right. Mild warmth upon touch. Blistering pustulous lesions noted to lower left leg. Fluctuant mass noted to proximal anterior tibia as well with moderate tenderness . Vital Signs: 17:40 BP 130 / 101; Pulse 60; Resp 18; Temp 97.9; Pulse Ox 97% on R/A; Weight 133.36 kg (R); aj1 Height 5 ft. 8 in. (172.72 cm) (R); 18:40 BP 120 / 59; Pulse 65; Resp 20; Pulse Ox 99% ; Pain 10/10; rb1 20:06 BP 104 / 70; Pulse 63; Resp 16; Pulse Ox 100% on 2 lpm NC; jb4 21:45 BP 123 / 57; Pulse 62; Resp 18; Pulse Ox 100% on 2 lpm NC; jb4 22:38 BP 106 / 55; Pulse 66; Resp 18; Pulse Ox 100% on 2 lpm NC; jb4 17:40 Body Mass Index 44.70 (133.36 kg, 172.72 cm) aj1 MDM: 18:54 Patient medically screened. jr8 21:31 Data reviewed: vital signs, nurses notes, lab test result(s), radiologic studies, jr8 ultrasound. Data interpreted: Pulse oximetry: on room air is 100 %. Interpretation: normal. Counseling: I had a detailed discussion with the patient and/or guardian regarding: the historical points, exam findings, and any diagnostic results supporting the discharge/admit diagnosis, lab results, radiology results, the need for further work-up and treatment in the hospital. Physician consultation: Jone Vega MD was called at 21:37, was contacted at 21:37, regarding admission, to the telemetry unit. consult, patient's condition, and will see patient. 21:44 ED course: Dr. Mccarty consulted and good with everything. Will be passing it on to Dr. supriya Garcia in the AM. Dr. Vega notified and will put consult in and NPO after Midnight . 10/20 19:00 Order name: CBC with Diff; Complete Time: 20:44 supriya 10/20 19:00 Order name: Basic Metabolic Panel; Complete Time: 20:44 [facility] 10/20 19:00 Order name: Blood Culture Adult (2) [facility] 10/20 19:00 Order name: Procalcitonin; Complete Time: 20:54 [facility] 10/20 21:02 Order name: Wound Culture [facility] 10/20 22:03 Order name: CBC with Automated Diff EDMS 10/20 22:03 Order name: CBC with Automated Diff EDMS 10/20 22:03 Order name: Comprehensive Metabolic Panel EDSD 10/20 22:03 Order name: Comprehensive Metabolic Panel EDSD 10/20 22:03 Order name: Magnesium EDMS 10/20 22:03 Order name: Magnesium EDMS 10/20 22:03 Order name: Phosphorus EDMS 10/20 22:03 Order name: Phosphorus EDMS 10/20 22:03 Order name: Protime (+INR) [facility] 10/20 19:00 Order name: IV; Complete Time: 19:48 [facility] 10/20 21:01 Order name: US Extrmty Nonvasular Limited [facility] 10/20 22:03 Order name: CONS Physician Consult [facility] 10/20 22:03 Order name: NPO [facility] 10/20 22:03 Order name: Protime (+INR) [facility] 10/20 22:03 Order name: PTT, Activated Partial Thromb EDSD 10/20 22:03 Order name: PTT, Activated Partial Thromb EDSD Administered Medications: 21:34 Drug: LevaQUIN 500 mg Volume: 100 ml; Route: IVPB; Infused Over: 60 mins; Site: left jb4 wrist; 22:34 Follow up: Response: No adverse reaction; IV Status: Completed infusion; IV Intake: jb4 500ml 22:38 Drug: vancoMYCIN 1 grams Route: IVPB; Infused Over: 2 hrs; Site: left wrist; jb4 23:00 Drug: Benadryl 25 mg Route: IVP; Site: left wrist; jb4 Disposition: 10/20/18 21:37 Hospitalization ordered by Jone Vega for Inpatient Admission. Preliminary diagnosis are Cellulitis of left lower limb, Cutaneous abscess of left lower limb. - Bed requested for Telemetry/MedSurg (Inpatient). - Status is Inpatient Admission. jb4 - Condition is Stable. - Problem is new. - Symptoms have improved. UTI on Admission? No Addendum: 10/25/2018 10:11 Co-signature as Attending Physician, Anam Valenzuela MD I agree with the assessment and k dr plan of care. Signatures: Dispatcher [employer] Paola Rubin, RN JOSUE aj1 Sandy Ravi RN Anam Cruz MD MD [facility] Tony Gandara PA PA jr8 Wally Lee, JOSUE RN jb4 Corrections: (The following items were deleted from the chart) 10/20 22:08 21:37 Hospitalization Ordered by Jone Vega MD for Inpatient Admission. Preliminary diagnosis is Cellulitis of left lower limb; Cutaneous abscess of left lower limb. Bed requested for Telemetry/MedSurg (Inpatient). Status is Inpatient Admission. Condition is Stable. Problem is new. Symptoms have improved. UTI on Admission? No. jr8 23:17 22:08 10/20/2018 21:37 Hospitalization Ordered by Jone Vega MD for Inpatient jb4 Admission. Preliminary diagnosis is Cellulitis of left lower limb; Cutaneous abscess of left lower limb. Bed requested for Telemetry/MedSurg (Inpatient). Status is Inpatient Admission. Condition is Stable. Problem is new. Symptoms have improved. UTI on Admission? No. mw
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
[2018-10-20] MEDS ORDERED: Levofloxacin500mg IV 500 MG/100 ML BAG IV ONE (21:41)
[2018-10-20] MEDS ORDERED: VANCOMYCIN 1 GM/VIAL ONE (21:41)
[2018-10-20] MEDS ORDERED: NA CHLORIDE 0.9% 250 ML ONE (21:41)
[2018-10-20] MEDS ORDERED: ACETAMINOPHEN 500 MG TAB PO PRN (21:57)
[2018-10-20] MEDS ORDERED: ONDANSETRON 4 MG/2 ML VIAL IV PRN (21:57)
[2018-10-20] MEDS ORDERED: DIPHENHYDRAMINE 50 MG/ML VIAL ONE (23:10)
[2018-10-20 23:41] VITALS: BMI 43.0
[2018-10-20] MEDS: NA CHLORIDE 0.9% 1,000 ML IV SCH (23:46)
[2018-10-21] MEDS ORDERED: D50W 25 GM/50 ML SYRINGE IV PRN (00:56)
[2018-10-21] MEDS ORDERED: GLUCAGON 1 MG/VIAL IM PRN (00:56)
[2018-10-21] MEDS ORDERED: AMPICILLIN/SULBACT 1.5GM VIAL ONE (00:57)
[2018-10-21 01:02] LABS: Urine Appearance CLEAR; Urine Bilirubin NEGATIVE (NEG); Urine Blood NEGATIVE (NEG); Urine Color YELLOW; Urine Glucose NEGATIVE (NEG); Urine Protein NEGATIVE (NEG); Urine Specific Gravity 1.015 (1.005-1.030); Urine Urobilinogen 0.2 mg/dL (0.2-1.0); Urine pH 6.5 (5.0-7.0)
[2018-10-21] MEDS ORDERED: NA CHLORIDE 0.9% 100 ML ONE (01:08)
[2018-10-21 01:13] LABS: Urine Microscopic Reflex NO UMIC
[2018-10-21] MEDS: HYDROMORPHONE HCL 1 MG/ML INJ IV PRN ×2 (01:16→09:38)
[2018-10-21] MEDS: AMPICILLIN/SULBACT 3 GM in NA CHLORIDE 0.9% 100 ML IVPB SCH ×5 (01:17→19:53)
[2018-10-21 05:55] LABS: Absolute Lymphocytes (CBC) 1.4 K/uL (0.7-4.9); Absolute Monocytes 0.8 K/uL (0.1-1.3); Absolute Neutrophil 7.8 K/uL (1.8-8.0); Basophils % 0.4 % (0-1.3); Eosinophils % 2.6 % (0-4.4); Hematocrit 36.3 % (39.6-49.0); Lymphocytes % 13.4 % (15.3-44.8); MPV 8.6 fL (7.6-11.3); Monocytes % 7.7 % (3.3-12.3); RBC Red Blood Cell Count 4.29 M/uL (4.33-5.43)
[2018-10-21 05:56] LABS: Protime INR 1.28
[2018-10-21] MEDS: INSULIN -REGULAR HUMAN 50 UNIT/0.5 ML ML SQ SCH ×4 (06:00→21:05)
[2018-10-21 06:07] LABS: Albumin 2.4 g/dL (3.4-5.0); Bilirubin Total 0.7 mg/dL (0.2-1.0); Magnesium 2.1 mg/dL (1.8-2.4); Phosphorus 3.1 mg/dL (2.5-4.9); Potassium 4.6 mmol/L (3.5-5.1); Protein, Total 6.8 g/dL (6.4-8.2)
--- NOTE | 2018-10-21 07:56 | P.HP ---
Certification for Inpatient Patient admitted to: Inpatient With expected LOS: >2 Midnights Patient will require the following post-hospital care: None Practitioner: I am a practitioner with admitting privileges, knowledge of patient current condition, hospital course, and medical plan of care. Services: Services provided to patient in accordance with Admission requirements found in Title 42 Section 412.3 of the Code of Federal Regulations Patient History Date of Service: 10/20/18 Reason for admission: Bilateral lower extremity cellulitis with abscess on the right lower ext History of Present Illness: Patient is a 78-year-old gentleman who has a longstanding history of bilateral lower extremity edema. He noted that his legs were significantly erythematous over the last few days. He developed a wound around the left foot which is requiring incision and debridement. General surgery has been consulted. He is on IV antibiotics broad spectrum to cover most etiologies of cellulitis. Patient has numerous comorbidities including hypertension, diabetes , morbid obesity, coronary artery disease status post CABG. He will be a high risk patient to put under general anesthesia. he may need a bedside debridement. Discussed the case with general surgery on-call. However, Dr. Mccarty has transferred his calls to Dr. Garcia for in the morning. Will make Dr. Garcia aware in a.m.. Patient will need incision and debridement. Hopefully will be able to get it done in the next 12-24 hours. Allergies Sulfa (Sulfonamide Antibiotics) [Sulfa(Sulfonamide Antibiotics)] Allergy (Mild, Verified 10/08/18 03:48) Rash - Past Medical/Surgical History Has patient received pneumonia vaccine in the past: No Diabetic: Yes -: HTN -: COPD, oxygen-dependent -: Lymphedema -: BPH -: Diabetes mellitus type 2 -: Arthritis -: Hyperlipidemia -: Diabetic neuropathy -: Bladder tumor cancer -: Cataracts -: Obesity -: Former tobacco use -: heel spur surgery -: Right knee surgery -: CABG x3 -: Brain aneurism repair 2013 -: Bladder surgery -: Cataracts surgery Psychosocial/ Personal History: The patient is currently single and . He has 2 children. He currently lives with his son. - Family History Mother Medical History: Cancer, Other (see notes) Notes: Kidney cancer Sister Medical History: Diabetes Father Medical History: Heart disease Notes: cardiac bypass surgery - Social History Smoking Status: Former smoker Alcohol use: No CD- Drugs: No Caffeine use: Yes Place of Residence: Home Review of Systems 10-point ROS is otherwise unremarkable Physical Examination - Vital Signs Temperature: 97.7 F Blood Pressure: 105/50 Pulse: 87 Respirations: 20 Pulse Ox (%): 93 - Physical Exam General: Alert, In no apparent distress, Oriented x3 HEENT: Atraumatic, PERRLA, Mucous membr. moist/pink, EOMI, Sclerae nonicteric Neck: Supple, 2+ carotid pulse no bruit, No LAD, Without JVD or thyroid abnormality Respiratory: Clear to auscultation bilaterally, Normal air movement Cardiovascular: Regular rate/rhythm, Normal S1 S2, Systolic murmur Gastrointestinal: Normal bowel sounds, Soft and benign, Non-distended, Tenderness Musculoskeletal: No tenderness Integumentary: No rashes, Tenderness/swelling, Erythema, Warmth, Other ( Patient with abscess) Neurological: Normal speech, Normal tone, Sensation intact, Cranial nerves 3-12 intact, Normal affect, Abnormal gait, Abnormal strength Lymphatics: No axilla or inguinal lymphadenopathy - Studies Laboratory Data (last 24 hrs) 10/20/18 19:40: Sodium 137, Potassium 4.4, BUN 25 H, Creatinine 1.06, Glucose 88 10/20/18 19:40: WBC 13.9 H, Hgb 11.7 L, Hct 37.0 L, Plt Count 304 D Assessment & Plan - Problems (Diagnosis) (1) Cataracts, both eyes Current Visit: No Status: Acute (2) Cellulitis Onset Date: 02/21/18 Current Visit: No Status: Acute Qualifiers: Site of cellulitis: extremity Site of cellulitis of extremity: lower extremity (3) Edema of left lower extremity Current Visit: No Status: Acute (4) Emphysema Current Visit: No Status: Acute (5) CAD (coronary artery disease) Onset Date: 02/21/18 Current Visit: No Status: Chronic (6) CHF (congestive heart failure) Onset Date: 02/21/18 Current Visit: No Status: Chronic Qualifiers: Heart failure type: systolic Heart failure chronicity: acute on chronic Qualified Code(s): I50.23 - Acute on chronic systolic (congestive) heart failure (7) COPD (chronic obstructive pulmonary disease) Current Visit: No Status: Chronic Qualifiers: COPD type: chronic bronchitis Chronic bronchitis type: unspecified Qualified Code(s): J42 - Unspecified chronic bronchitis (8) Diabetes mellitus Onset Date: 02/21/18 Current Visit: No Status: Chronic Qualifiers: Diabetes mellitus type: type 2 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 use: unspecified paint maker insulin use status Diabetes mellitus complication status : with other specified complication Qualified Code(s): E11.69 - Type 2 diabetes mellitus with other specified complication (9) Diabetic neuropathy Onset Date: 02/21/18 Current Visit: No Status: Chronic Qualifiers: Diabetes mellitus type: type 2 Diabetes mellitus complication detail: diabetic polyneuropathy Qualified Code(s): E11.42 - Type 2 diabetes mellitus with diabetic polyneuropathy (10) GERD (gastroesophageal reflux disease) Onset Date: 02/21/18 Current Visit: No Status: Chronic Qualifiers: Esophagitis presence: esophagitis presence not specified Qualified Code(s) : K21.9 - Gastro-esophageal reflux disease without esophagitis (11) Hard of hearing Current Visit: No Status: Chronic (12) History of DVT (deep vein thrombosis) Current Visit: No Status: Chronic (13) History of coronary artery bypass graft Current Visit: No Status: Chronic (14) Hypertension Current Visit: No Status: Chronic Qualifiers: Hypertension type: essential hypertension Qualified Code(s): I10 - Essential (primary) hypertension (15) Morbid obesity Onset Date: 09/25/14 Current Visit: No Status: Chronic (16) S/P CABG x 3 Current Visit: No Status: Chronic - Plan 1. Continue with IV antibiotic 2. Continue with local wound care 3. Wound care consultation/surgical consultation 4. Gentle IV hydration 5. Monitor CBC 6. Strict blood sugar monitoring 7. Pain control 8. GI and DVT prophylaxis Discharge Plan: Home Plan to discharge in: Greater than 2 days - Advance Directives Does patient have a Living Will: Yes Does patient have a Durable POA for Healthcare: Yes - Code Status/Comfort Care Code Status Assessed: Yes Code Status: Full Code Critical Care: No Time Spent Managing PTS Care (In Minutes): 45
[2018-10-21] MEDS: ENOXAPARIN 40 MG/0.4 ML SQ SCH (09:00)
[2018-10-21] MEDS: NA CHLORIDE 0.9% 1,000 ML IV SCH ×3 (09:36→17:29)
[2018-10-21] MEDS ORDERED: VANCOMYCIN 1.5 GM in NA CHLORIDE 0.9% 500 ML IVPB SCH (10:30)
[2018-10-21] MEDS ORDERED: FENTANYL CITR 100 MCG/2 ML ONE (10:52)
[2018-10-21] MEDS ORDERED: PROPOFOL 200 MG/20 ML VIAL IV ONE (10:52)
[2018-10-21] MEDS ORDERED: LIDOCAINE 1% MPF 5 ML VIAL ONE (10:53)
[2018-10-21] MEDS ORDERED: BUPIVACA 0.5%/EPI 0.0005%/PF 10 ML VIAL ONE (11:07)
[2018-10-21] MEDS ORDERED: BUPIVACA 0.25%/EPI 0.0005% MDV 50 ML VIAL ONE (11:08)
[2018-10-21] MEDS ORDERED: NS 0.9% VIAL 0 ML ONE (11:08)
--- NOTE | 2018-10-21 11:21 | EKG ---
Test Date: 2018-10-21 Test Time: 09:15:02 Stringer Up Soldering Machine: TARA MEASUREMENT RESULTS: Intervals: Rate: 81 [place]: QRSD: 102 QT: 386 QTc: 448 [place]: P: [place]: QRS: 88 T: -18 INTERPRETIVE STATEMENTS: sinus rhythm with 1st degree av block Anterior infarct, age undetermined T wave abnormality, consider inferior ischemia Abnormal ECG Compared to ECG 10/10/2018 22:54:34 T-wave abnormality now present Possible ischemia now present Atrial fibrillation no longer present Myocardial infarct finding still present Electronically Signed On 10-21-18 11:20:29 CDT by Sandeep Burns
[2018-10-21] MEDS ORDERED: NS 0.9% VIAL 10 ML ONE (11:36)
[2018-10-21] MEDS ORDERED: EPHEDRINE SULF 50 MG/ML VIAL ONE (11:36)
--- NOTE | 2018-10-21 11:49 | P.OP ---
Preoperative diagnosis: LEFT lower extremity fluid collection Postoperative diagnosis: LEFT lower extremity hematoma Primary procedure: Incision and Drainage of LEFT lower extremity hematoma Anesthesia: GET + Local Estimated blood loss: <5cc Specimen: cultures sent Findings: ~[id number] hematoma extending to fascia Complications: None Drain(s): Other (packing) Implants: Transferred to: Recovery Room Condition: Good
[2018-10-21] MEDS ORDERED: MORPHINE 2 MG/ML SYR IV PRN (11:52)
[2018-10-21] MEDS ORDERED: HYDROCODONE/APAP 7.5/325 MG TAB PO PRN (11:52)
--- NOTE | 2018-10-21 12:28 | RAD REPORT ---
EXAM DESCRIPTION: US - Extremity Nonvascular Limited - 10/20/2018 9:42 pm CLINICAL HISTORY: The patient is 78 years old and is Male; swollen fluctuant area to anterior proxim al tibia;Pain TECHNIQUE: Real-time ultrasound scan of the left lower extremity with image documentation. COMPARISON: No relevant prior studies available. FINDINGS: SOFT TISSUES: In the area of concern along the anterior lower leg, there is a 5.5 x 1.7 x 5.9 cm slightly complex fluid collection. The surrounding soft tissues demonstrate minimal vascular ity. No foreign body. IMPRESSION: Collection along the anterior lower leg as described. Findings may be secondary to hemat suyapa given the patient's history of recent trauma. However, recommend continued follow-up as developin g abscess is within the differential. Electronically signed by: Viktoriya Gore MD 10/20/2018 9:56 PM CDT Due to temporary technical issues with the PACS/Fluency reporting system, reports are being signed by the in house radiologist as a courtesy to ensure prompt reporting. The interpreting radiologist is kenneth daviesly responsible for the content of the report.
--- NOTE | 2018-10-21 12:35 | P.PN ---
Subjective Date of Service: 10/21/18 Chief Complaint: Bilateral lower extremity cellulitis with abscess on the right lower ext Review of Systems 10-point ROS is otherwise unremarkable Physical Examination - Vital Signs Temperature: 97.5 F Blood Pressure: 111/40 Pulse: 96 Respirations: 20 Pulse Ox (%): 93 - Physical Exam General: Alert, In no apparent distress Respiratory: Clear to auscultation bilaterally, Normal air movement Cardiovascular: Regular rate/rhythm, Normal S1 S2 Gastrointestinal: Normal bowel sounds, No tenderness Musculoskeletal: Erythema, Tenderness, Warmth, Other (BL LE cellulitis. Left leg with Abscess formation on the frontal [place] Area. ) Integumentary: Rash(es), Skin breakdown, Skin lesion, Tenderness/swelling, Erythema, Warmth Neurological: Normal speech, Normal tone, Normal affect Lymphatics: No axilla or inguinal lymphadenopathy - Studies Laboratory Data (last 24 hrs) 10/20/18 19:40: Sodium 137, Potassium 4.4, BUN 25 H, Creatinine 1.06, Glucose 88 10/20/18 19:40: WBC 13.9 H, Hgb 11.7 L, Hct 37.0 L, Plt Count 304 D Microbiology Data (last 24 hrs): 10/20/18 21:10 Wound - L Leg (Lower) Gram Stain - Final Medications List Reviewed: Yes Assessment And Plan - Current Problems (Diagnosis) (1) Cellulitis Onset Date: 02/21/18 Current Visit: No Status: Acute Plan: Bilateral lower extremity cellulitis, left greater than right. -Currently on IV vanc and unasyn -general Surgery consulted. Appreciated Recs -Plan for I&D today -Will f.u with Culture and continue with abx for now -Wound care consult. Qualifiers: Site of cellulitis: extremity Site of cellulitis of extremity: lower extremity (2) Chronic venous hypertension w ulceration Current Visit: No Status: Chronic (3) CAD (coronary artery disease) Onset Date: 02/21/18 Current Visit: No Status: Chronic Qualifiers: Coronary Disease-Associated Artery/Lesion type: [place] artery [place] vs. transplanted heart: [place] heart Associated angina: with stable angina Qualified Code(s): I25.118 - Atherosclerotic heart disease of [place] coronary artery with other forms of angina pectoris (4) CHF (congestive heart failure) Onset Date: 02/21/18 Current Visit: No Status: Chronic Qualifiers: Heart failure type: systolic Heart failure chronicity: acute on chronic Qualified Code(s): I50.23 - Acute on chronic systolic (congestive) heart failure (5) COPD (chronic obstructive pulmonary disease) Current Visit: No Status: Chronic Qualifiers: COPD type: chronic bronchitis Chronic bronchitis type: unspecified Qualified Code(s): J42 - Unspecified chronic bronchitis (6) Diabetes mellitus Onset Date: 02/21/18 Current Visit: No Status: Chronic Qualifiers: Diabetes mellitus type: type 2 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 bug exterminator insulin use: unspecified bed bug exterminator insulin use status Diabetes mellitus complication status : with other specified complication Qualified Code(s): E11.69 - Type 2 diabetes mellitus with other specified complication (7) GERD (gastroesophageal reflux disease) Onset Date: 02/21/18 Current Visit: No Status: Chronic Qualifiers: Esophagitis presence: esophagitis presence not specified Qualified Code(s) : K21.9 - Gastro-esophageal reflux disease without esophagitis (8) History of DVT (deep vein thrombosis) Current Visit: No Status: Chronic (9) History of coronary artery bypass graft Current Visit: No Status: Chronic (10) Hyperlipidemia Current Visit: No Status: Chronic Qualifiers: Hyperlipidemia type: unspecified Qualified Code(s): E78.5 - Hyperlipidemia , unspecified (11) Hypertension Current Visit: No Status: Chronic Qualifiers: Hypertension type: essential hypertension Qualified Code(s): I10 - Essential (primary) hypertension (12) Morbid obesity Onset Date: 09/25/14 Current Visit: No Status: Chronic (13) PVD (peripheral vascular disease) Current Visit: No Status: Chronic - Plan Pending Clinical Improvement. Will continue with IV abx and F.u with Culture. General Surgery also consulted. Planning for I&D today Discharge Plan: Home Plan to discharge in: 48 Hours - Code Status/Comfort Care Code Status Assessed: Yes Critical Care: No
--- NOTE | 2018-10-21 13:16 | CON ---
Date of Consultation: 10/21/2018 Brief History Of Present Illness: The patient is a 78-year-old male with a history of long standing bilateral lower extremity edema, who noted significant swelling and edema over his left leg [id number] after a fall off a 3 mckeon. He states that the wound occurred at that area, but did not have any drainage. It healed over the skin side, but got significantly larger and more tender a nd painful at that time. He now has swelling to the left lower extremity as well as minimal to the r ight lower extremity, but predominantly to the left lower extremity. He states that he has been deal ing with this for several weeks and has not gotten significantly better. Past Medical History: Significant for hypertension, COPD oxygen dependent, lymphedema, BPH, diabetes , arthritis, hyperlipidemia, diabetic neuropathy, bladder cancer, and cataracts. Past Surgical History: Includes a heel spur surgery, right knee surgery, CABG x3 vessels, brain aneu rysm repair in 2012, bladder surgery, and cataract surgery. Social History: The patient is currently single and . He has 2 children. He currently live s with his son. He has a past history of tobacco use. Denies alcohol or recreational drug use. Allergies: TO SULFA. Medications: Home medication list is on the chart and includes amitriptyline, amlodipine, aspirin, a torvastatin, Lasix, gabapentin, insulin, lidocaine patch, lisinopril, metformin, metoprolol, tamsulos in and warfarin. Review of Systems: A 10-point review of systems other than HPI, denies. Physical Examination: Vital Signs: At the time of my examination, his BMI is 43. His blood pressure is 105/50, pulse is 8 7, respiratory rate 20, and temperature 97.7. General: He is awake, alert, oriented. Psychiatric: He is appropriate conversive. HEENT: Normocephalic. His sclerae are anicteric. His mucous membranes are moist. His oropharynx i s clear. Neck: Supple. No JVD. Chest: Normal expansion and excursion. Cardiac: Regular rate and rhythm. Pulmonary: Decreased breath sounds bilaterally. He has somewhat barrel chested. Focused examination of the extremities: He has swelling to bilateral lower extremities, left greater than right. He has cellulitis of the left lower extremity and chronic venous stasis appearance of t he right lower extremity [id number]. Focused examination of the left lower extremity: Shows an approximately 7 cm tender area of fluctuan ce over the lateral mid tibial region consistent with a fluid collection. It is tender to palpation. The cellulitis extends from approximately the ankle to about 5 cm below the knee. He has circumfer ential tenderness. He has chronic venous stasis appearance of the skin as well with some excoriation of the posterior aspect of the scabbed skin as well as desquamation of this area. Laboratory Data: Reveals a white blood count of 10.3, hemoglobin 11.7, hematocrit of 36.3, platelet count is 291. His PT was 15.0, INR 1.28, PTT 28.1. His sodium 139, potassium 4.6, chloride 101, car bon dioxide 31, BUN 23, creatinine 1.05, glucose is 149. His AST is 15, ALT 14, alkaline phosphatase 105. Procalcitonin less than 0.05. UA was essentially negative. Ultrasound is currently pending. However, my physical exam is enough information for me to decide to proceed with surgery. Assessment And Plan: This is a 78-year-old male with a fluid collection, cellulitis of the left lowe r extremity. 1.IV fluid hydration. 2.Antibiotic coverage. 3.I have explained the risks, benefits, and alternatives of incision and drainage of fluid collectio n in the left lower extremity, including but not limited to bleeding, infection, damage to surroundin g tissues, need for further operation procedures, nerve injury, chronic wound care necessary. He agrees to proceed as indicated. PEMA/ASHLI Voice ID: [id number] Report ID: [id number]
[2018-10-21] MEDS: MORPHINE 2 MG/ML SYR IV PRN ×2 (13:18→19:52)
[2018-10-21] MEDS: VANCOMYCIN 2 GM in NA CHLORIDE 0.9% 500 ML IVPB SCH (16:57)
[2018-10-21] MEDS ORDERED: ENOXAPARIN 40 MG/0.4 ML SQ SCH (17:00)
--- NOTE | 2018-10-21 21:46 | OP ---
Date of Procedure: 10/21/2018 Surgeon: Edu Garcia MD, Preoperative Diagnosis: Left lower extremity fluid collection. Postoperative Diagnosis: Left lower extremity hematoma. Procedures Performed: 1.Incision and drainage of left lower extremity hematoma. 2.Pulse lavage of left lower extremity wound. Anesthesia: General endotracheal plus local with 0.25% Marcaine. Estimated Blood Loss: Less than 5 cc. Specimen: Cultures sent. Findings: A 7 cm x 9 cm hematoma extending to the fascia, but not involving it. Complications: None. Drains: Packing was left in place. Disposition: Transferred to recovery room in good condition. Procedure In Detail: After informed consent was obtained, the patient was brought to the operating r oom, prepped and draped in the usual sterile fashion. After adequate anesthesia was achieved, a line ar incision was made over an area of fluctuance over the left lateral tibial region, it was approxima tely 7 cm x 9 cm area of fluctuance. The blade was dissected down through the subcutaneous tissue. Electrocautery was used to dissect down through the subcutaneous fat and to encounter a hematoma. Th is hematoma was evacuated in its entirety. It was extending up to the fascial planes, but not involv ing it. The area was copiously irrigated and then pulse lavaged until completely clear. Hemostasis was easily achieved with electrocautery. All necrotic tissue was debrided, and the wound was then pa cked with a Betadine-soaked Kerlix, and a sterile dressing was placed over top. The patient tolerate d the procedure well without evidence of complication and transferred to PACU in good condition. All counts were correct at the end of the case. PEMA/ASHLI Voice ID: [id number] Report ID: [id number]
[2018-10-21] MEDS: HYDROCODONE/APAP 7.5/325 MG TAB PO PRN (23:00)
[2018-10-22] MEDS: AMPICILLIN/SULBACT 3 GM in NA CHLORIDE 0.9% 100 ML IVPB SCH ×4 (02:02→20:38)
[2018-10-22] MEDS: NA CHLORIDE 0.9% 1,000 ML IV SCH ×2 (05:20→14:54)
[2018-10-22] MEDS: INSULIN -REGULAR HUMAN 50 UNIT/0.5 ML ML SQ SCH ×4 (07:30→22:11)
[2018-10-22] MEDS: DOCUSATE NA 100 MG CAP PO SCH ×2 (09:06→20:38)
[2018-10-22] MEDS: ENOXAPARIN 40 MG/0.4 ML SQ SCH (09:06)
[2018-10-22] MEDS: MORPHINE 2 MG/ML SYR IV PRN ×3 (09:07→20:41)
--- NOTE | 2018-10-22 11:26 | P.PN ---
Subjective Date of Service: 10/22/18 Chief Complaint: Bilateral lower extremity cellulitis with abscess on the right lower ext Subjective: Improving (No acute events, less swelling, less cellulitis) Physical Examination - Vital Signs Temperature: 97.6 F Blood Pressure: 114/56 Pulse: 68 Respirations: 18 Pulse Ox (%): 96 - Physical Exam General: Alert, Cooperative Musculoskeletal: Other (LLE - ischemia to skin edges in wound, otherwise packed well, cellulitis improving) - Studies Microbiology Data (last 24 hrs): 10/20/18 21:10 Wound - L Leg (Lower) Gram Stain - Final Medications List Reviewed: Yes Assessment And Plan - Current Problems (Diagnosis) (1) Cellulitis Onset Date: 02/21/18 Current Visit: No Status: Acute Plan: - daily dressing changes - will trim wound edges if necrosis occurs - continue antibiotics - keep limb elevated and wrapped Qualifiers: Site of cellulitis: extremity Site of cellulitis of extremity: lower extremity
--- NOTE | 2018-10-22 12:33 | P.PN ---
Subjective Date of Service: 10/22/18 Chief Complaint: Bilateral lower extremity cellulitis with abscess on the right lower ext Patient seen and examined at bedside with RN. Chart reviewed. Case discussed with general surgery. Status post debridement POD 1. Denies having any fever chills nausea vomiting or any other associated symptoms. Review of Systems 10-point ROS is otherwise unremarkable Physical Examination - Vital Signs Temperature: 97.6 F Blood Pressure: 114/56 Pulse: 68 Respirations: 18 Pulse Ox (%): 96 - Physical Exam General: Alert, In no apparent distress Respiratory: Clear to auscultation bilaterally, Normal air movement Cardiovascular: Regular rate/rhythm, Normal S1 S2 Gastrointestinal: Normal bowel sounds, No tenderness Musculoskeletal: Erythema, Tenderness, Warmth, Other (Bilateral lower leg cellulitis. Left worse than right.) Integumentary: Rash(es), Skin lesion Neurological: Normal speech, Normal tone, Normal affect Lymphatics: No axilla or inguinal lymphadenopathy - Studies Microbiology Data (last 24 hrs): 10/20/18 21:10 Wound - L Leg (Lower) Gram Stain - Final Medications List Reviewed: Yes Assessment And Plan - Current Problems (Diagnosis) (1) Cellulitis Onset Date: 02/21/18 Current Visit: No Status: Acute Plan: Bilateral lower extremity cellulitis, left greater than right. -Currently on IV vanc and unasyn -general Surgery consulted. Appreciated Recs -status post I and D POD 1. Patient had hematoma which was evacuated with debridement -Will f.u with Culture and continue with abx for now -Wound care consult. Qualifiers: Site of cellulitis: extremity Site of cellulitis of extremity: lower extremity (2) Chronic venous hypertension w ulceration Current Visit: No Status: Chronic Plan: Elevate legs and Lebron wrap (3) CAD (coronary artery disease) Onset Date: 02/21/18 Current Visit: No Status: Chronic Plan: Stable for now. Restarted on home medication Qualifiers: Coronary Disease-Associated Artery/Lesion type: [place] artery [place] vs. transplanted heart: [place] heart Associated angina: with stable angina Qualified Code(s): I25.118 - Atherosclerotic heart disease of [place] coronary artery with other forms of angina pectoris (4) CHF (congestive heart failure) Onset Date: 02/21/18 Current Visit: No Status: Chronic Plan: Restarted on Lasix. 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 insulin use: unspecified wool grader insulin use status Diabetes mellitus complication status : with other specified complication Qualified Code(s): E11.69 - Type 2 diabetes mellitus with other specified complication (7) GERD (gastroesophageal reflux disease) Onset Date: 02/21/18 Current Visit: No Status: Chronic Qualifiers: Esophagitis presence: esophagitis presence not specified Qualified Code(s) : K21.9 - Gastro-esophageal reflux disease without esophagitis (8) History of DVT (deep vein thrombosis) Current Visit: No Status: Chronic (9) History of coronary artery bypass graft Current Visit: No Status: Chronic (10) Hyperlipidemia Current Visit: No Status: Chronic Qualifiers: Hyperlipidemia type: unspecified Qualified Code(s): E78.5 - Hyperlipidemia , unspecified (11) Hypertension Current Visit: No Status: Chronic Qualifiers: Hypertension type: essential hypertension Qualified Code(s): I10 - Essential (primary) hypertension (12) Morbid obesity Onset Date: 09/25/14 Current Visit: No Status: Chronic (13) PVD (peripheral vascular disease) Current Visit: No Status: Chronic - Plan Pending Clinical Improvement. Will continue with IV abx and F.u with Culture. General Surgery also consulted. Status post I&D now Discharge Plan: Home Plan to discharge in: 72 Hours - Code Status/Comfort Care Code Status Assessed: Yes Critical Care: No
[2018-10-22] MEDS: VANCOMYCIN 2 GM in NA CHLORIDE 0.9% 500 ML IVPB SCH (16:28)
[2018-10-23] MEDS: HYDROCODONE/APAP 7.5/325 MG TAB PO PRN ×3 (02:03→18:42)
[2018-10-23] MEDS: AMPICILLIN/SULBACT 3 GM in NA CHLORIDE 0.9% 100 ML IVPB SCH ×4 (02:05→20:34)
[2018-10-23] MEDS: NA CHLORIDE 0.9% 1,000 ML IV SCH ×3 (06:01→17:00)
[2018-10-23] MEDS: INSULIN -REGULAR HUMAN 50 UNIT/0.5 ML ML SQ SCH ×4 (07:30→20:59)
[2018-10-23] MEDS: MORPHINE 2 MG/ML SYR IV PRN (09:11)
[2018-10-23] MEDS: ENOXAPARIN 40 MG/0.4 ML SQ SCH (09:12)
[2018-10-23] MEDS: DOCUSATE NA 100 MG CAP PO SCH ×2 (09:12→20:33)
--- NOTE | 2018-10-23 09:13 | P.PN ---
Subjective Date of Service: 10/23/18 Chief Complaint: Bilateral lower extremity cellulitis with abscess on the right lower ext Subjective: Improving (No acute events) Physical Examination - Vital Signs Temperature: 98.3 F Blood Pressure: 122/58 Pulse: 70 Respirations: 20 Pulse Ox (%): 97 - Physical Exam General: Alert, In no apparent distress, Cooperative Musculoskeletal: Other (LLE wound has some sloughing of skin at edges, otherwise doing well) - Studies Microbiology Data (last 24 hrs): 10/20/18 21:10 Wound - L Leg (Lower) Gram Stain - Final 10/20/18 21:10 Wound - L Leg (Lower) Culture & Sensitivity - Final Medications List Reviewed: Yes Assessment And Plan - Current Problems (Diagnosis) (1) Cellulitis Onset Date: 02/21/18 Current Visit: No Status: Acute Plan: - daily dressing changes - i have trimmed wound edges of incision to removed ischemic tissues, good bleeding tissue remains - continue antibiotics - keep limb elevated and wrapped Qualifiers: Site of cellulitis: extremity Site of cellulitis of extremity: lower extremity
--- NOTE | 2018-10-23 09:52 | P.PN ---
Subjective Date of Service: 10/23/18 Chief Complaint: Bilateral lower extremity cellulitis with abscess on the right lower ext Patient seen and examined at bedside with RN. Chart reviewed. Case discussed with general surgery. Status post debridement POD 2. Denies having any fever chills nausea vomiting or any other associated symptoms. Review of Systems 10-point ROS is otherwise unremarkable Physical Examination - Vital Signs Temperature: 98.3 F Blood Pressure: 122/58 Pulse: 70 Respirations: 20 Pulse Ox (%): 97 - Physical Exam General: Alert, In no apparent distress HEENT: Atraumatic, PERRLA, EOMI Neck: Supple, JVD not distended Respiratory: Clear to auscultation bilaterally, Normal air movement Cardiovascular: Regular rate/rhythm, Normal S1 S2 Gastrointestinal: Normal bowel sounds, No tenderness Musculoskeletal: Swelling (BL LE swelling. Left worse than Right. Left foot with wound, now with packing ), Erythema, Tenderness, Warmth, Other Integumentary: No rashes Neurological: Normal speech, Normal tone, Normal affect Lymphatics: No axilla or inguinal lymphadenopathy - Studies Microbiology Data (last 24 hrs): 10/20/18 21:10 Wound - L Leg (Lower) Gram Stain - Final 10/20/18 21:10 Wound - L Leg (Lower) Culture & Sensitivity - Final Medications List Reviewed: Yes Assessment And Plan - Current Problems (Diagnosis) (1) Cellulitis Onset Date: 02/21/18 Current Visit: No Status: Acute Plan: Bilateral lower extremity cellulitis, left greater than right. -Currently on IV vanc and unasyn -general Surgery consulted. Appreciated Recs -status post I and D POD 2. Patient had hematoma which was evacuated with debridement -Will f.u with Culture and continue with abx for now -Wound care consult. Appreciate Reccs -Wound packing and wet to dry Qualifiers: Site of cellulitis: extremity Site of cellulitis of extremity: lower extremity (2) Chronic venous hypertension w ulceration Current Visit: No Status: Chronic Plan: Elevate legs and Lebron wrap (3) CAD (coronary artery disease) Onset Date: 02/21/18 Current Visit: No Status: Chronic Plan: Stable for now. Restarted on home medication Qualifiers: Coronary Disease-Associated Artery/Lesion type: [place] artery [place] vs. transplanted heart: [place] heart Associated angina: with stable angina Qualified Code(s): I25.118 - Atherosclerotic heart disease of [place] coronary artery with other forms of angina pectoris (4) CHF (congestive heart failure) Onset Date: 02/21/18 Current Visit: No Status: Chronic Plan: Restarted on Lasix. 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 counterman insulin use: unspecified parts counterman insulin use status Diabetes mellitus complication status : with other specified complication Qualified Code(s): E11.69 - Type 2 diabetes mellitus with other specified complication (7) GERD (gastroesophageal reflux disease) Onset Date: 02/21/18 Current Visit: No Status: Chronic Qualifiers: Esophagitis presence: esophagitis presence not specified Qualified Code(s) : K21.9 - Gastro-esophageal reflux disease without esophagitis (8) History of DVT (deep vein thrombosis) Current Visit: No Status: Chronic (9) History of coronary artery bypass graft Current Visit: No Status: Chronic (10) Hyperlipidemia Current Visit: No Status: Chronic Qualifiers: Hyperlipidemia type: unspecified Qualified Code(s): E78.5 - Hyperlipidemia , unspecified (11) Hypertension Current Visit: No Status: Chronic Qualifiers: Hypertension type: essential hypertension Qualified Code(s): I10 - Essential (primary) hypertension (12) Morbid obesity Onset Date: 09/25/14 Current Visit: No Status: Chronic (13) PVD (peripheral vascular disease) Current Visit: No Status: Chronic - Plan Pending Clinical Improvement. Will continue with IV abx and F.u with Culture. General Surgery also consulted. Status post I&D now Discharge Plan: Home Plan to discharge in: 48 Hours - Code Status/Comfort Care Code Status Assessed: Yes Critical Care: No
[2018-10-23] MEDS: VANCOMYCIN 2 GM in NA CHLORIDE 0.9% 500 ML IVPB SCH (16:59)
[2018-10-24] MEDS: AMPICILLIN/SULBACT 3 GM in NA CHLORIDE 0.9% 100 ML IVPB SCH ×4 (02:11→20:35)
[2018-10-24] MEDS: NA CHLORIDE 0.9% 1,000 ML IV SCH ×2 (06:00→16:00)
[2018-10-24 06:10] LABS: Absolute Lymphocytes (CBC) 1.3 K/uL (0.7-4.9); Absolute Monocytes 0.7 K/uL (0.1-1.3); Absolute Neutrophil 5.7 K/uL (1.8-8.0); Basophils % 0.5 % (0-1.3); Hematocrit 35.1 % (39.6-49.0); Lymphocytes % 15.2 % (15.3-44.8); MPV 7.9 fL (7.6-11.3); RBC Red Blood Cell Count 4.14 M/uL (4.33-5.43)
[2018-10-24 06:28] LABS: Albumin 2.4 g/dL (3.4-5.0); Bilirubin Total 0.5 mg/dL (0.2-1.0); Potassium 4.2 mmol/L (3.5-5.1); Protein, Total 7.1 g/dL (6.4-8.2)
--- NOTE | 2018-10-24 07:13 | EKG ---
Test Date: 2018-10-22 Test Time: 03:15:42 Office Coordinator: RT Leo MEASUREMENT RESULTS: Intervals: Rate: 74 NM: 204 QRSD: 100 QT: 376 QTc: 417 [place]: P: -1 NM: 204 QRS: 51 T: -37 INTERPRETIVE STATEMENTS: Sinus rhythm with premature atrial complexes Anterior infarct, age undetermined Non specific T abnormality Abnormal ECG Compared to ECG 10/21/2018 09:15:02 First degree AV block no longer present Myocardial infarct finding still present Electronically Signed On 10-24-18 07:12:29 CDT by Sacha Diggs
[2018-10-24] MEDS: INSULIN -REGULAR HUMAN 50 UNIT/0.5 ML ML SQ SCH ×4 (07:25→20:47)
[2018-10-24] MEDS: DOCUSATE NA 100 MG CAP PO SCH ×2 (09:22→20:35)
[2018-10-24] MEDS: ENOXAPARIN 40 MG/0.4 ML SQ SCH (09:22)
--- NOTE | 2018-10-24 16:19 | P.PN ---
Subjective Date of Service: 10/24/18 Chief Complaint: Bilateral lower extremity cellulitis with abscess on the right lower ext Subjective: Improving Physical Examination - Vital Signs Temperature: 98.9 F Blood Pressure: 137/61 Pulse: 96 Respirations: 20 Pulse Ox (%): 92 - Physical Exam General: Alert, In no apparent distress, Oriented x3, Cooperative HEENT: Atraumatic Neck: Supple Respiratory: Clear to auscultation bilaterally, Normal air movement Cardiovascular: Normal pulses, Regular rate/rhythm Gastrointestinal: Normal bowel sounds, Soft and benign, Non-distended Integumentary: Other (lower extremity bandaged.) - Studies Medications List Reviewed: Yes Assessment & Plan Discharge Plan: Other (shelter facility) Plan to discharge in: 24 Hours Physician Review Additional Text: Impression: Bilateral lower extremity cellulitis with abscess of right lower extremity status post I/D Chronic venous insufficiency Hypertension CAD Chronic systolic CHF COPD Diabetes mellitus type 2 GERD History of DVT Hyperlipidemia Plan: Continue IV antibiotic therapy. Will consult infectious disease for further recommendation. Patient may require long-term IV antibiotic therapy for treatment. Will continue with wound care as per surgery. Patient had irrigation and debridement. Will discuss with surgery about further recommendation. Will need to discuss with surgery on when to restart his Eliquis which he previously took for a DVT. Will review and restart home medications. Will discontinue IV fluids. Will continue to monitor and assess appropriately. Case discussed with patient. Recommend skilled placement facility at this time. Patient likely does not require LTAC placement. Will discuss with infectious disease and surgery. Time Spent Managing Pts Care (In Minutes): 55
[2018-10-24] MEDS: MORPHINE 2 MG/ML SYR IV PRN ×2 (16:26→21:16)
[2018-10-24] MEDS ORDERED: ZINC OXIDE 20% OINTMENT 60gm TOP SCH (16:30)
[2018-10-24] MEDS: VANCOMYCIN 2 GM in NA CHLORIDE 0.9% 500 ML IVPB SCH (18:24)
[2018-10-24] MEDS: FUROSEMIDE 20 MG TABLET PO SCH (18:27)
[2018-10-24] MEDS: TAMSULOSIN 0.4 MG SR CAP PO SCH (20:35)
[2018-10-24] MEDS: APIXABAN 5 MG TABLET PO SCH (20:35)
[2018-10-24] MEDS: ATORVASTATIN 20 MG TAB PO SCH (20:35)
[2018-10-24] MEDS ORDERED: HOME MED 1 EA UNK (Apixaban [Eliquis] 5 MG) PO SCH (21:00)
[2018-10-25] MEDS: AMPICILLIN/SULBACT 3 GM in NA CHLORIDE 0.9% 100 ML IVPB SCH ×3 (02:41→13:17)
[2018-10-25 04:58] LABS: Absolute Lymphocytes (CBC) 1.4 K/uL (0.7-4.9); Absolute Monocytes 0.8 K/uL (0.1-1.3); Absolute Neutrophil 5.7 K/uL (1.8-8.0); Basophils % 0.7 % (0-1.3); Eosinophils % 6.9 % (0-4.4); Hematocrit 34.3 % (39.6-49.0); Lymphocytes % 16.6 % (15.3-44.8); MPV 7.9 fL (7.6-11.3); Monocytes % 8.9 % (3.3-12.3); RBC Red Blood Cell Count 4.07 M/uL (4.33-5.43)
[2018-10-25 05:12] LABS: Magnesium 1.9 mg/dL (1.8-2.4); Potassium 4.2 mmol/L (3.5-5.1)
[2018-10-25] MEDS: INSULIN -REGULAR HUMAN 50 UNIT/0.5 ML ML SQ SCH ×4 (08:30→20:29)
[2018-10-25] MEDS: FUROSEMIDE 20 MG TABLET PO SCH ×2 (08:31→17:13)
[2018-10-25] MEDS: OXYBUTYNIN ER 5 MG TAB PO SCH (08:31)
[2018-10-25] MEDS: FINASTERIDE 5 MG TAB PO SCH (08:31)
[2018-10-25] MEDS: DOCUSATE NA 100 MG CAP PO SCH ×2 (08:31→20:28)
[2018-10-25] MEDS: APIXABAN 5 MG TABLET PO SCH ×2 (08:32→20:28)
[2018-10-25] MEDS ORDERED: OXYBUTYNIN CHLORIDE 10 MG PO SCH (09:00)
[2018-10-25] MEDS: MORPHINE 2 MG/ML SYR IV PRN ×2 (09:26→21:42)
--- NOTE | 2018-10-25 13:29 | P.PN ---
Subjective Date of Service: 10/25/18 Chief Complaint: Bilateral lower extremity cellulitis with abscess on the right lower ext Subjective: Improving Physical Examination - Vital Signs Temperature: 97.6 F Blood Pressure: 123/58 Pulse: 76 Respirations: 19 Pulse Ox (%): 98 - Physical Exam General: Alert, In no apparent distress, Oriented x3, Cooperative HEENT: Atraumatic Neck: Supple Respiratory: Clear to auscultation bilaterally, Normal air movement Cardiovascular: Normal pulses, Regular rate/rhythm Gastrointestinal: Normal bowel sounds, Soft and benign, Non-distended Integumentary: Other (Lower extremity wound appears improved. Packing in place. ) Neurological: Normal speech, Normal strength at 5/5 x4 extr, Normal tone, Normal affect - Studies Medications List Reviewed: Yes Assessment & Plan Discharge Plan: LTAC Plan to discharge in: 24 Hours Physician Review Additional Text: Impression: Bilateral lower extremity cellulitis with abscess of right lower extremity status post I/D, wound culture positive for enterococcus Chronic venous insufficiency Hypertension CAD Chronic systolic CHF COPD Diabetes mellitus type 2 GERD History of DVT Hyperlipidemia Plan: Will discontinue Unasyn. Continue IV vancomycin. Patient continues to improve. Continue with current wound care. Will discuss with infectious disease later to determine whether patient will require long-term IV antibiotic therapy. If so patient would benefit with long-term acute care facility placement with continued wound care and IV antibiotic therapy. This can be transition to oral medication then will consider skilled placement versus home. Case discussed with surgery. No further intervention required. Patient restarted on Eliquis yesterday. Will discuss further with infectious disease. Time Spent Managing Pts Care (In Minutes): 55
[2018-10-25] MEDS: AMPICILLIN/SULBACT 1.5 GM in NA CHLORIDE 0.9% 100 ML IVPB SCH (17:44)
[2018-10-25] MEDS ORDERED: AMPICILLIN/SULBACT 1.5GM VIAL IVPB SCH (18:00)
--- NOTE | 2018-10-25 20:05 | CON ---
History Of Present Illness: The patient is a 78-year-old male who I was initially consulted for cell ulitis of left lower extremity with stasis ulcer which got infected and debrided by surgical team. T he patient denies any headache, nausea, vomiting, chest pain, abdominal pain, constipation, or diarrh ea. Past Medical History: The patient has significant past medical history of coronary artery disease wi th bypass, hypertension, COPD, lymphedema, benign prostatic hypertrophy, diabetes mellitus, arthritis , hyperlipidemia, diabetic neuropathy, bladder tumor/cancer, cataract, morbid obesity, not in any acu te distress at this time. Past Medical History: As per HPI. Surgical History: Coronary artery bypass surgery at age 66, heel spur surgery, right knee surgery, b rain aneurysm repair in 2012, bladder surgery, cataract surgeries. Social History: Tobacco positive. Alcohol negative. Family History: Noncontributory. Medications: Vancomycin, Unasyn. See MARS for other medications. Allergies: SULFA DRUGS. Physical Examination: General: This is a 78-year-old male, lying in bed, not in any acute cardiopulmonary distress. Vital Signs: Temperature 97.6, pulse 76, respiration 19, blood pressure 123/58. HEENT: Unremarkable. Neck: Supple. Lungs: Basal crackles. Heart: S1, S2. Regular. Abdomen: Soft. Bowel sounds present. Obese. Extremity: 3+ nonpitting edema. Erythematous changes in wound noted on the left leg. Laboratory Data: Shows WBC 8.5 down from 13.9, platelets are 314, hemoglobin 11.6. Chemistry shows sodium 139, potassium 4.2, chloride 101, bicarb 33, BUN 9, creatinine 0.92, glucose 196. Micro data shows Enterococcus faecalis in the wound cultures from the right groin area sensitive to penicillin, vancomycin, ampicillin, and gentamicin. Assessment And Plan: A 78-year-old male with bilateral lower extremity lymphedema and stasis dermati tis is status post left leg abscess I and D and open wound with packing was removed, has mild necroti c area still noted. Continue IV antibiotic including Unasyn at this time. We will add vancomycin if needed. Keep leg elevated. Continue rehab. Consider hyperbaric treatment once patient is stabiliz ed. We will also recommend for rehab and nutritional evaluation. NF/MODL Voice ID: [id number] Report ID: [id number]
[2018-10-25] MEDS: ATORVASTATIN 20 MG TAB PO SCH (20:28)
[2018-10-25] MEDS: TAMSULOSIN 0.4 MG SR CAP PO SCH (20:28)
[2018-10-26] MEDS: AMPICILLIN/SULBACT 1.5 GM in NA CHLORIDE 0.9% 100 ML IVPB SCH ×3 (00:47→11:51)
[2018-10-26 05:49] LABS: Absolute Lymphocytes (CBC) 1.8 K/uL (0.7-4.9); Absolute Monocytes 0.6 K/uL (0.1-1.3); Absolute Neutrophil 6.6 K/uL (1.8-8.0); Basophils % 0.8 % (0-1.3); Eosinophils % 5.7 % (0-4.4); Hematocrit 40.9 % (39.6-49.0); Lymphocytes % 18.4 % (15.3-44.8); MPV 7.9 fL (7.6-11.3); Monocytes % 6.5 % (3.3-12.3); RBC Red Blood Cell Count 4.87 M/uL (4.33-5.43)
[2018-10-26 05:59] LABS: Potassium 3.9 mmol/L (3.5-5.1)
[2018-10-26] MEDS: INSULIN -REGULAR HUMAN 50 UNIT/0.5 ML ML SQ SCH ×3 (08:51→16:36)
[2018-10-26] MEDS: FUROSEMIDE 20 MG TABLET PO SCH ×2 (08:52→16:36)
[2018-10-26] MEDS: OXYBUTYNIN ER 5 MG TAB PO SCH (08:52)
[2018-10-26] MEDS: FINASTERIDE 5 MG TAB PO SCH (08:52)
[2018-10-26] MEDS: DOCUSATE NA 100 MG CAP PO SCH (08:53)
[2018-10-26] MEDS: APIXABAN 5 MG TABLET PO SCH (08:53)
[2018-10-26] MEDS ORDERED: COLLAGENASE 30 GM OINTMENT TOP SCH (09:00)
--- NOTE | 2018-10-26 09:52 | P.PN ---
Subjective Date of Service: 10/25/18 Chief Complaint: Bilateral lower extremity cellulitis with abscess on the right lower ext Subjective: Improving (Patient has no pain or other surgical issues) Physical Examination - Vital Signs Temperature: 97.8 F Blood Pressure: 139/76 Pulse: 82 Respirations: 18 Pulse Ox (%): 97 - Physical Exam General: Alert, In no apparent distress, Cooperative Musculoskeletal: Other (wound is clean, minimal epidermal sloughing, no dermal necrosis, deep layers clean, no infection) - Studies Microbiology Data (last 24 hrs): 10/20/18 19:30 Blood - Blood Aerobic Blood Culture - Final No growth in 5 days. 10/20/18 19:30 Blood - Blood Anaerobic Blood Culture - Final No growth in 5 days. 10/20/18 19:45 Blood - Blood Aerobic Blood Culture - Final No growth in 5 days. 10/20/18 19:45 Blood - Blood Anaerobic Blood Culture - Final No growth in 5 days. Medications List Reviewed: Yes Assessment And Plan - Current Problems (Diagnosis) (1) Cellulitis Onset Date: 02/21/18 Current Visit: No Status: Acute Plan: - daily dressing changes - i have trimmed wound edges of incision to removed ischemic tissues, good bleeding tissue remains - continue antibiotics - keep limb elevated and wrapped - add santyl to wound Qualifiers: Site of cellulitis: extremity Site of cellulitis of extremity: lower extremity Physician Review Additional Text: Impression: Bilateral lower extremity cellulitis with abscess of right lower extremity status post I/D, wound culture positive for enterococcus Chronic venous insufficiency Hypertension CAD Chronic systolic CHF COPD Diabetes mellitus type 2 GERD History of DVT Hyperlipidemia Plan: Will discontinue Unasyn. Continue IV vancomycin. Patient continues to improve. Continue with current wound care. Will discuss with infectious disease later to determine whether patient will require long-term IV antibiotic therapy. If so patient would benefit with long-term acute care facility placement with continued wound care and IV antibiotic therapy. This can be transition to oral medication then will consider skilled placement versus home. Case discussed with surgery. No further intervention required. Patient restarted on Eliquis yesterday. Will discuss further with infectious disease.
--- NOTE | 2018-10-26 10:07 | P.PN ---
Subjective Date of Service: 10/26/18 Chief Complaint: Bilateral lower extremity cellulitis with abscess on the right lower ext Subjective: Improving (no acute events) Physical Examination - Vital Signs Temperature: 97.8 F Blood Pressure: 139/76 Pulse: 82 Respirations: 18 Pulse Ox (%): 97 - Physical Exam General: Alert, In no apparent distress, Cooperative Musculoskeletal: Other (wound is healing, minimal slough of epidermis, dry, wound is clean, no infection) - Studies Microbiology Data (last 24 hrs): 10/20/18 19:30 Blood - Blood Aerobic Blood Culture - Final No growth in 5 days. 10/20/18 19:30 Blood - Blood Anaerobic Blood Culture - Final No growth in 5 days. 10/20/18 19:45 Blood - Blood Aerobic Blood Culture - Final No growth in 5 days. 10/20/18 19:45 Blood - Blood Anaerobic Blood Culture - Final No growth in 5 days. Medications List Reviewed: Yes Assessment And Plan - Current Problems (Diagnosis) (1) Cellulitis Onset Date: 02/21/18 Current Visit: No Status: Acute Plan: - daily dressing changes - continue antibiotics - keep limb elevated and wrapped - continue santyl to wound Qualifiers: Site of cellulitis: extremity Site of cellulitis of extremity: lower extremity Physician Review Additional Text: Impression: Bilateral lower extremity cellulitis with abscess of right lower extremity status post I/D, wound culture positive for enterococcus Chronic venous insufficiency Hypertension CAD Chronic systolic CHF COPD Diabetes mellitus type 2 GERD History of DVT Hyperlipidemia Plan: Will discontinue Unasyn. Continue IV vancomycin. Patient continues to improve. Continue with current wound care. Will discuss with infectious disease later to determine whether patient will require long-term IV antibiotic therapy. If so patient would benefit with long-term acute care facility placement with continued wound care and IV antibiotic therapy. This can be transition to oral medication then will consider skilled placement versus home. Case discussed with surgery. No further intervention required. Patient restarted on Eliquis yesterday. Will discuss further with infectious disease.
[2018-10-26 10:08] VITALS: O2SAT 95
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
[2018-10-26 16:39] VITALS: BP 119/58
[2018-10-26 16:46] VITALS: TEMP 97.7
[2018-10-26] MEDS: MORPHINE 2 MG/ML SYR IV PRN (17:20)
--- NOTE | 2018-10-26 18:03 | PN ---
Subjective: The patient is lying in bed. Denies any headache, nausea, vomiting, chest pain, abdomin al pain, constipation, or diarrhea. Objective: Vital Signs: Temperature 97.8, pulse 82, respiration 18, blood pressure 139/76. Lungs: Basal crackles. Heart: S1, S2. Regular. Abdomen: Soft, nontender. Bowel sounds present. Extremities: Left leg edema and wound noted. Laboratory Data: WBC 9.7, hemoglobin 13.1, platelets are 386. Chemistry shows sodium 138, potassium 3.9, chloride 99, bicarb 32, BUN 14, creatinine 1.16, glucose is 236. Microdata, Enterococcus faeca lis in the wound. Current Medications: Include Unasyn. Assessment And Plan: Left leg cellulitis with stasis dermatitis, status post debridement of the woun d. Continue antibiotic, total course of 3 weeks. Consider wound VAC and hyperbaric treatment. We w ill follow the patient as needed. NIKOK/ASHLI Voice ID: [id number] Report ID: [id number]
== END 2018-10-26 18:15 | DRG 579 ==
LOC: ER 16:42 → ERHOLD 22:40 → 2ND 22:58
PROVIDERS: ADMIT Hospitalist; ATTEND Family Medicine
PROC: 0J9P0ZZ Drainage of Left Lower Leg Subcutaneous Tissue and Fascia, Open Approach (ICD-10-PCS; principal; 2018-10-21 12:00)
DX: L03.116 Cellulitis of left lower limb (principal); I50.23 Acute on chronic systolic (congestive) heart failure; Z68.41 Body mass index [BMI] 40.0-44.9, adult; I87.319 Chronic venous hypertension (idiopathic) with ulcer of unspecified lower extremity; S80.12XA Contusion of left lower leg, initial encounter; V38.5XXA Driver of three-wheeled motor vehicle injured in noncollision transport accident in traffic accident, initial encounter; Y92.9 Unspecified place or not applicable; B95.2 Enterococcus as the cause of diseases classified elsewhere; E11.42 Type 2 diabetes mellitus with diabetic polyneuropathy; I11.0 Hypertensive heart disease with heart failure; E66.01 Morbid (severe) obesity due to excess calories; I25.10 Atherosclerotic heart disease of native coronary artery without angina pectoris; J43.9 Emphysema, unspecified; Z99.81 Dependence on supplemental oxygen; E78.5 Hyperlipidemia, unspecified; E11.51 Type 2 diabetes mellitus with diabetic peripheral angiopathy without gangrene; E11.36 Type 2 diabetes mellitus with diabetic cataract; E88.81 Metabolic syndrome and other insulin resistance; N40.0 Benign prostatic hyperplasia without lower urinary tract symptoms; H91.90 Unspecified hearing loss, unspecified ear; Z95.1 Presence of aortocoronary bypass graft; Z87.891 Personal history of nicotine dependence; Z86.718 Personal history of other venous thrombosis and embolism; Z88.2 Allergy status to sulfonamides
CPT/HCPCS: 36415; 76882; 80048; 80053; 80202; 81003; 82962; 83735; 84100; 84145; 85025; 85610; 85730; 87040; 87070; 87075; 87077; 87186; 87205; 93005; 96365; 96375; 97116; 97163; 97530; 99284; J0295; J1170; J1650; J2270; J2704; J3010; J3590; J7030

== ENCOUNTER 2019-01-17 15:09 | Emergency (ER) | payer OTHER ==
--- OUTSIDE RECORDS SUMMARY | 2019-01-17 15:11 | XMS REPORT ---
[...] Medications Results No Known Results Summary Purpose [employer] Edge Submission
--- OUTSIDE RECORDS SUMMARY | 2019-01-17 15:11 | XMS REPORT ---
:1940 [facility] Address [address] [place] [address] Dr. Diaz [address] [place] [id number] Care Team Providers Name Role Phone Unavailable Unavailable Unavailable Problems This patient has no known problems. Allergies, Adverse Reactions, Alerts This patient has no known allergies or adverse reactions. Medications This patient has no known medications.
[2019-01-17 16:02] LABS: Absolute Lymphocytes (CBC) 2.6 K/uL (0.7-4.9); Basophils % 0.5 % (0-1.3); Hematocrit 38.1 % (39.6-49.0); Lymphocytes % 18.4 % (15.3-44.8); MPV 8.2 fL (7.6-11.3); Protime INR 1.2; RBC Red Blood Cell Count 4.51 M/uL (4.33-5.43)
[2019-01-17] MEDS ORDERED: NA CHLORIDE 0.9% 500 ML ONE ×2 (16:20→17:28)
--- NOTE | 2019-01-17 16:24 | RAD REPORT ---
EXAM DESCRIPTION: RAD - Chest Single View - 01/17/2019 3:37 pm CLINICAL HISTORY: Hypotension, cough, shortness of breath COMPARISON: January 2018 TECHNIQUE: AP portable chest image was obtained 1535 hours . FINDINGS: No peripheral mass or consolidation. Interstitial pattern matches the comparison. A few sm all granulomatous calcifications are present. Heart and vasculature are normal. No measurable pleural effusion and no pneumothorax. No acute bony abnormality seen. No acute aortic findings suspected. IMPRESSION: No acute cardiopulmonary process. No significant change from comparison.
[2019-01-17 16:26] LABS: BUN Blood Urea Nitrogen 36 mg/dL (7-18); Bicarbonate 33 mmol/L (21-32); Glucose Level 92 mg/dL (74-106); Potassium 4.8 mmol/L (3.5-5.1); Sodium Level 136 mmol/L (136-145)
[2019-01-17 16:27] LABS: ALT/SGPT 28 U/L (12-78); AST/SGOT 23 U/L (15-37); Albumin 3.4 g/dL (3.4-5.0); Alkaline Phosphatase 84 U/L (45-117); Bilirubin Direct 0.2 mg/dL (0-0.2); Bilirubin Total 0.5 mg/dL (0.2-1.0); Magnesium 2.2 mg/dL (1.8-2.4); NT PRO-BNP 237 pg/mL (<450); Protein, Total 7.6 g/dL (6.4-8.2); Troponin (Emerg Dept Use Only) < 0.02 ng/mL (0.0-0.045)
[2019-01-17 16:59] LABS: Urine Blood NEGATIVE (NEG); Urine Glucose NEGATIVE (NEG); Urine Protein NEGATIVE (NEG); Urine Specific Gravity 1.015 (1.005-1.030)
[2019-01-17 17:16] LABS: Urine Bacteria <20 /HPF (NONE SEEN); Urine Culture Reflex Order NOT NEEDED; Urine RBC <5 /HPF (NONE SEEN)
[2019-01-17] MEDS ORDERED: levoFLOXacin 500 MG TAB ONE (17:28)
[2019-01-17] MEDS ORDERED: NA CHLORIDE 0.9% 1,000 ML ONE (17:28)
--- NOTE | 2019-01-17 18:56 | ER ---
Nurse's Notes [facility] Name: Stephan Lewis Jr Age: 78 yrs Sex: Male : 1940 Arrival Date: 01/17/2019 Time: 15:11 Bed 8 Private MD: Diagnosis: Unspecified open wound of lower leg-left;Cough Presentation: 01/17 15:11 Presenting complaint: EMS states: pt was at the [place] clinic for a check up and upon aa5 taking pt's VS they noticed BP was 90/53 and decreased to 77/45 and they called 911. Pt reports cough that began upon arriving to DC clinic and reports chest pain described as "muscle spasm" at the DC clinic that lasted "3 seconds". Pt also reports generalized weakness upon arriving to DC. EMS reports initial BP was 110 systolic and was fluctuating down to 83/50. Transition of care: patient was received from another setting of care (ambulatory primary care physician practice), [facility]. Onset of symptoms was January 17, 2019. Risk Assessment: Do you want to hurt yourself or someone else? Patient reports no desire to harm self or others. Care prior to arrival: Glucose check: 145. 15:11 Acuity: ANASTASIA 2 aa5 15:11 Method Of Arrival: EMS: [facility] aa5 15:12 Initial Sepsis Screen: Does the patient meet any 2 criteria? No. Patient's initial aa5 sepsis screen is negative. Does the patient have a suspected source of infection? No. Patient's initial sepsis screen is negative. Historical: - Allergies: 15:12 Sulfa (Sulfonamide Antibiotics); aa5 - Home Meds: 17:15 Albuterol Inhl [Active]; Eliquis 5 mg oral tab 2 times per day [Active]; aspirin 81 mg aa5 Oral TbEC 1 tab once daily [Active]; atorvastatin 20 mg Oral tab 1 tab once daily [Active]; budesonide oral 4.5mcg oral twice a day [Active]; Wound Skintegrity top spray [Active]; finasteride 5 mg oral tab 1 tab once daily [Active]; furosemide 20 mg Oral tab 1 tab 2 times per day [Active]; insulin aspart subcutaneous 20 unit three times a day [Active]; insulin detemir subcutaneous 30 units SQ twice a day [Active]; lisinopril 2.5 mg oral tab once daily [Active]; metformin 1,000 mg Oral tab 1 tab 2 times per day [Active]; oxybutynin chloride 10 mg Oral tr24 once daily [Active]; tamsulosin 0.4 mg oral cp24 1 cap once daily [Active]; - PMHx: 15:12 Bladder cancer; Cererbral aneurysm, non-ruptured (2009); CHF; COPD; Depression; aa5 Diabetes - IDDM; Dysmetabolic syndrome X; Hyperlipidemia; Hypertension; neuropathy; PAD; rotator cuff tear; DVT; Lymphedema; 15:12 Atrial Fib; aa5 - PSHx: 15:12 Left leg stent; aa5 15:12 Cardiac bypass; Heart stents; aa5 - Immunization history:: Flu vaccine is up to date. - Social history:: Smoking status: Patient/guardian denies using tobacco. - Ebola Screening: : No symptoms or risks identified at this time. Screenin:24 Abuse screen: Denies threats or abuse. Nutritional screening: No deficits noted. aa5 Tuberculosis screening: No symptoms or risk factors identified. 15:45 Fall Risk No fall in past 12 months (0 pts). No secondary diagnosis (0 pts). IV access aa5 (20 points). Ambulatory Aid- None/Bed Rest/Nurse Assist (0 pts). Gait- Normal/Bed Rest/Wheelchair (0 pts) Mental Status- Oriented to own ability (0 pts). Total Carranza Fall Scale indicates No Risk (0-24 pts). Assessment: 15:15 General: Appears comfortable, Behavior is calm, cooperative. Pain: Complains of pain in aa5 back Pain radiates to hips and legs Pain currently is 6 out of 10 on a pain scale. Quality of pain is described as "spasms" Pain began is chronic Is continuous. Neuro: Level of Consciousness is awake, alert, obeys commands, Oriented to person, place, time, situation, Mattress Maker are equal bilaterally Moves all extremities. Speech is normal, Facial symmetry appears normal, Pupils are PERRLA. Cardiovascular: Heart tones S1 S2 present Rhythm is atrial fibrillation. Respiratory: Reports cough that is productive, Airway is patent Respiratory effort is even, unlabored, Respiratory pattern is regular, symmetrical, Breath sounds are clear bilaterally. GI: Abdomen is obese, Bowel sounds present X 4 quads. Abd is non tender X 4 quads. : No signs and/or symptoms were reported regarding the genitourinary system. EENT: No signs and/or symptoms were reported regarding the EENT system. Derm: Skin is pink, warm \\T\\ dry. Pt reports lymphedema to bilateral legs, bandages noted to ramone lower legs. Pt states "I get the bandages changed 3 times a week, once here at wound care and twice by a home health nurse". Pt reports yesterday was last time dressing was changed to ramone lower legs. Musculoskeletal: Pt reports he uses electric wheelchair most of the time but he is occasionally ambulatory with walker. 16:00 Reassessment: Patient is alert, oriented x 3, equal unlabored respirations, skin aa5 warm/dry/pink. Pt notified of wait time for lab results, pt verbalized understanding. . Cardiovascular: Rhythm is atrial fibrillation. 16:55 Reassessment: Patient is alert, oriented x 3, equal unlabored respirations, skin aa5 warm/dry/pink. Dressing removed to ramone lower extremities, Swelling noted to ramone legs, redness noted to bilateral legs, ramone lower extremities hot to the touch. Wound noted to left amaya with granulated tissue, no drainage noted, measuring approximately 1.5 in in diameter. . 18:00 Reassessment: Patient is alert, oriented x 3, equal unlabored respirations, skin aa5 warm/dry/pink. 18:00 Pain: Pain currently is 6 out of 10 on a pain scale. aa5 18:00 Cardiovascular: Rhythm is atrial fibrillation. aa5 18:50 Reassessment: Left leg dressed with non-adherent dressing to wound, Kerlix, and Coban aa5 per PA. Pt states "I don't need my right leg dressed because I don't have any wounds there" . 18:58 Reassessment: Patient is alert, oriented x 3, equal unlabored respirations, skin aa5 warm/dry/pink. Vital Signs: 15:11 BP 94 / 76; Pulse 77; Resp 16 S; Temp 98.3(O); Pulse Ox 99% on 2 lpm NC; Weight 136.98 aa5 kg (R); Pain 6/10; 15:30 BP 106 / 59; Pulse 70; Resp 16 S; Pulse Ox 100% on 2 lpm NC; aa5 16:00 BP 107 / 67; Pulse 84; Resp 18 S; Pulse Ox 100% on 2 lpm NC; aa5 16:19 BP 95 / 62; Pulse 67; Resp 18 S; Pulse Ox 99% on 2 lpm NC; aa5 16:40 BP 85 / 55; Pulse 78; Resp 16 S; Pulse Ox 99% on 2 lpm NC; em1 17:00 BP 114 / 44; Pulse 70; Resp 16 S; Pulse Ox 100% on 2 lpm NC; em1 17:17 BP 92 / 76; Pulse 66; Resp 16 S; Temp 98.2(TE); Pulse Ox 100% on 2 lpm NC; aa5 17:45 BP 99 / 56; Pulse 73; Resp 16 S; Pulse Ox 100% on 2 lpm NC; aa5 18:00 BP 110 / 74; Pulse 61; Resp 16 S; Pulse Ox 100% on 2 lpm NC; aa5 18:10 BP 119 / 57; Pulse 70; Resp 16; Temp 98.0(TE); Pulse Ox 100% on 2 lpm NC; aa5 18:18 aa5 18:20 BP 119 / 46 Sitting; Pulse 74; aa5 18:22 BP 109 / 64 Standing; Pulse 84; aa5 18:45 BP 114 / 58; Pulse 78; Resp 16 S; Pulse Ox 100% on 2 lpm NC; aa5 18:18 Pt states "I can't lie flat even for 30 seconds because I get short of breath" aa5 18:22 Pt denies dizziness or other symptoms. PA notified. aa5 ED Course: 15:11 Patient arrived in ED. aa5 15:11 Arm band placed on Patient placed in an exam room, on a stretcher. aa5 15:11 Patient has correct armband on for positive identification. Bed in low position. Call aa5 light in reach. Side rails up X2. monitoring analyst on. Pulse ox on. NIBP on. 15:12 Ale Mccartney, JOSUE is Primary Nurse. ph 15:15 Triage completed. aa5 15:17 Finn Peters PA is PHCP. cp 15:17 Finn Thomas MD is Attending Physician. cp 15:18 EKG done, by business office technician. reviewed by Anam Valenzuela MD. sm3 15:35 X-ray completed. Portable x-ray completed in exam room. Patient tolerated procedure sw well. 15:37 XRAY Chest (1 view) In Process Unspecified. EDMS 15:42 Missed attempt(s): 22 gauge in right hand. Bleeding controlled, band aid applied, aa5 catheter tip intact. 15:45 Initial lab(s) drawn, by me, sent to lab. Inserted saline lock: 20 gauge in right aa5 antecubital area, using aseptic technique. Blood collected. 15:45 First set of blood cultures drawn by me. aa5 16:00 Second set of blood cultures drawn by me. aa5 16:19 No provider procedures requiring assistance completed. aa5 18:55 IV discontinued, intact, bleeding controlled, No redness/swelling at site. Pressure aa5 dressing applied. Administered Medications: 16:05 Drug: NS 0.9% 500 ml Route: IV; Rate: bolus; Site: right forearm; aa5 16:40 Follow up: IV Status: Completed infusion; IV Intake: 500ml aa5 17:09 Not Given (Physician Discretion): vancoMYCIN 1 grams IVPB once over 2 hrs cp 17:16 Drug: NS 0.9% 500 ml Route: IV; Rate: bolus; Site: right forearm; aa5 18:00 Follow up: IV Status: Completed infusion; IV Intake: 500ml aa5 17:16 Drug: NS 0.9% 1000 ml Route: IV; Rate: 125 ml/hr; Site: right forearm; aa5 18:45 Follow up: IV Status: Order to discontinue infusion aa5 17:16 Drug: LevaQUIN 500 mg Route: PO; aa5 18:37 Follow up: Response: No adverse reaction aa5 Intake: 16:40 IV: 500ml; Total: 500ml. aa5 18:00 IV: 500ml; Total: 1000ml. aa5 Output: 16:18 Urine: 250ml (Voided); Total: 250ml. aa5 Outcome: 18:56 Discharge ordered by MD. cp 18:58 Discharged to home via wheelchair, with family. aa5 18:58 Condition: stable 18:58 Discharge instructions given to patient, Instructed on discharge instructions, follow up and referral plans. medication usage, Demonstrated understanding of instructions, follow-up care, medications, Prescriptions given X 1. 19:03 Patient left the ED. aa5 Signatures: Dispatcher [employer] EDMS Waldo Akhtar em1 Adriane Hobson, RN RN aa5 Ale Mccartney RN RN ph Jalil, Finn Coats PA PA cp Montes, Shakira 3 Corrections: (The following items were deleted from the chart) 15:17 15:11 Presenting complaint: EMS states: pt was at the DC clinic for a check up and upon aa5 taking pt's VS they noticed BP was 90/53 and decreased to 77/45 and they called 911. Pt reports cough that began upon arriving to DC clinic and reports chest pain described as "muscle spasm" at the DC clinic that lasted "3 seconds". Pt also reports generalized weakness upon arriving to DC. aa5 16:08 15:11 BP 94 / 76; Pulse 77bpm; Resp 16bpm; Spontaneous; Pulse Ox 99% RA; Temp 98.3F aa5 Oral; 136.98 kg Reported; Pain 6/10; aa5 16:08 15:30 BP 107 / 67; Pulse 84bpm; Resp 18bpm; Spontaneous; Pulse Ox 100% 2 lpm Nasal aa5 Cannula; aa5 18:39 18:22 BP 109 / 64 Standing; Pulse 84bpm; Pt denies dizziness or other symptoms. ; aa5 aa5 19:20 17:17 BP 92 / 76; Pulse 66bpm; Resp 16bpm; Spontaneous; Pulse Ox 100% 2 lpm Nasal aa5 Cannula; aa5
--- NOTE | 2019-01-17 18:57 | EDPHYS ---
Physician Documentation [facility] Name: Stephan Lewis Jr Age: 78 yrs Sex: Male : 1940 Arrival Date: 01/17/2019 Time: 15:11 Bed 8 Private MD: DARIEN Physician Finn Thomas HPI: 01/17 15:29 This 78 yrs old Male presents to ER via EMS with complaints of low blood cp pressure. 15:30 The patient's problem is reported as weakness, that is generalized. Onset: The cp symptoms/episode began/occurred today. Context: Patient was at local [place] clinic and blood pressure was observed to be low with a systolic pressure of 70. Patient reported generalized weakness. Historical: - Allergies: 15:12 Sulfa (Sulfonamide Antibiotics); aa5 - Home Meds: 17:15 Albuterol Inhl [Active]; Eliquis 5 mg oral tab 2 times per day [Active]; aspirin 81 mg aa5 Oral TbEC 1 tab once daily [Active]; atorvastatin 20 mg Oral tab 1 tab once daily [Active]; budesonide oral 4.5mcg oral twice a day [Active]; Wound Skintegrity top spray [Active]; finasteride 5 mg oral tab 1 tab once daily [Active]; furosemide 20 mg Oral tab 1 tab 2 times per day [Active]; insulin aspart subcutaneous 20 unit three times a day [Active]; insulin detemir subcutaneous 30 units SQ twice a day [Active]; lisinopril 2.5 mg oral tab once daily [Active]; metformin 1,000 mg Oral tab 1 tab 2 times per day [Active]; oxybutynin chloride 10 mg Oral tr24 once daily [Active]; tamsulosin 0.4 mg oral cp24 1 cap once daily [Active]; - PMHx: 15:12 Bladder cancer; Cererbral aneurysm, non-ruptured (2009); CHF; COPD; Depression; aa5 Diabetes - IDDM; Dysmetabolic syndrome X; Hyperlipidemia; Hypertension; neuropathy; PAD; rotator cuff tear; DVT; Lymphedema; 15:12 Atrial Fib; aa5 - PSHx: 15:12 Left leg stent; aa5 15:12 Cardiac bypass; Heart stents; aa5 - Immunization history:: Flu vaccine is up to date. - Social history:: Smoking status: Patient/guardian denies using tobacco. - Ebola Screening: : No symptoms or risks identified at this time. ROS: 15:33 Eyes: Negative for injury, pain, redness, and discharge. cp 15:33 Constitutional: Negative for body aches, chills, fever, poor PO intake. 15:33 ENT: Negative for drainage from ear(s), ear pain, sore throat, difficulty swallowing, difficulty handling secretions. 15:33 Cardiovascular: Positive for edema, Negative for chest pain, palpitations. 15:33 Respiratory: Positive for shortness of breath, on exertion. Negative for cough, wheezing. 15:33 Abdomen/GI: Negative for abdominal pain, nausea, vomiting, and diarrhea, black/tarry stool, rectal bleeding. 15:33 Back: Positive for pain at rest, pain with movement. 15:33 : Negative for urinary symptoms. 15:33 Neuro: Positive for weakness, Negative for altered mental status, dizziness, headache, syncope. 15:33 All other systems are negative. Exam: 15:40 CT study not indicated or reported. Reason for not performing CT: neurologic exam cp negative for deficits 15:42 Constitutional: The patient appears in no acute distress, alert, awake, comfortable, cp non-diaphoretic, non-toxic, well developed, well nourished, obese. 15:42 Head/Face: Normocephalic, atraumatic. cp 15:42 Eyes: Periorbital structures: appear normal, Conjunctiva: normal, no exudate, no injection, Sclera: no appreciated abnormality, Lids and lashes: appear normal, bilaterally. 15:42 ENT: External ear(s): are unremarkable, Ear canal(s): are normal, clear, TM's: bulging, is not appreciated, bilaterally, erythema, is not appreciated, bilaterally, Nose: is normal, Mouth: Lips: moist, Oral mucosa: pink and intact, moist, Posterior pharynx: is normal, airway is patent, no erythema, no exudate. 15:42 Neck: ROM/movement: is normal, is supple, without pain, no range of motions limitations, no nuchal rigidity. 15:42 Chest/axilla: Inspection: normal, Palpation: is normal, no crepitus, no tenderness. 15:42 Cardiovascular: Rate: normal, Rhythm: regular, Edema: ankle edema, that is moderate, JVD: is not appreciated. 15:42 Respiratory: the patient does not display signs of respiratory distress, Respirations: normal, no use of accessory muscles, no retractions, no splinting, no tachypnea, labored breathing, is not present, Breath sounds: are clear throughout, no decreased breath sounds, no stridor, no wheezing. 15:42 Abdomen/GI: Inspection: obese Palpation: abdomen is soft and non-tender, in all quadrants. 15:42 Back: pain, is absent, ROM is normal. 15:42 Skin: chronic ulcer anterior aspect left lower leg with noted surrounding erythema and skin warm to touch. 15:42 Neuro: Orientation: to person, place \\T\\ time. Mentation: is normal, Motor: moves all fours, strength is normal, Sensation: no obvious gross deficits. 15:45 ECG was reviewed by the Attending Physician. cp Vital Signs: 15:11 BP 94 / 76; Pulse 77; Resp 16 S; Temp 98.3(O); Pulse Ox 99% on 2 lpm NC; Weight 136.98 aa5 kg (R); Pain 6/10; 15:30 BP 106 / 59; Pulse 70; Resp 16 S; Pulse Ox 100% on 2 lpm NC; aa5 16:00 BP 107 / 67; Pulse 84; Resp 18 S; Pulse Ox 100% on 2 lpm NC; aa5 16:19 BP 95 / 62; Pulse 67; Resp 18 S; Pulse Ox 99% on 2 lpm NC; aa5 16:40 BP 85 / 55; Pulse 78; Resp 16 S; Pulse Ox 99% on 2 lpm NC; em1 17:00 BP 114 / 44; Pulse 70; Resp 16 S; Pulse Ox 100% on 2 lpm NC; em1 17:17 BP 92 / 76; Pulse 66; Resp 16 S; Temp 98.2(TE); Pulse Ox 100% on 2 lpm NC; aa5 17:45 BP 99 / 56; Pulse 73; Resp 16 S; Pulse Ox 100% on 2 lpm NC; aa5 18:00 BP 110 / 74; Pulse 61; Resp 16 S; Pulse Ox 100% on 2 lpm NC; aa5 18:10 BP 119 / 57; Pulse 70; Resp 16; Temp 98.0(TE); Pulse Ox 100% on 2 lpm NC; aa5 18:18 aa5 18:20 BP 119 / 46 Sitting; Pulse 74; aa5 18:22 BP 109 / 64 Standing; Pulse 84; aa5 18:45 BP 114 / 58; Pulse 78; Resp 16 S; Pulse Ox 100% on 2 lpm NC; aa5 18:18 Pt states "I can't lie flat even for 30 seconds because I get short of breath" aa5 18:22 Pt denies dizziness or other symptoms. PA notified. aa5 MDM: 15:18 Patient medically screened. indy 17:04 Physician consultation: Nicolette Louise MD was called at 17:07, was contacted at 17:07, and will see patient in ED, shortly. 18:55 Data reviewed: vital signs, nurses notes, lab test result(s), EKG, radiologic studies, cp plain films, I have discussed the patient's presentation/case with the attending Emergency Department Physician;. 18:55 Differential diagnosis: drug effects, sepsis, UTI, dehydration, cardiac arrythmia. Test cp interpretation: by ED physician or midlevel provider: ECG, plain radiologic studies. 18:55 ED course: VSS. Blood pressure responsive to IV fluids and patient asymptomatic. cp Discussed admission with DR Louise who recommends discharge at this time to home for continued monitoring. 01/17 15:26 Order name: Basic Metabolic Panel 01/17 15:26 Order name: CBC with Diff; Complete Time: 16:16 01/17 16:17 Interpretation: Normal except: WBC 14.4; HGB 12.3; HCT 38.1; RDW 17.0; NEUT A 10.1. 01/17 15:26 Order name: LFT's; Complete Time: 16:37 01/17 15:26 Order name: Magnesium; Complete Time: 16:37 01/17 15:26 Order name: NT PRO-BNP; Complete Time: 16:37 01/17 15:26 Order name: PT-INR; Complete Time: 16:16 01/17 15:26 Order name: Troponin (emerg Dept Use Only); Complete Time: 16:37 01/17 16:39 Interpretation: TROPED < 0.02; Reviewed. 01/17 15:26 Order name: XRAY Chest (1 view); Complete Time: 16:37 01/17 15:26 Order name: Urine Microscopic Only cp 01/17 15:26 Order name: Lactate; Complete Time: 16:37 cp 01/17 16:38 Interpretation: Reviewed. 01/17 15:26 Order name: Procalcitonin; Complete Time: 17:05 cp 01/17 15:26 Order name: Blood Culture Adult (2) cp 01/17 15:28 Order name: Basic Metabolic Panel; Complete Time: 16:37 EDMS 01/17 16:38 Interpretation: Normal except: CO2 33; BUN 36; CRE 1.45; GFR 47. 01/17 16:24 Order name: Urine Dipstick--Ancillary (enter results); Complete Time: 17:05 em1 01/17 15:26 Order name: EKG; Complete Time: 15:29 cp 01/17 15:26 Order name: Cardiac monitoring; Complete Time: 15:32 cp 01/17 15:26 Order name: EKG - Nurse/Tech; Complete Time: 15:32 cp 01/17 15:26 Order name: IV Saline Lock; Complete Time: 16:06 cp 01/17 15:26 Order name: Labs collected and sent; Complete Time: 16:06 cp 01/17 15:26 Order name: O2 Per Protocol; Complete Time: 15:32 cp 01/17 15:26 Order name: O2 Sat Monitoring; Complete Time: 15:32 cp 01/17 15:26 Order name: Urine Dipstick-Ancillary (obtain specimen); Complete Time: 16:22 cp 01/17 16:40 Order name: Misc. Order: undress lower legs; Complete Time: 17:03 01/17 17:47 Order name: Orthostatics; Complete Time: 18:37 cp EC:45 Rate is 67 beats/min. Rhythm is regular. DC interval is prolonged at 216 msec. QRS cp interval is normal. QT interval is normal. T waves are Flattened in leads I, aVL. Interpreted by me. Reviewed by me. Administered Medications: 16:05 Drug: NS 0.9% 500 ml Route: IV; Rate: bolus; Site: right forearm; aa5 16:40 Follow up: IV Status: Completed infusion; IV Intake: 500ml aa5 17:09 Not Given (Physician Discretion): vancoMYCIN 1 grams IVPB once over 2 hrs cp 17:16 Drug: NS 0.9% 500 ml Route: IV; Rate: bolus; Site: right forearm; aa5 18:00 Follow up: IV Status: Completed infusion; IV Intake: 500ml 5 17:16 Drug: NS 0.9% 1000 ml Route: IV; Rate: 125 ml/hr; Site: right forearm; aa5 18:45 Follow up: IV Status: Order to discontinue infusion aa5 17:16 Drug: LevaQUIN 500 mg Route: PO; aa5 18:37 Follow up: Response: No adverse reaction aa5 Disposition: 01/18 06:20 Co-signature as Attending Physician, Finn Thomas MD I agree with the assessment and [facility] plan of care. Disposition: 01/17/19 18:56 Discharged to Home. Impression: Unspecified open wound of lower leg - left, Cough. - Condition is Stable. - Discharge Instructions: Wound Care, Cough, Adult. - Prescriptions for Doxycycline Hyclate 100 mg Oral Tablet - take 1 tablet by ORAL route 2 times per day for 7 days; 14 tablet. - Medication Reconciliation Form, Thank You Letter, Antibiotic Education, Prescription Opioid Use form. - Follow up: Private Physician; When: 1 - 2 days; Reason: Recheck today's complaints. - Problem is new. - Symptoms have improved. Signatures: Dispatcher [employer] EDOK Finn Thomas MD MD cha Calderon, Audri, RN RN aa5 Finn Peters PA PA cp Corrections: (The following items were deleted from the chart) 01/17 17:03 16:40 Orthostatics ordered. cp aa5 19:03 18:56 01/17/2019 18:56 Discharged to Home. Impression: Unspecified open wound of lower aa5 leg - left; Cough. Condition is Stable. Forms are Medication Reconciliation Form, Thank You Letter, Antibiotic Education, Prescription Opioid Use. Follow up: Private Physician; When: 1 - 2 days; Reason: Recheck today's complaints. Problem is new. Symptoms have improved. cp
[2019-01-17 19:19] VITALS: TEMP 98.3
[2019-01-17 19:43] VITALS: O2SAT 100
[2019-01-17 19:49] VITALS: BP 109/64
--- NOTE | 2019-01-18 10:39 | EKG ---
Test Date: 2019-01-17 Test Time: 15:13:57 Casting Plug Assembler: KALANI MEASUREMENT RESULTS: Intervals: Rate: 67 LA: 216 QRSD: 100 QT: 388 QTc: 409 [place]: P: 35 LA: 216 QRS: 21 T: 48 INTERPRETIVE STATEMENTS: Sinus rhythm with marked sinus arrhythmia with 1st degree AV block Possible Anterior infarct, age undetermined Abnormal ECG Compared to ECG 10/22/2018 03:15:42 First degree AV block now present Atrial premature complex(es) no longer present T-wave abnormality no longer present Myocardial infarct finding still present Electronically Signed On 01-18-19 10:38:44 CDT by Sacha Diggs
== END 2019-01-17 19:03 | disposition home or self-care (01) ==
LOC: ER 15:09
DX: S81.802A Unspecified open wound, left lower leg, initial encounter (principal); R05 Cough; C67.9 Malignant neoplasm of bladder, unspecified; I11.0 Hypertensive heart disease with heart failure; I50.9 Heart failure, unspecified; E11.9 Type 2 diabetes mellitus without complications; J44.9 Chronic obstructive pulmonary disease, unspecified; E78.5 Hyperlipidemia, unspecified; I10 Essential (primary) hypertension; Z86.718 Personal history of other venous thrombosis and embolism; Z79.01 Long term (current) use of anticoagulants; Z79.82 Long term (current) use of aspirin; Z79.4 Long term (current) use of insulin
CPT/HCPCS: 96361; 93005; 87040 ×2; 85025; 80048; 36415; 83735; 85610; 80076; 83605; 84484; 84145; 83880; 71045; 96360; 99285; J7030; 81003; 81015

== ENCOUNTER 2019-09-05 17:38 | Emergency (ER) | payer OTHER ==
--- OUTSIDE RECORDS SUMMARY | 2019-09-05 17:40 | XMS REPORT ---
:1940 [facility] Address [address] [place] [address] [place] [id number] Care Team Providers Name Role Phone Unavailable Unavailable Unavailable Problems This patient has no known problems. Allergies, Adverse Reactions, Alerts This patient has no known allergies or adverse reactions. Medications This patient has no known medications.
--- OUTSIDE RECORDS SUMMARY | 2019-09-05 17:40 | XMS REPORT ---
[...] Medications Results No Known Results Summary Purpose VonjourinicalMelon #usemelon Submission
--- NOTE | 2019-09-05 19:29 | EDPHYS ---
Physician Documentation [facility] Name: Stephan Lewis Jr Age: 79 yrs Sex: Male : 1940 Arrival Date: 09/05/2019 Time: 17:42 Bed 12 Private MD: ED Physician Dmitri Eli HPI: 09/05 06:05 This 79 yrs old Male presents to ER via Wheelchair with complaints of Neck tw4 Pain, <24hrs Old, Shoulder Pain. 06:05 The patient or guardian complains of pain. The symptoms are located at the cervical tw4 spine. Onset: The symptoms/episode began/occurred last night. Context: The problem was sustained at home, The neck injury/problem resulted from sleeping funny. Associated signs and symptoms: The patient has no apparent associated signs or symptoms. Location: right trapezius. The patient has not experienced similar symptoms in the past. Historical: - Allergies: 09/04 18:15 Sulfa (Sulfonamide Antibiotics); ss - Home Meds: 18:15 Wound Skintegrity top spray [Active]; ss - PMHx: 18:15 lymphedema; Bladder cancer; CHF; COPD; Dysmetabolic syndrome X; Cererbral aneurysm, ss non-ruptured (2009); Hyperlipidemia; PAD; rotator cuff tear; Hypertension; neuropathy; DVT; Diabetes - IDDM; Atrial Fib; Depression; - PSHx: 18:15 Left leg stent; Cardiac bypass; Heart stents; ss - Immunization history:: Adult Immunizations up to date. - Social history:: Smoking status: Patient/guardian denies using tobacco, the patient reports quitting approximately 8 years ago. ROS: 09/05 06:05 Constitutional: Negative for fever, chills, and weight loss, Eyes: Negative for injury, tw4 pain, redness, and discharge. Neck: Positive for pain with movement, pain at rest, stiffness, Negative for injury or acute deformity. Exam: 06:05 Constitutional: This is a well developed, well nourished patient who is awake, alert, tw4 and in no acute distress. Head/Face: Normocephalic, atraumatic. 06:05 Chest/axilla: Normal chest wall appearance and motion. Nontender with no deformity. No lesions are appreciated. Cardiovascular: Regular rate and rhythm with a normal S1 and S2. No gallops, murmurs, or rubs. Normal PMI, no JVD. No pulse deficits. Respiratory: Lungs have equal breath sounds bilaterally, clear to auscultation and percussion. No rales, rhonchi or wheezes noted. No increased work of breathing, no retractions or nasal flaring. Back: No spinal tenderness. No costovertebral tenderness. Full range of motion. Skin: Warm, dry with normal turgor. Normal color with no rashes, no lesions, and no evidence of cellulitis. MS/ Extremity: Pulses equal, no cyanosis. Neurovascular intact. Full, normal range of motion. 06:05 Neck: External neck: is normal, C-spine: appears grossly normal, ROM/movement: Vital Signs: 09/04 18:11 BP 109 / 51; Pulse 73; Resp 18; Temp 98.1(TE); Pulse Ox 92% on 2 lpm NC; Weight 136.08 ss kg; Height 5 ft. 8 in. (172.72 cm); Pain 8/10; 20:22 BP 127 / 51; Pulse 64; Resp 16 S; Temp 97.6(O); Pulse Ox 95% on 2 lpm NC; bb 18:11 Body Mass Index 45.61 (136.08 kg, 172.72 cm) ss MDM: 19:29 Patient medically screened. tw4 09/05 06:08 Differential diagnosis: C-Spine Fracture Cervical Disc Herniation Neck Abrasion Neck tw4 Contusion torticollis, Whiplash Injury. Data reviewed: vital signs, nurses notes. Data interpreted: Pulse oximetry: is not applicable for this patient encounter. Counseling: I had a detailed discussion with the patient and/or guardian regarding: the historical points, exam findings, and any diagnostic results supporting the discharge/admit diagnosis. Medication response: morphine relieved the patient's pain. Symptoms have resolved. Response to treatment: and as a result, I will discharge patient. Special discussion: I discussed with the patient/guardian in detail that at this point there is no indication for admission to the hospital. It is understood, however, that if the symptoms persist or worsen the patient needs to return immediately for re-evaluation. Administered Medications: 09/04 19:39 Not Given (Patient Refused): traMADol 50 mg PO once; RASS on ADMIN: Combtv4, Very jd3 Agttd3, Agttd2, Rstlss1, AlertClm0, Drwsy-1, Lt Sdtn-2, Mod Sdtn-3, Dp Sdtn-4, UnArsble-5 19:42 Drug: morphine 4 mg Route: IM; Site: right deltoid; jd3 20:21 Follow up: Response: Pain is decreased; RASS: Alert and Calm (0) bb 19:43 Drug: Flexeril 10 mg Route: PO; jd3 20:21 Follow up: Response: No adverse reaction bb Disposition: 09/05/19 19:29 Discharged to Home. Impression: Sprain of joints and ligaments of other parts of neck. - Condition is Stable. - Discharge Instructions: Muscle Cramps and Spasms, Muscle Strain, Cervical Sprain. - Prescriptions for Tramadol 50 mg Oral Tablet - take 1 tablet by ORAL route every 8 hours as needed; 12 tablet. Cyclobenzaprine 5 mg Oral Tablet - take 1 tablet by ORAL route 3 times per day As needed; 15 tablet. - Medication Reconciliation Form, Thank You Letter, Antibiotic Education, Prescription Opioid Use form. - Follow up: Private Physician; When: Upon discharge from the Emergency Department; Reason: Recheck today's complaints, Continuance of care, Re-evaluation by your physician. - Problem is new. - Symptoms have improved. Signatures: Johanna Eddy RN Meli Yepez RN RN ss Davies, Jonathon, RN RN jd3 Wadley, Terrence, MD MD tw4 Corrections: (The following items were deleted from the chart) 20:23 19:29 09/05/2019 19:29 Discharged to Home. Impression: Sprain of joints and ligaments bb of other parts of neck. Condition is Stable. Forms are Medication Reconciliation Form, Thank You Letter, Antibiotic Education, Prescription Opioid Use. Follow up: Private Physician; When: Upon discharge from the Emergency Department; Reason: Recheck today's complaints, Continuance of care, Re-evaluation by your physician. Problem is new. Symptoms have improved. tw4
--- NOTE | 2019-09-05 19:29 | ER ---
Nurse's Notes [facility] Name: Stephan Lewis Jr Age: 79 yrs Sex: Male : 1940 Arrival Date: 09/05/2019 Time: 17:42 Bed 12 Private MD: Diagnosis: Sprain of joints and ligaments of other parts of neck Presentation: 09/04 18:11 Chief complaint: Patient states: R sided neck and shoulder pain that began when patient ss woke up this morning. Is getting worse over time. Coronavirus screen: The patient has NOT traveled to a country currently being monitored by the [facility] within the last 14 days. Proceed with normal triage procedures. Ebola Screen: Patient denies exposure to infectious person. Patient denies travel to an Ebola-affected area in the 21 days before illness onset. Initial Sepsis Screen: Does the patient meet any 2 criteria? No. Patient's initial sepsis screen is negative. Does the patient have a suspected source of infection? No. Patient's initial sepsis screen is negative. Risk Assessment: Do you want to hurt yourself or someone else? Patient reports no desire to harm self or others. 18:11 Method Of Arrival: Wheelchair ss 18:11 Acuity: ANASTASIA 4 ss 19:45 Onset of symptoms was September 05, 2019. jd3 Historical: - Allergies: 18:15 Sulfa (Sulfonamide Antibiotics); ss - Home Meds: 18:15 Wound Skintegrity top spray [Active]; ss - PMHx: 18:15 lymphedema; Bladder cancer; CHF; COPD; Dysmetabolic syndrome X; Cererbral aneurysm, ss non-ruptured (2009); Hyperlipidemia; PAD; rotator cuff tear; Hypertension; neuropathy; DVT; Diabetes - IDDM; Atrial Fib; Depression; - PSHx: 18:15 Left leg stent; Cardiac bypass; Heart stents; ss - Immunization history:: Adult Immunizations up to date. - Social history:: Smoking status: Patient/guardian denies using tobacco, the patient reports quitting approximately 8 years ago. Screenin:44 Abuse screen: Denies threats or abuse. Nutritional screening: No deficits noted. jd3 Tuberculosis screening: No symptoms or risk factors identified. Fall Risk Ambulatory Aid- None/Bed Rest/Nurse Assist (0 pts). Gait- Weak (10 pts.). Mental Status- Oriented to own ability (0 pts). Total Carranza Fall Scale indicates No Risk (0-24 pts). Assessment: 19:43 General: Appears in no apparent distress. uncomfortable, Behavior is calm, cooperative, jd3 appropriate for age. Pain: Complains of pain in neck and right shoulder. Quality of pain is described as aching, sharp. Neuro: Level of Consciousness is awake, alert, obeys commands, Oriented to person, place, time, situation. Cardiovascular: Denies chest pain, Capillary refill < 3 seconds Patient's skin is warm and dry. Respiratory: Airway is patent Respiratory effort is even, unlabored, Respiratory pattern is regular, symmetrical, Denies cough, shortness of breath. GI: No signs and/or symptoms were reported involving the gastrointestinal system. : No signs and/or symptoms were reported regarding the genitourinary system. EENT: No signs and/or symptoms were reported regarding the EENT system. Derm: Skin is intact, Skin is dry, Skin is normal, Skin temperature is warm. Musculoskeletal: Circulation, motion, and sensation intact. Range of motion: intact in all extremities. 20:21 Reassessment: Patient is alert, oriented x 3, equal unlabored respirations, skin bb warm/dry/pink. pt verbalized understanding of and agrees to plan of care discharge instructions given pt assisted to exit via wheelchair to granddaughter's vehicle. Vital Signs: 18:11 BP 109 / 51; Pulse 73; Resp 18; Temp 98.1(TE); Pulse Ox 92% on 2 lpm NC; Weight 136.08 ss kg; Height 5 ft. 8 in. (172.72 cm); Pain 8/10; 20:22 BP 127 / 51; Pulse 64; Resp 16 S; Temp 97.6(O); Pulse Ox 95% on 2 lpm NC; bb 18:11 Body Mass Index 45.61 (136.08 kg, 172.72 cm) ED Course: 17:42 Patient arrived in ED. ag5 18:13 Triage completed. ss 18:15 Arm band placed on right wrist. ss 19:14 Dmitri Eli MD is Attending Physician. tw4 19:31 Raffy Catherine, JOSUE is Primary Nurse. jd3 19:45 Patient has correct armband on for positive identification. Bed in low position. Call jd3 light in reach. Side rails up X 1. Adult w/ patient. 20:23 No provider procedures requiring assistance completed. Patient did not have IV access bb during this emergency room visit. Administered Medications: 19:39 Not Given (Patient Refused): traMADol 50 mg PO once; RASS on ADMIN: Combtv4, Very jd3 Agttd3, Agttd2, Rstlss1, AlertClm0, Drwsy-1, Lt Sdtn-2, Mod Sdtn-3, Dp Sdtn-4, UnArsble-5 19:42 Drug: morphine 4 mg Route: IM; Site: right deltoid; jd3 20:21 Follow up: Response: Pain is decreased; RASS: Alert and Calm (0) bb 19:43 Drug: Flexeril 10 mg Route: PO; jd3 20:21 Follow up: Response: No adverse reaction bb Outcome: 19:29 Discharge ordered by . dar4 20:23 Discharged to home via wheelchair, with family. bb 20:23 Condition: stable 20:23 Discharge instructions given to patient, Instructed on discharge instructions, follow up and referral plans. medication usage, Demonstrated understanding of instructions, follow-up care, medications, Prescriptions given X 2. 20:23 Patient left the ED. bb Signatures: Johanna Eddy RN RN Meli Diego RN RN ss Davies, Jonathon, RN RN jd3 Wadley, Terrence, MD MD tw4 William Alberts 5
[2019-09-05] MEDS ORDERED: CYCLOBENZAPRINE 10 MG TAB ONE (19:38)
[2019-09-05] MEDS ORDERED: TRAMADOL HCL 50 MG TAB ONE (19:40)
[2019-09-05] MEDS ORDERED: MORPHINE 4 MG/ML SYR ONE (19:43)
[2019-09-05 20:44] VITALS: BP 127/51; TEMP 97.6; O2SAT 95
== END 2019-09-05 20:23 | disposition home or self-care (01) ==
LOC: ER 17:38
DX: S13.9XXA Sprain of joints and ligaments of unspecified parts of neck, initial encounter (principal); X50.1XXA Overexertion from prolonged static or awkward postures, initial encounter; Y93.89 Activity, other specified; Y92.013 Bedroom of single-family (private) house as the place of occurrence of the external cause; Z88.2 Allergy status to sulfonamides
CPT/HCPCS: 96372; 99283

== ENCOUNTER 2019-09-12 10:13 | Emergency (ER) | payer OTHER ==
[2011-10-20 19:58] VITALS: BP 130/65
--- OUTSIDE RECORDS SUMMARY | 2019-09-12 10:15 | XMS REPORT ---
:1940 [facility] Address [address] Diaz [address] [place] [id number] Care Team Providers Name Role Phone Unavailable Unavailable Unavailable Problems This patient has no known problems. Allergies, Adverse Reactions, Alerts This patient has no known allergies or adverse reactions. Medications This patient has no known medications.
--- OUTSIDE RECORDS SUMMARY | 2019-09-12 10:15 | XMS REPORT ---
[...] Medications Results No Known Results Summary Purpose trueAntheminicalHoblee Submission
--- NOTE | 2019-09-12 12:03 | ER ---
Nurse's Notes [facility] Name: Stephan Lewis Jr Age: 79 yrs Sex: Male : 1940 Arrival Date: 09/12/2019 Time: 10:14 Bed 13 Private MD: Diagnosis: Muscle spasm;Radiculopathy, cervical region Presentation: 09/11 11:03 Chief complaint: Patient states: Last week, I was in here for the same thing. It was on ca1 the R side going down to the shoulder. About 3 days ago, it's now on the L side going down to the L shoulder. Denies fever. Coronavirus screen: The patient has NOT traveled to a country currently being monitored by the CDC within the last 14 days. The patient has NOT had contact with any known and/or suspected case of coronavirus. Ebola Screen: Patient negative for fever greater than or equal to 101.5 degrees Fahrenheit, and additional compatible Ebola Virus Disease symptoms Patient denies exposure to infectious person. Patient denies travel to an Ebola-affected area in the 21 days before illness onset. No symptoms or risks identified at this time. Initial Sepsis Screen: Does the patient meet any 2 criteria? No. Patient's initial sepsis screen is negative. Does the patient have a suspected source of infection? No. Patient's initial sepsis screen is negative. Risk Assessment: Do you want to hurt yourself or someone else? Patient reports no desire to harm self or others. Onset of symptoms was September 09, 2019. 11:03 Method Of Arrival: Wheelchair ca1 11:03 Acuity: ANASTASIA 4 ca1 Historical: - Allergies: 11:07 Sulfa (Sulfonamide Antibiotics); ca1 - PMHx: 11:07 Atrial Fib; Bladder cancer; rotator cuff tear; neuropathy; Cererbral aneurysm, ca1 non-ruptured (2009); CHF; COPD; Depression; Diabetes - IDDM; DVT; Dysmetabolic syndrome X; Hyperlipidemia; Hypertension; lymphedema; PAD; - PSHx: 11:07 Left leg stent; Cardiac bypass; Heart stents; ca1 - Immunization history:: Adult Immunizations up to date. - Social history:: Smoking status: Patient/guardian denies using tobacco, the patient reports quitting approximately 8 years ago. - Family history:: not pertinent. - Hospitalizations: : No recent hospitalization is reported. Screenin:55 Abuse screen: Denies threats or abuse. Nutritional screening: No deficits noted. rb1 Tuberculosis screening: No symptoms or risk factors identified. Fall Risk No fall in past 12 months (0 pts). Secondary diagnosis (15 points) impaired mobility, No IV (0 pts). Ambulatory Aid- Crutches/Cane/Walker (15 pts). Gait- Impaired (20 pts.). Mental Status- Oriented to own ability (0 pts). Total Carranza Fall Scale indicates High Risk Score (45 or more points). Fall prevention measures have been instituted. Side Rails Up X 2 Placed Close to Nursing Station 1:1 Attendant Assigned Frequent Obs/Assessments Occuring Family Present and informed to notify staff if the need to leave the bedside As available patient and family educated on Fall Prevention Program and Strategies. Assessment: 11:55 General: Appears in no apparent distress. comfortable, Behavior is calm, cooperative. rb1 Pain: Complains of pain in neck Pain currently is 9 out of 10 on a pain scale. Quality of pain is described as sharp, Pain began a week and a half ago. Neuro: Level of Consciousness is awake, alert, obeys commands, Oriented to person, place, time, situation, Denies blurred vision dizziness, headache. Cardiovascular: Capillary refill < 3 seconds is brisk in bilateral fingers. Respiratory: Airway is patent Respiratory effort is even, unlabored, Respiratory pattern is regular, symmetrical. GI: No signs and/or symptoms were reported involving the gastrointestinal system. : No signs and/or symptoms were reported regarding the genitourinary system. Derm: Skin is pink, warm \T\ dry. Musculoskeletal: Range of motion: intact in all extremities. 12:21 Reassessment: Discharge pending due to shot time. rb1 12:40 Reassessment: Patient appears in no apparent distress at this time. Patient and/or rb1 family updated on plan of care and expected duration. Pain level reassessed. Patient is alert, oriented x 3, equal unlabored respirations, skin warm/dry/pink. Vital Signs: 11:03 BP 102 / 46; Pulse 71; Resp 16 S; Temp 97.8(O); Pulse Ox 90% on 2 lpm NC; Weight 145.15 ca1 kg (R); Height 5 ft. 8 in. (172.72 cm) (R); Pain 9/10; 11:03 Body Mass Index 48.66 (145.15 kg, 172.72 cm) ca1 ED Course: 10:14 Patient arrived in ED. rg4 11:06 Triage completed. ca1 11:07 Arm band placed on right wrist. ca1 11:48 Jonnathan Triana MD is Attending Physician. rn 11:55 Patient has correct armband on for positive identification. Call light in reach. pt. is rb1 sitting in a wheelchair per pt. preference. Pulse ox on. NIBP on. 12:14 Debora Whalen, RN is Primary Nurse. rb1 12:43 No provider procedures requiring assistance completed. Patient did not have IV access rb1 during this emergency room visit. Administered Medications: 12:20 Drug: morphine 4 mg Route: IM; Site: left deltoid; rb1 12:40 Follow up: Response: No adverse reaction rb1 12:20 Drug: Decadron 10 mg Route: IM; Site: right deltoid; rb1 12:40 Follow up: Response: No adverse reaction rb1 Outcome: 12:02 Discharge ordered by MD. rn 12:43 Discharged to home via wheelchair, with family. rb1 12:43 Condition: stable 12:43 Discharge instructions given to patient, Instructed on discharge instructions, follow up and referral plans. medication usage, Demonstrated understanding of instructions, follow-up care, medications, Prescriptions given X 1. 12:43 Patient left the ED. rb1 Signatures: Jonnathan Triana MD MD rn Barber, Rebecca, RN RN rb1 Emilee Archuleta rg4 Daisy Canela RN RN ca1 Corrections: (The following items were deleted from the chart) 12:47 12:46 Patient left the ED. rb1 rb1
--- NOTE | 2019-09-12 12:03 | EDPHYS ---
Physician Documentation [facility] Name: Stephan Lewis Jr Age: 79 yrs Sex: Male : 1940 Arrival Date: 09/12/2019 Time: 10:14 Bed 13 Private MD: ED Physician Jonnathan Triana HPI: 09/11 11:57 This 79 yrs old Male presents to ER via Wheelchair with complaints of Neck rn Pain, >24Hrs Old. 11:57 The patient or guardian complains of pain. The symptoms are located on the neck. Onset: rn The symptoms/episode began/occurred 2 week(s) ago. Associated signs and symptoms: The patient has no apparent associated signs or symptoms, Pertinent positives: Pertinent negatives: headache, bladder incontinence, bowel incontinence, vomiting, weakness. The pain radiates to the right arm and left arm. Modifying factors: The symptoms are alleviated by nothing. the symptoms are aggravated by movement. Severity of symptoms: At their worst the symptoms were mild, in the emergency department the symptoms are unchanged. The patient has experienced similar episodes in the past. Reports can't sleep flat or in bed, so sleeps in recliner, used to have neck support pillow but dog got to it, states has been having to use rolled up towel for neck support, and is having neck stiffness and painful ROM, with pain radiating down both arms. no weakness. no headache. no trauma. seen for this 1 week ago and reports now hurting on other side of neck. . Historical: - Allergies: 11:07 Sulfa (Sulfonamide Antibiotics); ca1 - PMHx: 11:07 Atrial Fib; Bladder cancer; rotator cuff tear; neuropathy; Cererbral aneurysm, ca1 non-ruptured (2009); CHF; COPD; Depression; Diabetes - IDDM; DVT; Dysmetabolic syndrome X; Hyperlipidemia; Hypertension; lymphedema; PAD; - PSHx: 11:07 Left leg stent; Cardiac bypass; Heart stents; ca1 - Immunization history:: Adult Immunizations up to date. - Social history:: Smoking status: Patient/guardian denies using tobacco, the patient reports quitting approximately 8 years ago. - Family history:: not pertinent. - Hospitalizations: : No recent hospitalization is reported. ROS: 11:57 Constitutional: Negative for fever, chills, and weight loss, Eyes: Negative for injury, rn pain, redness, and discharge, Neck: Negative for injury Cardiovascular: Negative for chest pain, palpitations, and edema, Respiratory: Negative for shortness of breath, cough, wheezing, and pleuritic chest pain, Abdomen/GI: Negative for abdominal pain, nausea, vomiting, diarrhea, and constipation, MS/Extremity: Negative for injury and deformity, Skin: Negative for injury, rash, and discoloration, Neuro: Negative for headache, weakness, numbness, tingling, and seizure. Exam: 11:57 Constitutional: This is a well developed, well nourished patient who is awake, alert, rn and in no acute distress. Head/Face: Normocephalic, atraumatic. Neck: + tenderness bilateral neck sides and trapezius Cardiovascular: Regular rate and rhythm with a normal S1 and S2. No gallops, murmurs, or rubs. Normal PMI, no JVD. No pulse deficits. Respiratory: Lungs have equal breath sounds bilaterally, clear to auscultation and percussion. No rales, rhonchi or wheezes noted. No increased work of breathing, no retractions or nasal flaring. Abdomen/GI: Soft, non-tender, with normal bowel sounds. No distension or tympany. No guarding or rebound. No evidence of tenderness throughout. MS/ Extremity: Pulses equal, no cyanosis. Neurovascular intact. Full, normal range of motion. Equal circumference. Neuro: Awake and alert, GCS 15, oriented to person, place, time, and situation. Cranial nerves II-XII grossly intact. Motor strength 5/5 in all extremities. Sensory grossly intact. Vital Signs: 11:03 BP 102 / 46; Pulse 71; Resp 16 S; Temp 97.8(O); Pulse Ox 90% on 2 lpm NC; Weight 145.15 ca1 kg (R); Height 5 ft. 8 in. (172.72 cm) (R); Pain 9/10; 11:03 Body Mass Index 48.66 (145.15 kg, 172.72 cm) ca1 MDM: 11:48 Patient medically screened. rn 11:57 Differential diagnosis: Cervical Raiculopathy cervical strain, torticollis. Data rn reviewed: vital signs, nurses notes, and as a result, I will discharge patient. Counseling: I had a detailed discussion with the patient and/or guardian regarding: the historical points, exam findings, and any diagnostic results supporting the discharge/admit diagnosis, the need for outpatient follow up, to return to the emergency department if symptoms worsen or persist or if there are any questions or concerns that arise at home. Special discussion: I discussed with the patient/guardian in detail that at this point there is no indication for admission to the hospital. It is understood, however, that if the symptoms persist or worsen the patient needs to return immediately for re-evaluation. Based on the history and exam findings, there is no indication for further emergent testing or inpatient evaluation. I discussed with the patient/guardian the need to see the back specialist for further evaluation of the symptoms. Special discussion: Further emergent ED testing is not indicated at this point in time. I discussed with the patient/guardian in detail the need to arrange with the PCP or specialist further outpatient testing, MRI. Administered Medications: 12:20 Drug: morphine 4 mg Route: IM; Site: left deltoid; rb1 12:40 Follow up: Response: No adverse reaction rb1 12:20 Drug: Decadron 10 mg Route: IM; Site: right deltoid; rb1 12:40 Follow up: Response: No adverse reaction rb1 Disposition: 09/12/19 12:02 Discharged to Home. Impression: Muscle spasm, Radiculopathy, cervical region. - Condition is Stable. - Discharge Instructions: Cervical Radiculopathy. - Prescriptions for Medrol (Perez) 4 mg Oral Tablets, Dose Pack - take 1 tablet by ORAL route as directed - follow package instructions; 1 packet. - Medication Reconciliation Form, Thank You Letter, Antibiotic Education, Prescription Opioid Use form. - Follow up: Private Physician; When: As needed; Reason: Recheck today's complaints, Re-evaluation by your physician. - Problem is an ongoing problem. - Symptoms have improved. Signatures: Jonnathan Triana MD MD rn Barber, Rebecca, RN RN rb1 Daisy Canela RN RN ca1 Corrections: (The following items were deleted from the chart) 12:46 12:02 09/12/2019 12:02 Discharged to Home. Impression: Muscle spasm; Radiculopathy, rb1 cervical region. Condition is Stable. Forms are Medication Reconciliation Form, Thank You Letter, Antibiotic Education, Prescription Opioid Use. Follow up: Private Physician; When: As needed; Reason: Recheck today's complaints, Re-evaluation by your physician. Problem is an ongoing problem. Symptoms have improved. rn
[2019-09-12] MEDS ORDERED: MORPHINE 4 MG/ML SYR ONE (12:21)
[2019-09-12] MEDS ORDERED: dexAMETHasone 10 MG/ML VIAL ONE (12:21)
== END 2019-09-12 12:46 | disposition home or self-care (01) ==
LOC: ER 10:13
DX: M54.12 Radiculopathy, cervical region (principal); M62.838 Other muscle spasm; Z88.2 Allergy status to sulfonamides
CPT/HCPCS: 96372; 99283; J1100

== ENCOUNTER 2020-03-26 13:11 | Observation (INO) | payer OTHER ==
--- OUTSIDE RECORDS SUMMARY | 2020-03-26 13:16 | XMS REPORT | Continuity of Care Document ---
:1940 Author Organization [facility] t Address [address] [place] [address] Care Team Providers Name Role Phone Unavailable Unavailable Unavailable Problems Condition Condition Condition Status Onset Resolution Last Treating Co mments Source Name Details Category Date Date Treatment Clinician Date Pain, Pain, Diagnosis Active [facility], left knee, left [facility] Clinics Primary Primary Diagnosis [facility] left knee left knee [facility] Allergies, Adverse Reactions, Alerts Allergy Allergy Status Severity Reaction(s) Onset Inactive Treating Comm ents Source Name Type Date Date Clinician Sulfa Adverse Active Info Not [facility] Reaction Available [facility] Medications This patient has no known medications. Procedures This patient has no known procedures. Encounters Start End Encounter Admission Attending Care Care Encounter Source Date/Time Date/Time Type Type Clinicians Facility Department ID 2018-03-29 2018-03-29 [facility] [id number] [address] 11:00:00 11:[facility]:00 [facility] Results This patient has no known results.
[2020-03-26] MEDS ORDERED: NA CHLORIDE 0.9% 1,000 ML ONE (14:52)
[2020-03-26 15:03] LABS: Absolute Lymphocytes (CBC) 2.4 K/uL (0.7-4.9); Basophils % 1.1 % (0-1.3); Hematocrit 37.3 % (39.6-49.0); Lymphocytes % 18.7 % (15.3-44.8); MPV 7.7 fL (7.6-11.3); RBC Red Blood Cell Count 4.52 M/uL (4.33-5.43)
[2020-03-26 15:06] LABS: Protime INR 1.59
--- NOTE | 2020-03-26 15:23 | RAD REPORT ---
EXAM DESCRIPTION: RAD - Chest Single View - 03/26/2020 3:14 pm CLINICAL HISTORY: Cough;COPD Chest pain. COMPARISON: Chest Single View dated 01/17/2019; Chest Pa And Lat (2 Views) dated 02/19/2018; Chest Sin gle View dated 05/04/2017; Chest Pa And Lat (2 Views) dated 02/15/2017 FINDINGS: Portable technique limits examination quality. The lungs are grossly clear. The heart is moderately enlarged in size. Sternotomy wires are noted. IMPRESSION: No acute intrathoracic process suspected.
--- NOTE | 2020-03-26 15:24 | RAD REPORT ---
EXAM DESCRIPTION: RAD - Knee Right 3 View - 03/26/2020 3:14 pm CLINICAL HISTORY: PAIN COMPARISON: Knee Right 3 View dated 08/15/2016 FINDINGS: Mild tricompartmental osteoarthritis is present. Small suprapatellar joint effusion. No fr acture is clearly seen. Popliteal atherosclerosis.
[2020-03-26 15:35] LABS: Albumin 3.3 g/dL (3.4-5.0); Bilirubin Direct 0.1 mg/dL (0-0.2); Bilirubin Total 0.4 mg/dL (0.2-1.0); Magnesium 1.6 mg/dL (1.8-2.4); Potassium 4.5 mmol/L (3.5-5.1); Protein, Total 7.7 g/dL (6.4-8.2); Troponin (Emerg Dept Use Only) 0.02 ng/mL (0.0-0.045)
[2020-03-26] MEDS ORDERED: D50W 25 GM/50 ML SYRINGE/VIAL IV ONE (15:52)
--- NOTE | 2020-03-26 16:27 | EDPHYS ---
Physician Documentation [facility] Name: Stephan Lewis Jr Age: 79 yrs Sex: Male : 1940 Arrival Date: 03/26/2020 Time: 13:14 Bed 5 Private MD: DARIEN Physician Finn Thomas HPI: 03/26 14:35 This 79 yrs old Male presents to ER via Wheelchair with complaints of Fall indy Injury, Knee Injury. 14:35 Details of fall: The patient fell from seated position, out of a chair, while indy transferring. Onset: The symptoms/episode began/occurred 2 day(s) ago. Associated injuries: The patient sustained right knee, decreased range of motion. Severity of symptoms: At their worst the symptoms were mild, in the emergency department the symptoms are unchanged. The patient has not experienced similar symptoms in the past. Historical: - Allergies: 13:36 Sulfa (Sulfonamide Antibiotics); ca1 - Home Meds: 14:00 Albuterol Inhl [Active]; amitriptyline 25 mg Oral tab 1 tab once daily [Active]; tw2 amlodipine 10 mg tab 1 tab once daily [Active]; aspirin 81 mg Oral TbEC 1 tab once daily [Active]; atorvastatin 20 mg Oral tab 1 tab once daily [Active]; budesonide 4.5mcg Oral twice a day [Active]; Eliquis 5 mg Oral tab 2 times per day [Active]; finasteride 5 mg Oral tab 1 tab once daily [Active]; furosemide 20 mg Oral tab 1 tab 2 times per day [Active]; gabapentin 300 mg Oral cap 1 cap 3 times per day [Active]; insulin aspart subcutaneous 20 unit three times a day [Active]; insulin detemir subcutaneous 30 units SQ twice a day [Active]; lidocaine 5% patch [Active]; Wound Skintegrity top spray [Active]; lisinopril 2.5 mg Oral tab once daily [Active]; metformin 1,000 mg Oral tab 1 tab 2 times per day [Active]; metoprolol tartrate 50 mg Oral tab once daily [Active]; oxybutynin chloride 10 mg Oral tr24 once daily [Active]; tamsulosin 0.4 mg Oral cp24 2 caps once daily [Active]; tamsulosin 0.4 mg Oral cp24 1 cap once daily [Active]; Warfarin Oral [Active]; - PMHx: 13:36 Atrial Fib; Bladder cancer; Cererbral aneurysm, non-ruptured (2010); CHF; COPD; ca1 Depression; Diabetes - IDDM; DVT; Dysmetabolic syndrome X; Hyperlipidemia; Hypertension; lymphedema; neuropathy; PAD; rotator cuff tear; - PSHx: 13:36 Left leg stent; Cardiac bypass; Heart stents; ca1 - Immunization history:: Adult Immunizations up to date. - Social history:: Smoking status: Patient/guardian denies using tobacco, the patient reports quitting approximately 7 years ago. ROS: 14:36 Constitutional: Negative for fever, chills, and weight loss, Eyes: Negative for injury, indy pain, redness, and discharge, ENT: Negative for injury, pain, and discharge, Neck: Negative for injury, pain, and swelling, Cardiovascular: Negative for chest pain, palpitations, and edema, Respiratory: Negative for shortness of breath, cough, wheezing, and pleuritic chest pain, Abdomen/GI: Negative for abdominal pain, nausea, vomiting, diarrhea, and constipation, Back: Negative for injury and pain, : Negative for injury, bleeding, discharge, and swelling, Skin: Negative for injury, rash, and discoloration, Neuro: Negative for headache, weakness, numbness, tingling, and seizure, Psych: Negative for depression, anxiety, suicide ideation, homicidal ideation, and hallucinations, Allergy/Immunology: Negative for hives, rash, and allergies, Endocrine: Negative for neck swelling, polydipsia, polyuria, polyphagia, and marked weight changes. 14:36 MS/extremity: Positive for decreased range of motion, pain, swelling, tenderness, of the left knee. Exam: 14:36 Constitutional: This is a well developed, well nourished patient who is awake, alert, indy and in no acute distress. Head/Face: Normocephalic, atraumatic. Eyes: Pupils equal round and reactive to light, extra-ocular motions intact. Lids and lashes normal. Conjunctiva and sclera are non-icteric and not injected. Cornea within normal limits. Periorbital areas with no swelling, redness, or edema. ENT: Nares patent. No nasal discharge, no septal abnormalities noted. Tympanic membranes are normal and external auditory canals are clear. Oropharynx with no redness, swelling, or masses, exudates, or evidence of obstruction, uvula midline. Mucous membranes moist. Neck: Trachea midline, no thyromegaly or masses palpated, and no cervical lymphadenopathy. Supple, full range of motion without nuchal rigidity, or vertebral point tenderness. No Meningismus. Chest/axilla: Normal chest wall appearance and motion. Nontender with no deformity. No lesions are appreciated. Cardiovascular: Regular rate and rhythm with a normal S1 and S2. No gallops, murmurs, or rubs. Normal PMI, no JVD. No pulse deficits. Respiratory: Lungs have equal breath sounds bilaterally, clear to auscultation and percussion. No rales, rhonchi or wheezes noted. No increased work of breathing, no retractions or nasal flaring. Abdomen/GI: Soft, non-tender, with normal bowel sounds. No distension or tympany. No guarding or rebound. No evidence of tenderness throughout. Back: No spinal tenderness. No costovertebral tenderness. Full range of motion. Male : Normal genitalia with no discharge or lesions. Skin: Warm, dry with normal turgor. Normal color with no rashes, no lesions, and no evidence of cellulitis. Neuro: Awake and alert, GCS 15, oriented to person, place, time, and situation. Cranial nerves II-XII grossly intact. Motor strength 5/5 in all extremities. Sensory grossly intact. Cerebellar exam normal. Normal gait. Psych: Awake, alert, with orientation to person, place and time. Behavior, mood, and affect are within normal limits. 14:36 Musculoskeletal/extremity: Extremities: noted in the right knee: decreased ROM, pain. Vital Signs: 13:30 BP 83 / 52; Pulse 75; Resp 18 S; Temp 97.8(TE); Pulse Ox 96% on 2 lpm NC; Weight 138.35 ca1 kg (R); Height 5 ft. 8 in. (172.72 cm) (R); Pain 9/10; 13:52 BP 103 / 56; Pulse 73; Resp 12; Pulse Ox 98% on 2 lpm NC; tw2 14:00 BP 89 / 51; Pulse 60; Resp 17; Pulse Ox 98% on R/A; tw2 14:21 BP 87 / 37; Pulse 61; Resp 16; Pulse Ox 99% on R/A; tw2 14:52 BP 104 / 55; Pulse 74; Resp 17; Pulse Ox 100% on 2 lpm NC; tw2 15:09 BP 101 / 52; Pulse 67; Resp 19; Pulse Ox 100% 2 lpm ; jl7 16:01 BP 96 / 49; Pulse 83; Resp 16; Pulse Ox 100% on 2 lpm NC; tw2 16:45 BP 80 / 37; Pulse 75; Resp 19; Pulse Ox 98% on 2 lpm NC; tw2 17:10 BP 115 / 78 RA (man/); tw2 17:10 Pulse 69; Resp 19; Pulse Ox 100% on 2 lpm NC; tw2 18:03 BP 100 / 84; Pulse 61; Resp 19; Pulse Ox 99% on 2 lpm NC; tw2 13:30 Body Mass Index 46.38 (138.35 kg, 172.72 cm) ca1 14:21 provider aware tw2 16:45 provider aware of BP at this time. tw2 17:10 Dr. Toro Triana at bedside at this time. tw2 NIH Stroke Scale Scores: 14:36 NIHSS Score: 0 indy MDM: 14:07 Patient medically screened. nidy 14:38 Differential Diagnosis sepsis. Differential diagnosis: multiple trauma, sprain. Data indy reviewed: vital signs, nurses notes, old medical records, lab test result(s), EKG, radiologic studies, plain films. Data interpreted: electronic device monitor: rate is 61 beats/min, rhythm is regular, Pulse oximetry: on 2L(s) per nasal canula, is 99 %. Test interpretation: by ED physician or midlevel provider: ECG, plain radiologic studies. Counseling: I had a detailed discussion with the patient and/or guardian regarding: the historical points, exam findings, and any diagnostic results supporting the discharge/admit diagnosis, lab results, radiology results. 03/26 14:35 Order name: Basic Metabolic Panel; Complete Time: 16:19 [facility] 03/26 14:35 Order name: CBC with Diff; Complete Time: 15:38 [facility] 03/26 14:35 Order name: LFT's; Complete Time: 16:19 [facility] 03/26 14:35 Order name: Magnesium; Complete Time: 16:19 [facility] 03/26 14:35 Order name: NT PRO-BNP; Complete Time: 16:19 [facility] 03/26 14:35 Order name: PT-INR; Complete Time: 15:38 [facility] 03/26 14:35 Order name: Troponin (emerg Dept Use Only); Complete Time: 16:19 [facility] 03/26 14:35 Order name: XRAY Chest (1 view); Complete Time: 15:38 [facility] 03/26 14:35 Order name: Type And Screen; Complete Time: 16:19 [facility] 03/26 14:55 Order name: Lactate; Complete Time: 16:19 [facility] 03/26 14:55 Order name: Procalcitonin [facility] 03/26 16:29 Order name: Urine Dipstick--Ancillary (enter results) [facility] 03/26 16:34 Order name: Glucose, Ancillary Testing [facility] 03/26 17:14 Order name: Glucose, Ancillary Testing [facility] 03/26 14:35 Order name: EKG; Complete Time: 14:36 [facility] 03/26 14:35 Order name: Cardiac monitoring; Complete Time: 14:38 [facility] 03/26 14:35 Order name: EKG - Nurse/Tech; Complete Time: 14:47 [facility] 03/26 14:35 Order name: IV Saline Lock; Complete Time: 14:51 [facility] 03/26 14:35 Order name: Labs collected and sent; Complete Time: 14:51 [facility] 03/26 14:35 Order name: O2 Per Protocol; Complete Time: 14:38 [facility] 03/26 14:35 Order name: O2 Sat Monitoring; Complete Time: 14:38 [facility] 03/26 14:35 Order name: Knee Right 3 View XRAY; Complete Time: 15:38 [facility] 03/26 14:35 Order name: Urine Dipstick-Ancillary (obtain specimen); Complete Time: 16:28 [facility] 03/26 15:39 Order name: Diet Regular; Complete Time: 15:40 [facility] Administered Medications: 14:45 Drug: NS 0.9% 500 ml Route: IV; Rate: bolus; Site: right forearm; tw2 15:40 Follow up: Response: No adverse reaction; IV Status: Completed infusion; IV Intake: tw2 500ml 15:39 Drug: D50W 50 ml Route: IVP; Site: right forearm; aa5 16:26 Follow up: Response: No adverse reaction; Blood sugar is elevated tw2 15:40 Drug: NS 0.9% 1000 ml Route: IV; Rate: 125 ml/hr; Site: right forearm; tw2 17:39 Follow up: IV Status: Infusion continued upon admission tw2 16:28 Drug: NS 0.9% 500 ml Route: IV; Rate: bolus; Site: right forearm; tw2 17:13 Follow up: Response: No adverse reaction; IV Status: Completed infusion; IV Intake: tw2 500ml 16:28 Drug: Rocephin 2 grams Route: IV; Rate: per protocol; Site: right forearm; tw2 16:32 Follow up: Response: No adverse reaction; IV Status: Completed infusion tw2 17:10 Drug: NS 0.9% 500 ml Route: IV; Rate: bolus; Site: right forearm; tw2 17:39 Follow up: IV Status: Infusion continued upon admission tw2 Point of Care Testing: Blood Glucose: 16:23 Blood Glucose: 114 mg/dL; tw2 16:[address] Thomas notified. tw2 Ranges: Critical Glucose Levels:Adult <50 mg/dl or >400 mg/dl <40 mg/dl or >180 mg/dl Disposition: 03/26/20 16:26 Hospitalization ordered by Bahman Triana for Inpatient Admission. Preliminary diagnosis are Unspecified kidney failure, Hypotension, Hypoglycemia, unspecified, Type 2 diabetes mellitus, Effusion, right knee - fall, Atrial fibrillation and flutter. - Bed requested for Telemetry/MedSurg (Inpatient). - Status is Inpatient Admission. tw2 - Condition is Fair. - Problem is new. - Symptoms have improved. NIH Stroke Scale - NIH Stroke Score Date: 03/26/2020 Time: 14:36 Total Score = 0 1a. Level of Consciousness (LOC) - 0(Alert) 1b. Level of Consciousness (LOC) (Year \T\ Age) - 0(Both) 1c. LOC Commands (Open \T\ Closes Eyes/[employer] Skin) - 0(Both) 2. Best Gaze (Lateral Gaze Paresis) - 0(Normal) 3. Visual Field Loss - 0(No visual loss) 4. Facial Palsy - 0(Normal) 5a. Left Arm: Motor (10-second hold) - 0(No drift) 5b. Right Arm: Motor (10-second hold) - 0(No drift) 6a. Left Leg: Motor (5-second hold - always test supine) - 0(No drift) 6b. Right Leg: Motor (5-second hold - always test supine) - 0(No drift) 7. Limb Ataxia (finger/nose \T\ heel/amaya - test with eyes open) - 0(Absent) 8. Sensory Loss (pinprick arms/legs/face) - 0(Normal) 9. Best Language: Aphasia (description/naming/reading) - 0(No aphasia) 10. Dysarthria (speech clarity - read or repeat words) - 0(Normal) 11. Extinction and Inattention (visual/tactile/auditory/spatial/personal) - 0(No abnormality) Initials: [facility] Signatures: Dispatcher [employer] EDMS Prerna Elizabeth Corey, MD MD cha Calderon, Audri, RN RN aa5 Kiki Barber RN RN tw2 Daisy Canela RN RN ca1 Corrections: (The following items were deleted from the chart) 16:27 16:26 Hospitalization Ordered by Bahman Triana MD for Inpatient Admission. [facility] Preliminary diagnosis is Unspecified kidney failure; Hypotension; Hypoglycemia, unspecified; Type 2 diabetes mellitus. Bed requested for Telemetry/MedSurg (Inpatient). Status is Inpatient Admission. Condition is Fair. Problem is new. Symptoms have improved. [facility] 17:29 16:27 03/26/2020 16:26 Hospitalization Ordered by Bahman Triana MD for bd Inpatient Admission. Preliminary diagnosis is Unspecified kidney failure; Hypotension; Hypoglycemia, unspecified; Type 2 diabetes mellitus; Effusion, right knee - fall; Atrial fibrillation and flutter. Bed requested for Telemetry/MedSurg (Inpatient). Status is Inpatient Admission. Condition is Fair. Problem is new. Symptoms have improved. [facility] 18:03 17:29 03/26/2020 16:26 Hospitalization Ordered by Bahman Triana MD for tw2 Inpatient Admission. Preliminary diagnosis is Unspecified kidney failure; Hypotension; Hypoglycemia, unspecified; Type 2 diabetes mellitus; Effusion, right knee - fall; Atrial fibrillation and flutter. Bed requested for Telemetry/MedSurg (Inpatient). Status is Inpatient Admission. Condition is Fair. Problem is new. Symptoms have improved. bd
--- NOTE | 2020-03-26 16:27 | ER ---
Nurse's Notes [facility] Name: Stephan Lewis Jr Age: 79 yrs Sex: Male : 1940 Arrival Date: 03/26/2020 Time: 13:14 Bed 5 Private MD: Diagnosis: Unspecified kidney failure;Hypotension;Hypoglycemia, unspecified;Type 2 diabetes mellitus;Effusion, right knee-fall;Atrial fibrillation and flutter Presentation: 03/26 13:30 Chief complaint: Patient states: Getting out of chair, fell and hit R knee on Wednesday ca1 0300. Reports R knee pain and swelling since Wednesday. Coronavirus screen: Client denies travel out of the [place] in the last 14 days. At this time, the client does not indicate any symptoms associated with coronavirus-19. Ebola Screen: Patient negative for fever greater than or equal to 101.5 degrees Fahrenheit, and additional compatible Ebola Virus Disease symptoms Patient denies exposure to infectious person. Patient denies travel to an Ebola-affected area in the 21 days before illness onset. No symptoms or risks identified at this time. Initial Sepsis Screen: Does the patient meet any 2 criteria? No. Patient's initial sepsis screen is negative. Does the patient have a suspected source of infection? No. Patient's initial sepsis screen is negative. Risk Assessment: Do you want to hurt yourself or someone else? Patient reports no desire to harm self or others. Onset of symptoms was March 26, 2020. 13:30 Method Of Arrival: Wheelchair ca1 13:30 Acuity: ANASTASIA 3 ca1 13:46 Acuity: ANASTASIA 2 tw2 Historical: - Allergies: 13:36 Sulfa (Sulfonamide Antibiotics); ca1 - Home Meds: 14:00 Albuterol Inhl [Active]; amitriptyline 25 mg Oral tab 1 tab once daily [Active]; tw2 amlodipine 10 mg tab 1 tab once daily [Active]; aspirin 81 mg Oral TbEC 1 tab once daily [Active]; atorvastatin 20 mg Oral tab 1 tab once daily [Active]; budesonide 4.5mcg Oral twice a day [Active]; Eliquis 5 mg Oral tab 2 times per day [Active]; finasteride 5 mg Oral tab 1 tab once daily [Active]; furosemide 20 mg Oral tab 1 tab 2 times per day [Active]; gabapentin 300 mg Oral cap 1 cap 3 times per day [Active]; insulin aspart subcutaneous 20 unit three times a day [Active]; insulin detemir subcutaneous 30 units SQ twice a day [Active]; lidocaine 5% patch [Active]; Wound Skintegrity top spray [Active]; lisinopril 2.5 mg Oral tab once daily [Active]; metformin 1,000 mg Oral tab 1 tab 2 times per day [Active]; metoprolol tartrate 50 mg Oral tab once daily [Active]; oxybutynin chloride 10 mg Oral tr24 once daily [Active]; tamsulosin 0.4 mg Oral cp24 2 caps once daily [Active]; tamsulosin 0.4 mg Oral cp24 1 cap once daily [Active]; Warfarin Oral [Active]; - PMHx: 13:36 Atrial Fib; Bladder cancer; Cererbral aneurysm, non-ruptured (2009); CHF; COPD; ca1 Depression; Diabetes - IDDM; DVT; Dysmetabolic syndrome X; Hyperlipidemia; Hypertension; lymphedema; neuropathy; PAD; rotator cuff tear; - PSHx: 13:36 Left leg stent; Cardiac bypass; Heart stents; ca1 - Immunization history:: Adult Immunizations up to date. - Social history:: Smoking status: Patient/guardian denies using tobacco, the patient reports quitting approximately 7 years ago. Screenin:47 Abuse screen: Denies threats or abuse. Nutritional screening: No deficits noted. tw2 Tuberculosis screening: No symptoms or risk factors identified. Fall Risk Secondary diagnosis (15 points) impaired mobility. Assessment: 13:52 General: Appears in no apparent distress. obese, well groomed, Behavior is calm, tw2 cooperative, appropriate for age. Pain: Complains of pain in right knee. Neuro: Level of Consciousness is awake, alert, obeys commands, Oriented to person, place, time, situation. Cardiovascular: Heart tones S1 S2 Patient's skin is warm and dry. pt reports "my blood pressure always runs low, normally in the 90's". Respiratory: Airway is patent Respiratory effort is even, unlabored, Respiratory pattern is regular, symmetrical, Breath sounds are clear bilaterally. GI: Abdomen is round non-distended, obese, Bowel sounds present X 4 quads. : No signs and/or symptoms were reported regarding the genitourinary system. EENT: No signs and/or symptoms were reported regarding the EENT system. Derm: Reports "i see dr. alexander for wound care and he is doing these wraps on my legs for cellulitis, but about a year ago they removed a blood clot on my LEFT lower leg the size of a golf ball and i want to make sure that doesn't happen again". Musculoskeletal: Range of motion: intact in all extremities, Reports pain in right knee "i also have chronic back pain". 13:52 Reassessment: pt states "i use oxygen at home on 2L". tw2 14:25 Reassessment: provider Dr. Thomas at bedside at this time. tw2 15:09 Reassessment: Patient appears in no apparent distress at this time. No changes from jl7 previously documented assessment. Patient and/or family updated on plan of care and expected duration. Pain level reassessed. Patient is alert, oriented x 3, equal unlabored respirations, skin warm/dry/pink. 15:30 Reassessment: pt requests to sit in w/c at this time d/t comfort, pt placed in w/c with tw2 brakes on and call light within reach. 15:39 Reassessment: Pt sitting up in wheelchair. Pt given 8oz orange juice and fruit cup. . tw2 15:51 Reassessment: Pt drank orange juice and ate fruit cup. Awaiting diet tray, pt given tw2 turkey sandwich meanwhile. . 16:20 Reassessment: Patient appears in no apparent distress at this time. No changes from tw2 previously documented assessment. Patient and/or family updated on plan of care and expected duration. Pain level reassessed. pt requests to remain in w/c at this time for comfort, "i just have this spot on my bottom, its not a sore that's open but it hurts me so its better if i sit in the wheelchair". 17:26 Reassessment: Patient appears in no apparent distress at this time. No changes from tw2 previously documented assessment. Patient and/or family updated on plan of care and expected duration. Pain level reassessed. 17:44 Reassessment: pt completed all of his diet tray at this time. tw2 18:03 Reassessment: Patient appears in no apparent distress at this time. No changes from tw2 previously documented assessment. Patient and/or family updated on plan of care and expected duration. Pain level reassessed. Vital Signs: 13:30 BP 83 / 52; Pulse 75; Resp 18 S; Temp 97.8(TE); Pulse Ox 96% on 2 lpm NC; Weight 138.35 ca1 kg (R); Height 5 ft. 8 in. (172.72 cm) (R); Pain 9/10; 13:52 BP 103 / 56; Pulse 73; Resp 12; Pulse Ox 98% on 2 lpm NC; tw2 14:00 BP 89 / 51; Pulse 60; Resp 17; Pulse Ox 98% on R/A; tw2 14:21 BP 87 / 37; Pulse 61; Resp 16; Pulse Ox 99% on R/A; tw2 14:52 BP 104 / 55; Pulse 74; Resp 17; Pulse Ox 100% on 2 lpm NC; tw2 15:09 BP 101 / 52; Pulse 67; Resp 19; Pulse Ox 100% 2 lpm ; jl7 16:01 BP 96 / 49; Pulse 83; Resp 16; Pulse Ox 100% on 2 lpm NC; tw2 16:45 BP 80 / 37; Pulse 75; Resp 19; Pulse Ox 98% on 2 lpm NC; tw2 17:10 BP 115 / 78 RA (man/); tw2 17:10 Pulse 69; Resp 19; Pulse Ox 100% on 2 lpm NC; tw2 18:03 BP 100 / 84; Pulse 61; Resp 19; Pulse Ox 99% on 2 lpm NC; tw2 13:30 Body Mass Index 46.38 (138.35 kg, 172.72 cm) ca1 14:21 provider aware tw2 16:45 provider aware of BP at this time. tw2 17:10 Dr. Toro Triana at bedside at this time. tw2 NIH Stroke Scale Scores: 14:36 NIHSS Score: 0 [facility] ED Course: 13:14 Patient arrived in ED. mr 13:35 Triage completed. ca1 13:36 Arm band placed on right wrist. ca1 13:46 Kiki Barber, JOSUE is Primary Nurse. tw2 13:46 Bed in low position. Call light in reach. manager monitoring on. Pulse ox on. NIBP on. tw2 14:07 Finn Thomas MD is Attending Physician. indy 14:45 Inserted saline lock: 22 gauge in right forearm, using aseptic technique. Blood tw2 collected. 14:47 EKG done, by ED staff, reviewed by Finn Thomas MD. em1 15:09 Initial lab(s) drawn, by me, sent to lab. jl7 15:14 XRAY Chest (1 view) In Process Unspecified. EDMS 15:14 Knee Right 3 View XRAY In Process Unspecified. EDMS 16:25 Bahman Triana MD is Hospitalizing Provider. [facility] 17:43 Report given to JOSUE Gonzalez. tw2 17:43 No provider procedures requiring assistance completed. Patient admitted, IV remains in tw2 place. Administered Medications: 14:45 Drug: NS 0.9% 500 ml Route: IV; Rate: bolus; Site: right forearm; tw2 15:40 Follow up: Response: No adverse reaction; IV Status: Completed infusion; IV Intake: tw2 500ml 15:39 Drug: D50W 50 ml Route: IVP; Site: right forearm; aa5 16:26 Follow up: Response: No adverse reaction; Blood sugar is elevated tw2 15:40 Drug: NS 0.9% 1000 ml Route: IV; Rate: 125 ml/hr; Site: right forearm; tw2 17:39 Follow up: IV Status: Infusion continued upon admission tw2 16:28 Drug: NS 0.9% 500 ml Route: IV; Rate: bolus; Site: right forearm; tw2 17:13 Follow up: Response: No adverse reaction; IV Status: Completed infusion; IV Intake: tw2 500ml 16:28 Drug: Rocephin 2 grams Route: IV; Rate: per protocol; Site: right forearm; tw2 16:32 Follow up: Response: No adverse reaction; IV Status: Completed infusion tw2 17:10 Drug: NS 0.9% 500 ml Route: IV; Rate: bolus; Site: right forearm; tw2 17:39 Follow up: IV Status: Infusion continued upon admission tw2 Point of Care Testing: Blood Glucose: 16:23 Blood Glucose: 114 mg/dL; tw2 16:[address] Thomas notified. tw2 Ranges: Intake: 15:40 IV: 500ml; Total: 500ml. tw2 17:13 IV: 500ml; Total: 1000ml. tw2 Outcome: 16:26 Decision to Hospitalize by Provider. [facility] 17:43 Admitted to Med/surg accompanied by tech, via wheelchair, room 229, with oxygen, with tw2 chart, Report called to JOSUE Gonzalez 17:43 Condition: stable 17:43 Instructed on the need for admit. 18:03 Patient left the ED. tw2 NIH Stroke Scale - NIH Stroke Score Date: 03/26/2020 Time: 14:36 Total Score = 0 1a. Level of Consciousness (LOC) - 0(Alert) 1b. Level of Consciousness (LOC) (Year \\T\\ Age) - 0(Both) 1c. LOC Commands (Open \\T\\ Closes Eyes/Wash And Greaser) - 0(Both) 2. Best Gaze (Lateral Gaze Paresis) - 0(Normal) 3. Visual Field Loss - 0(No visual loss) 4. Facial Palsy - 0(Normal) 5a. Left Arm: Motor (10-second hold) - 0(No drift) 5b. Right Arm: Motor (10-second hold) - 0(No drift) 6a. Left Leg: Motor (5-second hold - always test supine) - 0(No drift) 6b. Right Leg: Motor (5-second hold - always test supine) - 0(No drift) 7. Limb Ataxia (finger/nose \\T\\ heel/amaya - test with eyes open) - 0(Absent) 8. Sensory Loss (pinprick arms/legs/face) - 0(Normal) 9. Best Language: Aphasia (description/naming/reading) - 0(No aphasia) 10. Dysarthria (speech clarity - read or repeat words) - 0(Normal) 11. Extinction and Inattention (visual/tactile/auditory/spatial/personal) - 0(No abnormality) Initials: indy Signatures: Dispatcher [employer] EDMS Finn Thomas MD MD cha Rivera, Bina mr Akhtar, Waldo em1 Adriane Hobson, JOSUE RN aa5 Kiki Barber RN RN tw2 Malik Raya RN RN jl7 Daisy Canela RN RN ca1 Corrections: (The following items were deleted from the chart) 13:37 13:30 Acuity: ANASTASIA 4 ca1 ca1 13:38 13:30 Pulse 75bpm; Resp 18bpm; Spontaneous; Pulse Ox 96% 2 lpm Nasal Cannula; ca1 Temp 97.8F Temporal; 138.35 kg Reported; Height 5 ft. 8 in. Reported; BMI: 46.3; Pain 9/10; ca1 16:46 16:45 BP 80 / 37; Pulse 75bpm; Resp 19bpm; Pulse Ox 98% 2 lpm Nasal Cannula; tw2tw2 17: 15:39 Reassessment: Patient is alert, oriented x 3, equal unlabored tw2 respirations, skin warm/dry/pink. Pt sitting up in wheelchair. Pt given 8oz orange juice and fruit cup. . aa5 17: 15:51 Reassessment: Patient is alert, oriented x 3, equal unlabored tw2 respirations, skin warm/dry/pink. Pt drank orange juice and ate fruit cup. Awaiting diet tray, pt given turkey sandwich meanwhile. . aa5
[2020-03-26] MEDS ORDERED: CEFTRIAXONE/SWI 1gm 2 GM/20 ML SYR ONE (16:38)
[2020-03-26] MEDS ORDERED: NA CHLORIDE 0.9% 500 ML ONE ×2 (16:38)
[2020-03-26 16:44] LABS: Urine Blood NEGATIVE (NEG); Urine Glucose NEGATIVE (NEG); Urine Protein NEGATIVE (NEG); Urine pH 5.5 (5.0-7.0)
--- NOTE | 2020-03-26 17:19 | P.HP ---
Patient History Date of Service: 03/26/20 Primary Care Provider: Unknown Reason for admission: Hypotension, hypoglycemia History of Present Illness: Up 79-year-old male, PMH: Chronic bilateral venous insufficiency, HTN, CAD s/p CABG, chronic systolic CHF, chronic AFib on anticoagulation (Eliquis), COPD on chronic 2-3 L NC, diabetes mellitus type 2, HLD, BPH, obesity. Patient presents the ED today due to ongoing right knee pain after a fall 2 days ago. He states he woke up to go to the bathroom and as he stood up he fell. He does not recall all of the events, unclear if his legs gave out or if he passed out. He states he fell forward onto his right knee and right side, denies hitting his head. Reports only having some right knee pain, tenderness just below the knee with some swelling. He has a history of developing a large hematoma after a prior fall and did not want this to escalate to a similar situation. He reports feeling in his usual state of health with the exception of some mild nausea, abdominal discomfort, and decreased p.o. intake over the past few days. He also endorses some slight constipation, having a bowel movement every other day as opposed to twice a day.. He denies fevers/chills, no dizziness//lightheadedness, no worsening shortness of breath, no vision changes, no chest pain. In the ED he was noted to have a mild leukocytosis (12.7), elevated creatinine (1.45), hypoglycemia (36), lactic acid (2.1), BNP: 842, pro calcitonin <0.05. UA was negative. CXR: No acute intrathoracic process suspected. Right knee x- ray: Mild tricompartmental osteoarthritis, small suprapatellar joint effusion. No fracture is clearly seen. Popliteal atherosclerosis noted Heart rate noted to be in the 70s, initial BP:83/52, responded with a small bolus of 500 cc. The patient reports that his blood pressure typically runs 90/50s. He denies dizziness/lightheadedness at this time. Allergies Sulfa (Sulfonamide Antibiotics) [Sulfa(Sulfonamide Antibiotics)] Allergy (Mild, Verified 10/08/18 03:48) Rash Home Medications: Albuterol Sulfate [Albuterol Sulfate 0.083% Neb Soln] 2.5 mg IH QID PRN 10/21/18 Apixaban [Eliquis] 5 mg PO BID 10/21/18 Atorvastatin Calcium [Lipitor*] 20 mg PO BEDTIME 10/21/18 Budesonide/Formoterol Fumarate [Symbicort 160-4.5 Mcg Inhaler] 2 puff IH BID PRN 10/21/18 Finasteride [Proscar*] 5 mg PO DAILY 10/21/18 Furosemide [Lasix*] 20 mg PO BIDL 10/21/18 Insulin Aspart [Novolog Flexpen] 15 unit SQ TID 10/21/18 Insulin Detemir [Levemir] 20 units SQ BID 10/21/18 Oxybutynin Chloride [Ditropan Xl] 10 mg PO DAILY 10/21/18 Tamsulosin [Flomax*] 0.4 mg PO BEDTIME 10/21/18 Zinc Oxide [Zinc Oxide 20%*] 1 appl TOP DAILY 10/21/18 Collagenase [Santyl Ointment*] 1 appl TOP DAILY #1 tube 10/26/18 Metoprolol Tartrate [Lopressor*] 12.5 mg PO DAILY #30 tab 10/26/18 - Past Medical/Surgical History Diabetic: Yes -: HTN -: COPD, oxygen-dependent -: Lymphedema -: BPH -: Diabetes mellitus type 2 -: Arthritis -: Hyperlipidemia -: Diabetic neuropathy -: Bladder tumor cancer -: Cataracts -: Obesity -: Former tobacco use -: heel spur surgery -: Right knee surgery -: CABG x3 -: Brain aneurism repair 2013 -: Bladder surgery -: Cataracts surgery Psychosocial/ Personal History: The patient is currently single and . He has 2 children. He currently lives with his son. - Family History Mother -: Cancer, Other (see notes) Notes: Kidney cancer Sister -: Diabetes Father -: Heart disease Notes: cardiac bypass surgery - Social History Smoking Status: Former smoker (> 50pk/yr) Alcohol use: No CD- Drugs: No Caffeine use: Yes Review of Systems 10-point ROS is otherwise unremarkable Physical Examination - Physical Exam General: Alert, In no apparent distress, Oriented x3 HEENT: PERRLA, Other (Dry mucous membranes), EOMI Neck: No LAD Respiratory: Normal air movement, Expiratory wheezes (Mild) Cardiovascular: Edema (Bilateral 2+ up to knees) Gastrointestinal: Normal bowel sounds, Soft and benign, Non-distended, No tenderness Musculoskeletal: Erythema (Chronic lymphedema with mild erythema up to the knees bilaterally) Integumentary: Other (New skin lesions, open sores, ulcerations) Neurological: Normal speech, Normal affect - Studies Laboratory Data (last 24 hrs) 03/26/20 14:45: PT 18.6 H, INR 1.59 03/26/20 14:45: WBC 12.7 H, Hgb 11.8 L, Hct 37.3 L, Plt Count 298 03/26/20 14:45: Sodium 138, Potassium 4.5, BUN 32 H, Creatinine 1.45 H, Glucose 36 L*, Magnesium 1.6 L D, Total Bilirubin 0.4, AST 12 L, ALT 15, Alkaline Phosphatase 94 Assessment and Plan - Advance Directives Does patient have a Living Will: No Does patient have a Durable POA for Healthcare: Yes Physician Review Additional Text: Recent fall Hypertension Hypoglycemia Right knee pain JESSA Diabetes mellitus type 2, insulin dependent. CAD s/p CABG HTN Chronic systolic CHF Chronic AFib on anticoagulation COPD, on chronic 2-3 L NC HLD BPH Recent fall Hypertension Hypoglycemia Right knee pain -unclear etiology of fall, occurred while attempting to stand at 330am on Wednesday (03/24). possibly orthostatic, pt has had decreased PO intake and continuing to take lasix and BP meds -BP on low end in ED, however recheck with manual cuff: 115/60s -will give gently IVF hydration given h/o CHF, monitor closely, monitor on telemetry -pt reports not eating much today, took 20units with breakfast and 25units at lunch time, likely cause of hypoglycemia -the patient has been titrating his insulin himself, states he was fired by his physician managing his diabetes -will continue on medium dose sliding scale -small suprapatellar effusion seen on x-ray, however patient has pain and reported swelling is infrapatellar, slightly on medial aspect. Will check ultrasound for hematoma (on anticoagulation)/less likely abscess - the patient does not appear septic, afebrile JESSA, unclear CKD -baseline seems close to 1.0 - 1.2 -likely prerenal, will give gently hydration -hold home lasix, nephrotoxic medications -received 500ml bolus x 2 in ED Diabetes mellitus type 2, insulin dependent. -mod insulin sliding scale as above, slowly uptitrate home insulin as appropriate CAD s/p CABG HTN Chronic systolic CHF Chronic AFib on anticoagulation COPD, on chronic 2-3 L NC HLD BPH -appear at baseline at this time, patient reports otherwise feeling well, continue home meds once confirmed VTE: on eliquis Code: full Dispo: IVF hydration, anticipate dc home tomorrow Time Spent Managing Pts Care (In Minutes): 55
[2020-03-26] MEDS ORDERED: ONDANSETRON 4 MG/2 ML VIAL IV PRN (18:08)
[2020-03-26] MEDS ORDERED: ACETAMINOPHEN 500 MG TAB PO PRN (18:08)
[2020-03-26] MEDS: NA CHLORIDE 0.9% 1,000 ML IV SCH ×2 (18:08→20:09)
[2020-03-26 18:50] VITALS: BMI 44.3
[2020-03-26] MEDS ORDERED: MAGNESIUM SULFATE 1 gm IVPB 1 GM/100 ML BAG IV ONE (19:00)
[2020-03-26 19:52] VITALS: O2SAT 99
[2020-03-26] MEDS ORDERED: PNEUMOCOCCAL VACCINE 0.5 ML IMVAC ONE (20:00)
[2020-03-26] MEDS: APIXABAN 5 MG TABLET PO SCH (20:09)
[2020-03-26] MEDS: INSULIN -REGULAR HUMAN 50 UNIT/0.5 ML ML SQ SCH (20:09)
[2020-03-26] MEDS ORDERED: HOME MED 1 EA UNK (Apixaban [Eliquis] 5 MG) PO SCH (21:00)
[2020-03-27] MEDS: NA CHLORIDE 0.9% 1,000 ML IV SCH (04:08)
[2020-03-27 04:45] LABS: Absolute Lymphocytes (CBC) 2.1 K/uL (0.7-4.9); Basophils % 0.8 % (0-1.3); Hematocrit 33.5 % (39.6-49.0); RBC Red Blood Cell Count 4.01 M/uL (4.33-5.43)
[2020-03-27 05:09] LABS: Albumin 2.9 g/dL (3.4-5.0); Bilirubin Total 0.4 mg/dL (0.2-1.0); Magnesium 1.8 mg/dL (1.8-2.4); Phosphorus 3.4 mg/dL (2.5-4.9); Potassium 4.5 mmol/L (3.5-5.1); Protein, Total 6.9 g/dL (6.4-8.2)
--- NOTE | 2020-03-27 05:39 | EKG ---
Test Date: 2020-03-26 Test Time: 14:47:29 Exercise Specialist: DOMINICK MEASUREMENT RESULTS: Intervals: Rate: 66 SC: QRSD: 118 QT: 376 QTc: 394 Edmond: P: SC: QRS: -5 T: 82 INTERPRETIVE STATEMENTS: Atrial fibrillation Possible Anterior infarct, age undetermined Abnormal ECG Compared to ECG 01/17/2019 15:13:57 Sinus rhythm no longer present Sinus arrhythmia no longer present First degree AV block no longer present Myocardial infarct finding still present Electronically Signed On 03-27-20 05:38:08 CDT by Sandeep Burns
[2020-03-27] MEDS ORDERED: MAGNESIUM SULFATE 1 gm IVPB 1 GM/100 ML BAG IV ONE (06:30)
[2020-03-27] MEDS: INSULIN -REGULAR HUMAN 50 UNIT/0.5 ML ML SQ SCH ×2 (07:30→12:15)
[2020-03-27] MEDS ORDERED: FUROSEMIDE 20 MG TABLET PO SCH (09:00)
[2020-03-27] MEDS ORDERED: FINASTERIDE 5 MG TAB PO SCH (09:00)
[2020-03-27] MEDS: APIXABAN 5 MG TABLET PO SCH (09:44)
--- NOTE | 2020-03-27 09:58 | P.DS ---
Admission Date: 03/26/20 Discharge Date: 03/27/20 Primary Care Provider: Unknown Disposition: DC HOME/HOME HEALTH CARE Discharge Condition: GOOD Reason for Admission: Hypotension, hypoglycemia Procedures: CXR (03/26): The lungs are grossly clear. Heart is moderately enlarged. Sternotomy wires noted. No acute intrathoracic process suspected. Knee x-ray (03/26): Mild tricompartmental osteoarthritis is present. Small suprapatellar joint effusion. No fractures clearly seen. Popliteal atherosclerosis. Problem List: Recent fall Hypertension Hypoglycemia Right knee pain Right lower leg hematoma JESSA Diabetes mellitus type 2, insulin dependent. CAD s/p CABG HTN Chronic systolic CHF Chronic AFib on anticoagulation COPD, on chronic 2-3 L NC HLD BPH Brief History of Present Illness: 79-year-old male, PMH: Chronic bilateral venous insufficiency, HTN, CAD s/p CABG, chronic systolic CHF, chronic AFib on anticoagulation (Eliquis), COPD on chronic 2-3 L NC, diabetes mellitus type 2, HLD, BPH, obesity. Presented to the ED today due to ongoing right knee pain after a fall 2 days prior. He states he woke up to go to the bathroom and as he stood up he fell. He does not recall all of the events, unclear if his legs gave out or if he passed out. He states he fell forward onto his right knee and right side, denies hitting his head. Reports only having some right knee pain, tenderness just below the knee with some swelling. He has a history of developing a large hematoma after a prior fall and did not want this to escalate to a similar situa tion. He reports feeling in his usual state of health with the exception of some mild nausea, abdominal discomfort, and decreased p.o. intake over the past few days. He also endorses some slight constipation, having a bowel movement every other day as opposed to twice a day. He denied fevers/chills, no dizziness//lightheadedness, no worsening shortness of breath, no vision changes, no chest pain. In the ED he was noted to have a mild leukocytosis (12.7), elevated creatinine (1.45), hypoglycemia (36), lactic acid (2.1), BNP: 842, pro calcitonin <0.05. UA was negative. CXR: No acute intrathoracic process suspected. Right knee x- ray: Mild tricompartmental osteoarthritis, small suprapatellar joint effusion. No fracture is clearly seen. Popliteal atherosclerosis noted Heart rate noted to be in the 70s, initial BP:83/52, responded with a small bolus of 500 cc. The patient reports that his blood pressure typically runs 90/50s. He denied dizziness/lightheadedness Hospital Course: Patient was kept for observation overnight. He was continued on his home medications except for his lisinopril, lasix, and insulin due to his hypotension and hypoglycemia. His labs were repeated and normalized (WBC, Cr (1.45 -> 1.11), Lactate) with gentle IVF hydration. His BP ranged from 85-110s/60-70s and he remained asymptomatic. An ultrasound was ordered to evaluate the small hematoma inferior to his R patella, however patient refused because he didn't want the probe to be placed on it. He was evaluated by physical therapy and will be discharged home with home health for his chronic lymphedema and home physical therapy. Orthostatic vitals signs were performed on arrival to the medical floor and were negative. Patient was advised to the discontinue his home lisinopril dose of 2.5 mg daily until he follows up with his PCP, and advised to take Lasix every other day given his decreased p.o. intake and dehydration on presentation to the ED. Patient did not require much insulin during his hospitalization here, he was advised to only take 5 units of short-acting insulin with meals. He is to follow up with his PCP within the next week. If his RLE hematoma becomes larger / worsens, he can follow up with Dr. Garcia in 1-2 weeks. Vital Signs/Physical Exam: Temp Pulse Resp BP Pulse Ox 96.9 F 114 H 20 86/64 L 95 03/27/20 08:00 03/27/20 08:00 03/27/20 08:00 03/27/20 08:05 03/27/20 08:00 General: Alert, In no apparent distress Respiratory: Diminished (At bases bilaterally. On 2 L nasal cannula) Cardiovascular: Edema (Bilateral lymphedema, 2+ up to the knees bilaterally, mild erythema), Irregular heart rate/rhythm Gastrointestinal: Soft and benign, Non-distended, No tenderness Integumentary: Other (RLE: infrapatellar on medial aspect: ~5cm fluid collection with mild overlying ecchymosis, likely hematoma from recent fall) Neurological: Normal speech, Normal affect Laboratory Data at Discharge: WBC 10.9 K/uL (4.3-10.9) D 03/27/20 04:20 Hgb 10.7 g/dL (13.6-17.9) L 03/27/20 04:20 Hct 33.5 % (39.6-49.0) L 03/27/20 04:20 Plt Count 240 K/uL (152-406) 03/27/20 04:20 PT 18.6 SECONDS (9.5-12.5) H 03/26/20 14:45 INR 1.59 03/26/20 14:45 Sodium 140 mmol/L (136-145) 03/27/20 04:20 Potassium 4.5 mmol/L (3.5-5.1) 03/27/20 04:20 BUN 24 mg/dL (7-18) H 03/27/20 04:20 Creatinine 1.11 mg/dL (0.55-1.3) 03/27/20 04:20 Glucose 139 mg/dL (74-106) H 03/27/20 04:20 Phosphorus 3.4 mg/dL (2.5-4.9) 03/27/20 04:20 Magnesium 1.8 mg/dL (1.8-2.4) 03/27/20 04:20 Total Bilirubin 0.4 mg/dL (0.2-1.0) 03/27/20 04:20 AST 11 U/L (15-37) L 03/27/20 04:20 ALT 14 U/L (12-78) 03/27/20 04:20 Alkaline Phosphatase 83 U/L (45-117) 03/27/20 04:20 Home Medications: Apixaban [Eliquis] 5 mg PO BID 03/26/20 Finasteride [Proscar*] 5 mg PO DAILY 03/26/20 Furosemide [Lasix*] 20 mg PO DAILY 03/26/20 Metformin HCl 1,000 mg PO BID 03/26/20 Insulin Aspart [Novolog] 5 units SQ AC #1 vial 03/27/20 Syrge-Ndl,Ins 0.3 ml Half Max [Insulin Syringe] 1 each MC DAILY #30 disp.syrin 03/27/20 New Medications: Syrge-Ndl,Ins 0.3 ml Half Max [Insulin Syringe] 1 each MC DAILY #30 disp.syrin Insulin Aspart [Novolog] 5 units SQ AC #1 vial Patient Discharge Instructions: If right lower leg hematoma worsens - call Dr. Edu Garcia's office for appointment in the next 1-2 weeks. Diet: ADA Activity: Fall precautions Followup: Sandeep Burns MD [ACTIVE - CAN ADMIT] - 1-2 Weeks (Follow up with your solidworks drafter OR Dr. Burns- call to schedule an appointment ) Time spent managing pt's care (in minutes): 40
[2020-03-27 12:17] VITALS: BP 93/54; TEMP 97.1
== END 2020-03-27 13:18 | disposition home health service (06) ==
LOC: ER 13:11 → 2ND 17:39
PROVIDERS: ADMIT Hospitalist; ATTEND Hospitalist
DX: S80.11XA Contusion of right lower leg, initial encounter (principal); I11.0 Hypertensive heart disease with heart failure; I50.22 Chronic systolic (congestive) heart failure; E11.649 Type 2 diabetes mellitus with hypoglycemia without coma; Z20.828 Contact with and (suspected) exposure to other viral communicable diseases; Z79.4 Long term (current) use of insulin; N17.9 Acute kidney failure, unspecified; I25.10 Atherosclerotic heart disease of native coronary artery without angina pectoris; Z95.1 Presence of aortocoronary bypass graft; I48.20 Chronic atrial fibrillation, unspecified; Z79.01 Long term (current) use of anticoagulants; Z99.81 Dependence on supplemental oxygen; R94.31 Abnormal electrocardiogram [ECG] [EKG]; J44.9 Chronic obstructive pulmonary disease, unspecified; E78.5 Hyperlipidemia, unspecified; N40.0 Benign prostatic hyperplasia without lower urinary tract symptoms; I87.8 Other specified disorders of veins; E66.9 Obesity, unspecified; I95.9 Hypotension, unspecified; M19.90 Unspecified osteoarthritis, unspecified site; E11.40 Type 2 diabetes mellitus with diabetic neuropathy, unspecified; Z85.51 Personal history of malignant neoplasm of bladder; Z87.891 Personal history of nicotine dependence; Z86.718 Personal history of other venous thrombosis and embolism; Z68.42 Body mass index [BMI] 45.0-49.9, adult
CPT/HCPCS: 96361; 93005; 85025 ×2; 80048; 36415 ×2; 86900; 83735 ×2; 86850; 84100; 85610; 86901; 82947 ×6; 80076; 83605 ×3; 81003; 84484; 80053; 84145; 83880; 71045; 73562; 97116; 97161; 97530; 94760 ×2; 96375; 96374; 99285; U0002; J3475 ×2; J0696; J7040 ×2; J7030 ×2; G0378 ×3

== ENCOUNTER 2020-05-15 14:45 | Inpatient (IN) | payer OTHER ==
--- OUTSIDE RECORDS SUMMARY | 2020-05-15 14:52 | XMS REPORT | Continuity of Care Document ---
:1940 Author Organization [facility] t Address [address] [place] [address] Care Team Providers Name Role Phone Doctor Unassigned, Name Attending Clinician Unavailable Problems Condition Condition Condition Status Onset Resolution Last Treating Co mments Source Name Details Category Date Date Treatment Clinician Date Pain, Pain, Diagnosis [facility] - [facility], left knee, left Me moria [facility] Primary Primary Diagnosis Active [facility]oarth[facility] Paola kes - itis of [facility]is [facility]oria left knee left knee [facility] Allergies, Adverse Reactions, Alerts Allergy Allergy Status Severity Reaction(s) Onset Inactive Treating Comm ents Source Name Type Date Date Clinician Sulfa Adverse Active Info Not [facility] Reaction Available [facility] Medications This patient has no known medications. Procedures This patient has no known procedures. Encounters Start End Encounter Admission Attending Care Care Encounter Source Date/Time Date/Time Type Type Clinicians Facility Department ID 2020-04-17 2020-04-17 Orders Doctor JEREMIAH [id number] 42 00:00:00 00:00:00 Only UnassignedLACEY [id number] [place] [id number] 2018-03-29 2018-03-29 [facility] [id number] 11:00:00 11:00:00 [facility] Results This patient has no known results.
[2020-05-15] MEDS ORDERED: ONDANSETRON 4 MG/2 ML VIAL IV PRN (16:07)
[2020-05-15] MEDS ORDERED: ACETAMINOPHEN 325 MG TABLET PO PRN (16:08)
[2020-05-15] MEDS: HYDROMORPHONE HCL 1 MG/ML INJ IV PRN ×2 (16:57→21:55)
[2020-05-15] MEDS ORDERED: ENOXAPARIN 40 MG/0.4 ML SQ SCH (17:00)
[2020-05-15 17:09] LABS: Absolute Lymphocytes (CBC) 1.8 K/uL (0.7-4.9); Basophils % 0.3 % (0-1.3); Hematocrit 31.8 % (39.6-49.0); Lymphocytes % 14.7 % (15.3-44.8); MPV 8.3 fL (7.6-11.3); Protime INR 1.7; RBC Red Blood Cell Count 3.88 M/uL (4.33-5.43)
--- NOTE | 2020-05-15 17:12 | RAD REPORT ---
EXAM DESCRIPTION: Kavin Single View05/15/2020 4:34 pm CLINICAL HISTORY: Cellulitis COMPARISON: February 2020 FINDINGS: The lungs appear clear of acute infiltrate. The heart is mildly enlarged. Post surgical c hanges involve the chest IMPRESSION: No acute abnormalities displayed
[2020-05-15 17:21] LABS: Potassium 4.1 mmol/L (3.5-5.1)
[2020-05-15] MEDS: PIPER/TAZO/NS 3.375gm 3.375 GM/100 ML BAG IV SCH (17:38)
[2020-05-15] MEDS: ACETIC ACID 0.25% IRRIG IRR SCH (17:39)
--- NOTE | 2020-05-15 17:55 | P.HP ---
Certification for Inpatient Patient admitted to: Inpatient With expected LOS: >2 Midnights Practitioner: I am a practitioner with admitting privileges, knowledge of patient current condition, hospital course, and medical plan of care. Services: Services provided to patient in accordance with Admission requirements found in Title 42 Section 412.3 of the Code of Federal Regulations Patient History Date of Service: 05/15/20 Reason for admission: LEG PAIN, INFECTION History of Present Illness: MR PUGH IS A PATIENT WITH SEVERE LYMPHEDEMA AND GETS ULCERS WHEN SON IS OUT OF TOWN HE DOES THE COMPRESSION THERAPY. THIS TIME ON TOP OF ULCER HE HAS LEG INFECTION AND IS GROWING PSEUDOMONAS A. AND ENTEROCOCCUS FROM THE ULCERS IN THE LEGS. HE HAS BEEN TO HOSPITAL BASED PCPS BUT CURRENTLY HE DOES NOT HAVE A DOCTOR. 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 Allergies Sulfa (Sulfonamide Antibiotics) [Sulfa(Sulfonamide Antibiotics)] Allergy (Mild, Verified 10/08/18 03:48) Rash Home Medications: Apixaban [Eliquis] 5 mg PO BID 03/26/20 Finasteride [Proscar*] 5 mg PO DAILY 03/26/20 Furosemide [Lasix*] 20 mg PO DAILY 03/26/20 Metformin HCl 1,000 mg PO BID 03/26/20 Insulin Aspart [Novolog] 5 units SQ AC #1 vial 03/27/20 Syrge-Ndl,Ins 0.3 ml Half Max [Insulin Syringe] 1 each MC DAILY #30 disp.syrin 03/27/20 - Past Medical/Surgical History Diabetic: Yes -: Hypertension -: COPD, oxygen-dependent -: Lymphedema -: BPH -: Diabetes mellitus type 2 -: Arthritis -: Hyperlipidemia -: Diabetic neuropathy -: Bladder tumor cancer -: Cellulitis -: Obesity -: Former tobacco use -: heel spur surgery -: Right knee surgery -: CABG x3 -: Brain aneurysm repair 2013 -: Bladder surgery -: Cataracts surgery -: LLE blood clot removed Psychosocial/ Personal History: The patient is currently single and . He has 2 children. He currently lives with his son. - Family History Mother -: Cancer, Other (see notes) Notes: - Kidney cancer Sister -: Diabetes Notes: Father -: Heart disease Notes: - HEART FAILURE - Social History Alcohol use: No CD- Drugs: No Caffeine use: Yes Review of Systems 10-point ROS is otherwise unremarkable General: Weakness, As per HPI Physical Examination - Vital Signs Temperature: 97.7 F Blood Pressure: 107/58 Pulse: 73 Respirations: 18 Pulse Ox (%): 98 - Physical Exam General: Oriented x3, Moderate distress, Obese HEENT: Atraumatic, PERRLA, Mucous membr. moist/pink, EOMI, Sclerae nonicteric Neck: Supple, 2+ carotid pulse no bruit, No LAD, Without JVD or thyroid abnormality Respiratory: Clear to auscultation bilaterally, Normal air movement Cardiovascular: Regular rate/rhythm, Normal S1 S2 Gastrointestinal: Normal bowel sounds, No tenderness Musculoskeletal: No tenderness Integumentary: No rashes, Venous stasis ulcer (MANY WITH INFECTION AND CELLUL ITIS. ) Neurological: Normal gait, Normal speech, Normal strength at 5/5 x4 extr, Normal tone, Normal affect Lymphatics: No axilla or inguinal lymphadenopathy - Studies Laboratory Data (last 24 hrs) 05/15/20 16:04: Sodium 139, Potassium 4.1, BUN 20 H, Creatinine 1.21, Glucose 143 H 05/15/20 16:04: PT 19.9 H, INR 1.70 05/15/20 16:04: WBC 12.3 H, Hgb 9.7 L, Hct 31.8 L, Plt Count 333 Assessment and Plan - Problems (Diagnosis) (1) Pseudomonas infection Current Visit: Yes Status: Acute Plan: HE WILL GET ZOSYN IV FOR THIS. BOTH BACTERIA SHOULD BE OKAY WITH THIS CHOICE. HE CARRIES OVERALL POOR PROGNOSIS BECAUSE OF HIS POOR GEN CONDITION WITH MORBID OBESITY, POOR CONTROL OVER DIET AND PROPENSITY TO INFECTIONS. (2) Cellulitis of anterior lower leg Current Visit: Yes Status: Acute Plan: ABOVE. (3) Morbid obesity Onset Date: 09/25/14 Current Visit: No Status: Chronic (4) S/P CABG x 3 Current Visit: No Status: Chronic - Advance Directives Does patient have a Living Will: No Does patient have a Durable POA for Healthcare: No
[2020-05-15] MEDS ORDERED: D50W 25 GM/50 ML SYRINGE IV PRN (18:03)
[2020-05-15] MEDS ORDERED: GLUCAGON 1 MG/VIAL IM PRN (18:03)
[2020-05-15 18:04] VITALS: BMI 46.5
[2020-05-15 18:58] LABS: Urine Appearance CLEAR; Urine Bilirubin NEGATIVE (NEG); Urine Blood NEGATIVE (NEG); Urine Color YELLOW; Urine Glucose NEGATIVE (NEG); Urine Protein TRACE (NEG); Urine pH 5.5 (5.0-7.0)
[2020-05-15 19:27] LABS: Urine Microscopic Reflex ORDER UMIC
[2020-05-15 19:36] LABS: Urine Bacteria <20 /HPF (NONE SEEN); Urine Culture Reflex Order NOT NEEDED; Urine RBC <5 /HPF (NONE SEEN)
[2020-05-15] MEDS ORDERED: APIXABAN 5 MG TABLET PO SCH (21:00)
[2020-05-15] MEDS: INSULIN -REGULAR HUMAN 50 UNIT/0.5 ML ML SQ SCH (21:00)
[2020-05-15] MEDS: APIXABAN 5 MG TABLET PO SCH (22:00)
[2020-05-15] MEDS: ATORVASTATIN 20 MG TAB PO SCH (22:00)
[2020-05-15] MEDS: METFORMIN HCL 500 MG TAB PO SCH (22:01)
[2020-05-15] MEDS: TAMSULOSIN 0.4 MG SR CAP PO SCH (22:01)
[2020-05-16] MEDS: PIPER/TAZO/NS 3.375gm 3.375 GM/100 ML BAG IV SCH ×3 (00:51→17:19)
--- NOTE | 2020-05-16 06:05 | EKG ---
Test Date: 2020-05-15 Test Time: 18:27:06 Pairer Odds: LARY MEASUREMENT RESULTS: Intervals: Rate: 75 SD: QRSD: 124 QT: 388 QTc: 433 [place]: P: SD: QRS: 63 T: 182 INTERPRETIVE STATEMENTS: Atrial fibrillation Anteroseptal infarct, age undetermined Abnormal ECG Compared to ECG 03/26/2020 14:47:29 No significant changes Electronically Signed On 05-16-20 06:03:02 REGISTERED NURSE MIDWIFE by Sandeep Burns
[2020-05-16] MEDS: HYDROMORPHONE HCL 1 MG/ML INJ IV PRN ×2 (06:16→16:41)
[2020-05-16] MEDS: INSULIN -REGULAR HUMAN 50 UNIT/0.5 ML ML SQ SCH ×4 (07:30→19:56)
[2020-05-16] MEDS: OXYBUTYNIN CHLORIDE 5 MG TAB PO SCH (08:05)
[2020-05-16] MEDS: INSULIN LISPRO 100 UNIT/1 ML SQ SCH ×3 (08:05→16:30)
[2020-05-16] MEDS: FUROSEMIDE 20 MG TABLET PO SCH (08:05)
[2020-05-16] MEDS: FINASTERIDE 5 MG TAB PO SCH (08:05)
[2020-05-16] MEDS: METOPROLOL XL 25 MG TAB PO SCH (08:06)
[2020-05-16] MEDS: APIXABAN 5 MG TABLET PO SCH ×2 (08:06→19:55)
[2020-05-16] MEDS: METFORMIN HCL 500 MG TAB PO SCH ×2 (08:06→16:41)
--- NOTE | 2020-05-16 09:29 | CON ---
Date of Consultation: 05/16/[address] Levi's service with cellulitis and lymphedema. Reason For Consultation: Atrial fibrillation. History Of Present Illness: Mr. Lewis is a 79-year-old male, who has a history of hypertension, home oxygen dependent, COPD, chronic lymphedema, diabetes, degenerative joint disease, history of DVT in the past, dyslipidemia, and diabetes. He has a history of morbid obesity as well. Has been taking E liquis for his DVT. While he was in the hospital for cellulitis, he was noted to have atrial fibrill ation and rate of 106 without any cardiac symptoms. Past Medical History: As stated above. History of CABG and history of brain aneurysm repair in 2013 . Allergies: HE IS ALLERGIC TO SULFA. Review of Systems: Negative. Social History: Negative. Family History: Noncontributory. Medications: At home include aspirin, Eliquis, Lipitor, Lasix, insulin, metformin, metoprolol, Levaq uin, and Flomax. He is presently on his home medication plus Zosyn an antibiotic. Physical Examination: General: Mr. Lewis is in no acute distress. Vital Signs: His heart rate was 106. His blood pressure was adequate. He was in atrial fibrillatio n. He was afebrile. HEENT: Negative. Neck: Supple. No bruit. Chest: Clear. Abdomen: Obese. Extremities: Revealed no clubbing, cyanosis. He had chronic bilateral edema with wraps around both extremities. Diagnostic Data: Showed a creatinine is normal. Glucose is 162. White count is 17,000, hemoglobin is 9.7. Chest x-ray was negative. EKG showed atrial fibrillation. In 2018, he had a normal echo, h e has severe peripheral arterial disease below the knee. Impression And Plan: 1.Atrial fibrillation, possibly acute. No symptoms. Rate is fairly well controlled. He is already on metoprolol at home and Eliquis and we will continue that regimen. I would prefer in this case to speak with his rate control and anticoagulation rather than trying to cardiovert him, especially sin ce he is not having any symptoms with it. 2.His other problems include active cellulitis and lymphedema, on antibiotics. 3.Hypertension, well controlled. 4.Obesity. 5.Chronic obstructive pulmonary disease, on home oxygen. 6.Diabetes. 7.Degenerative joint disease. 8.Dyslipidemia, controlled. 9.History of coronary artery disease, status post coronary artery bypass grafting, stable. 10.Obesity. 11.History of brain aneurysm, status post repair in 2013. 12.Degenerative joint disease below the knee from 2018. As stated earlier, I will continue his present regimen, stick with beta-blockers and Eliquis. No fur ther cardiac workup recommended at this point. I will discuss the case with Dr. Levi. JERRY/ASHLI Voice ID: [id number] Report ID: [id number]
[2020-05-16] MEDS: ACETIC ACID 0.25% IRRIG IRR SCH (10:40)
[2020-05-16] MEDS: TAMSULOSIN 0.4 MG SR CAP PO SCH (19:55)
[2020-05-16] MEDS: ATORVASTATIN 20 MG TAB PO SCH (19:55)
--- NOTE | 2020-05-16 20:31 | P.PN ---
Subjective Date of Service: 05/16/20 Chief Complaint: LEG PAIN, INFECTION Subjective: Improving HEIS HAVING LOT LESSER PAIN. HE IS COMFORTABLE. Review of Systems 10-point ROS is otherwise unremarkable General: Weakness Physical Examination - Vital Signs Temperature: 97.3 F Blood Pressure: 113/58 Pulse: 85 Respirations: 18 Pulse Ox (%): 95 - Physical Exam General: Alert, In no apparent distress, Obese HEENT: Atraumatic, PERRLA, EOMI Neck: Supple, JVD not distended Respiratory: Clear to auscultation bilaterally, Normal air movement Cardiovascular: Regular rate/rhythm, Normal S1 S2, Edema Gastrointestinal: Normal bowel sounds, No tenderness Musculoskeletal: No tenderness Integumentary: No rashes Neurological: Normal speech, Normal tone, Normal affect Lymphatics: No axilla or inguinal lymphadenopathy - Studies Microbiology Data (last 24 hrs): 05/15/20 17:46 Nasopharnyx Coronavirus COVID-19 PCR - Final Medications List Reviewed: Yes Assessment And Plan - Current Problems (Diagnosis) (1) Pseudomonas infection Current Visit: Yes Status: Acute Plan: HE WILL GET ZOSYN IV FOR THIS. BOTH BACTERIA SHOULD BE OKAY WITH THIS CHOICE. HE CARRIES OVERALL POOR PROGNOSIS BECAUSE OF HIS POOR GEN CONDITION WITH MORBID OBESITY, POOR CONTROL OVER DIET AND PROPENSITY TO INFECTIONS. (2) Cellulitis of anterior lower leg Current Visit: Yes Status: Acute Plan: ABOVE. (3) Morbid obesity Onset Date: 09/25/14 Current Visit: No Status: Chronic (4) S/P CABG x 3 Current Visit: No Status: Chronic (5) Diabetes mellitus Onset Date: 02/21/18 Current Visit: No Status: Chronic Plan: MANAGED BY HOSPITAL BASED DOCTORS. Qualifiers: Diabetes mellitus type: type 2 Diabetes mellitus half-way insulin use: unspecified half-way insulin use status Diabetes mellitus complication status: with other specified complication Qualified Code(s): E11.69 - Type 2 diabetes mellitus with other specified complication
[2020-05-17] MEDS: PIPER/TAZO/NS 3.375gm 3.375 GM/100 ML BAG IV SCH ×2 (00:38→08:37)
[2020-05-17] MEDS: INSULIN -REGULAR HUMAN 50 UNIT/0.5 ML ML SQ SCH ×2 (07:30→11:30)
[2020-05-17] MEDS: INSULIN LISPRO 100 UNIT/1 ML SQ SCH ×2 (08:36→11:30)
[2020-05-17] MEDS: METFORMIN HCL 500 MG TAB PO SCH (08:37)
[2020-05-17] MEDS: FINASTERIDE 5 MG TAB PO SCH (08:37)
[2020-05-17] MEDS: APIXABAN 5 MG TABLET PO SCH (08:37)
[2020-05-17] MEDS: OXYBUTYNIN CHLORIDE 5 MG TAB PO SCH (08:37)
[2020-05-17] MEDS: FUROSEMIDE 20 MG TABLET PO SCH (08:40)
[2020-05-17] MEDS: METOPROLOL XL 25 MG TAB PO SCH (08:41)
[2020-05-17] MEDS: ACETIC ACID 0.25% IRRIG IRR SCH (09:00)
[2020-05-17 12:39] VITALS: O2SAT 93
[2020-05-17 12:55] VITALS: BP 103/50; TEMP 97.1
--- NOTE | 2020-05-17 14:58 | P.DS ---
Admission Date: 05/15/20 Discharge Date: 05/17/20 Disposition: ROUTINE DISCHARGE Discharge Condition: GOOD Reason for Admission: LEG PAIN, INFECTION - Problems (1) Pseudomonas infection Current Visit: Yes Status: Acute (2) Cellulitis of anterior lower leg Current Visit: Yes Status: Acute (3) Morbid obesity Onset Date: 09/25/14 Current Visit: No Status: Chronic (4) S/P CABG x 3 Current Visit: No Status: Chronic (5) Diabetes mellitus Onset Date: 02/21/18 Current Visit: No Status: Chronic Qualifiers: Diabetes mellitus type: type 2 Diabetes mellitus long term acute care registered nurse insulin use: unspecified fpc insulin use status Diabetes mellitus complication status: with other specified complication Qualified Code(s): E11.69 - Type 2 diabetes mellitus with other specified complication Brief History of Present Illness: MR PUGH IS A PATIENT WITH SEVERE LYMPHEDEMA AND GETS ULCERS WHEN SON IS OUT OF TOWN HE DOES THE COMPRESSION THERAPY. THIS TIME ON TOP OF ULCER HE HAS LEG INFECTION AND IS GROWING PSEUDOMONAS A. AND ENTEROCOCCUS FROM THE ULCERS IN THE LEGS. HE HAS BEEN TO HOSPITAL BASED PCPS BUT CURRENTLY HE DOES NOT HAVE A DOCTOR. 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 Hospital Course: MR. PUGH IS MORBIDLY OBESE GENTLEMAN WHO HAS SEVERE EDEMA MAINLY FROM OBESITY INDUCED PRESSURE OF THE VEINS. HE HAS INFECTION IN LEGS WITH TWO BACTERIA. HE DID WELL WITH CEFEPIME AND RECOVERED WELL. HE WANTS TO GO HOME ON [place] PO AND FU AT [facility] IN 4 DAYS. HE IS STABLE AT NM. Vital Signs/Physical Exam: Temp Pulse Resp BP Pulse Ox 97.1 F 97 H 18 103/50 L 95 05/17/20 12:00 05/17/20 12:00 05/17/20 12:00 05/17/20 12:00 05/17/20 12:00 Laboratory Data at Discharge: WBC 12.3 K/uL (4.3-10.9) H 05/15/20 16:04 Hgb 9.7 g/dL (13.6-17.9) L 05/15/20 16:04 Hct 31.8 % (39.6-49.0) L 05/15/20 16:04 Plt Count 333 K/uL (152-406) 05/15/20 16:04 PT 19.9 SECONDS (9.5-12.5) H 05/15/20 16:04 INR 1.70 05/15/20 16:04 Sodium 139 mmol/L (136-145) 05/15/20 16:04 Potassium 4.1 mmol/L (3.5-5.1) 05/15/20 16:04 BUN 20 mg/dL (7-18) H 05/15/20 16:04 Creatinine 1.21 mg/dL (0.55-1.3) 05/15/20 16:04 Glucose 143 mg/dL (74-106) H 05/15/20 16:04 Home Medications: Apixaban [Eliquis] 5 mg PO BID 03/26/20 Finasteride [Proscar*] 5 mg PO DAILY 03/26/20 Furosemide [Lasix*] 20 mg PO DAILY 03/26/20 Metformin HCl 1,000 mg PO BID 03/26/20 Aspirin Chewable [Aspirin Chewable*] 81 mg PO DAILY 05/15/20 Atorvastatin Calcium [Lipitor] 20 mg PO BEDTIME 05/15/20 Insulin Aspart [Novolog] 30 units SQ AC 05/15/20 Metoprolol Succinate [Toprol Xl] 0.5 tab PO DAILY 05/15/20 Oxybutynin Chloride [Oxybutynin Chloride ER] 10 mg PO DAILY 05/15/20 Tamsulosin [Flomax] 0.4 mg PO BEDTIME 05/15/20 levoFLOXacin [Levofloxacin] 500 mg PO DAILY 05/15/20 Followup: Krish Levi MD [ACTIVE - CAN ADMIT] -
== END 2020-05-17 16:30 | disposition home health service (06) | DRG 603 ==
LOC: 4TH 14:45
PROVIDERS: ADMIT Internal Medicine; ATTEND Internal Medicine
DX: L03.116 Cellulitis of left lower limb (principal); Z68.42 Body mass index [BMI] 45.0-49.9, adult; L97.929 Non-pressure chronic ulcer of unspecified part of left lower leg with unspecified severity; E66.01 Morbid (severe) obesity due to excess calories; J44.9 Chronic obstructive pulmonary disease, unspecified; E78.5 Hyperlipidemia, unspecified; I10 Essential (primary) hypertension; I25.10 Atherosclerotic heart disease of native coronary artery without angina pectoris; E11.69 Type 2 diabetes mellitus with other specified complication; M17.10 Unilateral primary osteoarthritis, unspecified knee; I48.91 Unspecified atrial fibrillation; E11.40 Type 2 diabetes mellitus with diabetic neuropathy, unspecified; B96.5 Pseudomonas (aeruginosa) (mallei) (pseudomallei) as the cause of diseases classified elsewhere; B95.2 Enterococcus as the cause of diseases classified elsewhere; Z88.1 Allergy status to other antibiotic agents; Z79.01 Long term (current) use of anticoagulants; Z79.4 Long term (current) use of insulin; Z79.899 Other long term (current) drug therapy; Z99.81 Dependence on supplemental oxygen; Z95.1 Presence of aortocoronary bypass graft; Z85.51 Personal history of malignant neoplasm of bladder; Z86.718 Personal history of other venous thrombosis and embolism; Z79.82 Long term (current) use of aspirin; Z20.828 Contact with and (suspected) exposure to other viral communicable diseases
CPT/HCPCS: 11042; 11045; 29581; 36415; 71045; 80048; 81003; 81015; 82947; 83036; 85025; 85610; 93005; 97110; 97116; 97161; 97530; J1170; J1650; J1815; J2543; U0002

== ENCOUNTER 2020-05-24 08:18 | Inpatient (IN) | payer OTHER ==
--- OUTSIDE RECORDS SUMMARY | 2020-05-24 08:20 | XMS REPORT | Continuity of Care Document ---
:1940 Author Organization [facility] t Address [address] [place] [address] Care Team Providers Name Role Phone Doctor Unassigned, Name Attending Clinician Unavailable Problems Condition Condition Condition Status Onset Resolution Last Treating Co mments Source Name Details Category Date Date Treatment Clinician Date Pain, Pain, Diagnosis Active [facility], [facility] - [facility], left knee, left Me moria [facility] ent [facility] Primary Primary Diagnosis Active [facility] osteoarthr osteoarthr Paola kes - itis of itis of Memoria left knee left knee [facility] Allergies, Adverse Reactions, Alerts Allergy Allergy Status Severity Reaction(s) Onset Inactive Treating Comm ents Source Name Type Date Date Clinician Sulfa Adverse Active Info Not [facility] Reaction Available [facility] Medications This patient has no known medications. Procedures This patient has no known procedures. Encounters Start End Encounter Admission Attending Care Care Encounter Source Date/Time Date/Time Type Type Clinicians Facility Department ID 2020-04-17 2020-04-17 Orders Doctor JEREMIAH [id number] 00:00:00 00:00:00 Only UnassignedLACEY [id number] [place] [facility] [id number] 2018-03-29 2018-03-29 [facility] [id number] 11:00:00 11:00:00 t [facility] Results This patient has no known results.
[2020-05-24] MEDS ORDERED: ACETAMINOPHEN 500 MG TAB PO PRN (08:37)
[2020-05-24] MEDS ORDERED: GLUCAGON 1 MG/VIAL IM PRN (09:00)
[2020-05-24] MEDS ORDERED: D50W 25 GM/50 ML SYRINGE IV PRN (09:00)
[2020-05-24] MEDS ORDERED: ENOXAPARIN 40 MG/0.4 ML SQ SCH (09:00)
[2020-05-24 10:08] VITALS: BMI 44.9
[2020-05-24] MEDS: INSULIN -REGULAR HUMAN 50 UNIT/0.5 ML ML SQ SCH ×3 (11:30→20:20)
[2020-05-24] MEDS: TRAMADOL HCL 50 MG TAB PO PRN ×2 (11:39→15:55)
[2020-05-24] MEDS: PIPER/TAZO/NS 3.375gm 3.375 GM/100 ML BAG IV SCH ×2 (11:40→16:00)
[2020-05-24] MEDS: GABAPENTIN 100 MG CAP PO PRN (14:35)
[2020-05-24] MEDS: INSULIN ASPART 100 UNIT SQ SCH (15:54)
--- NOTE | 2020-05-24 15:59 | P.HP ---
Certification for Inpatient Patient admitted to: Inpatient With expected LOS: >2 Midnights Practitioner: I am a practitioner with admitting privileges, knowledge of patient current condition, hospital course, and medical plan of care. Services: Services provided to patient in accordance with Admission requirements found in Title 42 Section 412.3 of the Code of Federal Regulations Patient History Date of Service: 05/24/20 Reason for admission: LEG INFECTIONS History of Present Illness: MR PUGH IS A DIABETIC WHO COMES TO WOUND CENTER FOR HIS LEGS OFF AND ON WHEN HIS SON IS OUT OF TOWN. THAT IS WHEN HE GETS WORSE THERE IS NO ONE TO WRAP HIS LEGS WELL. HE HAS LYMPHEDEMA THAT IS SEVERE AND HE IS NOT ABLE TO TAKE CARE OF IT WELL. HE IS MORBIDLY OBESE AND HAS BEEN INSTRUCTED HOW TO EAT BUT DOES NOT WANT TO FOLLOW DIET TO LOSE WEIGHT. HE WAS SENT HOME ON [place] LAST WEEK BOTH BACTERIA WERE SENSITIVE TO IT AND HE WANTED TO GO HOME. UNFORTUNATELY WHEN I SAW HIM IN WOUND CENTER, HE GOET WORSE WITH PAIN IN LEGS SUGGESTIVE OF INFECTION AND HE HAD CELLULITIS OF BOTH LEGS. I REFERRED HIM TO [facility] BUT INSURANCE REJECTED THE ADMISSION. THE ONLY OTHER OPTION IS TO ADMIT HERE FOR 3 DAYS AND REFER TO US[facility] PLACE. I AM NOT SURE WHY INSURANCE COMPANY WOULD NOT LIKE TO TAKE CARE OF PATIENTS WHO THEY HAVE CONTRACTED WITH FOR MEDICAL CARE. HE MAY GET SEPTIC IF HE IS NOT TAKEN CARE OFF. Allergies Sulfa (Sulfonamide Antibiotics) [Sulfa(Sulfonamide Antibiotics)] Allergy (Mild, Verified 10/08/18 03:48) Rash Home Medications: Apixaban [Eliquis] 5 mg PO BID 03/26/20 Finasteride [Proscar*] 5 mg PO DAILY 03/26/20 Furosemide [Lasix*] 20 mg PO BID 03/26/20 Metformin HCl 1,000 mg PO BID 03/26/20 Aspirin Chewable [Aspirin Chewable*] 81 mg PO DAILY 05/15/20 Atorvastatin Calcium [Lipitor] 20 mg PO BEDTIME 05/15/20 Insulin Aspart [Novolog] 100 units SQ AC 05/15/20 Oxybutynin Chloride [Oxybutynin Chloride ER] 10 mg PO DAILY 05/15/20 Tamsulosin [Flomax] 0.4 mg PO BEDTIME 05/15/20 Insulin Detemir [Levemir] 100 units SL BID 05/24/20 Lisinopril [Zestril] 2.5 mg PO DAILY 05/24/20 - Past Medical/Surgical History Has patient received pneumonia vaccine in the past: No Diabetic: Yes -: Hypertension -: COPD, oxygen-dependent -: Lymphedema -: BPH -: Diabetes mellitus type 2 -: Arthritis -: Hyperlipidemia -: Diabetic neuropathy -: Bladder tumor cancer -: Cellulitis -: Obesity -: Former tobacco use -: heel spur surgery -: Right knee surgery -: CABG x3 -: Brain aneurysm repair 2013 -: Bladder surgery -: Cataracts surgery -: LLE blood clot removed Psychosocial/ Personal History: The patient is currently single and . He has 2 children. He currently lives with his son. - Family History Mother -: Cancer, Other (see notes) Notes: - Kidney cancer Sister -: Diabetes Notes: Father -: Heart disease Notes: - HEART FAILURE - Social History Smoking Status: Former smoker Alcohol use: No CD- Drugs: No Caffeine use: Yes Review of Systems 10-point ROS is otherwise unremarkable General: Weakness, Malaise, As per HPI Integumentary: As per HPI Physical Examination - Vital Signs Temperature: 98.6 F Blood Pressure: 108/58 Pulse: 94 Respirations: 18 Pulse Ox (%): 97 - Physical Exam General: Alert, Mild distress, Moderate distress, Obese HEENT: Atraumatic, PERRLA, Mucous membr. moist/pink, EOMI, Sclerae nonicteric Neck: Supple, 2+ carotid pulse no bruit, No LAD, Without JVD or thyroid abnormality Respiratory: Clear to auscultation bilaterally, Normal air movement Cardiovascular: Regular rate/rhythm, Normal S1 S2, Edema Gastrointestinal: Normal bowel sounds, No tenderness Musculoskeletal: No tenderness Integumentary: Erythema, Warmth ( L LEG HAS MORE INFECTION. R LEG HAS LARGE ULCER ABOUT 2-5 CM ANT LAT.), Venous stasis ulcer Neurological: Normal gait, Normal speech, Normal strength at 5/5 x4 extr, Normal tone, Normal affect Lymphatics: No axilla or inguinal lymphadenopathy Assessment and Plan - Problems (Diagnosis) (1) Enterococcal infection Current Visit: Yes Status: Acute Plan: HE HAS BOTH ENTEROCOCCI AND PSEUDOMONAS GROWING FROM ULCERS IN LEGS. START ZOSYN AND CONTINUE FOR 10 DAYS IN [place]. REFER TO THERAPEUTIC MASSAGE TECHNICIAN. [place] BY WEDNESDAY HOPEFULLY. (2) Cellulitis of both lower extremities Current Visit: No Status: Acute (3) Chronic venous hypertension w/ulcer and inflammation involv both sides Current Visit: No Status: Chronic Plan: CHR VENOUS CONGESTION WILL IMPROVE IF HE LOSES WEIGHT BUT THAT IS OUT OF QUESTION AND HE IS NOT INTERESTED. (4) Pseudomonas infection Current Visit: No Status: Acute (5) Diabetes mellitus Onset Date: 02/21/18 Current Visit: No Status: Chronic Plan: CHCK A1C LDL HE GOES TO [facility] WHO DON'T ADMIT PATIENTS AND TAKE CARE OF THEM HERE. Qualifiers: Diabetes mellitus type: type 2 Diabetes mellitus termite control service representative insulin use: unspecified chcf insulin use status Diabetes mellitus complication status: with other specified complication Qualified Code(s): E11.69 - Type 2 diabetes mellitus with other specified complication (6) Diabetic neuropathy Onset Date: 02/21/18 Current Visit: No Status: Chronic Qualifiers: Diabetes mellitus type: type 2 Diabetes mellitus complication detail: diabetic polyneuropathy Qualified Code(s): E11.42 - Type 2 diabetes mellitus with diabetic polyneuropathy (7) S/P CABG x 3 Current Visit: No Status: Chronic - Advance Directives Does patient have a Living Will: No Does patient have a Durable POA for Healthcare: Yes
[2020-05-24] MEDS: FUROSEMIDE 20 MG TABLET PO SCH (16:16)
[2020-05-24] MEDS: METFORMIN HCL 500 MG TAB PO SCH (16:17)
[2020-05-24 16:49] LABS: Absolute Lymphocytes (CBC) 1.5 K/uL (0.7-4.9); Basophils % 0.6 % (0-1.3); Hematocrit 30.2 % (39.6-49.0); Lymphocytes % 11.3 % (15.3-44.8); MPV 7.5 fL (7.6-11.3); RBC Red Blood Cell Count 3.73 M/uL (4.33-5.43)
[2020-05-24 16:57] LABS: Potassium 4.3 mmol/L (3.5-5.1)
[2020-05-24] MEDS: INSULIN DETEMIR 100 UNIT SL SCH (20:10)
[2020-05-24] MEDS: TAMSULOSIN 0.4 MG SR CAP PO SCH (20:20)
[2020-05-24] MEDS: ATORVASTATIN 20 MG TAB PO SCH (20:20)
[2020-05-24] MEDS: APIXABAN 5 MG TABLET PO SCH (20:20)
[2020-05-25] MEDS: PIPER/TAZO/NS 3.375gm 3.375 GM/100 ML BAG IV SCH ×3 (01:28→17:03)
[2020-05-25] MEDS ORDERED: METHYLPREDNISOLONE 40 MG INJ IV ONE (03:24)
[2020-05-25] MEDS ORDERED: FUROSEMIDE 20 MG/ 2ML VIAL IV ONE (03:24)
[2020-05-25] MEDS ORDERED: METOPROLOL XL 25 MG TAB PO SCH (06:00)
[2020-05-25] MEDS: INSULIN ASPART 100 UNIT SQ SCH ×3 (07:30→16:30)
[2020-05-25] MEDS: LEVALBUTEROL 0.63 MG/3 ML NEB NEB SCH ×3 (08:00→20:05)
[2020-05-25] MEDS ORDERED: ALBUTEROL 2.5 MG/3 ML NEB SOL NEB SCH (08:00)
[2020-05-25] MEDS: INSULIN DETEMIR 100 UNIT SL SCH (09:00)
[2020-05-25] MEDS: INSULIN -REGULAR HUMAN 50 UNIT/0.5 ML ML SQ SCH ×4 (09:06→20:31)
[2020-05-25] MEDS: lisinopriL 5 MG TAB PO SCH (09:07)
[2020-05-25] MEDS: FUROSEMIDE 20 MG TABLET PO SCH ×2 (09:07→17:00)
[2020-05-25] MEDS: FINASTERIDE 5 MG TAB PO SCH (09:07)
[2020-05-25] MEDS: METFORMIN HCL 500 MG TAB PO SCH (09:08)
[2020-05-25] MEDS: ASPIRIN 81 MG CHEWABLE TABLET PO SCH (09:08)
[2020-05-25] MEDS: TRAMADOL HCL 50 MG TAB PO PRN (09:08)
[2020-05-25] MEDS: OXYBUTYNIN CHLORIDE 5 MG TAB PO SCH (09:08)
[2020-05-25] MEDS: APIXABAN 5 MG TABLET PO SCH ×2 (09:08→20:31)
--- NOTE | 2020-05-25 12:37 | RAD REPORT ---
EXAM DESCRIPTION: RAD - Chest Single View - 05/25/2020 6:39 am CLINICAL HISTORY: DYSPNEA Chest pain. COMPARISON: Chest Single View dated 05/15/2020; Chest Single View dated 03/26/2020; Chest Single View dated 01/17/2019; Chest Pa And Lat (2 Views) dated 02/19/2018 FINDINGS: Portable technique limits examination quality. Mild interstitial pulmonary edema suspected with small bilateral pleural effusions. The heart is mode rately to significantly enlarged. Sternotomy wires present. IMPRESSION: Mild to moderate CHF.
--- NOTE | 2020-05-25 14:52 | P.PN ---
Subjective Date of Service: 05/25/20 Chief Complaint: LEG INFECTIONS Subjective: Improving HE SAYS HE FEELS LOT BETTER THAN HIS ADMISSION REGARDING HIS LEGS. HE HAD EPISODE OF DYSPNEA AT NIGHT AND NURSE CALLED ME. ONE DOSE OF LASIX, NEBS AND ONE DOSE OF STEROID WAS GIVEN FOR COPD LIKE SYMPTOMS. HE ALSO HAS CHF BY HISTORY. Review of Systems 10-point ROS is otherwise unremarkable General: Weakness, Malaise Respiratory: Shortness of Breath Physical Examination - Vital Signs Temperature: 97.9 F Blood Pressure: 117/75 Pulse: 97 Respirations: 20 Pulse Ox (%): 97 - Physical Exam General: Mild distress, Moderate distress, Obese HEENT: Atraumatic, PERRLA, EOMI Neck: JVD not distended Respiratory: Clear to auscultation bilaterally, Normal air movement Cardiovascular: Regular rate/rhythm, Normal S1 S2, Edema (SEVERE BILATERAL CHRONIC. ) Gastrointestinal: Normal bowel sounds, No tenderness Musculoskeletal: No tenderness Integumentary: No rashes, Venous stasis ulcer (MULTIPLE IN LEGS. HAS CELLULITIS ALSO FOR WHICH HE IS BACK IN [facility].) Neurological: Normal speech, Normal tone, Normal affect Lymphatics: No axilla or inguinal lymphadenopathy - Studies Laboratory Data (last 24 hrs) 05/24/20 16:30: Sodium 140, Potassium 4.3, BUN 24 H, Creatinine 1.31 H, Glucose 173 H 05/24/20 16:30: WBC 13.1 H, Hgb 9.4 L, Hct 30.2 L, Plt Count 301 05/24/20 16:30: LDL Cholesterol Direct 39 L Microbiology Data (last 24 hrs): 05/24/20 10:00 Wound - L Leg (Lower) Gram Stain - Final 05/24/20 10:00 Wound - Right Lower Leg Gram Stain - Final Medications List Reviewed: Yes Assessment And Plan - Current Problems (Diagnosis) (1) Enterococcal infection Current Visit: Yes Status: Acute Plan: HE HAS BOTH ENTEROCOCCI AND PSEUDOMONAS GROWING FROM ULCERS IN LEGS. START ZOSYN AND CONTINUE FOR 10 DAYS IN [place]. REFER TO EQUIPMENT MAINT TECH. [place] BY WEDNESDAY HOPEFULLY. (2) Cellulitis of both lower extremities Current Visit: No Status: Acute Plan: HE CARRIES POOR PROGNOSIS HIS ABIILTY TO STAY CURED AND CONTROLLED IS POOR. HE NEEDS HIS LEG EDEMA REDUCED BY DAILY COMPRESSION. HE IS NOT ABLE TO DO SO AT HOME. HE MAY QUALIFY FOR VENOUS STENTING AND I WILL TALK TO HIM ABOUT IT. THIS CAN BE DONE BY IN [place]. PICC LINE AND THEN EQUIPMENT MAINT TECH HAS TO ARRNAGE FOR ZOYSN AT [place] HE HAS REFRACTORY INECTION OF LEGS. (3) Chronic venous hypertension w/ulcer and inflammation involv both sides Current Visit: No Status: Chronic Plan: CHR VENOUS CONGESTION WILL IMPROVE IF HE LOSES WEIGHT BUT THAT IS OUT OF QUESTION AND HE IS NOT INTERESTED. (4) Pseudomonas infection Current Visit: No Status: Acute (5) Diabetes mellitus Onset Date: 02/21/18 Current Visit: No Status: Chronic Plan: CHCK A1C LDL HE GOES TO [facility] WHO DON'T ADMIT PATIENTS AND TAKE CARE OF THEM HERE. Qualifiers: Diabetes mellitus type: type 2 Diabetes mellitus termite exterminator insulin use: unspecified termite exterminator insulin use status Diabetes mellitus complication status: with other specified complication Qualified Code(s): E11.69 - Type 2 diabetes mellitus with other specified complication (6) Diabetic neuropathy Onset Date: 02/21/18 Current Visit: No Status: Chronic Qualifiers: Diabetes mellitus type: type 2 Diabetes mellitus complication detail: diabetic polyneuropathy Qualified Code(s): E11.42 - Type 2 diabetes mellitus with diabetic polyneuropathy (7) S/P CABG x 3 Current Visit: No Status: Chronic
[2020-05-25] MEDS: INSULIN GLARGINE 100 UNITS/ML SQ SCH (20:30)
[2020-05-25] MEDS: TAMSULOSIN 0.4 MG SR CAP PO SCH (20:31)
[2020-05-25] MEDS: ATORVASTATIN 20 MG TAB PO SCH (20:32)
[2020-05-25] MEDS ORDERED: FUROSEMIDE 20 MG TABLET PO SCH (21:13)
[2020-05-25] MEDS: GABAPENTIN 100 MG CAP PO PRN (21:18)
[2020-05-26] MEDS: PIPER/TAZO/NS 3.375gm 3.375 GM/100 ML BAG IV SCH ×3 (00:58→17:05)
[2020-05-26] MEDS: LEVALBUTEROL 0.63 MG/3 ML NEB NEB SCH ×4 (02:00→19:40)
[2020-05-26] MEDS: GABAPENTIN 100 MG CAP PO PRN (05:08)
[2020-05-26] MEDS: METOPROLOL XL 25 MG TAB PO SCH (05:13)
[2020-05-26 06:25] LABS: Absolute Lymphocytes (CBC) 1.4 K/uL (0.7-4.9); Basophils % 1.2 % (0-1.3); Lymphocytes % 11.1 % (15.3-44.8); MPV 7.6 fL (7.6-11.3); RBC Red Blood Cell Count 3.67 M/uL (4.33-5.43)
[2020-05-26 06:44] LABS: Potassium 3.9 mmol/L (3.5-5.1)
[2020-05-26] MEDS: INSULIN ASPART 100 UNIT SQ SCH ×3 (07:30→16:06)
[2020-05-26] MEDS: ASPIRIN 81 MG CHEWABLE TABLET PO SCH (08:58)
[2020-05-26] MEDS: FINASTERIDE 5 MG TAB PO SCH (08:58)
[2020-05-26] MEDS: INSULIN -REGULAR HUMAN 50 UNIT/0.5 ML ML SQ SCH ×4 (08:58→20:24)
[2020-05-26] MEDS: OXYBUTYNIN CHLORIDE 5 MG TAB PO SCH (08:59)
[2020-05-26] MEDS: APIXABAN 5 MG TABLET PO SCH ×2 (08:59→20:26)
[2020-05-26] MEDS: SPIRONOLACTONE 25 MG TABLET PO SCH (09:00)
[2020-05-26] MEDS: lisinopriL 5 MG TAB PO SCH (09:00)
[2020-05-26] MEDS: FUROSEMIDE 20 MG TABLET PO SCH (09:00)
[2020-05-26] MEDS: INSULIN GLARGINE 100 UNITS/ML SQ SCH ×2 (09:00→20:24)
[2020-05-26] MEDS: TAMSULOSIN 0.4 MG SR CAP PO SCH (20:26)
[2020-05-26] MEDS: ATORVASTATIN 20 MG TAB PO SCH (20:26)
[2020-05-27] MEDS: PIPER/TAZO/NS 3.375gm 3.375 GM/100 ML BAG IV SCH ×3 (00:46→17:02)
[2020-05-27] MEDS: LEVALBUTEROL 0.63 MG/3 ML NEB NEB SCH ×4 (01:40→20:10)
[2020-05-27 05:06] LABS: Absolute Lymphocytes (CBC) 1.7 K/uL (0.7-4.9); Basophils % 1.1 % (0-1.3); Hematocrit 29.8 % (39.6-49.0); Lymphocytes % 17.9 % (15.3-44.8); MPV 7.6 fL (7.6-11.3); RBC Red Blood Cell Count 3.66 M/uL (4.33-5.43)
[2020-05-27 05:13] LABS: Potassium 3.7 mmol/L (3.5-5.1)
[2020-05-27] MEDS: METOPROLOL XL 25 MG TAB PO SCH (05:32)
[2020-05-27] MEDS: INSULIN ASPART 100 UNIT SQ SCH (07:30)
[2020-05-27] MEDS: lisinopriL 5 MG TAB PO SCH (08:41)
[2020-05-27] MEDS: FUROSEMIDE 20 MG TABLET PO SCH (08:42)
[2020-05-27] MEDS: SPIRONOLACTONE 25 MG TABLET PO SCH (08:42)
[2020-05-27] MEDS: APIXABAN 5 MG TABLET PO SCH ×2 (08:42→20:54)
[2020-05-27] MEDS: FINASTERIDE 5 MG TAB PO SCH (08:43)
[2020-05-27] MEDS: INSULIN GLARGINE 100 UNITS/ML SQ SCH ×2 (08:43→20:54)
[2020-05-27] MEDS: ASPIRIN 81 MG CHEWABLE TABLET PO SCH (08:43)
[2020-05-27] MEDS: INSULIN -REGULAR HUMAN 50 UNIT/0.5 ML ML SQ SCH ×4 (08:44→21:00)
[2020-05-27] MEDS: OXYBUTYNIN CHLORIDE 5 MG TAB PO SCH (08:47)
--- NOTE | 2020-05-27 10:26 | RAD REPORT ---
EXAM DESCRIPTION: RAD - Chest Single View - 05/26/2020 5:01 am CLINICAL HISTORY: PICC placement COMPARISON: Chest 05/25/2020 TECHNIQUE: AP Chest. FINDINGS: Cardiac size is mildly enlarged. Normal cardiomediastinal contours. Sternal wires and mediastinal clips again noted. Mild pulmonary vascular congestion. No overt pulmonary edema. No consolidation. Pleural spaces are clear. No pneumothorax. Right subclavian PICC line is at the cavoatrial junction. IMPRESSION: 1. Cardiomegaly and pulmonary vascular congestion. 2. Right subclavian PICC line placed without propagation. Electronically signed by: Celina Singh DO 05/26/2020 5:20 AM DATA MANAGEMENT ASSOCIATE Due to temporary technical issues with the PACS/Fluency reporting system, reports are being signed by the in house radiologist without review as a courtesy to ensure prompt reporting. The interpreting r adiologist is fully responsible for the content of the report.
[2020-05-27] MEDS ORDERED: INSULIN LISPRO 100 UNIT/1 ML SQ SCH (11:30)
--- NOTE | 2020-05-27 14:59 | ECHO ---
HEIGHT: 5 ft 8 in WEIGHT: 295 lb 3.2 oz DATE OF STUDY: 05/27/[address]: Krish Levi MD 2-DIMENSIONAL: YES M.MODE: YES DOPPLER: YES COLOR FLOW: YES TDS: NO PORTABLE: NO DEFINITY: NO BUBBLE STUDY: NO DIAGNOSIS: EDEMA CARDIAC HISTORY: CATHERIZATION: SURGERY: PROSTHETIC VALVE: PACEMAKER: MEASUREMENTS (cm) DIASTOLIC (NORMALS) SYSTOLIC (NORMALS) IVSd 1.2 (0.6-1.2) LA Diam 4.2 (1.9-4.0) LVEF 55-60% LVIDd 5.5 (3.5-5.7) LVIDs 4.2 (2.0-3.5) %FS 24% LVPWd 1.1 (0.6-1.2) Ao Diam 3.1 (2.0-3.7) 2 DIMENSIONAL ASSESSMENT: RIGHT ATRIUM: NORMAL LEFT ATRIUM: NORMAL RIGHT VENTRICLE: NORMAL LEFT VENTRICLE: NORMAL TRICUSPID VALVE: MITRAL VALVE: PULMONIC VALVE: NORMAL AORTIC VALVE: CALCIFIED PERICARDIAL EFFUSION: NONE AORTIC ROOT: NORMAL LEFT VENTRICULAR WALL MOTION: NORMAL DOPPLER/COLOR FLOW: COMMENTS: NORMAL LEFT VENTRICULAR EJECTION FRACTION 55-60% WITH NORMAL WALL MOTION. MILD TRICUSPID AND MITRAL REGURGITATION. DIASTOLIC DYSFUNCTION. MILD PULMONARY HYPERTENSION WITH RIGHT VENTRICULAR SYSTOLIC PRESSURE OF 40-45 mmHg. MILD AORTIC STENOSIS. TECHNOLOGIST: Lamin KENNY
--- NOTE | 2020-05-27 17:38 | P.PN ---
Subjective Date of Service: 05/26/20 Chief Complaint: LEG INFECTIONS Subjective: Improving HE SAYS HE FEELS LOT BETTER THAN HIS ADMISSION REGARDING HIS LEGS. HE HAD EPISODE OF DYSPNEA AT NIGHT AND NURSE CALLED ME. ONE DOSE OF LASIX, NEBS AND ONE DOSE OF STEROID WAS GIVEN FOR COPD LIKE SYMPTOMS. HE ALSO HAS CHF BY HISTORY. PAIN HAS IMPROVED. Physical Examination - Vital Signs Temperature: 98 F Blood Pressure: 110/50 Pulse: 58 Respirations: 18 Pulse Ox (%): 95 - Physical Exam General: Mild distress, Moderate distress, Obese HEENT: Atraumatic, PERRLA, EOMI Neck: Supple, JVD not distended Respiratory: Clear to auscultation bilaterally, Normal air movement Cardiovascular: Regular rate/rhythm, Normal S1 S2 Gastrointestinal: Normal bowel sounds, No tenderness Musculoskeletal: No tenderness Integumentary: Venous stasis ulcer (LEG ULCERS ARE SAME. ERYTHEMA IS BETTER. ) Neurological: Normal speech, Normal tone, Normal affect Lymphatics: No axilla or inguinal lymphadenopathy - Studies Laboratory Data (last 24 hrs) 05/27/20 04:50: Sodium 142, Potassium 3.7, BUN 21 H, Creatinine 0.92, Glucose 150 H 05/27/20 04:50: WBC 9.7 D, Hgb 9.3 L, Hct 29.8 L, Plt Count 303 Medications List Reviewed: Yes Assessment And Plan - Current Problems (Diagnosis) (1) Enterococcal infection Current Visit: Yes Status: Acute Plan: HE HAS BOTH ENTEROCOCCI AND PSEUDOMONAS GROWING FROM ULCERS IN LEGS. START ZOSYN AND CONTINUE FOR 10 DAYS IN [place]. REFER TO HAM STRINGER. [place] BY WEDNESDAY HOPEFULLY. (2) Cellulitis of both lower extremities Current Visit: No Status: Acute Plan: HE CARRIES POOR PROGNOSIS HIS ABIILTY TO STAY CURED AND CONTROLLED IS POOR. HE NEEDS HIS LEG EDEMA REDUCED BY DAILY COMPRESSION. HE IS NOT ABLE TO DO SO AT HOME. HE MAY QUALIFY FOR VENOUS STENTING AND I WILL TALK TO HIM ABOUT IT. THIS CAN BE DONE BY IN [place]. PICC LINE AND THEN HAM STRINGER HAS TO ARRNAGE FOR ZOYSN AT [place] HE HAS REFRACTORY INECTION OF LEGS. NOTE DONE ON WEDNESDAY. PATIENT SEEN ON WEDNESDAY. STABLE. (3) Chronic venous hypertension w/ulcer and inflammation involv both sides Current Visit: No Status: Chronic Plan: CHR VENOUS CONGESTION WILL IMPROVE IF HE LOSES WEIGHT BUT THAT IS OUT OF QUESTION AND HE IS NOT INTERESTED. (4) Pseudomonas infection Current Visit: No Status: Acute (5) Diabetes mellitus Onset Date: 02/21/18 Current Visit: No Status: Chronic Plan: CHCK A1C LDL HE GOES TO [facility] WHO DON'T ADMIT PATIENTS AND TAKE CARE OF THEM HERE. Qualifiers: Diabetes mellitus type: type 2 Diabetes mellitus guest services attendant insulin use: unspecified guest services attendant insulin use status Diabetes mellitus complication status: with other specified complication Qualified Code(s): E11.69 - Type 2 diabetes mellitus with other specified complication (6) Diabetic neuropathy Onset Date: 02/21/18 Current Visit: No Status: Chronic Qualifiers: Diabetes mellitus type: type 2 Diabetes mellitus complication detail: diabetic polyneuropathy Qualified Code(s): E11.42 - Type 2 diabetes mellitus with diabetic polyneuropathy (7) S/P CABG x 3 Current Visit: No Status: Chronic
--- NOTE | 2020-05-27 17:39 | P.PN ---
Subjective Date of Service: 05/27/20 Chief Complaint: LEG INFECTIONS Subjective: Improving HE SAYS HE FEELS LOT BETTER THAN HIS ADMISSION REGARDING HIS LEGS. HE HAD EPISODE OF DYSPNEA AT NIGHT AND NURSE CALLED ME. ONE DOSE OF LASIX, NEBS AND ONE DOSE OF STEROID WAS GIVEN FOR COPD LIKE SYMPTOMS. HE ALSO HAS CHF BY HISTORY. PAIN HAS IMPROVED. WE ARE WAITING FOR [place] TO APPROVE. HE HAS PICC LINE HE IS STABLE. SEVERE EDEMA FROM OBESITY IS THE ISSUE GIVING RISE TO RECURRENT INFECTIONS. Physical Examination - Vital Signs Temperature: 98 F Blood Pressure: 110/50 Pulse: 58 Respirations: 18 Pulse Ox (%): 95 - Studies Laboratory Data (last 24 hrs) 05/27/20 04:50: Sodium 142, Potassium 3.7, BUN 21 H, Creatinine 0.92, Glucose 150 H 05/27/20 04:50: WBC 9.7 D, Hgb 9.3 L, Hct 29.8 L, Plt Count 303 Medications List Reviewed: Yes Assessment And Plan - Current Problems (Diagnosis) (1) Enterococcal infection Current Visit: Yes Status: Acute Plan: HE HAS BOTH ENTEROCOCCI AND PSEUDOMONAS GROWING FROM ULCERS IN LEGS. START ZOSYN AND CONTINUE FOR 10 DAYS IN [place]. REFER TO COORDINATE MEASURING EQUIPMENT OPERATOR. [place] BY WEDNESDAY HOPEFULLY. (2) Cellulitis of both lower extremities Current Visit: No Status: Acute Plan: HE CARRIES POOR PROGNOSIS HIS ABIILTY TO STAY CURED AND CONTROLLED IS POOR. HE NEEDS HIS LEG EDEMA REDUCED BY DAILY COMPRESSION. HE IS NOT ABLE TO DO SO AT HOME. HE MAY QUALIFY FOR VENOUS STENTING AND I WILL TALK TO HIM ABOUT IT. THIS CAN BE DONE BY IN [place]. PICC LINE AND THEN COORDINATE MEASURING EQUIPMENT OPERATOR HAS TO ARRNAGE FOR ZOYSN AT [place] HE HAS REFRACTORY INECTION OF LEGS. NOTE DONE ON WEDNESDAY. PATIENT SEEN ON WEDNESDAY. STABLE. (3) Chronic venous hypertension w/ulcer and inflammation involv both sides Current Visit: No Status: Chronic Plan: CHR VENOUS CONGESTION WILL IMPROVE IF HE LOSES WEIGHT BUT THAT IS OUT OF QUESTION AND HE IS NOT INTERESTED. (4) Pseudomonas infection Current Visit: No Status: Acute (5) Diabetes mellitus Onset Date: 02/21/18 Current Visit: No Status: Chronic Plan: CHCK A1C LDL HE GOES TO [facility] WHO DON'T ADMIT PATIENTS AND TAKE CARE OF THEM HERE. Qualifiers: Diabetes mellitus type: type 2 Diabetes mellitus termite exterminator insulin use: unspecified assisted insulin use status Diabetes mellitus complication status: with other specified complication Qualified Code(s): E11.69 - Type 2 diabetes mellitus with other specified complication (6) Diabetic neuropathy Onset Date: 02/21/18 Current Visit: No Status: Chronic Qualifiers: Diabetes mellitus type: type 2 Diabetes mellitus complication detail: diabetic polyneuropathy Qualified Code(s): E11.42 - Type 2 diabetes mellitus with diabetic polyneuropathy (7) S/P CABG x 3 Current Visit: No Status: Chronic
[2020-05-27] MEDS: TAMSULOSIN 0.4 MG SR CAP PO SCH (20:54)
[2020-05-27] MEDS: ATORVASTATIN 20 MG TAB PO SCH (20:54)
[2020-05-27] MEDS: TRAMADOL HCL 50 MG TAB PO PRN (23:22)
[2020-05-28] MEDS: GABAPENTIN 100 MG CAP PO PRN (00:18)
[2020-05-28] MEDS: PIPER/TAZO/NS 3.375gm 3.375 GM/100 ML BAG IV SCH ×3 (00:23→15:53)
[2020-05-28] MEDS: LEVALBUTEROL 0.63 MG/3 ML NEB NEB SCH ×4 (01:00→19:45)
[2020-05-28] MEDS ORDERED: HYDROCODONE/APAP 5/325 MG TAB PO ONE (02:39)
[2020-05-28 05:06] LABS: Absolute Lymphocytes (CBC) 1.5 K/uL (0.7-4.9); Basophils % 0.8 % (0-1.3); Hematocrit 27.9 % (39.6-49.0); Lymphocytes % 14.5 % (15.3-44.8); MPV 7.6 fL (7.6-11.3); RBC Red Blood Cell Count 3.48 M/uL (4.33-5.43)
[2020-05-28] MEDS: TRAMADOL HCL 50 MG TAB PO PRN ×2 (05:08→18:51)
[2020-05-28] MEDS: METOPROLOL XL 25 MG TAB PO SCH (05:11)
[2020-05-28 05:24] LABS: Potassium 3.6 mmol/L (3.5-5.1)
[2020-05-28] MEDS ORDERED: INSULIN LISPRO 100 UNIT/1 ML SQ SCH (07:30)
[2020-05-28] MEDS: INSULIN -REGULAR HUMAN 50 UNIT/0.5 ML ML SQ SCH ×4 (07:30→20:18)
[2020-05-28] MEDS: INSULIN GLARGINE 100 UNITS/ML SQ SCH ×2 (08:09→20:17)
[2020-05-28] MEDS: FINASTERIDE 5 MG TAB PO SCH (08:09)
[2020-05-28] MEDS: PREGABALIN 50 MG CAP PO SCH ×2 (08:10→20:04)
[2020-05-28] MEDS: lisinopriL 5 MG TAB PO SCH (08:10)
[2020-05-28] MEDS: APIXABAN 5 MG TABLET PO SCH ×2 (08:10→20:15)
[2020-05-28] MEDS: OXYBUTYNIN CHLORIDE 5 MG TAB PO SCH (08:10)
[2020-05-28] MEDS: ASPIRIN 81 MG CHEWABLE TABLET PO SCH (08:10)
[2020-05-28] MEDS: FUROSEMIDE 20 MG TABLET PO SCH (08:10)
[2020-05-28] MEDS: SPIRONOLACTONE 25 MG TABLET PO SCH (08:11)
[2020-05-28] MEDS ORDERED: METOLAZONE 2.5 MG TABLET PO SCH (09:00)
[2020-05-28] MEDS: TIZANIDINE 4 MG TABLET PO SCH ×2 (10:53→20:04)
--- NOTE | 2020-05-28 13:05 | P.PN ---
Subjective Date of Service: 05/28/20 Chief Complaint: LEG INFECTIONS Subjective: Improving HE SAYS HE FEELS LOT BETTER THAN HIS ADMISSION REGARDING HIS LEGS. HE HAD EPISODE OF DYSPNEA AT NIGHT AND NURSE CALLED ME. ONE DOSE OF LASIX, NEBS AND ONE DOSE OF STEROID WAS GIVEN FOR COPD LIKE SYMPTOMS. HE ALSO HAS CHF BY HISTORY. PAIN HAS IMPROVED. WE ARE WAITING FOR [place] TO APPROVE. HE HAS PICC LINE HE IS STABLE. SEVERE EDEMA FROM OBESITY IS THE ISSUE GIVING RISE TO RECURRENT INFECTIONS. HE HAD LOT OF SPASMS AT NIGHT. THEY CALLED ME AT 2 AM. HE WANTS MORPHINE WE WILL RAISE LYRICA AND ADD ZANAFLEX FOR NOW. Physical Examination - Vital Signs Temperature: 98.8 F Blood Pressure: 90/60 Pulse: 82 Respirations: 19 Pulse Ox (%): 100 - Physical Exam General: Mild distress, Moderate distress HEENT: Atraumatic, PERRLA, EOMI Neck: Supple, JVD not distended Respiratory: Clear to auscultation bilaterally, Normal air movement Cardiovascular: Regular rate/rhythm, Normal S1 S2, Edema (BETTER ) Gastrointestinal: Normal bowel sounds, No tenderness Musculoskeletal: No tenderness Integumentary: No rashes Neurological: Normal speech, Normal tone, Normal affect Lymphatics: No axilla or inguinal lymphadenopathy - Studies Laboratory Data (last 24 hrs) 05/28/20 04:45: Magnesium 1.8 05/28/20 04:45: Sodium 139, Potassium 3.6, BUN 18, Creatinine 0.96, Glucose 141 H 05/28/20 04:45: WBC 10.2, Hgb 8.9 L, Hct 27.9 L, Plt Count 309 Medications List Reviewed: Yes Assessment And Plan - Current Problems (Diagnosis) (1) Enterococcal infection Current Visit: Yes Status: Acute Plan: HE HAS BOTH ENTEROCOCCI AND PSEUDOMONAS GROWING FROM ULCERS IN LEGS. START ZOSYN AND CONTINUE FOR 10 DAYS IN [place]. REFER TO SERVICE STATION MANAGER. [place] BY WEDNESDAY HOPEFULLY. (2) Cellulitis of both lower extremities Current Visit: No Status: Acute Plan: HE CARRIES POOR PROGNOSIS HIS ABIILTY TO STAY CURED AND CONTROLLED IS POOR. HE NEEDS HIS LEG EDEMA REDUCED BY DAILY COMPRESSION. HE IS NOT ABLE TO DO SO AT HOME. HE MAY QUALIFY FOR VENOUS STENTING AND I WILL TALK TO HIM ABOUT IT. THIS CAN BE DONE BY IN [place]. PICC LINE AND THEN SERVICE STATION MANAGER HAS TO ARRNAGE FOR ZOYSN AT [place] HE HAS REFRACTORY INECTION OF LEGS. NOTE DONE ON WEDNESDAY. PATIENT SEEN ON WEDNESDAY. STABLE. (3) Chronic venous hypertension w/ulcer and inflammation involv both sides Current Visit: No Status: Chronic Plan: CHR VENOUS CONGESTION WILL IMPROVE IF HE LOSES WEIGHT BUT THAT IS OUT OF QUESTION AND HE IS NOT INTERESTED. (4) Pseudomonas infection Current Visit: No Status: Acute (5) Diabetes mellitus Onset Date: 02/21/18 Current Visit: No Status: Chronic Plan: CHCK A1C LDL HE GOES TO [facility] WHO DON'T ADMIT PATIENTS AND TAKE CARE OF THEM HERE. Qualifiers: Diabetes mellitus type: type 2 Diabetes mellitus long term care pharmacist insulin use: unspecified long term care pharmacist insulin use status Diabetes mellitus complication status: with other specified complication Qualified Code(s): E11.69 - Type 2 diabetes mellitus with other specified complication (6) Diabetic neuropathy Onset Date: 02/21/18 Current Visit: No Status: Chronic Qualifiers: Diabetes mellitus type: type 2 Diabetes mellitus complication detail: diabetic polyneuropathy Qualified Code(s): E11.42 - Type 2 diabetes mellitus with diabetic polyneuropathy (7) S/P CABG x 3 Current Visit: No Status: Chronic (8) Leg cramps Current Visit: Yes Status: Acute Plan: CHECK MAG. ADD LYRICA AND TIZANIDINE
[2020-05-28] MEDS: ATORVASTATIN 20 MG TAB PO SCH (20:04)
[2020-05-28] MEDS: TAMSULOSIN 0.4 MG SR CAP PO SCH (20:04)
[2020-05-29] MEDS: PIPER/TAZO/NS 3.375gm 3.375 GM/100 ML BAG IV SCH ×3 (00:23→16:17)
[2020-05-29] MEDS: LEVALBUTEROL 0.63 MG/3 ML NEB NEB SCH ×4 (00:50→19:40)
[2020-05-29 04:07] LABS: Absolute Lymphocytes (CBC) 1.4 K/uL (0.7-4.9); Basophils % 0.9 % (0-1.3); Hematocrit 27.7 % (39.6-49.0); Lymphocytes % 14.8 % (15.3-44.8); MPV 7.7 fL (7.6-11.3)
[2020-05-29 04:29] LABS: Magnesium 1.7 mg/dL (1.8-2.4)
[2020-05-29] MEDS: METOPROLOL XL 25 MG TAB PO SCH (05:43)
--- NOTE | 2020-05-29 06:13 | EKG ---
Test Date: 2020-05-25 Test Time: 04:04:44 Barrel Bander: JASIEL MEASUREMENT RESULTS: Intervals: Rate: 99 SD: QRSD: 136 QT: 392 QTc: 503 [place]: P: SD: QRS: -5 T: 141 INTERPRETIVE STATEMENTS: Atrial fibrillation Nonspecific intraventricular block T wave abnormality, consider lateral ischemia or digitalis effect Abnormal ECG Compared to ECG 05/25/2020 04:04:18 T-wave abnormality now present Possible ischemia now present Left bundle-branch block no longer present Electronically Signed On 05-29-20 06:10:19 BLEACHER OPERATOR by Sandeep Burns
[2020-05-29] MEDS: INSULIN -REGULAR HUMAN 50 UNIT/0.5 ML ML SQ SCH ×4 (07:30→21:50)
[2020-05-29] MEDS ORDERED: MAGNESIUM SULFATE 1 gm IVPB 1 GM/100 ML BAG IV ONE (08:00)
[2020-05-29 08:09] LABS: Albumin 2.3 g/dL (3.4-5.0); Bilirubin Direct 0.2 mg/dL (0-0.2); Bilirubin Total 0.7 mg/dL (0.2-1.0); Protein, Total 5.9 g/dL (6.4-8.2)
[2020-05-29 08:15] LABS: Thyroid Stimulating Hormone 1.13 uIU/mL (0.360-3.740)
[2020-05-29] MEDS: FINASTERIDE 5 MG TAB PO SCH (09:00)
[2020-05-29] MEDS: INSULIN GLARGINE 100 UNITS/ML SQ SCH ×3 (09:00→21:50)
[2020-05-29] MEDS: SPIRONOLACTONE 25 MG TABLET PO SCH (09:00)
[2020-05-29] MEDS: TIZANIDINE 4 MG TABLET PO SCH ×2 (09:00→21:49)
[2020-05-29] MEDS: MAGNESIUM OXIDE 400 MG TAB PO SCH ×2 (09:00→21:47)
[2020-05-29] MEDS: FUROSEMIDE 20 MG TABLET PO SCH (09:00)
[2020-05-29] MEDS: lisinopriL 5 MG TAB PO SCH (09:00)
[2020-05-29] MEDS: OXYBUTYNIN CHLORIDE 5 MG TAB PO SCH (09:00)
[2020-05-29] MEDS: PREGABALIN 50 MG CAP PO SCH ×2 (09:01→21:48)
[2020-05-29] MEDS: APIXABAN 5 MG TABLET PO SCH ×2 (09:02→21:47)
--- NOTE | 2020-05-29 17:56 | P.PN ---
Subjective Date of Service: 05/29/20 Chief Complaint: LEG INFECTIONS Subjective: Improving, C/O voiced HE SAYS HE FEELS LOT BETTER THAN HIS ADMISSION REGARDING HIS LEGS. HE HAD EPISODE OF DYSPNEA AT NIGHT AND NURSE CALLED ME. ONE DOSE OF LASIX, NEBS AND ONE DOSE OF STEROID WAS GIVEN FOR COPD LIKE SYMPTOMS. HE ALSO HAS CHF BY HISTORY. PAIN HAS IMPROVED. WE ARE WAITING FOR [place] TO APPROVE. HE HAS PICC LINE HE IS STABLE. SEVERE EDEMA FROM OBESITY IS THE ISSUE GIVING RISE TO RECURRENT INFECTIONS. HE HAD LOT OF SPASMS AT NIGHT. THEY CALLED ME AT 2 AM. HE WANTS MORPHINE WE WILL RAISE LYRICA AND ADD ZANAFLEX FOR NOW. HE HAS LOT OF LEG PAINS. CHR EDEMA, CHR PAIN, SEVERE OBESITY ETC. Review of Systems 10-point ROS is otherwise unremarkable General: Weakness, Malaise Cardiovascular: As per HPI Physical Examination - Vital Signs Temperature: 97.4 F Blood Pressure: 90/53 Pulse: 87 Respirations: 20 Pulse Ox (%): 95 - Physical Exam General: Alert, Moderate distress, Obese HEENT: Atraumatic, PERRLA, EOMI Neck: Supple, JVD not distended Respiratory: Clear to auscultation bilaterally, Normal air movement Cardiovascular: Regular rate/rhythm, Normal S1 S2 Gastrointestinal: Normal bowel sounds, No tenderness Musculoskeletal: No tenderness Integumentary: No rashes Neurological: Normal speech, Normal tone, Normal affect Lymphatics: No axilla or inguinal lymphadenopathy - Studies Laboratory Data (last 24 hrs) 05/29/20 03:58: LDL Cholesterol Direct 34 L 05/29/20 03:58: Total Bilirubin 0.7, AST 12 L, ALT 12, Alkaline Phosphatase 67 05/29/20 03:58: Sodium 139, Potassium 4.0, BUN 17, Creatinine 1.08, Glucose 162 H, Magnesium 1.7 L 05/29/20 03:58: WBC 9.8, Hgb 8.6 L, Hct 27.7 L, Plt Count 303 Medications List Reviewed: Yes Assessment And Plan - Current Problems (Diagnosis) (1) Enterococcal infection Current Visit: Yes Status: Acute Plan: HE HAS BOTH ENTEROCOCCI AND PSEUDOMONAS GROWING FROM ULCERS IN LEGS. START ZOSYN AND CONTINUE FOR 10 DAYS IN [place]. REFER TO TYPEWRITER TESTER. [place] BY WEDNESDAY HOPEFULLY. (2) Cellulitis of both lower extremities Current Visit: No Status: Acute Plan: HE CARRIES POOR PROGNOSIS HIS ABIILTY TO STAY CURED AND CONTROLLED IS POOR. HE NEEDS HIS LEG EDEMA REDUCED BY DAILY COMPRESSION. HE IS NOT ABLE TO DO SO AT HOME. HE MAY QUALIFY FOR VENOUS STENTING AND I WILL TALK TO HIM ABOUT IT. THIS CAN BE DONE BY IN ECHO. PICC LINE AND THEN TYPEWRITER TESTER HAS TO ARRNAGE FOR ZOYSN AT [place] HE HAS REFRACTORY INECTION OF LEGS. NOTE DONE ON WEDNESDAY. PATIENT SEEN ON WEDNESDAY. STABLE. APPROVAL DONE THIS PM. WILL SEND HIM IN [facility]. (3) Chronic venous hypertension w/ulcer and inflammation involv both sides Current Visit: No Status: Chronic Plan: CHR VENOUS CONGESTION WILL IMPROVE IF HE LOSES WEIGHT BUT THAT IS OUT OF QUESTION AND HE IS NOT INTERESTED. (4) Pseudomonas infection Current Visit: No Status: Acute (5) Diabetes mellitus Onset Date: 02/21/18 Current Visit: No Status: Chronic Plan: CHCK A1C LDL HE GOES TO [facility] DOCTORS WHO DON'T ADMIT PATIENTS AND TAKE CARE OF THEM HERE. 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 ADD LYRICA AND TIZANIDINE Orders (last 24 hrs) 05/28/20 21:00 Tizanidine [Zanaflex] 4 mg PO BID 05/29/20 09:00 Insulin Glargine Human [Lantus] 20 units SQ BID Magnesium Oxide [Mag 0X Tab] 400 mg PO BID 05/29/20 09:08 HCV w/reflex PCR Routine 05/30/20 05:00 Basic Metabolic Panel DAILY CBC with Automated Diff DAILY CBC with Automated Diff Q72H 05/31/20 05:00 Basic Metabolic Panel DAILY CBC with Automated Diff DAILY 06/01/20 05:00 Basic Metabolic Panel DAILY CBC with Automated Diff DAILY 06/02/20 05:00 CBC with Automated Diff Q72H
[2020-05-29] MEDS: TAMSULOSIN 0.4 MG SR CAP PO SCH (21:00)
[2020-05-29] MEDS: ATORVASTATIN 20 MG TAB PO SCH (21:46)
[2020-05-30] MEDS: PIPER/TAZO/NS 3.375gm 3.375 GM/100 ML BAG IV SCH ×2 (01:03→09:00)
[2020-05-30] MEDS: LEVALBUTEROL 0.63 MG/3 ML NEB NEB SCH (01:20)
[2020-05-30] MEDS: TRAMADOL HCL 50 MG TAB PO PRN (01:39)
[2020-05-30 03:34] VITALS: O2SAT 98
[2020-05-30 05:58] LABS: Absolute Lymphocytes (CBC) 1.5 K/uL (0.7-4.9); Basophils % 0.7 % (0-1.3); Hematocrit 28.1 % (39.6-49.0); Lymphocytes % 15.4 % (15.3-44.8); MPV 8.1 fL (7.6-11.3); RBC Red Blood Cell Count 3.47 M/uL (4.33-5.43)
[2020-05-30] MEDS: METOPROLOL XL 25 MG TAB PO SCH (06:00)
[2020-05-30 06:02] LABS: Potassium 4.2 mmol/L (3.5-5.1)
[2020-05-30] MEDS: INSULIN -REGULAR HUMAN 50 UNIT/0.5 ML ML SQ SCH (07:30)
[2020-05-30 08:32] VITALS: BP 106/55; TEMP 97.6
[2020-05-30] MEDS: SPIRONOLACTONE 25 MG TABLET PO SCH (08:57)
[2020-05-30] MEDS: FINASTERIDE 5 MG TAB PO SCH (08:57)
[2020-05-30] MEDS: APIXABAN 5 MG TABLET PO SCH (08:57)
[2020-05-30] MEDS: OXYBUTYNIN CHLORIDE 5 MG TAB PO SCH (08:58)
[2020-05-30] MEDS: PREGABALIN 50 MG CAP PO SCH (08:58)
[2020-05-30] MEDS: MAGNESIUM OXIDE 400 MG TAB PO SCH (08:58)
[2020-05-30] MEDS: FUROSEMIDE 20 MG TABLET PO SCH (08:58)
[2020-05-30] MEDS: lisinopriL 5 MG TAB PO SCH (09:00)
[2020-05-30] MEDS: INSULIN GLARGINE 100 UNITS/ML SQ SCH (09:09)
[2020-05-30 09:12] LABS: Magnesium 1.9 mg/dL (1.8-2.4)
[2020-05-30] MEDS: TIZANIDINE 4 MG TABLET PO SCH (09:12)
--- NOTE | 2020-06-07 06:43 | P.DS ---
Admission Date: 05/24/20 Discharge Date: 06/07/20 Disposition: TRANSFER TO SNF - MEDICAL Discharge Condition: SERIOUS Reason for Admission: LEG INFECTIONS - Problems (1) Enterococcal infection Status: Acute (2) Cellulitis of both lower extremities Status: Acute (3) Chronic venous hypertension w/ulcer and inflammation involv both sides Status: Chronic (4) Pseudomonas infection Status: Acute (5) Diabetes mellitus Onset Date: 02/21/18 Status: Chronic Qualifiers: Diabetes mellitus type: type 2 Diabetes mellitus intermediate designer insulin use: unspecified intermediate designer insulin use status Diabetes mellitus complication status: with other specified complication Qualified Code(s): E11.69 - Type 2 diabetes mellitus with other specified complication (6) Diabetic neuropathy Onset Date: 02/21/18 Status: Chronic Qualifiers: Diabetes mellitus type: type 2 Diabetes mellitus complication detail: diabetic polyneuropathy Qualified Code(s): 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 THAT IS WHEN HE GETS WORSE THERE IS NO ONE TO WRAP HIS LEGS WELL. HE HAS LYMPHEDEMA THAT IS SEVERE AND HE IS NOT ABLE TO TAKE CARE OF IT WELL. HE IS MORBIDLY OBESE AND HAS BEEN INSTRUCTED HOW TO EAT BUT DOES NOT WANT TO FOLLOW DIET TO LOSE WEIGHT. HE WAS SENT HOME ON [place] LAST WEEK BOTH BACTERIA WERE SENSITIVE TO IT AND HE WANTED TO GO HOME. UNFORTUNATELY WHEN I SAW HIM IN WOUND CENTER, HE GOET WORSE WITH PAIN IN LEGS SUGGESTIVE OF INFECTION AND HE HAD CELLULITIS OF BOTH LEGS. I REFERRED HIM TO [facility] BUT INSURANCE REJECTED THE ADMISSION. THE ONLY OTHER OPTION IS TO ADMIT HERE FOR 3 DAYS AND REFER TO [facility]. I AM NOT SURE WHY INSURANCE COMPANY WOULD NOT LIKE TO TAKE CARE OF PATIENTS WHO THEY HAVE CONTRACTED WITH FOR MEDICAL CARE. HE MAY GET SEPTIC IF HE IS NOT TAKEN CARE OFF. MR. PUGH FAILED TO RESPOND TO ORAL ANTIBIOTICS AND NEEDED IV ABX. HE RESPONDED WELL BUT HIS BP KEPT ON DROPPING LOW. HE COULD NOT TOLERATE DIURETICS. HE IS IN OVERALL POOR GENERAL CONDITION WITH MORBID OBESITY AND DM. HIS SON IS AWARE OF IT. HE WAS SENT TO [place] IN STABLE CONDITION BUT LATER HE WITH OVERALL DECONDITIONED BODY. Vital Signs/Physical Exam: Temp Pulse Resp BP Pulse Ox 97.6 F 65 20 106/55 L 99 05/30/20 08:00 05/30/20 09:00 05/30/20 08:00 05/30/20 09:00 05/30/20 08:00 Laboratory Data at Discharge: WBC 10.0 K/uL (4.3-10.9) 05/30/20 05:17 Hgb 8.8 g/dL (13.6-17.9) L 05/30/20 05:17 Hct 28.1 % (39.6-49.0) L 05/30/20 05:17 Plt Count 302 K/uL (152-406) 05/30/20 05:17 Sodium 139 mmol/L (136-145) 05/30/20 05:17 Potassium 4.2 mmol/L (3.5-5.1) 05/30/20 05:17 BUN 14 mg/dL (7-18) 05/30/20 05:17 Creatinine 0.95 mg/dL (0.55-1.3) 05/30/20 05:17 Glucose 121 mg/dL (74-106) H 05/30/20 05:17 Magnesium 1.9 mg/dL (1.8-2.4) 05/30/20 05:17 Total Bilirubin 0.7 mg/dL (0.2-1.0) 05/29/20 03:58 AST 12 U/L (15-37) L 05/29/20 03:58 ALT 12 U/L (12-78) 05/29/20 03:58 Alkaline Phosphatase 67 U/L (45-117) 05/29/20 03:58 LDL Cholesterol Direct 34 mg/dL (100-129) L 05/29/20 03:58 Home Medications: Apixaban [Eliquis] 5 mg PO BID 03/26/20 Finasteride [Proscar*] 5 mg PO DAILY 03/26/20 Aspirin Chewable [Aspirin Chewable*] 81 mg PO DAILY 05/15/20 Atorvastatin Calcium [Lipitor*] 20 mg PO BEDTIME 05/15/20 Oxybutynin Chloride [Oxybutynin Chloride ER] 10 mg PO DAILY 05/15/20 Tamsulosin [Flomax*] 0.4 mg PO BEDTIME 05/15/20 Lisinopril [Zestril] 2.5 mg PO DAILY 05/24/20 Furosemide [Lasix*] 20 mg PO DAILY tab 05/29/20 Insulin Glargine Human [Lantus*] 20 units SQ BID ml 05/29/20 Levalbuterol [Xopenex*] 0.63 mg NEB [id number] vial 05/29/20 Metoprolol Succinate [Toprol Xl*] 25 mg PO [id number] tab 05/29/20 Pregabalin [Lyrica*] 50 mg PO BID cap 05/29/20 Spironolactone [Aldactone*] 50 mg PO DAILY tab 05/29/20 Tizanidine [Zanaflex*] 4 mg PO BID tab 05/29/20 traMADol HCL [Ultram*] 50 mg PO Q4H PRN tab 05/29/20 PIPER/TAZO/NS 3.375gm [Zosyn 3.375 gm/100 ml Ns Ivpb] 3.375 gm IV Q8H 14 Days bag 05/30/20 New Medications: PIPER/TAZO/NS 3.375gm [Zosyn 3.375 gm/100 ml Ns Ivpb] 3.375 gm IV Q8H 14 Days bag Followup: Krish Levi MD [ACTIVE - CAN ADMIT] - 1-2 Weeks
== END 2020-05-30 09:15 | DRG 603 ==
LOC: 2ND 08:18
PROVIDERS: ADMIT Internal Medicine; ATTEND Internal Medicine
PROC: 02HV33Z Insertion of Infusion Device into Superior Vena Cava, Percutaneous Approach (ICD-10-PCS; principal; 2020-05-26)
DX: L03.116 Cellulitis of left lower limb (principal); Z68.41 Body mass index [BMI] 40.0-44.9, adult; L97.929 Non-pressure chronic ulcer of unspecified part of left lower leg with unspecified severity; L97.919 Non-pressure chronic ulcer of unspecified part of right lower leg with unspecified severity; I87.333 Chronic venous hypertension (idiopathic) with ulcer and inflammation of bilateral lower extremity; E66.01 Morbid (severe) obesity due to excess calories; L03.115 Cellulitis of right lower limb; E11.69 Type 2 diabetes mellitus with other specified complication; E11.42 Type 2 diabetes mellitus with diabetic polyneuropathy; I10 Essential (primary) hypertension; E78.5 Hyperlipidemia, unspecified; J44.9 Chronic obstructive pulmonary disease, unspecified; R25.2 Cramp and spasm; B95.2 Enterococcus as the cause of diseases classified elsewhere; B96.5 Pseudomonas (aeruginosa) (mallei) (pseudomallei) as the cause of diseases classified elsewhere; Z91.11 Patient's noncompliance with dietary regimen; Z88.1 Allergy status to other antibiotic agents; Z79.82 Long term (current) use of aspirin; Z79.4 Long term (current) use of insulin; Z79.01 Long term (current) use of anticoagulants; Z79.899 Other long term (current) drug therapy; Z99.81 Dependence on supplemental oxygen; Z85.51 Personal history of malignant neoplasm of bladder; Z87.891 Personal history of nicotine dependence; Z95.1 Presence of aortocoronary bypass graft; Z20.828 Contact with and (suspected) exposure to other viral communicable diseases
CPT/HCPCS: 36415; 36569; 71045; 80048; 80076; 82947; 83036; 83735; 84443; 85025; 86803; 87070; 87205; 93005; 93306; 94640; 97110; 97161; 97530; J1650; J1815; J1940; J2543; J2920; J3475; U0003

== ENCOUNTER 2020-06-01 08:30 | Emergency (ER) | payer OTHER ==
[2020-06-01] MEDS ORDERED: NA CHLORIDE 0.9% 1,000 ML IV ONE (08:31)
[2020-06-01] MEDS ORDERED: EPINEPHrine 1 MG/10 ML SYR IV ONE (08:31)
--- OUTSIDE RECORDS SUMMARY | 2020-06-01 08:33 | XMS REPORT | Continuity of Care Document ---
:1940 Author Organization [facility] t Address 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 Procedures This patient has no known procedures. Encounters Start End Encounter Admission Attending Care Care Encounter Source Date/Time Date/Time Type Type Clinicians Facility Department ID 2020-04-17 2020-04-17 Orders Doctor DANIELS [id number] 00:00:00 00:00:00 Only UnassignedLACEY [id number] [place] [facility] [id number] 2018-03-29 2018-03-29 [facility] [id number] [address] 11:00:00 11:00:00 [facility] Results This patient has no known results.
--- NOTE | 2020-06-01 09:04 | ER ---
Nurse's Notes [facility] Name: Stephan Lewis Jr Age: 79 yrs Sex: Male : 1940 Arrival Date: 06/01/2020 Time: 08:37 Bed 30 Private MD: Diagnosis: Cardiac arrest Presentation: 06/01 08:29 Chief complaint: EMS states: [facility] staff called for CPR in progress x 20 mins. hb Epi x 4 and bicarb x 1 administered prior to arrival, rhythm was PEA. Care prior to arrival: CPR via thumper performed by EMS and is still in progress IV initiated. IO to right leg. Compressions began prior to arrival. 08:29 Acuity: ANASTASIA 1 hb 08:29 Method Of Arrival: EMS: [facility] hb 09:23 Risk Assessment: Do you want to hurt yourself or someone else? Unable to obtain. sv 09:24 Coronavirus screen: Unable to complete, pt . Ebola Screen: Unable to complete sv the Ebola screening because: pt . Historical: - Allergies: 09:16 Sulfa (Sulfonamide Antibiotics); hb - PMHx: 09:16 Atrial Fib; Hyperlipidemia; Depression; neuropathy; Hypertension; DVT; Diabetes - IDDM; hb Dysmetabolic syndrome X; COPD; Bladder cancer; Cererbral aneurysm, non-ruptured (2009); CHF; lymphedema; PAD; rotator cuff tear; - PSHx: 09:16 Left leg stent; Cardiac bypass; Heart stents; hb - Immunization history:: Adult Immunizations unknown. - Family history:: not pertinent. - Social history:: Smoking status: unknown. - Hospitalizations: : No recent hospitalization is reported. - History obtained from: Medical records and EMS. Screenin:16 Abuse screen: unable to complete. Nutritional screening: unable to complete. hb Tuberculosis screening: unable to complete. Assessment: 08:29 CPR assessment: unresponsive. Cardiac rhythm is PEA. hb 08:32 Reassessment: CPR paused, pulse check-PEA, CPR resumed. sv 08:35 Reassessment: CPR paused, pulse check-PEA, CPR resumed. sv 08:36 Reassessment: CPR paused, pulse check-PEA, time of called by Dr Triana. sv 11:46 Reassessment: Body released to [facility]. Dr. Levi will sign ss certificate. Vital Signs: 08:29 Pulse Ox 49% on 100% BVM; hb 08:38 Temp 98(R); sv ED Course: 08:30 Accessed PICC line. Clean \T\ dry. Dressing intact. Flushes easily. hb 08:35 Arm band placed on. sv 08:35 Patient has correct armband on for positive identification. 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 eb 08:37 Patient arrived in ED. ph 08:38 Jonnathan Triana MD is Attending Physician. rn 08:46 Rosa Maria Oh, RN is Primary Nurse. ec1 09:03 Jonnathan Triana MD is Pronouncing Provider. rn 09:14 Triage completed. hb Administered Medications: 08:31 Drug: EPINEPHrine 0.1mg/mL 1:10,000 1 mg Route: IVP; Site: PICC; sv 08:35 Drug: EPINEPHrine 0.1mg/mL 1:10,000 1 mg Route: IVP; Site: PICC; sv Point of Care Testing: Blood Glucose: 08:35 Blood Glucose: 152 mg/dL; sv Ranges: Outcome: 08:36 Patient : Time of 08:36 Pronounced by Jonnathan Triana MD sv 08:36 Condition: 08:36 Outcome Patient sv 11:47 Patient left the ED. ss Signatures: Ofelia Salcido, RN JOSUE Jonnathan Triana MD MD rn Smirch, Shelby, RN RN Ale Mccartney RN RN Rosa Moran RN RN Paty Maloney Rosa Maria Oh, RN RN ec1
--- NOTE | 2020-06-01 09:04 | EDPHYS ---
Physician Documentation [facility] Name: Stephan Lewis Jr Age: 79 yrs Sex: Male : 1940 Arrival Date: 06/01/2020 Time: 08:37 Bed 30 Private MD: ED Physician Jonnathan Triana HPI: 06/01 08:57 This 79 yrs old Male presents to ER via Unassigned with complaints of CPR. rn 08:57 Preceding the arrest, the patient collapsed, was found down. The arrest occurred at residential. Pre-hospital course: The arrest was witnessed Bystanders at the scene performed CPR. EMS care prior to arrival: initiation of ACLS, ACLS details: Initial rhythm was asystole. The presenting rhythm is asystole. Airway: oral intubation, Defibrillation was not performed, an external pacer was not used, Response to therapy: continued arrest. It is unknown whether or not the patient has had similar symptoms in the past. Found down by nurse, per report unresponsive in front of them, approx 0730, 20 min delay in calling 911, EMS reports arrival approx 10 min later with asystole, never ROSC, initially placed shelby tube then ETT, noticed blood from ETT. Recently admitted and discharged for cellulitis and has PICC line. . Historical: - Allergies: 09:16 Sulfa (Sulfonamide Antibiotics); hb - PMHx: 09:16 Atrial Fib; Hyperlipidemia; Depression; neuropathy; Hypertension; DVT; Diabetes - IDDM; hb Dysmetabolic syndrome X; COPD; Bladder cancer; Cererbral aneurysm, non-ruptured (2009); CHF; lymphedema; PAD; rotator cuff tear; - PSHx: 09:16 Left leg stent; Cardiac bypass; Heart stents; hb - Immunization history:: Adult Immunizations unknown. - Family history:: not pertinent. - Social history:: Smoking status: unknown. - Hospitalizations: : No recent hospitalization is reported. - History obtained from: Medical records and EMS. ROS: 08:57 Unable to obtain ROS due to patient is on ventilator. rn Exam: :57 Constitutional: Overweight male, intubated, GCS 3 Head/Face: Normocephalic, rn atraumatic. Eyes: Pupils 6mm, non-reactive ENT: ETT in place Cardiovascular: No Spont cardiac activity, + pulse with compressions Respiratory: ETT in place, coarse bilateral breath sounds, + bright red blood in ETT Abdomen/GI: soft, non-tender, bilateral lower quadrant ecchymosis Skin: Cool, pale MS/ Extremity: Cool extremities with cyanosis of feet Neuro: GCS 3 Vital Signs: 08:29 Pulse Ox 49% on 100% BVM; hb 08:38 Temp 98(R); sv Procedures: 08:57 CPR: See CPR flow sheet. Initial patient assessment: unresponsive, intubated, pulses rn present w/ compressions, The presenting cardiac rhythm is asystole. the patient was intubated prior to arrival, Meds given: Epinephrine despite ED evaluation and treatment, the patient . CPR was stopped at 08:36. MDM: 08:38 Patient medically screened. rn 08:39 ED course: CPR stopped at patient time of 0836. rn 08:57 Differential diagnosis: arrythmia, cardiac arrest, respiratory arrest. Data reviewed: rn vital signs, nurses notes, and as a result, I will. Counseling: I had a detailed discussion with the patient and/or guardian regarding: the historical points, exam findings, and any diagnostic results supporting the discharge/admit diagnosis. ED course: Notified son of time of and events. 06/01 09:09 Order name: Glucose, Ancillary Testing EDMS Administered Medications: 08:31 Drug: EPINEPHrine 0.1mg/mL 1:10,000 1 mg Route: IVP; Site: PICC; sv 08:35 Drug: EPINEPHrine 0.1mg/mL 1:10,000 1 mg Route: IVP; Site: PICC; sv Point of Care Testing: Blood Glucose: 08:35 Blood Glucose: 152 mg/dL; sv Ranges: Critical Glucose Levels:Adult <50 mg/dl or >400 mg/dl <40 mg/dl or >180 mg/dl Disposition: 08:57 . rn Disposition: Patient pronounced on 06/01/20 08:36 by Jonnathan Triana. Impression: Cardiac arrest. - Released to Home. Signatures: Dispatcher [employer] EDMS Ofelia Salcido RN RN sv Nieto, Roman, MD MD rn Smirch, Shelby, RN RN ss Baxter, Heather, RN RN Corrections: (The following items were deleted from the chart) 11:47 09:03 06/01/2020 09:03 Patient pronounced on 06/01/2020 at 08:36 by Jonnathan Triana. ss Impression: Cardiac arrest. Released to Home. rn
[2020-06-06 01:56] VITALS: TEMP 98
== END 2020-06-01 11:47 | disposition expired ==
LOC: ER 08:30
DX: I46.9 Cardiac arrest, cause unspecified (principal); I10 Essential (primary) hypertension; Z85.51 Personal history of malignant neoplasm of bladder; Z95.818 Presence of other cardiac implants and grafts; Z95.1 Presence of aortocoronary bypass graft; Z88.2 Allergy status to sulfonamides
CPT/HCPCS: 82947; 96374; 92950; 99285; J0171; J7030